=== PATIENT | female | born 1975 | race Caucasian/White ===

== ENCOUNTER 2019-12-07 10:55 | Day surgery (SDC) | payer OTHER ==
[2019-12-03 14:34] VITALS: BMI 31.7
[~2019-12-07 10:55] MED LIST: ALPRAZolam 0.25 MG TAB PO PRN; ALPRAZolam 0.5 MG TAB PO PRN; ASPIRIN 325 MG TAB PO ONE; NITROGLYCERIN SL TABS 0.4 MG TAB SUBLINGUAL PRN; SODIUM CHLORIDE 0.9% 1,000 ML in EMPTY BAG 1 BAG IV ONE
[2019-12-07 11:33] LABS: Glucose,Whole Blood 163 mg/dL (75-99)
[2019-12-07 11:39] VITALS: RESP 16; TEMP 98.2
[2019-12-07] MEDS ORDERED: SODIUM CHLORIDE 0.9% 1,000 ML IV ONE (11:40)
[2019-12-07 12:11] LABS: Basophils # (A) 0.1 k/uL (0-0.2); Basophils % (A) 1 %; Eosinophils # (A) 0.1 k/uL (0-0.7); Eosinophils % (A) 1 %; HCT 38.7 % (34.0-46.0); HGB 12.8 gm/dL (11.4-16.0); Lymphocytes # (A) 1.8 k/uL (1.0-4.8); Lymphocytes % (A) 20 %; MCH 27.3 pg (25.0-35.0); MCHC 33.2 g/dL (31.0-37.0); MCV 82.2 fL (80.0-100.0); Mean Platelet Volume 8.6; Monocytes # (A) 0.4 k/uL (0-1.0); Monocytes % (A) 5 %; Neutrophils # (A) 6.2 k/uL (1.3-7.7); Neutrophils % (A) 72 %; Platelet Count 330 k/uL (150-450); RBC 4.71 m/uL (3.80-5.40); RDW 13.6 % (11.5-15.5); WBC 8.7 k/uL (3.8-10.6)
[2019-12-07 12:21] LABS: African American GFR (CKD) >90 (>60 ml/min/1.73 sqM); Anion Gap 8 mmol/L; Blood Urea Nitrogen 10 mg/dL (7-17); Calcium 9.8 mg/dL (8.4-10.2); Carbon Dioxide 29 mmol/L (22-30); Chloride 102 mmol/L (98-107); Glucose 169 mg/dL (74-99); Non-African American GFR(CKD) >90 (>60 ml/min/1.73 sqM); Potassium 4.1 mmol/L (3.5-5.1); Sodium 139 mmol/L (137-145)
[2019-12-07] MEDS ORDERED: hydrALAZINE HCL 20 MG/ML 1 ML VIAL IV ONE (12:24)
[2019-12-07] MEDS ORDERED: MIDAZOLAM 2 MG/2 ML VIAL IV ONE (12:35)
[2019-12-07] MEDS ORDERED: LIDOCAINE 1% INJ 10MG/ML (20 ML MDV) SQ ONE (12:38)
[2019-12-07] MEDS ORDERED: VERAPAMIL SYRINGE (5 MG/10 ML) INTRAARTER ONE (12:39)
[2019-12-07] MEDS ORDERED: IOPAMIDOL-370 125ML BTL INJ ONE (12:53)
[2019-12-07] MEDS ORDERED: RX INFO: IV CONTRAST WAS GIVEN 1 EACH MISC MISCELLANE PRN (13:06)
[2019-12-07] MEDS ORDERED: SODIUM CHLORIDE 0.9% 1,000 ML IV SCH (13:15)
--- NOTE | 2019-12-07 16:56 | CC ---
CARDIAC CATHETERIZATION REPORT DATE OF SERVICE: 12/07/2019 PERFORMING PHYSICIAN: Zachariah Beltran MD. PROCEDURE PERFORMED: Selective right and left coronary angiogram. INDICATION: This is a 44-year-old female patient who underwent in the past the LAD PW ablations, as well as she is known to have diabetes, hypertension, and dyslipidemia, was experiencing symptoms of chest discomfort. She underwent a stress echocardiogram in the office and that revealed an anterior ischemia and because of that, she was brought today to undergo a heart catheterization. APPROACH: Right radial artery. COMPLICATION: None. LEVEL OF SEDATION: Moderate with sedation length of 18 minutes. PROCEDURE DESCRIPTION: After obtaining an informed consent, the patient was brought to the cardiac labor standards director. The right radial artery was cannulated using micropuncture technique, the micropuncture wire passed easily, then I placed a 6-Nauruan sheath at the right radial artery. After that, I did give the patient 2 mg of verapamil IA and 8000 units of heparin IV. Selective right and left coronary angiogram performed using JR4 and JL3.5 catheters. Left heart catheterization was performed using 5-Nauruan pigtail catheter. The procedure was completed without any complication. SELECTIVE CORONARY ANGIOGRAM: 1. The right coronary artery is a large caliber vessel and it is a dominant vessel. The proximal RCA has mild disease only. The mid RCA has a tubular lesion appeared to be in the range of 80%. 2. The RCA distally has mild disease only and bifurcates into PDA and PLV branches. The PDA branch appeared to be a medium caliber vessel with mild diffuse only and the PLV branch appeared to be angiographically normal. 3. The left main is angiogram is has mild disease only. It bifurcates into LCX and LAD. 4. The LCX is a large caliber vessel, it is a nondominant vessel. The proximal LCX appeared to have intermediate disease only. The mid LCX has a lesion, appeared to be in the range of 80%. The LCX distally appeared to have another lesion in the range of 99.9%. 5. The proximal LAD appeared to have intermediate disease in the range of 60%. The mid LAD has a has a critical lesion in the range of 99.9%. The LAD distally appeared to be appeared to be angiographically normal. The LAD gives rise into a diagonal branch. HEMODYNAMICS: The LVEDP was 12 mmHg with mild gradient across the aortic valve. CONCLUSION: 1. Severe triple-vessel coronary artery disease. 2. Normal left ventricular end-diastolic pressure. 3. Mild gradient across aortic valve. POSTPROCEDURE MANAGEMENT: I advised the patient to undergo coronary artery bypass grafting and to be seen by surgeon today, but the patient would like to go home today and have that done as an outpatient. MMBLAISE / VADIMN: [id number] /
[2019-12-07 18:34] VITALS: BP 154/72; PULSE 65
== END 2019-12-07 18:10 | disposition home or self-care (01) ==
LOC: CATHCVL 10:55
PROVIDERS: ATTEND Internal Medicine Interventional Cardiology
DX: I25.110 Atherosclerotic heart disease of native coronary artery with unstable angina pectoris (principal); R94.39 Abnormal result of other cardiovascular function study; E11.9 Type 2 diabetes mellitus without complications; I10 Essential (primary) hypertension; E78.5 Hyperlipidemia, unspecified; E78.00 Pure hypercholesterolemia, unspecified; Z82.49 Family history of ischemic heart disease and other diseases of the circulatory system; Z72.0 Tobacco use; Z79.82 Long term (current) use of aspirin; Z79.4 Long term (current) use of insulin; Z79.899 Other long term (current) drug therapy
CPT/HCPCS: 93458; 80048; 85025; 81025; C1769; C1894; J2250; J0360; J2001; J1644; Q9967

== ENCOUNTER → 2019-12-18 | Outpatient (CLI) | payer OTHER ==
[2019-12-18 10:28] LABS: HCT 36.3 % (34.0-46.0); HGB 11.4 gm/dL (11.4-16.0); MCH 26.2 pg (25.0-35.0); MCHC 31.4 g/dL (31.0-37.0); MCV 83.6 fL (80.0-100.0); Mean Platelet Volume 8.7; Platelet Count 304 k/uL (150-450); RBC 4.35 m/uL (3.80-5.40); RDW 14.2 % (11.5-15.5); WBC 12.5 k/uL (3.8-10.6)
[2019-12-18 10:41] LABS: Partial Thromboplastin Time 24.4 sec (22.0-30.0); Prothrombin Time 10.3 sec (9.0-12.0)
[2019-12-18 10:59] LABS: Appearance,Urine Cloudy (Clear); Bacteria,Urine Rare /hpf; Bilirubin,Urine Negative (Negative); Blood,Urine Negative (Negative); Budding Yeast,Urine Rare /hpf; Color,Urine Light Yellow; Glucose,Urine (UA) Trace (Negative); Ketones,Urine Negative (Negative); Leukocyte Esterase,Urine Large (Negative); Mucus,Urine Rare /hpf; Nitrite,Urine Negative (Negative); PH, Urine 5.5 (5.0-8.0); Protein,Urine Negative (Negative); RBC,Urine 4 /hpf (0-5); Specific Gravity,Urine 1.007 (1.001-1.035); Squamous Epithelial Cell,Urine 3 /hpf (0-4); Urobilinogen,Urine <2.0 mg/dL (<2.0); WBC,Urine 14 /hpf (0-5)
--- NOTE | 2019-12-18 12:04 | XR ---
EXAMINATION TYPE: XR chest 2V DATE OF EXAM: 12/18/2019 COMPARISON: NONE TECHNIQUE: PA and lateral views submitted. HISTORY: Preoperative x-ray FINDINGS: The lungs are clear and there is no pneumothorax, pleural effusion, or focal pneumonia. No overt fa ilure. Hypertrophic and degenerative change of the spine. IMPRESSION: 1. No acute process.
[2019-12-18 15:47] LABS: African American GFR (CKD) 103.9 (60.0-200.0); Albumin 4.5 g/dL (3.80-4.90); Albumin/Globulin Ratio 1.96 (1.60-3.17); Anion Gap 13.2 mmol/L (4.00-12.00); BUN/Creat Ratio 12.5 Ratio (12.00-20.00); Calcium 10.1 mg/dL (8.7-10.3); Carbon Dioxide 28.8 mmol/L (21.6-31.8); Chol/HDL Ratio 3.03; Globulin 2.3 g/dL (1.6-3.3); LDL Cholesterol,Calculated 53.8 mg/dL (0.0-131.0); Magnesium 1.6 mg/dL (1.5-2.4); Non-African American GFR(CKD) 89.7 (60.0-200.0); Potassium 4.1 mmol/L (3.5-5.5); Total Bilirubin 0.9 mg/dL (0.3-1.2); Total Protein 6.8 g/dL (6.2-8.2); VLDL Calculation 21.2 mg/dL (5.00-40.00)
--- NOTE | 2019-12-18 16:09 | US ---
EXAMINATION TYPE: US carotid duplex BILAT DATE OF EXAM: 12/18/2019 COMPARISON: NONE CLINICAL HISTORY: I25.10 Atherosclerotic heart disease of [place] cor. Pre heart surgery. EXAM MEASUREMENTS: RIGHT: Peak Systolic Velocity (PSV) cm/sec ----- Right CCA: 61.9 ----- Right ICA: 234.7 ----- Right ECA: 491.1 ICA/CCA ratio: 3.8 RIGHT: End Diastole cm/sec ----- Right CCA: 16.9 ----- Right ICA: 89.2 ----- Right ECA: 0 LEFT: Peak Systolic Velocity (PSV) cm/sec ----- Left CCA: 82.3 ----- Left ICA: 99.5 ----- Left ECA: 212.1 ICA/CCA ratio: 1.2 LEFT: End Diastole cm/sec ----- Left CCA: 24.1 ----- Left ICA: 31.7 ----- Left ECA: 0 VERTEBRALS (direction of flow): Right Vertebral: Antegrade Left Vertebral: Antegrade Rhythm: Normal Turbulent flow within the right internal carotid artery system is evident. Elevated velocities bilate rally. IMPRESSION: 1. There is significant flow-limiting stenosis within the right internal carotid artery greater than 70% based on velocities. Atheromatous plaquing is evident. 2. Plaquing present on the left appears milder without elevated velocity. There is however elevated velocity within left external carotid artery. Criteria for Assigning % of Stenosis / Diameter reduction (Estimation based on the indirect measurements of the internal carotid artery velocities (ICA PSV). 1. Normal (no stenosis)=ICA PSV < 125 cm/s: ratio < 2.0: ICA EDV<40 cm/s. 2. Less than 50% stenosis=ICA PSV < 125 cm/s: ratio < 2.0: ICA EDV<40 cm/s. 3. 50 to 69% stenosis=ICA PSV of 125 to 230 cm/s: ration 2.0 ? 4.0: ICA EDV 40-100 cm/s. 4. Greater than 70% stenosis to near occlusion= ICA PSV > 230 cm/s: ratio > 4.0: ICA EDV > 100 cm/s. 5. Near occlusion= ICA PSV velocities may be low or undetectable: variable ratio and ICA EDV. 6. Total occlusion=unable to detect flow. A Yellow level critical message alert has been initiated for Odell Kelly MD via the [employer] Critical Results System on 12/18/2019 4:06 PM. This message alert has been sent to [facility] via the preferences provided by the clinician for the receipt of Radiology Critical Findings. Get[employer] ID [id number].
[2019-12-18 16:35] LABS: Hepatitis A Antibody IgM Non-Reactive (Non-Reactive); Hepatitis B Core IgM Non-Reactive (Non-Reactive); Hepatitis B Surface Antigen Non-Reactive (Non-Reactive); Hepatitis C IgG Antibody Non-Reactive (Non-Reactive)
[2019-12-18 16:42] LABS: Hemoglobin A1C 7.3 % (4.0-6.0)
--- NOTE | 2019-12-23 13:01 | P.VSCSTY ---
Greater Saphenous Vein Mapping This is bilateral lower extremity greater saphenous vein mapping. Date of service: 12/18/2019 Vein quality and ultrasound appearance: Oh endoluminal thrombus or wall changes are seen. Vein size groin right : 9.0 x 67.7 groin left: 6.7 x 6.1 High thigh right: 7.2 x 6.2 high thigh left: 5.6 x 3.5 Mid thigh right: 4.8 x 4.5 mid thigh left: 6.2 x 3.8 Above-knee right: 3.3 x 2.8 above- knee left: 4.3 x 4.0 Below knee right: 3.1 x 2.2 below-knee left: 4.0 x 3.5 Mid calf right: 2.1 x 2.0 mid calf left: 4.3 x 2.5 Ankle right: 2.3 x 2.3 ankle left: 1.5 x 1.4 Impression: Usable bilateral greater saphenous vein. Distal vein at the left ankle is small..
--- NOTE | 2019-12-23 13:02 | P.ARTDOP ---
Arterial Doppler LOWER EXTREMITY ARTERIAL DOPPLER: DATE OF SERVICE: 12/18/2019 Reason for study: Prepped CABG. Doppler waveforms: Multiphasic bilaterally throughout. Pulse volume recording: []. Pressure gradients: None. Ankle-brachial indices: 0.98 on the right and greater than 1 on the left.. Toe brachial indices: [] on the right, [] on the left Impression: Normal study.
== END | disposition home or self-care (01) ==
LOC: LABWHC1 09:00
PROVIDERS: ATTEND Surgery
DX: I65.21 Occlusion and stenosis of right carotid artery (principal); Z88.2 Allergy status to sulfonamides; Z88.8 Allergy status to other drugs, medicaments and biological substances
CPT/HCPCS: 36415; 71046; 80053; 80061; 80074; 81001; 83036; 83735; 84443; 85027; 85610; 85730; 87070; 87086; 93005; 93880; 93922; 93923; 93970; 94150

== ENCOUNTER → 2020-01-06 | Outpatient (CLI) | payer OTHER ==
[2020-01-06 08:14] LABS: African American GFR (CKD) >90 (>60 ml/min/1.73 sqM); Blood Urea Nitrogen 8 mg/dL (7-17); Non-African American GFR(CKD) >90 (>60 ml/min/1.73 sqM)
--- NOTE | 2020-01-06 10:19 | CT ---
EXAMINATION TYPE: CT head without contrast CT angio head neck DATE OF EXAM: 01/06/2020 COMPARISON: None HISTORY: 44-year-old female I65.29, pre-open heart surgery, abnormal US at [facility], pre open heart TECHNIQUE: Contiguous axial scanning of the head without IV contrast. Subsequent scanning of the head and neck performed with IV Contrast, patient injected with 65 mL of Isovue 370. Coronal/sagittal MIP reconstructions performed. 3-D reconstructions generated on a dedicated workstation. CT DLP: 1171.4 mGycm Automated exposure control for dose reduction was used. FINDINGS: NONCONTRAST CT HEAD: No evidence for acute intracranial hemorrhage, acute ischemic change, mass, mass effect, midline shif t, or extra-axial fluid collection. No hydrocephalus. No effacement of cerebral sulci or basal subara chnoid cisterns. Carter-white matter differentiation is maintained. Subtle benign basal ganglionic calcifications on the right. Mild cerebral cortical atrophy. Paranasal sinuses and mastoid air cells well pneumatized. Orbits and globes are intact. CTA NECK: 4 mm peripheral right upper lobe pulmonary nodule. Six-month follow-up CT chest recommended to reasse ss and survey remainder of the lungs. There is direct takeoff of the left vertebral artery directly from the aortic arch. Left vertebral ar bunny is dominant. Both vertebral arteries are patent throughout their course. The right common carotid artery is patent. There is circumferential plaque narrowing the right carotid bulb down to 2.0 mm. This is a moderate, proximally 60% proximal ICA stenosis. Left common and internal carotid arteries are patent. Mild atherosclerotic calcification plaque at th e left carotid bifurcation without significant narrowing. CTA HEAD: V4 segment right vertebral artery becomes markedly hypoplastic. Focal short segment moderate atherosc lerotic narrowing upper third basilar artery, series 18 and axial image 14. Atherosclerotic calcifications within the right carotid siphon with the largest focus in the right smiley praclinoid region making it difficult to determine the size of the patent lumen, refer to axial image 13 and coronal series 19 image 39. Otherwise, remainder of the anterior circulation is patent. No aneurysmal change is seen. IMPRESSION: 1. HEAD: Mild cerebral cortical atrophy without acute intracranial abnormality seen. 2. CTA NECK: Circumferential plaque narrowing the right carotid bulb resulting in a moderate, 60% pro ximal ICA stenosis. Variant direct takeoff of a dominant left vertebral artery directly from the aort ic arch. 3. CTA HEAD: Focal short segment moderate narrowing of the upper third basilar artery. Focal calcific ation along the supraclinoid right ICA may contribute to a moderate or moderate to severe focal steno sis. Consider MRA [place] of [place] to further evaluate. V4 segment right vertebral artery becomes mar kedly hypoplastic. 4. INCIDENTAL: 4 mm right upper lobe pulmonary nodule. 6 month follow-up CT chest recommended to reas sess and also to survey the remainder of the lungs.
== END | disposition home or self-care (01) ==
LOC: RADCTMAIN 07:31
PROVIDERS: ATTEND Surgery
DX: G31.9 Degenerative disease of nervous system, unspecified (principal); R91.1 Solitary pulmonary nodule; I65.29 Occlusion and stenosis of unspecified carotid artery
CPT/HCPCS: 82565; 84520; 70496; 70498; 36415; Q9967

== ENCOUNTER → 2020-01-19 | Outpatient (CLI) | payer OTHER ==
[2020-01-19 09:55] LABS: Partial Thromboplastin Time 24.4 sec (22.0-30.0); Prothrombin Time 10.3 sec (9.0-12.0)
[2020-01-19 09:59] LABS: ALT 18 U/L (4-34); AST 20 U/L (14-36); African American GFR (CKD) >90 (>60 ml/min/1.73 sqM); Albumin 4.9 g/dL (3.5-5.0); Alkaline Phosphatase 52 U/L (38-126); Anion Gap 10 mmol/L; Blood Urea Nitrogen 10 mg/dL (7-17); Calcium 10.4 mg/dL (8.4-10.2); Carbon Dioxide 27 mmol/L (22-30); Chloride 104 mmol/L (98-107); Glucose 182 mg/dL (74-99); Non-African American GFR(CKD) >90 (>60 ml/min/1.73 sqM); Potassium 4.8 mmol/L (3.5-5.1); Sodium 141 mmol/L (137-145); Total Bilirubin 0.8 mg/dL (0.2-1.3)
[2020-01-19 10:00] LABS: HCT 39.7 % (34.0-46.0); HGB 12.9 gm/dL (11.4-16.0); MCH 27.5 pg (25.0-35.0); MCHC 32.4 g/dL (31.0-37.0); MCV 84.8 fL (80.0-100.0); Mean Platelet Volume 8.5; Platelet Count 326 k/uL (150-450); RBC 4.68 m/uL (3.80-5.40); RDW 14.6 % (11.5-15.5); WBC 9.6 k/uL (3.8-10.6)
== END | disposition home or self-care (01) ==
LOC: LABPAT 08:59
PROVIDERS: ATTEND Surgery
DX: I25.10 Atherosclerotic heart disease of native coronary artery without angina pectoris (principal)
CPT/HCPCS: 80053; 85027; 85610; 85730; 36415; U0003

== ENCOUNTER 2020-01-21 05:52 | Inpatient (IN) | payer OTHER ==
--- NOTE | 2020-01-20 11:24 | P.ARTDOP ---
Arterial Doppler Bilateral radial artery studies: Date of study: 01/19/2020 Reason for study: Pre-CABG Findings: Doppler assessment shows no segmental or right to left pressure gradients. Digital plethysmography with radial artery compression shows no significant pressure changes. Imaging shows the right radial to be 2.4 x 2.6 mm proximally, 2.0 x 2.3 mm mid and 2.0 x 2.0 millimeters distally. Left radial is 2.5 x 2.3 mm proximally, 2.2 x 2.3 mm mid, and 2.3 x 1.9 mm distally Both radial arteries appear usable. Clinical correlation recommended.
[~2020-01-21 05:52] MED LIST changes: +ALBUMIN HUMAN 25% 50 ML IV ONE; +ALBUMIN HUMAN 5% 500 ML IVPB ONE; -ALPRAZolam 0.25 MG TAB PO PRN; -ALPRAZolam 0.5 MG TAB PO PRN; +ATORVASTATIN 10 MG TAB PO ONE; +CALCIUM CHLORIDE 100 MG/ML 10 ML SYRINGE IV ONE; +CHLORHEXIDINE GLUCONATE 15 ML CUP MUCOUS MEM ONE; +CLEVIDIPINE BUTYRATE 25 MG in EMPTY BAG 1 BAG IV ONE; +DEXTROSE 5% IN WATER 1,000 ML with POTASSIUM CHLORIDE 110 MEQ, MAGNESIUM SULFATE 16 MEQ... IV ONE; +DEXTROSE 5% IN WATER 1,000 ML with POTASSIUM CHLORIDE 25 MEQ, SODIUM CHLORIDE 2.5MEQ/ML... IRRIGATION ONE; +DILTIAZEM 125 MG in SODIUM CHLORIDE 0.9% 100 ML IV ONE; +HEPARIN SODIUM 1,000 UN/ML (10ML VL) IV ONE; +HEPARIN SODIUM,PORCINE 5,000 UNIT in SODIUM CHLORIDE 0.9% 500 ML 500 ML IV ONE; +INSULIN REGULAR 100 UNIT in SODIUM CHLORIDE 0.9% 100 ML IV ONE; +LACTATED RINGERS 1,000 ML IV ONE; +MAGNESIUM SULFATE MG 500 MG/ML IV ONE; +MANNITOL 25% 12.5 GM/50 ML VIAL IV ONE; +METOPROLOL TARTRATE 12.5 MG TAB PO ONE; -NITROGLYCERIN SL TABS 0.4 MG TAB SUBLINGUAL PRN; +NITROGLYCERIN-D5W PMX 25 MG/250 ML BTL IV ONE; +NITROGLYCERIN-D5W PMX 50 MG in DEXTROSE/WATER 1 250ML.BAG IV ONE; +NOREPINEPHRINE 4 MG in SODIUM CHLORIDE 0.9% 250 ML IV ONE; +PAPAVERINE 360 MG in SODIUM CHLORIDE 0.9% 90 ML IV ONE; +PHENYLEPHRINE 10 MG/ML VIAL IV ONE; +PHENYLEPHRINE 40 MG in SODIUM CHLORIDE 0.9% 250 ML IV ONE; +PROPOFOL 1,000 MG/100 ML VIAL IV ONE; +PROTAMINE SULFATE 10 MG/ML 25 ML VIAL IV ONE; +PROTAMINE SULFATE 250 MG in EMPTY BAG 1 BAG IV ONE; +SODIUM BICARB 8.4% 50 ML SYR (1 MEQ/ML) IV ONE; +SODIUM CHLORIDE 0.9% 1,000 ML IV ONE; -SODIUM CHLORIDE 0.9% 1,000 ML in EMPTY BAG 1 BAG IV ONE; +TRANEXAMIC ACID 2,000 MG in SODIUM CHLORIDE 0.9% 80 ML IV ONE; +ceFAZolin 1,000 MG in SODIUM CHLORIDE 0.9% IRRIGATIO 1,000 ML IRRIGATION ONE; +ceFAZolin 2,000 MG in SODIUM CHLORIDE 0.9% 30 ML IVPB ONE
[2020-01-21] MEDS ORDERED: TRANEXAMIC ACID 2,000 MG in SODIUM CHLORIDE 0.9% 80 ML IV ONE (06:00)
[2020-01-21] MEDS ORDERED: LIDOCAINE 1% (10MG/ML) FOR IV START INTRADERMA ONE (06:24)
[2020-01-21 06:39] LABS: Glucose,Whole Blood 142 mg/dL (75-99)
[2020-01-21] MEDS ORDERED: LIDOCAINE 2% SYG (PF) 100 MG/5 ML ONE (07:48)
[2020-01-21] MEDS ORDERED: HEPARIN SODIUM,PORCINE 10,000 UNIT/ML 1 ML VIAL ONE (07:48)
[2020-01-21] MEDS ORDERED: PROTAMINE SULFATE 10 MG/ML 25 ML VIAL IV ONE (07:48)
[2020-01-21] MEDS ORDERED: SODIUM CHLORIDE 0.9% 250 ML BAG ONE (07:48)
[2020-01-21] MEDS ORDERED: fentaNYL (PF) 50 MCG/ML 50 ML VIAL ONE (07:48)
[2020-01-21] MEDS ORDERED: PROPOFOL 10 MG/ML 20 ML VIAL IV ONE (07:48)
[2020-01-21] MEDS ORDERED: VECURONIUM 10 MG VIAL IV ONE (07:48)
[2020-01-21] MEDS ORDERED: ALBUMIN HUMAN 5% (25gm) 500 ML VIAL IVPB ONE (07:48)
[2020-01-21] MEDS ORDERED: NITROGLYCERIN-D5W PMX 50 MG/250 ML BOTTLE IV ONE (07:48)
[2020-01-21] MEDS ORDERED: INSULIN REGULAR 100 UNIT/ML VIAL ONE (07:48)
[2020-01-21] MEDS ORDERED: TRANEXAMIC ACID 1,000 MG/10 ML VIAL ONE (07:48)
[2020-01-21] MEDS ORDERED: POTASSIUM CHLORIDE OPEN HEART 20 MEQ/50 ML BAG IVPB ONE (07:48)
[2020-01-21] MEDS ORDERED: fentaNYL (PF) 50 MCG/ML 2 ML AMP ONE (07:48)
[2020-01-21] MEDS ORDERED: SODIUM CHLORIDE 0.9% IRRIG 1,000 ML BTL IRRIGATION ONE (07:48)
[2020-01-21] MEDS ORDERED: MAGNESIUM SULFATE 4 MEQ/ML 10ML VIAL ONE (07:48)
[2020-01-21] MEDS ORDERED: ELECTROLYTE-R (PH 7.4) 1,000 ML IV.SOLN IV ONE (07:48)
[2020-01-21] MEDS ORDERED: MIDAZOLAM 2 MG/2 ML VIAL ONE (07:48)
[2020-01-21 08:36] LABS: ABG Base Excess 1.6 mmol/L; ABG Glucose Whole Blood 133 mg/dL (75-99); ABG HCO3 26 mmol/L (21-25); ABG Hematocrit 33 % (34.0-46.0); ABG Ionized Calcium 4.8 mg/dL (4.5-5.3); ABG Lactic Acid Whole Blood 0.7 mmol/L (0.5-1.6); ABG Oxygen Saturation 98.1 % (94-97); ABG PCO2 38 mmHg (35-45); ABG PH 7.44 (7.35-7.45); ABG PO2 97 mmHg (83-108); ABG Potassium Whole Blood 3.7 mmol/L (3.4-4.5); ABG Sodium Whole Blood 142 mmol/L (135-146); ABG TCO2 27 mmol/L (19-24)
[2020-01-21] MEDS ORDERED: PAPAVERINE 360 MG in SODIUM CHLORIDE 0.9% 90 ML IV ONE (09:55)
[2020-01-21] MEDS ORDERED: SODIUM CHLORIDE 0.9% 500 ML 500 ML with HEPARIN SODIUM,PORCINE 5,000 UNIT IV ONE ×2 (09:55)
[2020-01-21] MEDS ORDERED: ceFAZolin 1,000 MG in SODIUM CHLORIDE 0.9% 1,000 ML IRRIGATION ONE (09:56)
[2020-01-21 11:50] LABS: ABG Base Excess 0.1 mmol/L; ABG Glucose Whole Blood 143 mg/dL (75-99); ABG HCO3 24 mmol/L (21-25); ABG Hematocrit 26 % (34.0-46.0); ABG Ionized Calcium 4.7 mg/dL (4.5-5.3); ABG Lactic Acid Whole Blood 0.5 mmol/L (0.5-1.6); ABG Oxygen Saturation 99.5 % (94-97); ABG PCO2 37 mmHg (35-45); ABG PH 7.43 (7.35-7.45); ABG PO2 162 mmHg (83-108); ABG Potassium Whole Blood 3.4 mmol/L (3.4-4.5); ABG Sodium Whole Blood 141 mmol/L (135-146); ABG TCO2 26 mmol/L (19-24)
[2020-01-21 12:32] LABS: ABG Base Excess -0.6 mmol/L; ABG Glucose Whole Blood 137 mg/dL (75-99); ABG HCO3 25 mmol/L (21-25); ABG Ionized Calcium 4.6 mg/dL (4.5-5.3); ABG Lactic Acid Whole Blood 0.5 mmol/L (0.5-1.6); ABG Oxygen Saturation 99.8 % (94-97); ABG PCO2 41 mmHg (35-45); ABG PH 7.38 (7.35-7.45); ABG PO2 174 mmHg (83-108); ABG Potassium Whole Blood 3.2 mmol/L (3.4-4.5); ABG Sodium Whole Blood 142 mmol/L (135-146); ABG TCO2 26 mmol/L (19-24)
[2020-01-21 13:31] LABS: ABG Base Excess -1.3 mmol/L; ABG Glucose Whole Blood 125 mg/dL (75-99); ABG HCO3 24 mmol/L (21-25); ABG Ionized Calcium 4.3 mg/dL (4.5-5.3); ABG Lactic Acid Whole Blood 0.5 mmol/L (0.5-1.6); ABG PCO2 39 mmHg (35-45); ABG PH 7.39 (7.35-7.45); ABG PO2 356 mmHg (83-108); ABG Potassium Whole Blood 3.7 mmol/L (3.4-4.5); ABG Sodium Whole Blood 140 mmol/L (135-146); ABG TCO2 25 mmol/L (19-24)
[2020-01-21 14:02] LABS: ABG Base Excess -2.1 mmol/L; ABG Glucose Whole Blood 193 mg/dL (75-99); ABG HCO3 23 mmol/L (21-25); ABG Ionized Calcium 4.4 mg/dL (4.5-5.3); ABG Lactic Acid Whole Blood 0.5 mmol/L (0.5-1.6); ABG Oxygen Saturation 99.9 % (94-97); ABG PCO2 42 mmHg (35-45); ABG PH 7.35 (7.35-7.45); ABG PO2 317 mmHg (83-108); ABG Potassium Whole Blood 4.4 mmol/L (3.4-4.5); ABG Sodium Whole Blood 140 mmol/L (135-146); ABG TCO2 25 mmol/L (19-24)
[2020-01-21 14:33] LABS: ABG Base Excess 4.6 mmol/L; ABG Glucose Whole Blood 206 mg/dL (75-99); ABG HCO3 30 mmol/L (21-25); ABG Ionized Calcium 4.2 mg/dL (4.5-5.3); ABG Lactic Acid Whole Blood 0.9 mmol/L (0.5-1.6); ABG Oxygen Saturation 99.7 % (94-97); ABG PCO2 46 mmHg (35-45); ABG PH 7.42 (7.35-7.45); ABG PO2 210 mmHg (83-108); ABG Potassium Whole Blood 3.9 mmol/L (3.4-4.5); ABG Sodium Whole Blood 143 mmol/L (135-146); ABG TCO2 31 mmol/L (19-24)
[2020-01-21 15:10] LABS: ABG Base Excess 0.6 mmol/L; ABG Glucose Whole Blood 233 mg/dL (75-99); ABG HCO3 26 mmol/L (21-25); ABG Ionized Calcium 4.3 mg/dL (4.5-5.3); ABG Lactic Acid Whole Blood 1.7 mmol/L (0.5-1.6); ABG PCO2 43 mmHg (35-45); ABG PH 7.38 (7.35-7.45); ABG PO2 302 mmHg (83-108); ABG Potassium Whole Blood 3.9 mmol/L (3.4-4.5); ABG Sodium Whole Blood 140 mmol/L (135-146); ABG TCO2 27 mmol/L (19-24)
[2020-01-21] MEDS ORDERED: MUPIROCIN 2% OINT 22 GM TUBE NASAL ONE (15:15)
[2020-01-21 15:47] LABS: ABG Base Excess -1.1 mmol/L; ABG Glucose Whole Blood 178 mg/dL (75-99); ABG HCO3 24 mmol/L (21-25); ABG Ionized Calcium 4.4 mg/dL (4.5-5.3); ABG Oxygen Saturation 99.7 % (94-97); ABG PCO2 44 mmHg (35-45); ABG PH 7.36 (7.35-7.45); ABG PO2 242 mmHg (83-108); ABG Potassium Whole Blood 3.9 mmol/L (3.4-4.5); ABG Sodium Whole Blood 141 mmol/L (135-146); ABG TCO2 26 mmol/L (19-24)
[2020-01-21 16:39] LABS: ABG Base Excess 0.4 mmol/L; ABG Glucose Whole Blood 132 mg/dL (75-99); ABG HCO3 25 mmol/L (21-25); ABG Hematocrit 26 % (34.0-46.0); ABG Ionized Calcium 4.5 mg/dL (4.5-5.3); ABG Oxygen Saturation 97.9 % (94-97); ABG PCO2 40 mmHg (35-45); ABG PH 7.41 (7.35-7.45); ABG PO2 99 mmHg (83-108); ABG Potassium Whole Blood 3.3 mmol/L (3.4-4.5); ABG Sodium Whole Blood 142 mmol/L (135-146); ABG TCO2 26 mmol/L (19-24)
[2020-01-21 17:01] LABS: ABG Hematocrit 24 % (34.0-46.0)
[2020-01-21 17:02] LABS: ABG Hematocrit 23 % (34.0-46.0)
[2020-01-21 17:02] LABS: ABG Hematocrit 22 % (34.0-46.0)
[2020-01-21 17:03] LABS: ABG Hematocrit 22 % (34.0-46.0)
[2020-01-21 17:03] LABS: ABG Hematocrit 22 % (34.0-46.0)
[2020-01-21 17:04] LABS: ABG Hematocrit 22 % (34.0-46.0); ABG Lactic Acid Whole Blood 2.7 mmol/L (0.5-1.6)
[2020-01-21] MEDS ORDERED: PROPOFOL 1,000 MG in EMPTY BAG 1 BAG IV SCH (17:17)
[2020-01-21] MEDS ORDERED: DEXTROSE 5% IN WATER 100 ML with AMIODARONE 150 MG IV PRN (17:17)
[2020-01-21] MEDS ORDERED: NITROGLYCERIN-D5W PMX 50 MG in DEXTROSE/WATER 1 250ML.BAG IV SCH (17:17)
[2020-01-21] MEDS ORDERED: DILTIAZEM 125 MG in SODIUM CHLORIDE 0.9% 100 ML IV SCH (17:17)
[2020-01-21] MEDS ORDERED: IPRATROPIUM-ALBUTEROL 3 ML NEB INHALATION PRN (17:17)
[2020-01-21] MEDS ORDERED: ALBUMIN HUMAN 5% 250 ML in EMPTY BAG 1 BAG IVPB PRN (17:17)
[2020-01-21] MEDS ORDERED: hydrALAZINE HCL 20 MG/ML 1 ML VIAL IVP PRN (17:17)
[2020-01-21] MEDS ORDERED: AMIODARONE 360 MG in DEXTROSE 5% IN WATER 200 ML IV PRN ×2 (17:17)
[2020-01-21] MEDS ORDERED: METOCLOPRAMIDE 5 MG/ML 2 ML VIAL IVP PRN (17:17)
[2020-01-21] MEDS ORDERED: Magnesium Replacement Protocol 1 EACH MISC MISCELLANE PRN (17:17)
[2020-01-21] MEDS ORDERED: BENZOCAINE/MENTHOL LOZENG 1 EACH LOZENGE MUCOUS MEM PRN (17:17)
[2020-01-21] MEDS ORDERED: Potassium Replacement Protocol 1 EACH MISC MISCELLANE PRN (17:17)
[2020-01-21] MEDS ORDERED: Phosphorus Replacement Protoco 1 EACH MISC MISCELLANE PRN (17:17)
[2020-01-21] MEDS ORDERED: CALCIUM GLUCONATE 2 GM in SODIUM CHLORIDE 0.9% 100 ML IVPB PRN (17:17)
[2020-01-21] MEDS ORDERED: AMIODARONE 300 MG in DEXTROSE 5% IN WATER 250 ML IV PRN ×2 (17:17)
[2020-01-21 18:06] LABS: Glucose,Whole Blood 99 mg/dL (75-99)
[2020-01-21 18:13] LABS: Basophils % (A) 0 %; Eosinophils % (A) 0 %; HCT 24.1 % (34.0-46.0); Lymphocytes # (A) 2.2 k/uL (1.0-4.8); Lymphocytes % (A) 20 %; MCH 28.3 pg (25.0-35.0); MCHC 33.7 g/dL (31.0-37.0); MCV 84.1 fL (80.0-100.0); Monocytes # (A) 0.7 k/uL (0-1.0); Monocytes % (A) 7 %; Neutrophils # (A) 8.1 k/uL (1.3-7.7); Neutrophils % (A) 72 %; RBC 2.86 m/uL (3.80-5.40); RDW 14.7 % (11.5-15.5); WBC 11.2 k/uL (3.8-10.6)
[2020-01-21] MEDS: MORPHINE SULFATE 2 MG/ML SYRINGE IVP PRN ×2 (18:13→23:43)
--- NOTE | 2020-01-21 18:17 | XR ---
EXAMINATION TYPE: XR chest 1V portable DATE OF EXAM: 01/21/2020 COMPARISON: 12/18/2019 HISTORY: Preop cardiac surgery TECHNIQUE: FINDINGS: Endotracheal tube is 3.5 cm from the chon. There is some coarse interstitial density in t he mid and lower lung avelar. There is right jugular catheter with the tip in the main pulmonary kings ry. There is nasogastric tube in the stomach. There is no definite pleural effusion. Atrium. IMPRESSION: There is some mild pulmonary interstitial edema that appears new compared to recent exam. No pulmonary consolidation.
[2020-01-21 18:20] LABS: HGB 8.1 gm/dL (11.4-16.0); Platelet Count 161 k/uL (150-450)
[2020-01-21 18:21] LABS: INR 1.2 (<1.2); Partial Thromboplastin Time 26.2 sec (22.0-30.0); Prothrombin Time 12.5 sec (9.0-12.0)
[2020-01-21] MEDS: SODIUM CHLORIDE 0.9% 1,000 ML IV SCH (18:23)
[2020-01-21] MEDS: CLEVIDIPINE BUTYRATE 25 MG in EMPTY BAG 1 BAG IV SCH (18:24)
[2020-01-21 18:25] LABS: ALT 11 U/L (4-34); AST 42 U/L (14-36); African American GFR (CKD) >90 (>60 ml/min/1.73 sqM); Albumin 3.6 g/dL (3.5-5.0); Alkaline Phosphatase 24 U/L (38-126); Anion Gap 9 mmol/L; Blood Urea Nitrogen 7 mg/dL (7-17); Calcium 8.7 mg/dL (8.4-10.2); Carbon Dioxide 25 mmol/L (22-30); Chloride 108 mmol/L (98-107); Glucose 93 mg/dL (74-99); Magnesium 2.4 mg/dL (1.6-2.3); Non-African American GFR(CKD) >90 (>60 ml/min/1.73 sqM); Potassium 3.9 mmol/L (3.5-5.1); Sodium 142 mmol/L (137-145); Total Bilirubin 0.8 mg/dL (0.2-1.3); Total Protein 5.6 g/dL (6.3-8.2)
[2020-01-21 18:35] LABS: ABG Base Excess 0.5 mmol/L; ABG HCO3 27 mmol/L (21-25); ABG Oxygen Saturation 99.8 % (94-97); ABG PCO2 51 mmHg (35-45); ABG PH 7.33 (7.35-7.45); ABG PO2 314 mmHg (83-108); ABG TCO2 28 mmol/L (19-24)
--- NOTE | 2020-01-21 18:36 | OP ---
OPERATIVE REPORT DATE OF SURGERY: 01/21/2020. SURGEON: Dr. Odell Kelly. ASSISTANTS: 1. YOVANNY Jones. 2. YOVANNY Jose. PREOPERATIVE DIAGNOSES: 1. Severe diffuse triple-vessel coronary artery disease. 2. Preserved left ventricular function. 3. Diabetes mellitus. 4. Hypertension. 5. Hyperlipidemia. 6. Status post ablation for Vebqg-Gfwofvdaj-Whdsn syndrome. POSTOPERATIVE DIAGNOSIS: 1. Severe diffuse triple-vessel coronary artery disease. 2. Preserved left ventricular function. 3. Diabetes mellitus. 4. Hypertension. 5. Hyperlipidemia. 6. Status post ablation for Zxtdz-Uujdpymbn-Pdyih syndrome. PROCEDURE: 1. Triple-vessel coronary artery bypass grafting using the left internal mammary artery to the left anterior descending artery, left radial artery from the aorta to the right coronary artery, reverse saphenous vein graft from the aorta to the distal circumflex artery. 2. Exclusion of the left atrial appendage using a 35 mm AtriClip. 3. Endoscopic harvesting of the left radial artery. 4. Endoscopic harvesting of the right greater saphenous vein. 5. Intraoperative transesophageal echocardiogram and epiaortic scanning. 6. Intraoperative graft flow measurements using the Intradiemstim system. INDICATION FOR SURGERY: Patient is a 44-year-old lady with metabolic syndrome with several admissions with chest pain. Workup had shown diffuse triple-vessel coronary artery disease. Left ventricular function preserved. A discussion followed with the patient and Cardiology, and we decided in view of her age and despite the diffuse distal and midway coronary artery disease to proceed with surgical revascularization in an attempt to at least improve the inflows, hoping to control this lady's angina. Her HbA1c was 7.3. The STS risk was discussed with her. She understood it and agreed to proceed. DESCRIPTION OF THE PROCEDURE: With the patient in supine position, a right internal jugular Orrtanna-Aniya catheter and a right brachial arterial line were placed. The patient had good PA pressure and good cardiac index. Subsequently she was brought to the operating room, where general endotracheal anesthesia was induced uneventfully. Garcia catheter was inserted. The patient received 2 grams of cefazolin intravenously. Subsequently the chest, abdomen, both lower extremities and left upper extremity were prepped and draped using ChloraPrep. Ioban was used to cover the skin. Transesophageal echocardiogram confirmed the preoperative finding of preserved left ventricular function and no significant valvular abnormality. Midline sternotomy was performed and the bone was moderately osteoporotic. No bone wax was used. The left hemisternum was elevated and the left internal mammary artery was harvested in a somewhat skeletonized fashion. The left pleura was intentionally opened in this process and was drained with a 19-Japanese Reinaldo drain. There was a small breach in the right pleura at the end of the case and the right pleural cavity was not drained. In the same setting, the left radial artery was harvested endoscopically. It was initially exposed at the wrist, and a clamping trial revealed preserved signal at the level of the left index O2 saturation probe. The forearm incision was closed over a drain. The radial artery was prepared by incising the fascia all along its volar aspect and it was around 2 mm in diameter. In the same setting, the right greater saphenous vein was harvested endoscopically from groin to above ankle level. At the level of the thigh, it was very dilated and there were plenty of branches at the level of the knee, but we had a reasonable segment from the lower leg, which was prepared. It was around 3-4 mm in diameter and thin-walled. The leg incisions were closed over a drain. Mediastinal fat was transected between 2 ties and epiaortic scanning revealed concentric intimal thickening but no protruding atheroma in the ascending aorta. Pericardium was opened in an inverted T-fashion and pericardial cradle was created. Findings included a soft short aorta, normal-sized heart and visible and palpable, partially calcific diffuse coronary artery disease. After systemic heparinization and after placement of respective pledgeted pursestrings, aortic cannulation at the level of the proximal arch with a 21-Japanese Soft flow cannula and venous cannulation of the level of the right atrial appendage were performed. Antegrade as well as retrograde cardioplegia catheters were placed. The mammary artery was clipped distally and transected. It had an excellent pulsatile flow in it and was around 1.7 mm in diameter. Cardiopulmonary bypass was initiated and patient's temperature was allowed to drift down to 34 degrees Celsius. With the heart empty and beating, we looked at the target. The LAD in its mid aspect before the takeoff of a diagonal artery as planned on catheterization was a site for bypass. The distal circumflex artery had scattered diffuse disease in it, and we picked a soft spot anteriorly in its mid to distal aspect. The posterior descending artery was diffusely diseased as seen on catheterization. We were able to identify the right coronary artery before its bifurcation and there was a segment with a soft anterior wall; however, with an eccentric calcific plaque. This was selected as a site for bypass. Aorta was clamped, and during aortic clamping myocardial protection was achieved with an initial dose of 800 mL of antegrade cold blood cardioplegia followed by 400 mL of retrograde cold blood cardioplegia. All subsequent doses were given retrograde at 15- to 20-minute intervals. We started by excluding the left atrial appendage with a 35 mm AtriClip deployed at its base at the beginning of the case. The first distal anastomosis was between the left radial artery and the right coronary artery, which was opened. It was around 2 mm in diameter with a thin diseased anterior wall and calcific plaque laterally. We used Prolene 7-0 in continuous fashion. The second distal anastomosis was between a segment of vein and the distal circumflex artery, which was opened. It was around 1.75 mm in diameter. We used Prolene 7-0 in continuous fashion. The third and last distal anastomosis was between the left internal mammary artery and the mid aspect of the left anterior descending artery before the takeoff of the last diagonal artery. The left anterior descending artery was soft at that level and was basically the only soft segment. It was around 2 mm in diameter. The anastomosis was completed using Prolene 7-0 in continuous fashion. The mammary pedicle was affixed to the surrounding epicardium with Prolene 7-0 sutures on either side. Satisfied with the distal anastomoses, two buttons of 4 mm each were punched out from the ascending aorta, and the radial artery and the vein graft were separately anastomosed to the ascending aorta using Prolene 7-0 and 6-0, respectively, in a continuous manner. The patient was given lidocaine and magnesium. Flow was reestablished in the mammary artery. De-airing maneuvers were followed. With the head down and the aortic vent on maximum, we unclamped the aorta. The patient required two successive defibrillations to regain initially a junctional rhythm. Then subsequently she regained a normal sinus rhythm with good conduction. Two monopolar atrial pacing wires were affixed to the respective pursestrings on the right atrium and one bipolar ventricular pacing wire was driven via the inferior aspect of the right ventricle. Preliminary graft flow measurement showed good signal in all 3 grafts. After a period of reperfusion, we were able to wean off cardiopulmonary bypass without the need of any inotropic or vasopressor support. SOTERO showed excellent left ventricular function and no air. We proceeded with graft flow measurements at this point, and the flow into the mammary artery to the left anterior descending artery was 56 mL/minute, pulsatility index of 1.9, diastolic filling of 77%, showing an excellent graft. The flow into the radial artery to the RCA was 78 mL/minute, pulsatility index of 0.8, diastolic filling of 58%, also showing an excellent graft. The flow into the vein graft going to the distal obtuse marginal artery was 39 mL/minute, pulsatility index of 1.5, diastolic filling of 63%, showing an excellent graft. With that, decannulation followed. All suckers were stopped as we started protamine. A groove was made in the left pleuropericardial fat to accommodate the mammary artery medial to the lung and away from the posterior sternal table. Pericardial fat was loosely approximated over the aorta and the heart. Two 19-Japanese Reinaldo drains were left substernally. After ensuring adequate hemostasis and hemodynamics and after correct sponge, instrument and needle counts, the sternum was closed using 5 bthcau-eo-gjftz pineal cables after interposing Fibrillar between the sternal edges. Thorough irrigation with cefazolin followed. The rest of the closure proceeded in layers. Skin glue was applied. The patient did not receive any blood bank product but received 250 mL of Cell Saver blood. She was transferred to the ICU in stable condition on low-dose nitroglycerin with a PA pressure of 24/8, sinus rhythm at 90 with good conduction and a PA pressure of 30/15. MMODL / IJN: [id number] / [facility]
[2020-01-21 18:38] LABS: Allen Test Performed? no
[2020-01-21] MEDS: ACETAMINOPHEN IV (For NPO) 1,000 MG in EMPTY BAG 1 BAG IVPB SCH (19:00)
[2020-01-21 19:14] LABS: Glucose,Whole Blood 169 mg/dL (75-99)
[2020-01-21] MEDS: INSULIN REGULAR 100 UNIT in SODIUM CHLORIDE 0.9% 100 ML IV SCH (19:16)
[2020-01-21] MEDS ORDERED: IPRATROPIUM-ALBUTEROL 3 ML NEB INHALATION SCH (20:00)
[2020-01-21 20:30] LABS: Glucose,Whole Blood 210 mg/dL (75-99)
[2020-01-21] MEDS: IPRATROPIUM-ALBUTEROL 3 ML NEB INHALATION SCH (20:32)
[2020-01-21 21:03] LABS: ABG Base Excess -3.1 mmol/L; ABG HCO3 21 mmol/L (21-25); ABG Oxygen Saturation 99.5 % (94-97); ABG PCO2 33 mmHg (35-45); ABG PH 7.42 (7.35-7.45); ABG PO2 197 mmHg (83-108); ABG TCO2 22 mmol/L (19-24)
[2020-01-21 21:05] LABS: Allen Test Performed? no
[2020-01-21] MEDS: CLOPIDOGREL 75 MG TAB PO SCH (21:15)
[2020-01-21] MEDS: ASPIRIN 325 MG TAB PO SCH (21:20)
[2020-01-21] MEDS: MUPIROCIN 2% OINT 22 GM TUBE NASAL SCH (21:20)
[2020-01-21 21:27] LABS: Glucose,Whole Blood 203 mg/dL (75-99)
[2020-01-21 22:10] LABS: Glucose,Whole Blood 194 mg/dL (75-99)
[2020-01-21 23:00] LABS: Glucose,Whole Blood 169 mg/dL (75-99)
[2020-01-21] MEDS: ONDANSETRON 4 MG/2 ML VIAL IVP PRN (23:43)
[2020-01-22 00:14] LABS: Basophils % (A) 0 %; Eosinophils % (A) 0 %; HCT 24.8 % (34.0-46.0); HGB 7.9 gm/dL (11.4-16.0); Lymphocytes # (A) 0.8 k/uL (1.0-4.8); Lymphocytes % (A) 6 %; MCH 26.4 pg (25.0-35.0); MCHC 31.7 g/dL (31.0-37.0); MCV 83.5 fL (80.0-100.0); Mean Platelet Volume 10.4; Monocytes # (A) 0.9 k/uL (0-1.0); Monocytes % (A) 7 %; Neutrophils % (A) 86 %; Platelet Count 195 k/uL (150-450); RBC 2.97 m/uL (3.80-5.40); RDW 14.9 % (11.5-15.5); WBC 12.8 k/uL (3.8-10.6)
[2020-01-22 00:16] LABS: Glucose,Whole Blood 151 mg/dL (75-99)
[2020-01-22] MEDS: ACETAMINOPHEN IV (For NPO) 1,000 MG in EMPTY BAG 1 BAG IVPB SCH (00:31)
[2020-01-22] MEDS: HEPARIN SODIUM,PORCINE 5,000 UNIT/ML 1 ML VIAL SQ SCH ×3 (00:32→17:09)
[2020-01-22 00:51] LABS: African American GFR (CKD) >90 (>60 ml/min/1.73 sqM); Anion Gap 5 mmol/L; Blood Urea Nitrogen 8 mg/dL (7-17); Calcium 8.7 mg/dL (8.4-10.2); Carbon Dioxide 25 mmol/L (22-30); Chloride 108 mmol/L (98-107); Glucose 142 mg/dL (74-99); Non-African American GFR(CKD) >90 (>60 ml/min/1.73 sqM); Potassium 3.8 mmol/L (3.5-5.1); Sodium 138 mmol/L (137-145)
[2020-01-22 01:07] LABS: Glucose,Whole Blood 127 mg/dL (75-99)
[2020-01-22] MEDS ORDERED: Potassium Replacement Protocol 1 EACH MISC MISCELLANE PRN (01:21)
[2020-01-22] MEDS: POTASSIUM CHLORIDE 10 MEQ in WATER FOR INJECTION 1 100ML.BAG IVPB SCH ×2 (01:29→02:52)
[2020-01-22 02:20] LABS: Glucose,Whole Blood 120 mg/dL (75-99)
[2020-01-22 03:05] LABS: Glucose,Whole Blood 122 mg/dL (75-99)
[2020-01-22 03:57] LABS: Glucose,Whole Blood 112 mg/dL (75-99)
[2020-01-22] MEDS ORDERED: HYDROcodone/APAP 5-325MG 1 EACH TAB PO PRN (04:14)
[2020-01-22] MEDS: HYDROcodone/APAP 5-325MG 1 EACH TAB PO PRN (04:26)
[2020-01-22 05:11] LABS: Glucose,Whole Blood 145 mg/dL (75-99)
[2020-01-22 06:01] LABS: Glucose,Whole Blood 159 mg/dL (75-99)
[2020-01-22 06:17] LABS: Basophils % (A) 0 %; Eosinophils % (A) 0 %; HCT 26.1 % (34.0-46.0); HGB 8.2 gm/dL (11.4-16.0); Lymphocytes # (A) 0.7 k/uL (1.0-4.8); Lymphocytes % (A) 5 %; MCH 26.4 pg (25.0-35.0); MCHC 31.4 g/dL (31.0-37.0); MCV 84.1 fL (80.0-100.0); Mean Platelet Volume 9.1; Monocytes # (A) 0.8 k/uL (0-1.0); Monocytes % (A) 5 %; Neutrophils # (A) 13.3 k/uL (1.3-7.7); Neutrophils % (A) 89 %; Platelet Count 245 k/uL (150-450); WBC 14.9 k/uL (3.8-10.6)
[2020-01-22 06:45] LABS: ALT 15 U/L (4-34); AST 72 U/L (14-36); African American GFR (CKD) >90 (>60 ml/min/1.73 sqM); Albumin 3.8 g/dL (3.5-5.0); Alkaline Phosphatase 31 U/L (38-126); Anion Gap 7 mmol/L; Blood Urea Nitrogen 8 mg/dL (7-17); Calcium 8.7 mg/dL (8.4-10.2); Carbon Dioxide 22 mmol/L (22-30); Chloride 109 mmol/L (98-107); Glucose 151 mg/dL (74-99); Non-African American GFR(CKD) >90 (>60 ml/min/1.73 sqM); Potassium 4.2 mmol/L (3.5-5.1); Sodium 138 mmol/L (137-145); Total Bilirubin 0.7 mg/dL (0.2-1.3); Total Protein 5.9 g/dL (6.3-8.2)
[2020-01-22 06:55] LABS: Glucose,Whole Blood 151 mg/dL (75-99)
[2020-01-22 08:01] LABS: Glucose,Whole Blood 136 mg/dL (75-99)
[2020-01-22] MEDS: ATORVASTATIN 40 MG TAB PO SCH (08:28)
[2020-01-22] MEDS: ASPIRIN 325 MG TAB PO SCH (08:28)
[2020-01-22] MEDS: CLOPIDOGREL 75 MG TAB PO SCH (08:29)
[2020-01-22] MEDS: METOPROLOL TARTRATE 12.5 MG TAB PO SCH ×2 (08:29→21:12)
[2020-01-22] MEDS: MUPIROCIN 2% OINT 22 GM TUBE NASAL SCH ×2 (08:30→21:19)
--- NOTE | 2020-01-22 08:32 | P.PN ---
Subjective Progress Note Date: 01/22/20 Principal diagnosis: Severe diffuse triple-vessel coronary artery disease, preserved left ventricular function, insulin-dependent diabetes mellitus with preoperative hemoglobin A1c 7.3%, hypertension, hyperlipidemia, history of Thvpc-Mgwgytpfw-Zcjjr status post ablation, right internal carotid stenosis greater than 70% per carotid Dopplers, approximately 60% per CTA, previous brief tobacco use with preoperative FEV1 87% of predicted, family history of premature coronary artery disease. Preoperative nasal swab positive for MRSA. POD #1 triple vessel coronary artery bypass grafting using the left internal mammary artery to the left anterior descending artery, left radial artery from the aorta to the right coronary artery, reverse saphenous vein graft from the aorta to the distal circumflex artery. Exclusion of the left atrial appendage using a 35 mm after clip. Endoscopic harvesting of the left radial artery. Endoscopic harvesting of the right greater saphenous vein from the groin to above the ankle level. Intraoperative transesophageal echocardiogram and epi- aortic scanning. Intraoperative graft flow measurements using the iAmplifystim system. Postoperative acute blood loss anemia, expected outcome of surgery given hemodilution and cardiopulmonary bypass pump The patient's currently sitting up in a recliner in the intensive care unit in no acute distress. She was successfully extubated last night at 21:10. She does complain of some chest discomfort but no real chest pain, denies shortness of breath. Currently normal sinus rhythm, hemodynamically stable on no inotropes or pressors. She did have a short run of ectopy last night which stopped once epicardial pacemaker wires were disconnected from the generator and has had no more ectopy since. Mediastinal, left pleural chest tubes, [place]/Cordis present. No new concerns. Objective - Vital Signs Vital signs: Vital Signs Temp 99.0 F 01/22/20 04:00 Pulse 89 01/22/20 07:00 Resp 15 01/22/20 07:00 BP 174/95 01/21/20 06:16 Pulse Ox 98 01/22/20 07:00 Intake & Output 01/21/20 01/22/20 01/22/20 18:59 06:59 18:59 Intake Total 945.212 9699.738 59 Output Total 2225 1490 55 Balance -2010.327 -258.262 4 Weight 84.7 kg Intake: IV 56 208 9 CO/CI Pressure Bag 40 100 Normal Saline Pressure 9 108 9 bag Intake, IV Titration 036.662 7740.738 50 Amount ACETAMINOPHEN IV (For NPO 100 100 ) 1,000 mg In Empty Bag 1 bag @ 400 mls/hr IVPB Q6HR JA Rx#:[id number] Clevidipine Butyrate 25 2.4 mg In Empty Bag 1 bag @ 1 MG/HR 2 mls/hr IV .Q24H JA Rx#:[id number] Insulin Regular 100 unit 53.144 In Sodium Chloride 0.9% 100 ml @ Per Protocol IV .Q0M JA Rx#:[id number] Nitroglycerin-D5w Pmx 50 1.5 1.5 mg In Dextrose/Water 1 250ml.bag @ 5 MCG/MIN 1.5 mls/hr IV .Q24H JA Rx#: [id number] Potassium Chloride 10 meq 200 In Water For Injection 1 100ml.bag @ 100 mls/hr IVPB Q1H JA Rx#: [id number] Propofol 1,000 mg In 4.773 19.094 Empty Bag 1 bag @ Titrate IV .Q0M JA Rx#: [id number] Sodium Chloride 0.9% 1, 50 600 50 000 ml @ 50 mls/hr IV . Q20H JA Rx#:[id number] ceFAZolin 2 gm In Sodium 50 Chloride 0.9% 50 ml @ 100 mls/hr IVPB Q8HR JA Rx# :[id number] Output: Chest Tube Drainage 125 475 5 Chest Tube Bilateral 120 180 0 Mediastinal Chest Tube: Left Pleural 5 295 5 Drainage 20 70 Left Wrist 0 25 Right Calf 20 45 Urine 580 945 50 Estimated Blood Loss 1500 Other: Voiding Method Indwelling Catheter Indwelling Catheter ABP, PAP, CO, CI - Last Documented Arterial Blood Pressure 96/47 Pulmonary Artery Pressure 17/7 Cardiac Output 6.5 Cardiac Index 3.4 - Constitutional General appearance: Present: cooperative, no acute distress, obese - Respiratory Details: Lungs sounds diminished in the bases bilaterally. Respirations even, n onlabored. Currently on 2 L nasal cannula with oxygen saturation 96%. Able to achieve 1200 mL on her incentive spirometry. Strong cough. Mediastinal and left pleural chest tubes present to continuous wall suction. Mediastinal chest tube with 105 mL serosanguineous drainage overnight, 300 mL since surgery. Left pleural chest tube with 235 mL serosanguineous drainage and right, 300 mL since surgery. No air leaks present. - Cardiovascular Details: S1, S2 present. Regular rate and rhythm, sinus rhythm on telemetry with heart rate in the low 90s. Sternum stable. A/V epicardial pacemaker wires present, grounded. Palpable peripheral pulses bilaterally. Trace bilateral lower extremity edema present. Right internal jugular [place]/Cordis, right brachial arterial line present. Last CO/CI 6.5/3.4 on no inotropes or pressors. No calf pain or tenderness noted. Heart hugger in place with patient demonstrating appropriate use. Antiembolism stockings, SCDs present. - Gastrointestinal Gastrointestinal Comment(s): Abdomen soft, nontender, nondistended. Hypoactive bowel sounds present 4 quadrants. Tolerating sips of clear liquids. Negative flatus. - Genitourinary Genitourinary Comment(s): Garcia present draining clear, yellow urine. Output 45-110 mL/h overnight. - Integumentary Integumentary Comment(s): Skin is warm and dry with evidence of good perfusion. Anterior chest incision well approximated and covered with dry intact dressing. Right lower extremity EVH site well approximated, JACK drain present with minimal serosanguineous drainage. Left radial artery harvest site well approximated, JACK drain present w ith minimal serosanguineous drainage, patient is able to move all her fingers, denies numbness tingling, skin is warm and pink. - Neurologic Neurologic: Present: CNII-XII intact - Musculoskeletal Musculoskeletal: Present: strength equal bilaterally - Psychiatric Psychiatric: Present: A&O x's 3, appropriate affect, intact judgment & insight - Allied health notes Allied health notes reviewed: nursing - Labs CBC & Chem 7: 01/22/20 06:05 01/22/20 06:05 Labs: Abnormal Lab Results - Last 24 Hours (Table) 01/19/20 01/21/20 01/21/20 Range/Units 09:10 08:39 11:53 WBC (3.8-10.6) k/uL RBC (3.80-5.40) m/uL Hgb (11.4-16.0) gm/dL Hct (34.0-46.0) % Neutrophils # (1.3-7.7) k/uL Lymphocytes # (1.0-4.8) k/uL PT (9.0-12.0) sec INR (<1.2) ABG pH (7.35-7.45) ABG pCO2 (35-45) mmHg ABG pO2 162 H (83-108) mmHg ABG HCO3 26 H (21-25) mmol/L ABG Total CO2 27 H 26 H (19-24) mmol/L ABG O2 Saturation 98.1 H 99.5 H (94-97) % ABG Hematocrit 33 L 26 L (34.0-46.0) % ABG Potassium (3.4-4.5) mmol/L ABG Ionized Calcium (4.5-5.3) mg/dL ABG Glucose 133 H 143 H (75-99) mg/dL ABG Lactic Acid (0.5-1.6) mmol/L Hemoglobin 10.6 L 8.6 L (11.4-16.0) gm/dL Chloride (98-107) mmol/L Creatinine (0.52-1.04) mg/dL Glucose (74-99) mg/dL POC Glucose (mg/dL) (75-99) mg/dL Magnesium (1.6-2.3) mg/dL AST (14-36) U/L Alkaline Phosphatase (38-126) U/L Total Protein (6.3-8.2) g/dL Arterial Blood Potassium (3.4-4.5) mmol/L Arterial Blood Glucose 133 H 143 H (75-99) mg/dL Crossmatch See Detail 01/21/20 01/21/20 01/21/20 Range/Units 12:35 13:33 14:05 WBC (3.8-10.6) k/uL RBC (3.80-5.40) m/uL Hgb (11.4-16.0) gm/dL Hct (34.0-46.0) % Neutrophils # (1.3-7.7) k/uL Lymphocytes # (1.0-4.8) k/uL PT (9.0-12.0) sec INR (<1.2) ABG pH (7.35-7.45) ABG pCO2 (35-45) mmHg ABG pO2 174 H 356 H 317 H (83-108) mmHg ABG HCO3 (21-25) mmol/L ABG Total CO2 26 H 25 H 25 H (19-24) mmol/L ABG O2 Saturation 99.8 H 100.0 H 99.9 H (94-97) % ABG Hematocrit 24 L 22 L 23 L (34.0-46.0) % ABG Potassium 3.2 L (3.4-4.5) mmol/L ABG Ionized Calcium 4.3 L 4.4 L (4.5-5.3) mg/dL ABG Glucose 137 H 125 H 193 H (75-99) mg/dL ABG Lactic Acid (0.5-1.6) mmol/L Hemoglobin 7.8 L 7.1 L 7.5 L (11.4-16.0) gm/dL Chloride (98-107) mmol/L Creatinine (0.52-1.04) mg/dL Glucose (74-99) mg/dL POC Glucose (mg/dL) (75-99) mg/dL Magnesium (1.6-2.3) mg/dL AST (14-36) U/L Alkaline Phosphatase (38-126) U/L Total Protein (6.3-8.2) g/dL Arterial Blood Potassium 3.2 L (3.4-4.5) mmol/L Arterial Blood Glucose 137 H 125 H 193 H (75-99) mg/dL Crossmatch 01/21/20 01/21/20 01/21/20 Range/Units 14:35 15:13 15:50 WBC (3.8-10.6) k/uL RBC (3.80-5.40) m/uL Hgb (11.4-16.0) gm/dL Hct (34.0-46.0) % Neutrophils # (1.3-7.7) k/uL Lymphocytes # (1.0-4.8) k/uL PT (9.0-12.0) sec INR (<1.2) ABG pH (7.35-7.45) ABG pCO2 46 H (35-45) mmHg ABG pO2 210 H 302 H 242 H (83-108) mmHg ABG HCO3 30 H 26 H (21-25) mmol/L ABG Total CO2 31 H 27 H 26 H (19-24) mmol/L ABG O2 Saturation 99.7 H 100.0 H 99.7 H (94-97) % ABG Hematocrit 22 L 22 L 22 L (34.0-46.0) % ABG Potassium (3.4-4.5) mmol/L ABG Ionized Calcium 4.2 L 4.3 L 4.4 L (4.5-5.3) mg/dL ABG Glucose 206 H 233 H 178 H (75-99) mg/dL ABG Lactic Acid 1.7 H 2.7 H* (0.5-1.6) mmol/L Hemoglobin 7.0 L* 7.0 L* 7.1 L (11.4-16.0) gm/dL Chloride (98-107) mmol/L Creatinine (0.52-1.04) mg/dL Glucose (74-99) mg/dL POC Glucose (mg/dL) (75-99) mg/dL Magnesium (1.6-2.3) mg/dL AST (14-36) U/L Alkaline Phosphatase (38-126) U/L Total Protein (6.3-8.2) g/dL Arterial Blood Potassium (3.4-4.5) mmol/L Arterial Blood Glucose 206 H 233 H 178 H (75-99) mg/dL Crossmatch 01/21/20 01/21/20 01/21/20 Range/Units 16:42 18:02 18:02 WBC 11.2 H (3.8-10.6) k/uL RBC 2.86 L (3.80-5.40) m/uL Hgb 8.1 L D (11.4-16.0) gm/dL Hct 24.1 L (34.0-46.0) % Neutrophils # 8.1 H (1.3-7.7) k/uL Lymphocytes # (1.0-4.8) k/uL PT 12.5 H (9.0-12.0) sec INR 1.2 H (<1.2) ABG pH (7.35-7.45) ABG pCO2 (35-45) mmHg ABG pO2 (83-108) mmHg ABG HCO3 (21-25) mmol/L ABG Total CO2 26 H (19-24) mmol/L ABG O2 Saturation 97.9 H (94-97) % ABG Hematocrit 26 L (34.0-46.0) % ABG Potassium 3.3 L (3.4-4.5) mmol/L ABG Ionized Calcium (4.5-5.3) mg/dL ABG Glucose 132 H (75-99) mg/dL ABG Lactic Acid 2.0 H (0.5-1.6) mmol/L Hemoglobin 8.3 L (11.4-16.0) gm/dL Chloride (98-107) mmol/L Creatinine (0.52-1.04) mg/dL Glucose (74-99) mg/dL POC Glucose (mg/dL) (75-99) mg/dL Magnesium (1.6-2.3) mg/dL AST (14-36) U/L Alkaline Phosphatase (38-126) U/L Total Protein (6.3-8.2) g/dL Arterial Blood Potassium 3.3 L (3.4-4.5) mmol/L Arterial Blood Glucose 132 H (75-99) mg/dL Crossmatch 01/21/20 01/21/20 01/21/20 Range/Units 18:02 18:29 19:12 WBC (3.8-10.6) k/uL RBC (3.80-5.40) m/uL Hgb (11.4-16.0) gm/dL Hct (34.0-46.0) % Neutrophils # (1.3-7.7) k/uL Lymphocytes # (1.0-4.8) k/uL PT (9.0-12.0) sec INR (<1.2) ABG pH 7.33 L (7.35-7.45) ABG pCO2 51 H (35-45) mmHg ABG pO2 314 H (83-108) mmHg ABG HCO3 27 H (21-25) mmol/L ABG Total CO2 28 H (19-24) mmol/L ABG O2 Saturation 99.8 H (94-97) % ABG Hematocrit (34.0-46.0) % ABG Potassium (3.4-4.5) mmol/L ABG Ionized Calcium (4.5-5.3) mg/dL ABG Glucose (75-99) mg/dL ABG Lactic Acid (0.5-1.6) mmol/L Hemoglobin (11.4-16.0) gm/dL Chloride 108 H (98-107) mmol/L Creatinine 0.39 L (0.52-1.04) mg/dL Glucose (74-99) mg/dL POC Glucose (mg/dL) 169 H (75-99) mg/dL Magnesium 2.4 H (1.6-2.3) mg/dL AST 42 H (14-36) U/L Alkaline Phosphatase 24 L (38-126) U/L Total Protein 5.6 L (6.3-8.2) g/dL Arterial Blood Potassium (3.4-4.5) mmol/L Arterial Blood Glucose (75-99) mg/dL Crossmatch 01/21/20 01/21/20 01/21/20 Range/Units 20:16 20:58 21:26 WBC (3.8-10.6) k/uL RBC (3.80-5.40) m/uL Hgb (11.4-16.0) gm/dL Hct (34.0-46.0) % Neutrophils # (1.3-7.7) k/uL Lymphocytes # (1.0-4.8) k/uL PT (9.0-12.0) sec INR (<1.2) ABG pH (7.35-7.45) ABG pCO2 33 L (35-45) mmHg ABG pO2 197 H (83-108) mmHg ABG HCO3 (21-25) mmol/L ABG Total CO2 (19-24) mmol/L ABG O2 Saturation 99.5 H (94-97) % ABG Hematocrit (34.0-46.0) % ABG Potassium (3.4-4.5) mmol/L ABG Ionized Calcium (4.5-5.3) mg/dL ABG Glucose (75-99) mg/dL ABG Lactic Acid (0.5-1.6) mmol/L Hemoglobin (11.4-16.0) gm/dL Chloride (98-107) mmol/L Creatinine (0.52-1.04) mg/dL Glucose (74-99) mg/dL POC Glucose (mg/dL) 210 H 203 H (75-99) mg/dL Magnesium (1.6-2.3) mg/dL AST (14-36) U/L Alkaline Phosphatase (38-126) U/L Total Protein (6.3-8.2) g/dL Arterial Blood Potassium (3.4-4.5) mmol/L Arterial Blood Glucose (75-99) mg/dL Crossmatch 01/21/20 01/21/20 01/22/20 Range/Units 22:09 22:59 00:01 WBC (3.8-10.6) k/uL RBC (3.80-5.40) m/uL Hgb (11.4-16.0) gm/dL Hct (34.0-46.0) % Neutrophils # (1.3-7.7) k/uL Lymphocytes # (1.0-4.8) k/uL PT (9.0-12.0) sec INR (<1.2) ABG pH (7.35-7.45) ABG pCO2 (35-45) mmHg ABG pO2 (83-108) mmHg ABG HCO3 (21-25) mmol/L ABG Total CO2 (19-24) mmol/L ABG O2 Saturation (94-97) % ABG Hematocrit (34.0-46.0) % ABG Potassium (3.4-4.5) mmol/L ABG Ionized Calcium (4.5-5.3) mg/dL ABG Glucose (75-99) mg/dL ABG Lactic Acid (0.5-1.6) mmol/L Hemoglobin (11.4-16.0) gm/dL Chloride 108 H (98-107) mmol/L Creatinine 0.41 L (0.52-1.04) mg/dL Glucose 142 H (74-99) mg/dL POC Glucose (mg/dL) 194 H 169 H (75-99) mg/dL Magnesium (1.6-2.3) mg/dL AST (14-36) U/L Alkaline Phosphatase (38-126) U/L Total Protein (6.3-8.2) g/dL Arterial Blood Potassium (3.4-4.5) mmol/L Arterial Blood Glucose (75-99) mg/dL Crossmatch 01/22/20 01/22/20 01/22/20 Range/Units 00:01 00:04 01:06 WBC 12.8 H (3.8-10.6) k/uL RBC 2.97 L (3.80-5.40) m/uL Hgb 7.9 L (11.4-16.0) gm/dL Hct 24.8 L (34.0-46.0) % Neutrophils # 11.0 H (1.3-7.7) k/uL Lymphocytes # 0.8 L (1.0-4.8) k/uL PT (9.0-12.0) sec INR (<1.2) ABG pH (7.35-7.45) ABG pCO2 (35-45) mmHg ABG pO2 (83-108) mmHg ABG HCO3 (21-25) mmol/L ABG Total CO2 (19-24) mmol/L ABG O2 Saturation (94-97) % ABG Hematocrit (34.0-46.0) % ABG Potassium (3.4-4.5) mmol/L ABG Ionized Calcium (4.5-5.3) mg/dL ABG Glucose (75-99) mg/dL ABG Lactic Acid (0.5-1.6) mmol/L Hemoglobin (11.4-16.0) gm/dL Chloride (98-107) mmol/L Creatinine (0.52-1.04) mg/dL Glucose (74-99) mg/dL POC Glucose (mg/dL) 151 H 127 H (75-99) mg/dL Magnesium (1.6-2.3) mg/dL AST (14-36) U/L Alkaline Phosphatase (38-126) U/L Total Protein (6.3-8.2) g/dL Arterial Blood Potassium (3.4-4.5) mmol/L Arterial Blood Glucose (75-99) mg/dL Crossmatch 01/22/20 01/22/20 01/22/20 Range/Units 02:12 02:56 03:56 WBC (3.8-10.6) k/uL RBC (3.80-5.40) m/uL Hgb (11.4-16.0) gm/dL Hct (34.0-46.0) % Neutrophils # (1.3-7.7) k/uL Lymphocytes # (1.0-4.8) k/uL PT (9.0-12.0) sec INR (<1.2) ABG pH (7.35-7.45) ABG pCO2 (35-45) mmHg ABG pO2 (83-108) mmHg ABG HCO3 (21-25) mmol/L ABG Total CO2 (19-24) mmol/L ABG O2 Saturation (94-97) % ABG Hematocrit (34.0-46.0) % ABG Potassium (3.4-4.5) mmol/L ABG Ionized Calcium (4.5-5.3) mg/dL ABG Glucose (75-99) mg/dL ABG Lactic Acid (0.5-1.6) mmol/L Hemoglobin (11.4-16.0) gm/dL Chloride (98-107) mmol/L Creatinine (0.52-1.04) mg/dL Glucose (74-99) mg/dL POC Glucose (mg/dL) 120 H 122 H 112 H (75-99) mg/dL Magnesium (1.6-2.3) mg/dL AST (14-36) U/L Alkaline Phosphatase (38-126) U/L Total Protein (6.3-8.2) g/dL Arterial Blood Potassium (3.4-4.5) mmol/L Arterial Blood Glucose (75-99) mg/dL Crossmatch 01/22/20 01/22/20 01/22/20 Range/Units 05:08 06:00 06:05 WBC 14.9 H (3.8-10.6) k/uL RBC 3.10 L (3.80-5.40) m/uL Hgb 8.2 L (11.4-16.0) gm/dL Hct 26.1 L (34.0-46.0) % Neutrophils # 13.3 H (1.3-7.7) k/uL Lymphocytes # 0.7 L (1.0-4.8) k/uL PT (9.0-12.0) sec INR (<1.2) ABG pH (7.35-7.45) ABG pCO2 (35-45) mmHg ABG pO2 (83-108) mmHg ABG HCO3 (21-25) mmol/L ABG Total CO2 (19-24) mmol/L ABG O2 Saturation (94-97) % ABG Hematocrit (34.0-46.0) % ABG Potassium (3.4-4.5) mmol/L ABG Ionized Calcium (4.5-5.3) mg/dL ABG Glucose (75-99) mg/dL ABG Lactic Acid (0.5-1.6) mmol/L Hemoglobin (11.4-16.0) gm/dL Chloride (98-107) mmol/L Creatinine (0.52-1.04) mg/dL Glucose (74-99) mg/dL POC Glucose (mg/dL) 145 H 159 H (75-99) mg/dL Magnesium (1.6-2.3) mg/dL AST (14-36) U/L Alkaline Phosphatase (38-126) U/L Total Protein (6.3-8.2) g/dL Arterial Blood Potassium (3.4-4.5) mmol/L Arterial Blood Glucose (75-99) mg/dL Crossmatch 01/22/20 01/22/20 Range/Units 06:05 06:54 WBC (3.8-10.6) k/uL RBC (3.80-5.40) m/uL Hgb (11.4-16.0) gm/dL Hct (34.0-46.0) % Neutrophils # (1.3-7.7) k/uL Lymphocytes # (1.0-4.8) k/uL PT (9.0-12.0) sec INR (<1.2) ABG pH (7.35-7.45) ABG pCO2 (35-45) mmHg ABG pO2 (83-108) mmHg ABG HCO3 (21-25) mmol/L ABG Total CO2 (19-24) mmol/L ABG O2 Saturation (94-97) % ABG Hematocrit (34.0-46.0) % ABG Potassium (3.4-4.5) mmol/L ABG Ionized Calcium (4.5-5.3) mg/dL ABG Glucose (75-99) mg/dL ABG Lactic Acid (0.5-1.6) mmol/L Hemoglobin (11.4-16.0) gm/dL Chloride 109 H (98-107) mmol/L Creatinine 0.43 L (0.52-1.04) mg/dL Glucose 151 H (74-99) mg/dL POC Glucose (mg/dL) 151 H (75-99) mg/dL Magnesium (1.6-2.3) mg/dL AST 72 H (14-36) U/L Alkaline Phosphatase 31 L (38-126) U/L Total Protein 5.9 L (6.3-8.2) g/dL Arterial Blood Potassium (3.4-4.5) mmol/L Arterial Blood Glucose (75-99) mg/dL Crossmatch - Imaging and Cardiology Chest x-ray: image reviewed Assessment and Plan Assessment: 1. Severe diffuse triple-vessel coronary artery disease, status post three-v essel CABG 2. Preserved left ventricular function 3. Insulin-dependent diabetes with preoperative hemoglobin A1c 7.3% 4. History of hypertension 5. Hyperlipidemia 6. History of Yitug-Vqzrkynto-Fbcbb status post ablation 7. Right internal carotid stenosis greater than 70% per carotid Dopplers, approximately 60% per CTA 8. Previous brief tobacco use with preoperative FEV1 87% of protected 9. Family history of premature coronary artery disease 10. Preoperative nasal swab positive for MRSA, treated 11. Postoperative acute blood loss anemia, expected Plan: 1. Continue aspirin, statin, Plavix, beta any therapy. Will increase beta any therapy as tolerated. Will add Cozaar when able 2. Discontinue IV nitro. Will add calcium channel any for radial artery spasm. Please do not discontinue CCB without discussing with cardiac surgery 3. Wean O2 as tolerated. Encourage incentive spirometry is 10 times every hour while awake 4. Bronchodilators per pulmonology 5. Increase activity, ambulate as tolerated. PT/OT/cardiac rehab consulted 6. Will monitor daily labs and x-rays. Electrolyte replacement per protocol. No transfusion 7. Pain control with current medication regimen. Toradol added 8. Insulin management per primary care service. Patient's home regimen consisted of glargine insulin as well as Victoza, Glucophage, and Actos. 9. Continue chest tubes for another 24 hours. 10. Continue Garcia catheter for another 24 hours for strict accurate intake and output. 11. More recommendations to follow Time with Patient: Greater than 30
[2020-01-22] MEDS: ASCORBIC ACID 500 MG TAB PO SCH ×2 (08:37→17:10)
[2020-01-22] MEDS: KETOROLAC 30 MG/ML 1 ML VIAL IVP SCH ×3 (08:37→17:08)
[2020-01-22] MEDS: FERROUS SULFATE 325 MG TAB PO SCH ×2 (08:37→17:10)
[2020-01-22] MEDS: ONDANSETRON 4 MG/2 ML VIAL IVP PRN (08:41)
[2020-01-22] MEDS: IPRATROPIUM-ALBUTEROL 3 ML NEB INHALATION SCH ×4 (08:47→19:22)
[2020-01-22] MEDS ORDERED: BISACODYL 10 MG SUPP RECTAL PRN (09:00)
[2020-01-22] MEDS ORDERED: CLOPIDOGREL 75 MG TAB PO SCH (09:00)
[2020-01-22] MEDS ORDERED: ASPIRIN 325 MG TAB PO SCH (09:00)
[2020-01-22] MEDS ORDERED: PANTOPRAZOLE 40 MG/10 ML VIAL IVP SCH (09:00)
[2020-01-22 09:16] LABS: Glucose,Whole Blood 115 mg/dL (75-99)
--- NOTE | 2020-01-22 10:13 | XR ---
EXAMINATION TYPE: XR chest 1V portable DATE OF EXAM: 01/22/2020 COMPARISON: Prior chest x-ray dated 01/21/2020 HISTORY: Postop cardiac surgery, extubated TECHNIQUE: Single frontal view of the chest is obtained. FINDINGS: Endotracheal tube and NG tube have been removed. Right jugular central venous catheter is again seen, distal tip is over the pulmonary artery. Patient is status post atrial appendage clipping placement. Left-sided chest tube remains in place. Median sternal drains noted. There is no pneumoth orax or pleural effusion. Lung volumes are low and the patient is rotated. Heart size is stable accou nting for differences in technique. Subsegmental basilar atelectatic changes are again seen. Less pro minence of the central vascularity suspected. IMPRESSION: Interval extubation. Improvement in aeration, volume status.
[2020-01-22 10:16] LABS: Glucose,Whole Blood 118 mg/dL (75-99)
[2020-01-22 11:17] LABS: Glucose,Whole Blood 92 mg/dL (75-99)
--- NOTE | 2020-01-22 11:35 | CONS ---
CONSULTATION Mrs. Villa is a 44-year-old female who has underwent coronary bypass grafting yesterday by Dr. Kelly. She has a known history of coronary artery disease, has been followed by Dr. Beltran and underwent cardiac catheterization early in December and at that time was found to have severe triple-vessel coronary artery disease, underwent coronary bypass grafting yesterday when she received BARCLAY to the LAD, revealed to the right coronary artery, saphenous vein graft to the circumflex with exclusion of the left atrial appendage. She is complaining of soreness in the chest. She denies any dizziness. She has mild dyspnea. Mild nausea. No palpitations. She is in sinus mechanism. She had short run of nonsustained ventricular tachycardia. She has a prior history of Ivkpk-Jptgzjspn-Khvfn with ablation at the age of 15 with no recurrence of the arrhythmia. She has a preserved systolic function. Her coronary risk factors are positive for diabetes, hypertension, and hyperlipidemia. MEDICATION: As an outpatient included aspirin, Lipitor 80 mg daily, insulin, Victoza, Cozaar 25 mg daily, Lopressor 25 mg twice a day, Actos and Glucophage 1 g twice a day. REVIEW OF SYSTEMS: RESPIRATORY SYSTEM: She had no recent wheezing or cough. No history of documented obstructive lung disease. GI SYSTEM: No recent nausea and vomiting. No GI bleeding. SYSTEM: No dysuria or hematuria. NERVOUS SYSTEM: No stroke or seizure. PHYSICAL EXAMINATION: She is a 44-year-old female, alert, oriented, in no apparent distress. Blood pressure 101/40 with a heart rate in the 80s. HEAD: Normocephalic. EYES: Sclerae nonicteric. NECK: With Glidden-Aniya noted. LUNGS: With mild decrease in breath sounds at the bases. HEART: Regular rate and rhythm, S1, S2. No S3. No rub appreciated. ABDOMEN: Soft, nontender, obese. Positive bowel sounds, no organomegaly. EXTREMITIES: No edema. Chest x-ray revealed no infiltrate. IMPRESSION: 1. Status post coronary artery bypass grafting. 2. Hypertension. 3. Hyperlipidemia. 4. Diabetes mellitus. 5. 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 RECOMMENDATION: From the cardiac standpoint, she is stable. Will resume her statin and her beta any, increase her activity gradually and depending on the trend of her blood pressure and further adjustment will be made. Thank you for this consult. Will follow with you. MMODL / IJN: [id number] /
[2020-01-22 12:09] LABS: Glucose,Whole Blood 99 mg/dL (75-99)
--- NOTE | 2020-01-22 12:29 | CONS ---
CONSULTATION PULMONARY/CRITICAL CARE CONSULTATION: DATE OF SERVICE: 01/22/2020 This is a 44-year-old female with a history of coronary artery disease. She is postop day #1, status post 3-vessel bypass grafting. She had a left internal mammary artery bypass to the left anterior descending coronary artery, left radial artery from aorta to the right coronary artery and reverse saphenous vein graft from aorta to the distal circumflex artery. She also had exclusion of left atrial appendage, using a 35 mm Atriclip, intraoperative transesophageal echocardiogram and intraoperative graft flow measurements using a [employer] system. Currently, she is doing well. She was extubated in 3 hours and 30 minutes. Surgery was done by Dr. Kelly. She is currently on 2 L nasal cannula. She is getting IVs of nitroglycerin at 5 mcg/minute, insulin at 6 units an hours and saline at 50 mL an hour. She is getting about a 1000 mL on her IS. All in all, no major complaints from this patient. ALLERGIES: Include ADHESIVE TAPE, PSEUDOEPHEDRINE, and LISINOPRIL. CURRENT MEDICATIONS: Reviewed. Home medications include Victoza, Bactroban ointment, metformin, Actos, metoprolol, losartan, insulin glargine, vitamin D, Lipitor and aspirin. MEDICAL HISTORY: Diabetes mellitus, CAD, hypertension, and history of Mqzom-Vzepnfqyk-Lffxy syndrome. SURGICAL HISTORY: Mostly remote and minimal. FAMILY HISTORY: Noncontributory. Mother and father healthy. OCCUPATIONAL HISTORY: Noncontributory. REVIEW OF SYSTEMS: CONSTITUTIONAL: Negative. NEUROLOGIC: Negative. HEENT: Negative. CARDIOVASCULAR: Pain in the chest from the surgical site. PULMONARY: Difficulty in taking a deep breath. GI: Negative. : Negative. RHEUMATOLOGIC: Negative. IMMUNOLOGIC: Negative. ENDOCRINOLOGIC: Negative. DERMATOLOGIC: Negative. Current vital signs are reviewed, temperature is 99 degrees, heart rate 91, respiratory rate 17, blood pressure 100/50. Central venous pressure is 1, saturations are 100%. Appears in no acute distress. HEENT: Examination is grossly unremarkable. NECK: Supple. Full range of motion. No adenopathy. Neck veins are flat. CARDIOVASCULAR: Examination reveals regular rhythm and rate. S1, S2 normal. LUNGS: Relatively clear. Breath sounds equal. No wheezes or rhonchi. No crackles. ABDOMEN: Soft. EXTREMITIES: Intact. No cyanosis, clubbing, or edema. SKIN: Without rash. NEUROLOGIC: Examination is nonfocal. LABORATORY DATA: Includes a white count 14.9, hemoglobin 8.2, hematocrit 26.1, platelet count 345, 000, sodium 138, potassium 4.2, chloride 109, CO2 is 22, anion gap is 7. BUN and creatinine were 8 and 0.43. Bilirubin normal. AST 72. Albumin 3.8. Microbiology is pending or negative. Chest x-ray is relatively clear for somebody who is just having open-heart surgery. Medications are reviewed. ASSESSMENT: 1. Postoperative day #1 status post 3-vessel bypass grafting and other procedures as mentioned above. 2. Routine postoperative ventilator management, with extubation 3 hours 30 minutes after leaving the operating room. 3. Diabetes mellitus. 4. Coronary artery disease. 5. Hypertension. 6. Hyperlipidemia. 7. WPW. PLAN: All-in-all, the patient is doing very well. She is on 2 L. Her chest x-ray looks remarkable. She is getting about a 1000 mL on her incentive spirometer. We continue to ask her to use a spirometer every hour while awake. In addition, we recommend deep breathing, coughing, and clearing of secretions. Continue to follow. X-ray stable. No additional recommendations are made at this time. MMODL / IJN: [id number] /
[2020-01-22 13:07] LABS: Glucose,Whole Blood 149 mg/dL (75-99)
[2020-01-22 14:04] LABS: Glucose,Whole Blood 154 mg/dL (75-99)
[2020-01-22] MEDS: amLODIPine 2.5 MG TAB PO SCH (14:09)
[2020-01-22 15:12] LABS: Glucose,Whole Blood 143 mg/dL (75-99)
[2020-01-22] MEDS: CLEVIDIPINE BUTYRATE 25 MG in EMPTY BAG 1 BAG IV SCH (15:47)
[2020-01-22 16:08] LABS: Glucose,Whole Blood 118 mg/dL (75-99)
[2020-01-22] MEDS: INSULIN REGULAR 100 UNIT in SODIUM CHLORIDE 0.9% 100 ML IV SCH (16:50)
[2020-01-22 17:06] LABS: Glucose,Whole Blood 113 mg/dL (75-99)
[2020-01-22 18:13] LABS: Glucose,Whole Blood 111 mg/dL (75-99)
[2020-01-22] MEDS: SODIUM CHLORIDE 0.9% 1,000 ML IV SCH (18:15)
[2020-01-22 19:01] LABS: Glucose,Whole Blood 150 mg/dL (75-99)
[2020-01-22 20:03] LABS: Glucose,Whole Blood 134 mg/dL (75-99)
[2020-01-22] MEDS: SENNOSIDES-DOCUSATE SODIUM 1 EACH TAB PO SCH (21:12)
[2020-01-22 21:19] LABS: Glucose,Whole Blood 124 mg/dL (75-99)
--- NOTE | 2020-01-22 21:38 | P.CONS ---
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 Patient had cardiac catheterization done in September 2019 showed multivessel coronary artery disease. Patient had preop work-up done including carotid duplex showed right internal carotid stenosis greater than 70%. Patient was intubated intraoperatively and was explained extubated. Patient is currently sitting in the chair comfortably. No complaints of chest pain or shortness of. Some soreness at the surgical site. Currently maintaining sinus rhythm. No fever no chills. No nausea vomiting or abdominal pain or diarrhea. Laboratory data showed WBC 14.9, hemoglobin 8.2, AST 72, ALT 59 alk phos 31. Review of Systems Constitutional: Patient denies any fever or chills . No generalized weakness or weight loss. Abdomen: Patient denied nausea vomiting and diarrhea and abdominal pain. Cardiovascular: Patient denies any chest pain or short of breath no palp itations. Respiratory: patient denied any cough is from production. No shortness of breath Neurologic: Patient denied any numbness or tingling headache. Musculoskeletal: Patient denies any complaints of joint swelling or deformity. Skin: Negative Psychiatric: Negative Endocrine: No heat or cold intolerance. No recent weight gain. Genitourinary: No dysuria or hematuria. All other 14 point ROS negative except the above Past Medical History Past Medical History: Chest Pain / Angina, Diabetes Mellitus, Hyperlipidemia, Hypertension Additional Past Medical History / Comment(s): Hx irreg heart rate as child, had ablation. Chest pain w/ exertion. History of Any Multi-Drug Resistant Organisms: None Reported Past Surgical History: Ablation, Heart Catheterization Additional Past Surgical History / Comment(s): Heart cath, cardiac ablation age 15. Dental extractions, wisdom teeth removed. Past Anesthesia/Blood Transfusion Reactions: Unable to Obtain Additional Past Anesthesia/Blood Transfusion Reaction / Comm: Nauseous with heart cath. Adopted, family hx unknown. Smoking Status: Former smoker - Past Family History Mother Family Medical History: Unable to Obtain Medications and Allergies Home Medications Medication Instructions Recorded Confirmed Type Aspirin [Adult Low Dose Aspirin EC] 81 mg PO DAILY 12/03/19 01/12/20 History Atorvastatin [Lipitor] 80 mg PO HS 12/03/19 01/12/20 History Ergocalciferol [Vitamin D2 50,000 unit PO DIAZ 12/03/19 01/12/20 History (DRISDOL)] Insulin Glargine,Hum.rec.anlog 18 unit SQ HS 12/03/19 01/12/20 History [Basaglar Kwikpen U-100] Losartan [Cozaar] 25 mg PO DAILY 12/03/19 01/12/20 History Metoprolol Tartrate [Lopressor] 25 mg PO BID 12/03/19 01/12/20 History Pioglitazone [Actos] 30 mg PO DAILY 12/03/19 01/12/20 History Liraglutide [Victoza 2-Phil] 0.6 mg SQ DAILY 01/12/20 01/12/20 History Mupirocin 2% Oint [Bactroban 2% 1 applic NASAL BID 01/12/20 01/12/20 History Oint] metFORMIN HCL [Glucophage] 1,000 mg PO BID 01/12/20 01/12/20 History Allergies Allergy/AdvReac Type Severity Reaction Status Date / Time adhesive Allergy Rash/Hives Verified 01/21/20 06:09 pseudoephedrine Allergy "heart Verified 01/21/20 [facility]" lisinopril AdvReac Cough Verified 01/21/20 06:09 Physical Exam Vitals: Vital Signs Temp Pulse Resp Pulse Ox 01/22/20 10:00 99.1 F 81 22 96 01/22/20 09:30 80 25 H 97 01/22/20 09:00 86 16 98 01/22/20 08:30 91 17 100 01/22/20 08:00 92 17 100 01/22/20 07:30 87 27 H 99 01/22/20 07:00 89 15 98 01/22/20 06:30 87 14 98 01/22/20 06:00 88 16 97 01/22/20 05:30 96 18 98 01/22/20 05:00 89 16 99 01/22/20 04:30 96 16 100 01/22/20 04:00 99.0 F 87 14 100 01/22/20 03:30 89 14 100 01/22/20 03:00 98 14 99 06/19/20 02:30 88 14 99 01/22/20 02:00 83 12 99 01/22/20 01:30 83 11 L 99 01/22/20 01:00 85 11 L 99 01/22/20 00:30 90 11 L 99 01/22/20 00:18 89 12 100 01/22/20 00:00 98.8 F 88 15 100 01/21/20 23:30 91 14 100 01/21/20 23:00 92 15 100 01/21/20 22:30 90 11 L 100 01/21/20 22:00 90 14 100 01/21/20 21:30 92 14 100 01/21/20 21:00 96 15 100 01/21/20 20:30 99 15 100 01/21/20 20:00 97.2 F L 100 19 100 01/21/20 19:40 101 H 18 100 01/21/20 19:30 105 H 15 100 01/21/20 19:28 105 H 01/21/20 19:20 109 H 20 100 01/21/20 19:16 109 H 01/21/20 19:10 101 H 17 100 01/21/20 19:00 105 H 17 100 01/21/20 18:50 107 H 16 100 01/21/20 18:40 97 14 100 01/21/20 18:30 97 14 100 01/21/20 18:20 101 H 14 100 01/21/20 18:10 102 H 14 100 01/21/20 18:00 99 100 Intake and Output 01/21/20 01/22/20 01/22/20 22:59 06:59 14:59 Intake Total 516.278 923.133 692.468 Output Total 825 890 295 Balance -308.722 33.133 397.468 Intake: IV 125 132 53 CO/CI Pressure Bag 80 60 20 Normal Saline Pressure 45 72 33 bag Intake, IV Titration 391.278 791.133 239.468 Amount ACETAMINOPHEN IV (For NPO 100 100 ) 1,000 mg In Empty Bag 1 bag @ 400 mls/hr IVPB Q6HR JA Rx#:[id number] Clevidipine Butyrate 25 2.4 mg In Empty Bag 1 bag @ 1 MG/HR 2 mls/hr IV .Q24H JA Rx#:[id number] Insulin Regular 100 unit 12.011 41.133 14.468 In Sodium Chloride 0.9% 100 ml @ Per Protocol IV .Q0M JA Rx#:[id number] Nitroglycerin-D5w Pmx 50 3.0 mg In Dextrose/Water 1 250ml.bag @ 5 MCG/MIN 1.5 mls/hr IV .Q24H JA Rx#: [id number] Potassium Chloride 10 meq 200 In Water For Injection 1 100ml.bag @ 100 mls/hr IVPB Q1H JA Rx#: [id number] Propofol 1,000 mg In 23.867 Empty Bag 1 bag @ Titrate IV .Q0M JA Rx#: [id number] Sodium Chloride 0.9% 1, 250 400 175 000 ml @ 20 mls/hr IV . Q24H JA Rx#:[id number] ceFAZolin 2 gm In Sodium 50 50 Chloride 0.9% 50 ml @ 100 mls/hr IVPB Q8HR JA Rx# :[id number] Oral 400 Output: Chest Tube Drainage 250 350 95 Chest Tube Bilateral 195 105 60 Mediastinal Chest Tube: Left Pleural 55 245 35 Drainage 40 50 20 Left Wrist 10 15 0 Right Calf 30 35 20 Urine 535 490 180 Other: Voiding Method Indwelling Catheter Indwelling Catheter Indwelling Catheter Weight 84.7 kg ABP, PAP, CO, CI - Last 8 Hours Arterial Blood Pressure 102/46 Arterial Blood Pressure 109/50 Arterial Blood Pressure 109/49 Arterial Blood Pressure 100/50 Arterial Blood Pressure 112/53 Arterial Blood Pressure 116/55 Arterial Blood Pressure 96/47 Arterial Blood Pressure 101/49 Arterial Blood Pressure 96/52 Arterial Blood Pressure 115/63 Arterial Blood Pressure 109/54 Arterial Blood Pressure 124/66 Arterial Blood Pressure 106/55 Arterial Blood Pressure 98/58 Arterial Blood Pressure 98/61 Pulmonary Artery Pressure 13/4 Pulmonary Artery Pressure 14/5 Pulmonary Artery Pressure 14/5 Pulmonary Artery Pressure 17/8 Pulmonary Artery Pressure 17/7 Pulmonary Artery Pressure 20/9 Pulmonary Artery Pressure 23/9 Pulmonary Artery Pressure 31/14 Pulmonary Artery Pressure 28/14 Pulmonary Artery Pressure 31/17 Pulmonary Artery Pressure 28/16 Pulmonary Artery Pressure 33/20 Pulmonary Artery Pressure 35/21 Cardiac Output 5 Cardiac Output 5 Cardiac Output 6.5 Cardiac Output 6.5 Cardiac Index 2.6 Cardiac Index 2.6 Cardiac Index 3.4 Cardiac Index 3.4 PHYSICAL EXAMINATION: Patient is lying in the bed comfortably, no acute distress, awake alert and oriented.. HEENT: Normocephalic. Neck is supple. Pupils reactive. Nostrils clear. Oral cavity is moist. Ears reveal no drainage. Neck reveals no JVD, carotid bruits, or thyromegaly. CHEST EXAMINATION: Trachea is central. Symmetrical expansion. Lung avelar clear to auscultation and percussion. chest tubes in place CARDIAC: Normal S1, S2 with no gallops. No murmurs ABDOMEN: Soft. Bowel sounds normal. No organomegaly. No abdominal bruits. Extremities: reveal no edema. No clubbing or cyanosis Neurologically awake, alert, oriented x3 with well-coordinated movements. No focal deficits noted Skin: No rash or skin lesions. Psychiatric: Coperative. Nonsuicidal Musculoskeletal: No joint swelling or deformity. Normal range of motion. Results CBC & Chem 7: 01/22/20 06:05 01/22/20 06:05 Labs: Abnormal Lab Results - Last 24 Hours (Table) 01/19/20 01/21/20 01/21/20 Range/Units 09:10 08:39 11:53 WBC (3.8-10.6) k/uL RBC (3.80-5.40) m/uL Hgb (11.4-16.0) gm/dL Hct (34.0-46.0) % Neutrophils # (1.3-7.7) k/uL Lymphocytes # (1.0-4.8) k/uL PT (9.0-12.0) sec INR (<1.2) ABG pH (7.35-7.45) ABG pCO2 (35-45) mmHg ABG pO2 162 H (83-108) mmHg ABG HCO3 26 H (21-25) mmol/L ABG Total CO2 27 H 26 H (19-24) mmol/L ABG O2 Saturation 98.1 H 99.5 H (94-97) % ABG Hematocrit 33 L 26 L (34.0-46.0) % ABG Potassium (3.4-4.5) mmol/L ABG Ionized Calcium (4.5-5.3) mg/dL ABG Glucose 133 H 143 H (75-99) mg/dL ABG Lactic Acid (0.5-1.6) mmol/L Hemoglobin 10.6 L 8.6 L (11.4-16.0) gm/dL Chloride (98-107) mmol/L Creatinine (0.52-1.04) mg/dL Glucose (74-99) mg/dL POC Glucose (mg/dL) (75-99) mg/dL Magnesium (1.6-2.3) mg/dL AST (14-36) U/L Alkaline Phosphatase (38-126) U/L Total Protein (6.3-8.2) g/dL Arterial Blood Potassium (3.4-4.5) mmol/L Arterial Blood Glucose 133 H 143 H (75-99) mg/dL Crossmatch See Detail 01/21/20 01/21/20 01/21/20 Range/Units 12:35 13:33 14:05 WBC (3.8-10.6) k/uL RBC (3.80-5.40) m/uL Hgb (11.4-16.0) gm/dL Hct (34.0-46.0) % Neutrophils # (1.3-7.7) k/uL Lymphocytes # (1.0-4.8) k/uL PT (9.0-12.0) sec INR (<1.2) ABG pH (7.35-7.45) ABG pCO2 (35-45) mmHg ABG pO2 174 H 356 H 317 H (83-108) mmHg ABG HCO3 (21-25) mmol/L ABG Total CO2 26 H 25 H 25 H (19-24) mmol/L ABG O2 Saturation 99.8 H 100.0 H 99.9 H (94-97) % ABG Hematocrit 24 L 22 L 23 L (34.0-46.0) % ABG Potassium 3.2 L (3.4-4.5) mmol/L ABG Ionized Calcium 4.3 L 4.4 L (4.5-5.3) mg/dL ABG Glucose 137 H 125 H 193 H (75-99) mg/dL ABG Lactic Acid (0.5-1.6) mmol/L Hemoglobin 7.8 L 7.1 L 7.5 L (11.4-16.0) gm/dL Chloride (98-107) mmol/L Creatinine (0.52-1.04) mg/dL Glucose (74-99) mg/dL POC Glucose (mg/dL) (75-99) mg/dL Magnesium (1.6-2.3) mg/dL AST (14-36) U/L Alkaline Phosphatase (38-126) U/L Total Protein (6.3-8.2) g/dL Arterial Blood Potassium 3.2 L (3.4-4.5) mmol/L Arterial Blood Glucose 137 H 125 H 193 H (75-99) mg/dL Crossmatch 01/21/20 01/21/20 01/21/20 Range/Units 14:35 15:13 15:50 WBC (3.8-10.6) k/uL RBC (3.80-5.40) m/uL Hgb (11.4-16.0) gm/dL Hct (34.0-46.0) % Neutrophils # (1.3-7.7) k/uL Lymphocytes # (1.0-4.8) k/uL PT (9.0-12.0) sec INR (<1.2) ABG pH (7.35-7.45) ABG pCO2 46 H (35-45) mmHg ABG pO2 210 H 302 H 242 H (83-108) mmHg ABG HCO3 30 H 26 H (21-25) mmol/L ABG Total CO2 31 H 27 H 26 H (19-24) mmol/L ABG O2 Saturation 99.7 H 100.0 H 99.7 H (94-97) % ABG Hematocrit 22 L 22 L 22 L (34.0-46.0) % ABG Potassium (3.4-4.5) mmol/L ABG Ionized Calcium 4.2 L 4.3 L 4.4 L (4.5-5.3) mg/dL ABG Glucose 206 H 233 H 178 H (75-99) mg/dL ABG Lactic Acid 1.7 H 2.7 H* (0.5-1.6) mmol/L Hemoglobin 7.0 L* 7.0 L* 7.1 L (11.4-16.0) gm/dL Chloride (98-107) mmol/L Creatinine (0.52-1.04) mg/dL Glucose (74-99) mg/dL POC Glucose (mg/dL) (75-99) mg/dL Magnesium (1.6-2.3) mg/dL AST (14-36) U/L Alkaline Phosphatase (38-126) U/L Total Protein (6.3-8.2) g/dL Arterial Blood Potassium (3.4-4.5) mmol/L Arterial Blood Glucose 206 H 233 H 178 H (75-99) mg/dL Crossmatch 01/21/20 01/21/20 01/21/20 Range/Units 16:42 18:02 18:02 WBC 11.2 H (3.8-10.6) k/uL RBC 2.86 L (3.80-5.40) m/uL Hgb 8.1 L D (11.4-16.0) gm/dL Hct 24.1 L (34.0-46.0) % Neutrophils # 8.1 H (1.3-7.7) k/uL Lymphocytes # (1.0-4.8) k/uL PT 12.5 H (9.0-12.0) sec INR 1.2 H (<1.2) ABG pH (7.35-7.45) ABG pCO2 (35-45) mmHg ABG pO2 (83-108) mmHg ABG HCO3 (21-25) mmol/L ABG Total CO2 26 H (19-24) mmol/L ABG O2 Saturation 97.9 H (94-97) % ABG Hematocrit 26 L (34.0-46.0) % ABG Potassium 3.3 L (3.4-4.5) mmol/L ABG Ionized Calcium (4.5-5.3) mg/dL ABG Glucose 132 H (75-99) mg/dL ABG Lactic Acid 2.0 H (0.5-1.6) mmol/L Hemoglobin 8.3 L (11.4-16.0) gm/dL Chloride (98-107) mmol/L Creatinine (0.52-1.04) mg/dL Glucose (74-99) mg/dL POC Glucose (mg/dL) (75-99) mg/dL Magnesium (1.6-2.3) mg/dL AST (14-36) U/L Alkaline Phosphatase (38-126) U/L Total Protein (6.3-8.2) g/dL Arterial Blood Potassium 3.3 L (3.4-4.5) mmol/L Arterial Blood Glucose 132 H (75-99) mg/dL Crossmatch 01/21/20 01/21/20 01/21/20 Range/Units 18:02 18:29 19:12 WBC (3.8-10.6) k/uL RBC (3.80-5.40) m/uL Hgb (11.4-16.0) gm/dL Hct (34.0-46.0) % Neutrophils # (1.3-7.7) k/uL Lymphocytes # (1.0-4.8) k/uL PT (9.0-12.0) sec INR (<1.2) ABG pH 7.33 L (7.35-7.45) ABG pCO2 51 H (35-45) mmHg ABG pO2 314 H (83-108) mmHg ABG HCO3 27 H (21-25) mmol/L ABG Total CO2 28 H (19-24) mmol/L ABG O2 Saturation 99.8 H (94-97) % ABG Hematocrit (34.0-46.0) % ABG Potassium (3.4-4.5) mmol/L ABG Ionized Calcium (4.5-5.3) mg/dL ABG Glucose (75-99) mg/dL ABG Lactic Acid (0.5-1.6) mmol/L Hemoglobin (11.4-16.0) gm/dL Chloride 108 H (98-107) mmol/L Creatinine 0.39 L (0.52-1.04) mg/dL Glucose (74-99) mg/dL POC Glucose (mg/dL) 169 H (75-99) mg/dL Magnesium 2.4 H (1.6-2.3) mg/dL AST 42 H (14-36) U/L Alkaline Phosphatase 24 L (38-126) U/L Total Protein 5.6 L (6.3-8.2) g/dL Arterial Blood Potassium (3.4-4.5) mmol/L Arterial Blood Glucose (75-99) mg/dL Crossmatch 01/21/20 01/21/20 01/21/20 Range/Units 20:16 20:58 21:26 WBC (3.8-10.6) k/uL RBC (3.80-5.40) m/uL Hgb (11.4-16.0) gm/dL Hct (34.0-46.0) % Neutrophils # (1.3-7.7) k/uL Lymphocytes # (1.0-4.8) k/uL PT (9.0-12.0) sec INR (<1.2) ABG pH (7.35-7.45) ABG pCO2 33 L (35-45) mmHg ABG pO2 197 H (83-108) mmHg ABG HCO3 (21-25) mmol/L ABG Total CO2 (19-24) mmol/L ABG O2 Saturation 99.5 H (94-97) % ABG Hematocrit (34.0-46.0) % ABG Potassium (3.4-4.5) mmol/L ABG Ionized Calcium (4.5-5.3) mg/dL ABG Glucose (75-99) mg/dL ABG Lactic Acid (0.5-1.6) mmol/L Hemoglobin (11.4-16.0) gm/dL Chloride (98-107) mmol/L Creatinine (0.52-1.04) mg/dL Glucose (74-99) mg/dL POC Glucose (mg/dL) 210 H 203 H (75-99) mg/dL Magnesium (1.6-2.3) mg/dL AST (14-36) U/L Alkaline Phosphatase (38-126) U/L Total Protein (6.3-8.2) g/dL Arterial Blood Potassium (3.4-4.5) mmol/L Arterial Blood Glucose (75-99) mg/dL Crossmatch 01/21/20 01/21/20 01/22/20 Range/Units 22:09 22:59 00:01 WBC (3.8-10.6) k/uL RBC (3.80-5.40) m/uL Hgb (11.4-16.0) gm/dL Hct (34.0-46.0) % Neutrophils # (1.3-7.7) k/uL Lymphocytes # (1.0-4.8) k/uL PT (9.0-12.0) sec INR (<1.2) ABG pH (7.35-7.45) ABG pCO2 (35-45) mmHg ABG pO2 (83-108) mmHg ABG HCO3 (21-25) mmol/L ABG Total CO2 (19-24) mmol/L ABG O2 Saturation (94-97) % ABG Hematocrit (34.0-46.0) % ABG Potassium (3.4-4.5) mmol/L ABG Ionized Calcium (4.5-5.3) mg/dL ABG Glucose (75-99) mg/dL ABG Lactic Acid (0.5-1.6) mmol/L Hemoglobin (11.4-16.0) gm/dL Chloride 108 H (98-107) mmol/L Creatinine 0.41 L (0.52-1.04) mg/dL Glucose 142 H (74-99) mg/dL POC Glucose (mg/dL) 194 H 169 H (75-99) mg/dL Magnesium (1.6-2.3) mg/dL AST (14-36) U/L Alkaline Phosphatase (38-126) U/L Total Protein (6.3-8.2) g/dL Arterial Blood Potassium (3.4-4.5) mmol/L Arterial Blood Glucose (75-99) mg/dL Crossmatch 01/22/20 01/22/20 01/22/20 Range/Units 00:01 00:04 01:06 WBC 12.8 H (3.8-10.6) k/uL RBC 2.97 L (3.80-5.40) m/uL Hgb 7.9 L (11.4-16.0) gm/dL Hct 24.8 L (34.0-46.0) % Neutrophils # 11.0 H (1.3-7.7) k/uL Lymphocytes # 0.8 L (1.0-4.8) k/uL PT (9.0-12.0) sec INR (<1.2) ABG pH (7.35-7.45) ABG pCO2 (35-45) mmHg ABG pO2 (83-108) mmHg ABG HCO3 (21-25) mmol/L ABG Total CO2 (19-24) mmol/L ABG O2 Saturation (94-97) % ABG Hematocrit (34.0-46.0) % ABG Potassium (3.4-4.5) mmol/L ABG Ionized Calcium (4.5-5.3) mg/dL ABG Glucose (75-99) mg/dL ABG Lactic Acid (0.5-1.6) mmol/L Hemoglobin (11.4-16.0) gm/dL Chloride (98-107) mmol/L Creatinine (0.52-1.04) mg/dL Glucose (74-99) mg/dL POC Glucose (mg/dL) 151 H 127 H (75-99) mg/dL Magnesium (1.6-2.3) mg/dL AST (14-36) U/L Alkaline Phosphatase (38-126) U/L Total Protein (6.3-8.2) g/dL Arterial Blood Potassium (3.4-4.5) mmol/L Arterial Blood Glucose (75-99) mg/dL Crossmatch 01/22/20 01/22/20 01/22/20 Range/Units 02:12 02:56 03:56 WBC (3.8-10.6) k/uL RBC (3.80-5.40) m/uL Hgb (11.4-16.0) gm/dL Hct (34.0-46.0) % Neutrophils # (1.3-7.7) k/uL Lymphocytes # (1.0-4.8) k/uL PT (9.0-12.0) sec INR (<1.2) ABG pH (7.35-7.45) ABG pCO2 (35-45) mmHg ABG pO2 (83-108) mmHg ABG HCO3 (21-25) mmol/L ABG Total CO2 (19-24) mmol/L ABG O2 Saturation (94-97) % ABG Hematocrit (34.0-46.0) % ABG Potassium (3.4-4.5) mmol/L ABG Ionized Calcium (4.5-5.3) mg/dL ABG Glucose (75-99) mg/dL ABG Lactic Acid (0.5-1.6) mmol/L Hemoglobin (11.4-16.0) gm/dL Chloride (98-107) mmol/L Creatinine (0.52-1.04) mg/dL Glucose (74-99) mg/dL POC Glucose (mg/dL) 120 H 122 H 112 H (75-99) mg/dL Magnesium (1.6-2.3) mg/dL AST (14-36) U/L Alkaline Phosphatase (38-126) U/L Total Protein (6.3-8.2) g/dL Arterial Blood Potassium (3.4-4.5) mmol/L Arterial Blood Glucose (75-99) mg/dL Crossmatch 01/22/20 01/22/20 01/22/20 Range/Units 05:08 06:00 06:05 WBC 14.9 H (3.8-10.6) k/uL RBC 3.10 L (3.80-5.40) m/uL Hgb 8.2 L (11.4-16.0) gm/dL Hct 26.1 L (34.0-46.0) % Neutrophils # 13.3 H (1.3-7.7) k/uL Lymphocytes # 0.7 L (1.0-4.8) k/uL PT (9.0-12.0) sec INR (<1.2) ABG pH (7.35-7.45) ABG pCO2 (35-45) mmHg ABG pO2 (83-108) mmHg ABG HCO3 (21-25) mmol/L ABG Total CO2 (19-24) mmol/L ABG O2 Saturation (94-97) % ABG Hematocrit (34.0-46.0) % ABG Potassium (3.4-4.5) mmol/L ABG Ionized Calcium (4.5-5.3) mg/dL ABG Glucose (75-99) mg/dL ABG Lactic Acid (0.5-1.6) mmol/L Hemoglobin (11.4-16.0) gm/dL Chloride (98-107) mmol/L Creatinine (0.52-1.04) mg/dL Glucose (74-99) mg/dL POC Glucose (mg/dL) 145 H 159 H (75-99) mg/dL Magnesium (1.6-2.3) mg/dL AST (14-36) U/L Alkaline Phosphatase (38-126) U/L Total Protein (6.3-8.2) g/dL Arterial Blood Potassium (3.4-4.5) mmol/L Arterial Blood Glucose (75-99) mg/dL Crossmatch 01/22/20 01/22/20 01/22/20 Range/Units 06:05 06:54 07:58 WBC (3.8-10.6) k/uL RBC (3.80-5.40) m/uL Hgb (11.4-16.0) gm/dL Hct (34.0-46.0) % Neutrophils # (1.3-7.7) k/uL Lymphocytes # (1.0-4.8) k/uL PT (9.0-12.0) sec INR (<1.2) ABG pH (7.35-7.45) ABG pCO2 (35-45) mmHg ABG pO2 (83-108) mmHg ABG HCO3 (21-25) mmol/L ABG Total CO2 (19-24) mmol/L ABG O2 Saturation (94-97) % ABG Hematocrit (34.0-46.0) % ABG Potassium (3.4-4.5) mmol/L ABG Ionized Calcium (4.5-5.3) mg/dL ABG Glucose (75-99) mg/dL ABG Lactic Acid (0.5-1.6) mmol/L Hemoglobin (11.4-16.0) gm/dL Chloride 109 H (98-107) mmol/L Creatinine 0.43 L (0.52-1.04) mg/dL Glucose 151 H (74-99) mg/dL POC Glucose (mg/dL) 151 H 136 H (75-99) mg/dL Magnesium (1.6-2.3) mg/dL AST 72 H (14-36) U/L Alkaline Phosphatase 31 L (38-126) U/L Total Protein 5.9 L (6.3-8.2) g/dL Arterial Blood Potassium (3.4-4.5) mmol/L Arterial Blood Glucose (75-99) mg/dL Crossmatch 01/22/20 01/22/20 Range/Units 09:14 10:14 WBC (3.8-10.6) k/uL RBC (3.80-5.40) m/uL Hgb (11.4-16.0) gm/dL Hct (34.0-46.0) % Neutrophils # (1.3-7.7) k/uL Lymphocytes # (1.0-4.8) k/uL PT (9.0-12.0) sec INR (<1.2) ABG pH (7.35-7.45) ABG pCO2 (35-45) mmHg ABG pO2 (83-108) mmHg ABG HCO3 (21-25) mmol/L ABG Total CO2 (19-24) mmol/L ABG O2 Saturation (94-97) % ABG Hematocrit (34.0-46.0) % ABG Potassium (3.4-4.5) mmol/L ABG Ionized Calcium (4.5-5.3) mg/dL ABG Glucose (75-99) mg/dL ABG Lactic Acid (0.5-1.6) mmol/L Hemoglobin (11.4-16.0) gm/dL Chloride (98-107) mmol/L Creatinine (0.52-1.04) mg/dL Glucose (74-99) mg/dL POC Glucose (mg/dL) 115 H 118 H (75-99) mg/dL Magnesium (1.6-2.3) mg/dL AST (14-36) U/L Alkaline Phosphatase (38-126) U/L Total Protein (6.3-8.2) g/dL Arterial Blood Potassium (3.4-4.5) mmol/L Arterial Blood Glucose (75-99) mg/dL Crossmatch Assessment and Plan Assessment: Status post triple-vessel coronary artery bypass graft on 01/21/2020 Acute blood loss anemia secondary to surgery which was expected. Coronary artery disease Right internal carotid artery greater than 70% stenosis Uncontrolled diabetes type 2 insulin-dependent A1c 7.3 Hypertension Hyperlipidemia Obesity with BMI 32.1 History of WPW syndrome status post ablation several years ago Family history of premature coronary artery disease Previous history of smoking DVT prophylaxis Plan: Patient will be continued on aspirin statins and Plavix and beta-blockers. Currently maintaining sinus rhythm. Increase incentive spirometry and ambula tion. Replace electrolytes. Patient will be started back on Basaglar 18 units and insulin sliding scale. Patient also takes Victoza, Glucophage and Actos at home. Will add preprandial insulin. Titrate insulin dose as needed. We will continue to follow and further recommendations based on clinical course. Time with Patient: Greater than 30
[2020-01-22] MEDS: INSULIN DETEMIR (LEVEMIR) 100 UNIT/ML SYR SQ SCH (21:58)
[2020-01-22 22:14] LABS: Glucose,Whole Blood 134 mg/dL (75-99)
[2020-01-22 23:28] LABS: Glucose,Whole Blood 133 mg/dL (75-99)
[2020-01-22 23:56] LABS: Glucose,Whole Blood 148 mg/dL (75-99)
[2020-01-23] MEDS: HEPARIN SODIUM,PORCINE 5,000 UNIT/ML 1 ML VIAL SQ SCH ×3 (00:11→15:15)
[2020-01-23] MEDS: KETOROLAC 30 MG/ML 1 ML VIAL IVP SCH ×4 (00:12→17:13)
[2020-01-23 01:11] LABS: Glucose,Whole Blood 156 mg/dL (75-99)
[2020-01-23] MEDS: HYDROcodone/APAP 5-325MG 1 EACH TAB PO PRN ×2 (01:15→06:04)
[2020-01-23 02:17] LABS: Glucose,Whole Blood 120 mg/dL (75-99)
[2020-01-23 03:08] LABS: Glucose,Whole Blood 124 mg/dL (75-99)
[2020-01-23 04:04] LABS: Glucose,Whole Blood 117 mg/dL (75-99)
[2020-01-23 04:13] LABS: Glucose,Whole Blood 108 mg/dL (75-99)
[2020-01-23 05:05] LABS: Glucose,Whole Blood 110 mg/dL (75-99)
[2020-01-23 05:26] LABS: Basophils % (A) 0 %; Eosinophils % (A) 0 %; HCT 20.8 % (34.0-46.0); Lymphocytes # (A) 2.4 k/uL (1.0-4.8); Lymphocytes % (A) 18 %; MCH 28.6 pg (25.0-35.0); MCHC 33.8 g/dL (31.0-37.0); MCV 84.7 fL (80.0-100.0); Mean Platelet Volume 9.3; Monocytes % (A) 7 %; Neutrophils # (A) 9.7 k/uL (1.3-7.7); Neutrophils % (A) 73 %; Platelet Count 191 k/uL (150-450); RBC 2.45 m/uL (3.80-5.40); RDW 15.1 % (11.5-15.5); WBC 13.3 k/uL (3.8-10.6)
[2020-01-23 05:42] LABS: ALT 16 U/L (4-34); AST 84 U/L (14-36); African American GFR (CKD) >90 (>60 ml/min/1.73 sqM); Albumin 3.2 g/dL (3.5-5.0); Alkaline Phosphatase 42 U/L (38-126); Anion Gap 5 mmol/L; Blood Urea Nitrogen 10 mg/dL (7-17); Calcium 8.5 mg/dL (8.4-10.2); Carbon Dioxide 24 mmol/L (22-30); Chloride 102 mmol/L (98-107); Glucose 118 mg/dL (74-99); Non-African American GFR(CKD) >90 (>60 ml/min/1.73 sqM); Potassium 4.1 mmol/L (3.5-5.1); Sodium 131 mmol/L (137-145); Total Bilirubin 0.6 mg/dL (0.2-1.3); Total Protein 5.4 g/dL (6.3-8.2)
[2020-01-23 06:04] LABS: Glucose,Whole Blood 124 mg/dL (75-99)
[2020-01-23] MEDS: ASCORBIC ACID 500 MG TAB PO SCH ×2 (06:04→17:12)
[2020-01-23] MEDS: PANTOPRAZOLE 40 MG TABLET PO SCH (06:04)
[2020-01-23] MEDS: FERROUS SULFATE 325 MG TAB PO SCH ×2 (06:04→17:12)
--- NOTE | 2020-01-23 06:18 | XR ---
EXAMINATION TYPE: XR chest 1V portable DATE OF EXAM: 01/23/2020 HISTORY: Post Operative Cardiac Surgery. REFERENCE: Previous study dated 01/22/2020. FINDINGS: Been a midline sternotomy. The patient's right internal jugular catheter is been removed. There is minimal bibasilar atelectasis. There has developed platelike atelectasis in the left upper l obe. Pleural spaces appear clear. A left pleural drain remains in place. No pneumothorax is seen. Ple ural spaces appear clear. IMPRESSION: CONTINUING POSTOPERATIVE CHANGE.
[2020-01-23 07:07] LABS: Glucose,Whole Blood 160 mg/dL (75-99)
[2020-01-23] MEDS ORDERED: FUROSEMIDE 10 MG/ML 2 ML VIAL IV ONE (07:56)
[2020-01-23 08:01] LABS: Glucose,Whole Blood 160 mg/dL (75-99)
[2020-01-23] MEDS: IPRATROPIUM-ALBUTEROL 3 ML NEB INHALATION SCH ×4 (08:05→19:11)
[2020-01-23] MEDS: INSULIN ASPART (NovoLOG) 100 UNIT/ML VIAL SQ SCH ×6 (08:39→21:02)
[2020-01-23] MEDS: METOPROLOL TARTRATE 25 MG TAB PO SCH ×2 (08:40→21:33)
[2020-01-23] MEDS: ASPIRIN 325 MG TAB PO SCH (08:40)
[2020-01-23] MEDS: CLOPIDOGREL 75 MG TAB PO SCH (08:40)
[2020-01-23] MEDS: ATORVASTATIN 40 MG TAB PO SCH (08:40)
[2020-01-23] MEDS: MUPIROCIN 2% OINT 22 GM TUBE NASAL SCH ×2 (08:43→21:36)
[2020-01-23 08:58] LABS: Glucose,Whole Blood 142 mg/dL (75-99)
--- NOTE | 2020-01-23 09:03 | P.PN ---
Subjective Progress Note Date: 01/23/20 Principal diagnosis: Severe diffuse triple-vessel coronary artery disease, preserved left ventricular function, insulin-dependent diabetes mellitus with preoperative hemoglobin A1c 7.3%, hypertension, hyperlipidemia, history of Hccld-Wmotsjeyi-Fsxuz status post ablation, right internal carotid stenosis greater than 70% per carotid Dopplers, approximately 60% per CTA, previous brief tobacco use with preoperative FEV1 87% of predicted, family history of premature coronary artery disease. Preoperative nasal swab positive for MRSA. POD #2 triple vessel coronary artery bypass grafting using the left internal mammary artery to the left anterior descending artery, left radial artery from the aorta to the right coronary artery, reverse saphenous vein graft from the aorta to the distal circumflex artery. Exclusion of the left atrial appendage using a 35 mm after clip. Endoscopic harvesting of the left radial artery. Endoscopic harvesting of the right greater saphenous vein from the groin to above the ankle level. Intraoperative transesophageal echocardiogram and epi- aortic scanning. Intraoperative graft flow measurements using the Spinzostim system. Postoperative acute blood loss anemia, expected outcome of surgery given hemodilution and cardiopulmonary bypass pump The patient's currently sitting up in a recliner in the intensive care unit in no acute distress. States pain is controlled on current medication regimen, denies shortness of breath. Currently normal sinus rhythm, hemodynamically stable on no inotropes or pressors. Mediastinal, left pleural chest tubes, Cordis present. Ambulated in hallway yesterday without difficulty. No new concerns. Objective - Vital Signs Vital signs: Vital Signs Temp 98.9 F 01/23/20 00:00 Pulse 90 01/23/20 08:21 Resp 18 01/23/20 07:00 BP 121/76 01/23/20 07:00 Pulse Ox 98 01/23/20 07:00 Intake & Output 01/22/20 01/23/20 01/23/20 18:59 06:59 18:59 Intake Total 1454.094 276.988 25.373 Output Total 515 605 90 Balance 939.094 -328.012 -64.627 Weight 84.7 kg 87.1 kg Intake: IV 534 232 23 Albumin Human 5% 250 ml 250 In Empty Bag 1 bag @ 250 mls/hr IVPB Q1HR PRN Rx#: [id number] CO/CI Pressure Bag 20 Normal Saline Pressure 54 12 3 bag Sodium Chloride 0.9% 1, 160 220 20 000 ml @ 20 mls/hr IV . Q24H JA Rx#:[id number] ceFAZolin 2 gm In Sodium 50 Chloride 0.9% 50 ml @ 100 mls/hr IVPB Q8HR JA Rx# :[id number] Intake, IV Titration 280.094 44.988 2.373 Amount Insulin Regular 100 unit 55.094 24.988 2.373 In Sodium Chloride 0.9% 100 ml @ Per Protocol IV .Q0M JA Rx#:[id number] Sodium Chloride 0.9% 1, 175 20 000 ml @ 20 mls/hr IV . Q24H JA Rx#:[id number] ceFAZolin 2 gm In Sodium 50 Chloride 0.9% 50 ml @ 100 mls/hr IVPB Q8HR JA Rx# :[id number] Oral 640 Output: Chest Tube Drainage 155 230 70 Chest Tube Bilateral 120 80 30 Mediastinal Chest Tube: Left Pleural 35 150 40 Drainage 20 0 Left Wrist 0 Right Calf 20 0 Urine 340 375 20 Other: Voiding Method Indwelling Catheter Indwelling Catheter ABP, PAP, CO, CI - Last Documented Arterial Blood Pressure 113/52 Pulmonary Artery Pressure 13/4 Cardiac Output 5 Cardiac Index 2.6 - Constitutional General appearance: Present: cooperative, no acute distress, obese - Respiratory Details: Lungs sounds diminished in the bases bilaterally. Respirations even, nonlabored. Currently on room air with oxygen saturation 97%. Able to achieve 1000 mL on her incentive spirometry. Strong cough. Mediastinal and left pleural chest tubes present to continuous wall suction. Mediastinal chest tube with 70 mL serosanguineous drainage overnight, 270 mL in the last 24 hours. Left pleural chest tube with 150 mL serosanguineous drainage and right, 250 mL in the last 24 hours. No air leaks present. - Cardiovascular Details: S1, S2 present. Regular rate and rhythm, sinus rhythm on telemetry with heart rate in the 80s. Sternum stable. A/V epicardial pacemaker wires present, grounded. Palpable peripheral pulses bilaterally. Trace bilateral lower extremity edema present. Right internal jugular Cordis present. No calf pain or tenderness noted. Heart hugger in place with patient demonstrating appropriate use. Antiembolism stockings, SCDs present. - Gastrointestinal Gastrointestinal Comment(s): Abdomen soft, nontender, nondistended. Active bowel sounds present 4 quadrants. Tolerating diet. Positive flatus. - Genitourinary Genitourinary Comment(s): Garcia present draining clear, yellow urine. Output 30-40 mL/h overnight. - Integumentary Integumentary Comment(s): Skin is warm and dry with evidence of good perfusion. Anterior chest incision well approximated and covered with dry intact dressing. Right lower extremity EVH site well approximated, JACK drain present with minimal serosanguineous drainage. Left radial artery harvest site well approximated, patient is able to move all her fingers, denies numbness tingling, skin is warm and pink. - Neurologic Neurologic: Present: CNII-XII intact - Musculoskeletal Musculoskeletal: Present: gait normal, strength equal bilaterally - Psychiatric Psychiatric: Present: A&O x's 3, appropriate affect, intact judgment & insight - Allied health notes Allied health notes reviewed: nursing - Labs CBC & Chem 7: 01/23/20 05:12 01/23/20 05:12 Labs: Abnormal Lab Results - Last 24 Hours (Table) 01/19/20 01/22/20 01/22/20 Range/Units 09:10 09:14 10:14 WBC (3.8-10.6) k/uL RBC (3.80-5.40) m/uL Hgb (11.4-16.0) gm/dL Hct (34.0-46.0) % Neutrophils # (1.3-7.7) k/uL Sodium (137-145) mmol/L Glucose (74-99) mg/dL POC Glucose (mg/dL) 115 H 118 H (75-99) mg/dL AST (14-36) U/L Total Protein (6.3-8.2) g/dL Albumin (3.5-5.0) g/dL Crossmatch See Detail 01/22/20 01/22/20 01/22/20 Range/Units 13:06 14:03 15:10 WBC (3.8-10.6) k/uL RBC (3.80-5.40) m/uL Hgb (11.4-16.0) gm/dL Hct (34.0-46.0) % Neutrophils # (1.3-7.7) k/uL Sodium (137-145) mmol/L Glucose (74-99) mg/dL POC Glucose (mg/dL) 149 H 154 H 143 H (75-99) mg/dL AST (14-36) U/L Total Protein (6.3-8.2) g/dL Albumin (3.5-5.0) g/dL Crossmatch 01/22/20 01/22/20 01/22/20 Range/Units 16:07 17:04 18:12 WBC (3.8-10.6) k/uL RBC (3.80-5.40) m/uL Hgb (11.4-16.0) gm/dL Hct (34.0-46.0) % Neutrophils # (1.3-7.7) k/uL Sodium (137-145) mmol/L Glucose (74-99) mg/dL POC Glucose (mg/dL) 118 H 113 H 111 H (75-99) mg/dL AST (14-36) U/L Total Protein (6.3-8.2) g/dL Albumin (3.5-5.0) g/dL Crossmatch 01/22/20 01/22/20 01/22/20 Range/Units 18:59 20:01 21:17 WBC (3.8-10.6) k/uL RBC (3.80-5.40) m/uL Hgb (11.4-16.0) gm/dL Hct (34.0-46.0) % Neutrophils # (1.3-7.7) k/uL Sodium (137-145) mmol/L Glucose (74-99) mg/dL POC Glucose (mg/dL) 150 H 134 H 124 H (75-99) mg/dL AST (14-36) U/L Total Protein (6.3-8.2) g/dL Albumin (3.5-5.0) g/dL Crossmatch 01/22/20 01/22/20 01/22/20 Range/Units 22:03 23:16 23:54 WBC (3.8-10.6) k/uL RBC (3.80-5.40) m/uL Hgb (11.4-16.0) gm/dL Hct (34.0-46.0) % Neutrophils # (1.3-7.7) k/uL Sodium (137-145) mmol/L Glucose (74-99) mg/dL POC Glucose (mg/dL) 134 H 133 H 148 H (75-99) mg/dL AST (14-36) U/L Total Protein (6.3-8.2) g/dL Albumin (3.5-5.0) g/dL Crossmatch 01/23/20 01/23/20 01/23/20 Range/Units 01:09 02:15 03:06 WBC (3.8-10.6) k/uL RBC (3.80-5.40) m/uL Hgb (11.4-16.0) gm/dL Hct (34.0-46.0) % Neutrophils # (1.3-7.7) k/uL Sodium (137-145) mmol/L Glucose (74-99) mg/dL POC Glucose (mg/dL) 156 H 120 H 124 H (75-99) mg/dL AST (14-36) U/L Total Protein (6.3-8.2) g/dL Albumin (3.5-5.0) g/dL Crossmatch 01/23/20 01/23/20 01/23/20 Range/Units 04:03 04:12 05:04 WBC (3.8-10.6) k/uL RBC (3.80-5.40) m/uL Hgb (11.4-16.0) gm/dL Hct (34.0-46.0) % Neutrophils # (1.3-7.7) k/uL Sodium (137-145) mmol/L Glucose (74-99) mg/dL POC Glucose (mg/dL) 117 H 108 H 110 H (75-99) mg/dL AST (14-36) U/L Total Protein (6.3-8.2) g/dL Albumin (3.5-5.0) g/dL Crossmatch 01/23/20 01/23/20 01/23/20 Range/Units 05:12 05:12 06:02 WBC 13.3 H (3.8-10.6) k/uL RBC 2.45 L (3.80-5.40) m/uL Hgb 7.0 L (11.4-16.0) gm/dL Hct 20.8 L (34.0-46.0) % Neutrophils # 9.7 H (1.3-7.7) k/uL Sodium 131 L (137-145) mmol/L Glucose 118 H (74-99) mg/dL POC Glucose (mg/dL) 124 H (75-99) mg/dL AST 84 H (14-36) U/L Total Protein 5.4 L (6.3-8.2) g/dL Albumin 3.2 L (3.5-5.0) g/dL Crossmatch 01/23/20 01/23/20 Range/Units 07:06 07:59 WBC (3.8-10.6) k/uL RBC (3.80-5.40) m/uL Hgb (11.4-16.0) gm/dL Hct (34.0-46.0) % Neutrophils # (1.3-7.7) k/uL Sodium (137-145) mmol/L Glucose (74-99) mg/dL POC Glucose (mg/dL) 160 H 160 H (75-99) mg/dL AST (14-36) U/L Total Protein (6.3-8.2) g/dL Albumin (3.5-5.0) g/dL Crossmatch - Imaging and Cardiology Chest x-ray: report reviewed, image reviewed Assessment and Plan Assessment: 1. Severe diffuse triple-vessel coronary artery disease, status post three-vessel CABG 2. Preserved left ventricular function 3. Insulin-dependent diabetes with preoperative hemoglobin A1c 7.3% 4. History of hypertension 5. Hyperlipidemia 6. History of Pkemn-Mnbxjrkdq-Yqfge status post ablation 7. Right internal carotid stenosis greater than 70% per carotid Dopplers, appro ximately 60% per CTA 8. Previous brief tobacco use with preoperative FEV1 87% of protected 9. Family history of premature coronary artery disease 10. Preoperative nasal swab positive for MRSA, treated 11. Postoperative acute blood loss anemia, expected Plan: 1. Continue aspirin, statin, Plavix, beta any therapy. Will increase beta any therapy as tolerated. Will add Cozaar when able 2. Continue Norvasc for radial artery spasm. Please do not discontinue CCB without discussing with cardiac surgery 3. Encourage incentive spirometry is 10 times every hour while awake 4. Bronchodilators per pulmonology 5. Increase activity, ambulate as tolerated. PT/OT/cardiac rehab consulted 6. Will monitor daily labs and x-rays. Electrolyte replacement per protocol. No transfusion. Will give Lasix 20 mg IV push 1 7. Pain control with current medication regimen. 8. Insulin management per primary care service. Patient's home regimen consisted of glargine insulin as well as Victoza, Glucophage, and Actos. 9. Atrial epicardial pacemaker were discontinued without incident. Patient to remain on bedrest for 1 hour 10. Will discontinue mediastinal chest tubes. Keep left pleural chest tube for another 24 hours 11. Discontinue Garcia catheter. May bladder scan and straight cath for greater than 300 mL residual 12. More recommendations to follow Time with Patient: Greater than 30
--- NOTE | 2020-01-23 09:55 | P.PN ---
Subjective Progress Note Date: 01/23/20 This is a 44-year-old female with history of severe triple-vessel disease, hypertension, hypercholesterolemia and also Ntzeu-Ihkhddfcj-Qktkp syndrome. Patient is status post prior to coronary bypass surgery. She seemed to be clinically stable. Of the chest itself being taken out. No arrhythmias noted. Blood pressure stable. Tolerating activity Objective - Vital Signs Vital signs: Vital Signs Temp 98.9 F 01/23/20 00:00 Pulse 90 01/23/20 08:21 Resp 18 01/23/20 07:00 BP 121/76 01/23/20 07:00 Pulse Ox 98 01/23/20 07:00 Intake & Output 01/22/20 01/23/20 01/23/20 18:59 06:59 18:59 Intake Total 1454.094 276.988 34.379 Output Total 515 605 90 Balance 939.094 -328.012 -55.621 Weight 84.7 kg 87.1 kg Intake: IV 534 232 23 Albumin Human 5% 250 ml 250 In Empty Bag 1 bag @ 250 mls/hr IVPB Q1HR PRN Rx#: [id number] CO/CI Pressure Bag 20 Normal Saline Pressure 54 12 3 bag Sodium Chloride 0.9% 1, 160 220 20 000 ml @ 20 mls/hr IV . Q24H AJ Rx#:[id number] ceFAZolin 2 gm In Sodium 50 Chloride 0.9% 50 ml @ 100 mls/hr IVPB Q8HR JA Rx# :[id number] Intake, IV Titration 280.094 44.988 11.379 Amount Insulin Regular 100 unit 55.094 24.988 11.379 In Sodium Chloride 0.9% 100 ml @ Per Protocol IV .Q0M JA Rx#:[id number] Sodium Chloride 0.9% 1, 175 20 000 ml @ 20 mls/hr IV . Q24H JA Rx#:[id number] ceFAZolin 2 gm In Sodium 50 Chloride 0.9% 50 ml @ 100 mls/hr IVPB Q8HR JA Rx# :[id number] Oral 640 Output: Chest Tube Drainage 155 230 70 Chest Tube Bilateral 120 80 30 Mediastinal Chest Tube: Left Pleural 35 150 40 Drainage 20 0 Left Wrist 0 Right Calf 20 0 Urine 340 375 20 Other: Voiding Method Indwelling Catheter Indwelling Catheter ABP, PAP, CO, CI - Last Documented Arterial Blood Pressure 113/52 Pulmonary Artery Pressure 13/4 Cardiac Output 5 Cardiac Index 2.6 - Exam GENERAL EXAM: Patient is alert and oriented and doesn't appear to be in any acute distress HEENT: Normocephalic. Normal reaction of pupils, equal size, normal range of extraocular motion. No erythema or exudates in the throat. NECK: No masses, no nuchal rigidity. CHEST: No chest wall deformity. LUNGS: Diminished breath sounds at both bases HEART: S1 and S2 normal with no audible mumurs or gallops. Regular rhythm, femorals equal on both sides.. ABDOMEN: No hepatosplenomegaly, normal bowel sounds, no guarding or rigidity. SKIN: No rashes CENTRAL NERVOUS SYSTEM: No focal deficits. EXTREMITIES: No cyanosis, clubbing or edema. - Labs CBC & Chem 7: 01/23/20 05:12 01/23/20 05:12 Labs: Abnormal Lab Results - Last 24 Hours (Table) 01/19/20 01/22/20 01/22/20 Range/Units 09:10 10:14 13:06 WBC (3.8-10.6) k/uL RBC (3.80-5.40) m/uL Hgb (11.4-16.0) gm/dL Hct (34.0-46.0) % Neutrophils # (1.3-7.7) k/uL Sodium (137-145) mmol/L Glucose (74-99) mg/dL POC Glucose (mg/dL) 118 H 149 H (75-99) mg/dL AST (14-36) U/L Total Protein (6.3-8.2) g/dL Albumin (3.5-5.0) g/dL Crossmatch See Detail 01/22/20 01/22/20 01/22/20 Range/Units 14:03 15:10 16:07 WBC (3.8-10.6) k/uL RBC (3.80-5.40) m/uL Hgb (11.4-16.0) gm/dL Hct (34.0-46.0) % Neutrophils # (1.3-7.7) k/uL Sodium (137-145) mmol/L Glucose (74-99) mg/dL POC Glucose (mg/dL) 154 H 143 H 118 H (75-99) mg/dL AST (14-36) U/L Total Protein (6.3-8.2) g/dL Albumin (3.5-5.0) g/dL Crossmatch 01/22/20 01/22/20 01/22/20 Range/Units 17:04 18:12 18:59 WBC (3.8-10.6) k/uL RBC (3.80-5.40) m/uL Hgb (11.4-16.0) gm/dL Hct (34.0-46.0) % Neutrophils # (1.3-7.7) k/uL Sodium (137-145) mmol/L Glucose (74-99) mg/dL POC Glucose (mg/dL) 113 H 111 H 150 H (75-99) mg/dL AST (14-36) U/L Total Protein (6.3-8.2) g/dL Albumin (3.5-5.0) g/dL Crossmatch 01/22/20 01/22/20 01/22/20 Range/Units 20:01 21:17 22:03 WBC (3.8-10.6) k/uL RBC (3.80-5.40) m/uL Hgb (11.4-16.0) gm/dL Hct (34.0-46.0) % Neutrophils # (1.3-7.7) k/uL Sodium (137-145) mmol/L Glucose (74-99) mg/dL POC Glucose (mg/dL) 134 H 124 H 134 H (75-99) mg/dL AST (14-36) U/L Total Protein (6.3-8.2) g/dL Albumin (3.5-5.0) g/dL Crossmatch 01/22/20 01/22/20 01/23/20 Range/Units 23:16 23:54 01:09 WBC (3.8-10.6) k/uL RBC (3.80-5.40) m/uL Hgb (11.4-16.0) gm/dL Hct (34.0-46.0) % Neutrophils # (1.3-7.7) k/uL Sodium (137-145) mmol/L Glucose (74-99) mg/dL POC Glucose (mg/dL) 133 H 148 H 156 H (75-99) mg/dL AST (14-36) U/L Total Protein (6.3-8.2) g/dL Albumin (3.5-5.0) g/dL Crossmatch 01/23/20 01/23/20 01/23/20 Range/Units 02:15 03:06 04:03 WBC (3.8-10.6) k/uL RBC (3.80-5.40) m/uL Hgb (11.4-16.0) gm/dL Hct (34.0-46.0) % Neutrophils # (1.3-7.7) k/uL Sodium (137-145) mmol/L Glucose (74-99) mg/dL POC Glucose (mg/dL) 120 H 124 H 117 H (75-99) mg/dL AST (14-36) U/L Total Protein (6.3-8.2) g/dL Albumin (3.5-5.0) g/dL Crossmatch 01/23/20 01/23/20 01/23/20 Range/Units 04:12 05:04 05:12 WBC 13.3 H (3.8-10.6) k/uL RBC 2.45 L (3.80-5.40) m/uL Hgb 7.0 L (11.4-16.0) gm/dL Hct 20.8 L (34.0-46.0) % Neutrophils # 9.7 H (1.3-7.7) k/uL Sodium (137-145) mmol/L Glucose (74-99) mg/dL POC Glucose (mg/dL) 108 H 110 H (75-99) mg/dL AST (14-36) U/L Total Protein (6.3-8.2) g/dL Albumin (3.5-5.0) g/dL Crossmatch 01/23/20 01/23/20 01/23/20 Range/Units 05:12 06:02 07:06 WBC (3.8-10.6) k/uL RBC (3.80-5.40) m/uL Hgb (11.4-16.0) gm/dL Hct (34.0-46.0) % Neutrophils # (1.3-7.7) k/uL Sodium 131 L (137-145) mmol/L Glucose 118 H (74-99) mg/dL POC Glucose (mg/dL) 124 H 160 H (75-99) mg/dL AST 84 H (14-36) U/L Total Protein 5.4 L (6.3-8.2) g/dL Albumin 3.2 L (3.5-5.0) g/dL Crossmatch 01/23/20 01/23/20 Range/Units 07:59 08:57 WBC (3.8-10.6) k/uL RBC (3.80-5.40) m/uL Hgb (11.4-16.0) gm/dL Hct (34.0-46.0) % Neutrophils # (1.3-7.7) k/uL Sodium (137-145) mmol/L Glucose (74-99) mg/dL POC Glucose (mg/dL) 160 H 142 H (75-99) mg/dL AST (14-36) U/L Total Protein (6.3-8.2) g/dL Albumin (3.5-5.0) g/dL Crossmatch Assessment and Plan (1) Status post aorto-coronary artery bypass graft Current Visit: Yes Status: Acute Code(s): Z95.1 - PRESENCE OF AORTOCORONARY BYPASS GRAFT SNOMED Code(s): 463701263 (2) Essential hypertension Current Visit: Yes Status: Acute Code(s): I10 - ESSENTIAL (PRIMARY) HYPERTEN MARIAELENA SNOMED Code(s): 24520029 (3) Hypercholesterolemia Current Visit: Yes Status: Acute Code(s): E78.00 - PURE HYPERCHOLESTEROLEMIA, UNSPECIFIED SNOMED Code(s): 87730373 (4) Insulin dependent diabetes mellitus Current Visit: Yes Status: Acute Code(s): EFR0267 - SNOMED Code(s): 80582027 Plan: Patient is clinically stable and doing well. No arrhythmias. Increase activity as tolerated. Incentive spirometry. Possible transfer to telemetry unit
[2020-01-23 10:06] LABS: Glucose,Whole Blood 119 mg/dL (75-99)
--- NOTE | 2020-01-23 10:15 | PN ---
PROGRESS NOTE PULMONARY/CRITICAL CARE PROGRESS NOTE: DATE OF SERVICE: January 23, 2020. INTERVAL HISTORY: This is a 44-year-old female, postop day #2, status post 3 vessel bypass grafting. Currently, she is doing well. She is not on any supplemental oxygen. She is receiving insulin drip at 4 units an hour and saline at 20 mL an hour. This morning's hemoglobin is 7. There has been no determination as to whether not she will receive any blood this morning. She does look a bit pale. She is getting about a 1000 mL on her incentive spirometer. We encouraged her to deep breathe cough and clear secretions. PHYSICAL EXAMINATION: VITAL SIGNS: Current vital signs are reviewed. Temperature is 98.9, heart rate is 90, respiratory rate 18, blood pressure 121/76 mean 91. Saturations are 98% on room air. GENERAL: Appears in no acute distress. HEENT: Examination is grossly unremarkable. NECK: Supple. Full range of motion. No adenopathy. Neck veins flat. CARDIOVASCULAR: Examination reveals regular rhythm rate. Heart rate 90. S1, S2 normal. No murmur. LUNGS: Reveal mostly clear breath sounds. A few scattered rhonchi. No wheezes or crackles. ABDOMEN: Soft. Bowel sounds are heard. EXTREMITIES are intact. No cyanosis, clubbing, or edema. SKIN is pale. NEUROLOGIC: Examination is brief but nonfocal. LABS: Reviewed. White count 13.3, hemoglobin 7, hematocrit 20.8, platelet count 191,000. Sodium 131, potassium 4.1 chloride 102, CO2 24, anion gap is 5. BUN and creatinine were 10 and 0.52. The rest of the labs look okay. Microbiology is negative. Chest x-ray reveals some atelectasis or infiltrate at the right lung base. Postsurgical changes are noted. Medications are reviewed. ASSESSMENT: 1. Postoperative day number 2 status post 3-vessel bypass grafting and other procedures as mentioned in my consultation. 2. Routine postoperative ventilator management with extubation 3 hours and 30 minutes after leaving the operating room. 3. Diabetes mellitus. 4. Coronary artery disease. 5. Hypertension. 6. Hyperlipidemia. 7. Whvtt-Mkynvoexj-Ljogk syndrome. PLAN: All-in-all, the patient is doing well. We encourage you to continue using the incentive spirometer q.1 hour while awake. We will also recommend deep breathing coughing, clearing of secretions. Additional recommendations and suggestions are coming. Surgery can decide whether not they want to give her a unit of blood. MMODL / IJN: [id number] /
[2020-01-23 11:03] LABS: Glucose,Whole Blood 121 mg/dL (75-99)
[2020-01-23 11:57] LABS: Glucose,Whole Blood 132 mg/dL (75-99)
[2020-01-23] MEDS: ONDANSETRON 4 MG/2 ML VIAL IVP PRN (13:49)
[2020-01-23] MEDS: amLODIPine 2.5 MG TAB PO SCH (15:15)
[2020-01-23] MEDS: SODIUM CHLORIDE 0.9% 1,000 ML IV SCH (15:16)
[2020-01-23 16:41] LABS: Glucose,Whole Blood 187 mg/dL (75-99)
[2020-01-23 20:26] LABS: Glucose,Whole Blood 189 mg/dL (75-99)
[2020-01-23] MEDS: INSULIN DETEMIR (LEVEMIR) 100 UNIT/ML SYR SQ SCH (21:02)
[2020-01-23] MEDS: SENNOSIDES-DOCUSATE SODIUM 1 EACH TAB PO SCH (21:33)
[2020-01-24] MEDS: KETOROLAC 30 MG/ML 1 ML VIAL IVP SCH ×5 (00:06→23:21)
[2020-01-24] MEDS: HEPARIN SODIUM,PORCINE 5,000 UNIT/ML 1 ML VIAL SQ SCH ×4 (00:08→23:21)
--- NOTE | 2020-01-24 05:52 | XR ---
EXAMINATION TYPE: XR chest 1V portable DATE OF EXAM: 01/24/2020 HISTORY: post cardiac surgery. REFERENCE: Previous study dated 01/23/2020. FINDINGS: There has been a midline sternotomy. There are bilateral areas of atelectasis. That on the right has worsened slightly. Heart remains mildly prominent. I cannot exclude a small right effusion. IMPRESSION: CONTINUING AREA OF BILATERAL ATELECTATIC CHANGE.
[2020-01-24 05:57] LABS: Basophils % (A) 0 %; Eosinophils % (A) 0 %; Lymphocytes # (A) 2.2 k/uL (1.0-4.8); Lymphocytes % (A) 17 %; MCH 29.4 pg (25.0-35.0); MCHC 35.1 g/dL (31.0-37.0); MCV 83.6 fL (80.0-100.0); Monocytes # (A) 0.7 k/uL (0-1.0); Monocytes % (A) 5 %; Neutrophils # (A) 9.5 k/uL (1.3-7.7); Neutrophils % (A) 76 %; Platelet Count 211 k/uL (150-450); RBC 2.29 m/uL (3.80-5.40); RDW 15.1 % (11.5-15.5); WBC 12.5 k/uL (3.8-10.6)
[2020-01-24 06:14] LABS: ALT 18 U/L (4-34); AST 59 U/L (14-36); African American GFR (CKD) >90 (>60 ml/min/1.73 sqM); Albumin 3.2 g/dL (3.5-5.0); Alkaline Phosphatase 41 U/L (38-126); Anion Gap 7 mmol/L; Blood Urea Nitrogen 14 mg/dL (7-17); Calcium 8.6 mg/dL (8.4-10.2); Carbon Dioxide 24 mmol/L (22-30); Chloride 99 mmol/L (98-107); Glucose 127 mg/dL (74-99); Non-African American GFR(CKD) >90 (>60 ml/min/1.73 sqM); Potassium 4.7 mmol/L (3.5-5.1); Sodium 130 mmol/L (137-145); Total Bilirubin 0.5 mg/dL (0.2-1.3); Total Protein 5.6 g/dL (6.3-8.2)
[2020-01-24 06:17] LABS: HGB 6.7 gm/dL (11.4-16.0)
[2020-01-24 06:18] LABS: HCT 19.1 % (34.0-46.0)
[2020-01-24] MEDS ORDERED: ACETAMINOPHEN TAB 500 MG TAB PO PRN (06:39)
[2020-01-24] MEDS: IPRATROPIUM-ALBUTEROL 3 ML NEB INHALATION SCH ×4 (07:11→19:49)
[2020-01-24 07:46] LABS: Glucose,Whole Blood 151 mg/dL (75-99)
--- NOTE | 2020-01-24 07:55 | P.PN ---
Subjective Progress Note Date: 01/24/20 Principal diagnosis: Severe diffuse triple-vessel coronary artery disease, preserved left ventricular function, insulin-dependent diabetes mellitus with preoperative hemoglobin A1c 7.3%, hypertension, hyperlipidemia, history of Bzpkl-Xbqsgqjqt-Oxcyo status post ablation, right internal carotid stenosis greater than 70% per carotid Dopplers, approximately 60% per CTA, previous brief tobacco use with preoperative FEV1 87% of predicted, family history of premature coronary artery disease. Preoperative nasal swab positive for MRSA. POD #3 triple vessel coronary artery bypass grafting using the left internal mammary artery to the left anterior descending artery, left radial artery from the aorta to the right coronary artery, reverse saphenous vein graft from the aorta to the distal circumflex artery. Exclusion of the left atrial appendage using a 35 mm after clip. Endoscopic harvesting of the left radial artery. Endoscopic harvesting of the right greater saphenous vein from the groin to above the ankle level. Intraoperative transesophageal echocardiogram and epi- aortic scanning. Intraoperative graft flow measurements using the Amadesastim system. Postoperative acute blood loss anemia, expected outcome of surgery given hemodilution and cardiopulmonary bypass pump The patient's currently sitting up in a recliner in the intensive care unit in no acute distress. States pain is controlled on current medication regimen, denies shortness of breath. Currently normal sinus rhythm, hemodynamically stable on no inotropes or pressors. Ambulated in hallway yesterday without difficulty. Hemoglobin 6.7, was 7.0 yesterday but patient is hemodynamically stable, no blood products given. No new concerns. Objective - Vital Signs Vital signs: Vital Signs Temp 99 F 01/24/20 04:00 Pulse 84 01/24/20 07:23 Resp 15 01/24/20 07:00 BP 111/69 01/24/20 07:00 Pulse Ox 94 L 01/24/20 07:00 Intake & Output 01/23/20 01/24/20 01/24/20 18:59 06:59 18:59 Intake Total 1281.458 240 20 Output Total 635 700 Balance 646.458 -460 20 Weight 87.1 kg Intake: IV 265.5 240 20 Normal Saline Pressure 25.5 bag Sodium Chloride 0.9% 1, 240 240 20 000 ml @ 20 mls/hr IV . Q24H [facility] Rx#:[id number] Intake, IV Titration 15.958 Amount Insulin Regular 100 unit 15.958 In Sodium Chloride 0.9% 100 ml @ Per Protocol IV .Q0M [facility] Rx#:[id number] Oral 1000 Output: Chest Tube Drainage 130 Chest Tube Bilateral 90 Mediastinal Chest Tube: Left Pleural 40 Urine 505 700 Other: Voiding Method Indwelling Catheter Indwelling Catheter ABP, PAP, CO, CI - Last Documented Arterial Blood Pressure 113/52 Pulmonary Artery Pressure 13/4 Cardiac Output 5 Cardiac Index 2.6 - Constitutional General appearance: Present: cooperative, no acute distress, obese - Respiratory Details: Lungs sounds diminished in the bases bilaterally. Respirations even, nonlabored. Currently on room air with oxygen saturation 95%. Able to achieve 1500 mL on her incentive spirometry. Strong cough. - Cardiovascular Details: S1, S2 present. Regular rate and rhythm, sinus rhythm on telemetry with heart rate in the 80s. Sternum stable. Palpable peripheral pulses bilaterally. Trace bilateral lower extremity edema present, left arm edema present, expected. No calf pain or tenderness noted. Heart hugger in place with patient demonstrating appropriate use. Antiembolism stockings, SCDs present. - Gastrointestinal Gastrointestinal Comment(s): Abdomen soft, nontender, nondistended. Active bowel sounds present 4 quadrants. Tolerating diet. Positive flatus. - Genitourinary Genitourinary Comment(s): Garcia discontinued yesterday. Patient has voided. - Integumentary Integumentary Comment(s): Skin is warm and dry with evidence of good perfusion. Anterior chest incision well approximated and covered with dry intact dressing. Right lower extremity EVH site well approximated. Left radial artery harvest site well approximated, patient is able to move all her fingers, denies numbness tingling, skin is warm and pink. - Neurologic Neurologic: Present: CNII-XII intact - Musculoskeletal Musculoskeletal: Present: gait normal, strength equal bilaterally - Psychiatric Psychiatric Comment(s): Flat affect Psychiatric: Present: A&O x's 3, intact judgment & insight - Allied health notes Allied health notes reviewed: nursing - Labs CBC & Chem 7: 01/24/20 07:43 01/24/20 05:09 Labs: Abnormal Lab Results - Last 24 Hours (Table) 01/23/20 01/23/20 01/23/20 Range/Units 07:59 08:57 10:04 WBC (3.8-10.6) k/uL RBC (3.80-5.40) m/uL Hgb (11.4-16.0) gm/dL Hct (34.0-46.0) % Neutrophils # (1.3-7.7) k/uL Sodium (137-145) mmol/L Glucose (74-99) mg/dL POC Glucose (mg/dL) 160 H 142 H 119 H (75-99) mg/dL AST (14-36) U/L Total Protein (6.3-8.2) g/dL Albumin (3.5-5.0) g/dL 01/23/20 01/23/20 01/23/20 Range/Units 11:02 11:56 16:39 WBC (3.8-10.6) k/uL RBC (3.80-5.40) m/uL Hgb (11.4-16.0) gm/dL Hct (34.0-46.0) % Neutrophils # (1.3-7.7) k/uL Sodium (137-145) mmol/L Glucose (74-99) mg/dL POC Glucose (mg/dL) 121 H 132 H 187 H (75-99) mg/dL AST (14-36) U/L Total Protein (6.3-8.2) g/dL Albumin (3.5-5.0) g/dL 01/23/20 01/24/20 01/24/20 Range/Units 20:25 05:09 05:09 WBC 12.5 H (3.8-10.6) k/uL RBC 2.29 L (3.80-5.40) m/uL Hgb 6.7 L* (11.4-16.0) gm/dL Hct 19.1 L* (34.0-46.0) % Neutrophils # 9.5 H (1.3-7.7) k/uL Sodium 130 L (137-145) mmol/L Glucose 127 H (74-99) mg/dL POC Glucose (mg/dL) 189 H (75-99) mg/dL AST 59 H (14-36) U/L Total Protein 5.6 L (6.3-8.2) g/dL Albumin 3.2 L (3.5-5.0) g/dL 06/21/20 Range/Units 07:33 WBC (3.8-10.6) k/uL RBC (3.80-5.40) m/uL Hgb (11.4-16.0) gm/dL Hct (34.0-46.0) % Neutrophils # (1.3-7.7) k/uL Sodium (137-145) mmol/L Glucose (74-99) mg/dL POC Glucose (mg/dL) 151 H (75-99) mg/dL AST (14-36) U/L Total Protein (6.3-8.2) g/dL Albumin (3.5-5.0) g/dL - Imaging and Cardiology Chest x-ray: report reviewed, image reviewed Assessment and Plan Assessment: 1. Severe diffuse triple-vessel coronary artery disease, status post three- vessel CABG 2. Preserved left ventricular function 3. Insulin-dependent diabetes with preoperative hemoglobin A1c 7.3% 4. History of hypertension 5. Hyperlipidemia 6. History of Rdijb-Aqhvadixg-Etexn status post ablation 7. Right internal carotid stenosis greater than 70% per carotid Dopplers, approximately 60% per CTA 8. Previous brief tobacco use with preoperative FEV1 87% of protected 9. Family history of premature coronary artery disease 10. Preoperative nasal swab positive for MRSA, treated 11. Postoperative acute blood loss anemia, expected Plan: 1. Continue aspirin, statin, Plavix, beta any therapy. Will increase beta any therapy as tolerated. Will add Cozaar when able 2. Continue Norvasc for radial artery spasm. Please do not discontinue CCB without discussing with cardiac surgery 3. Encourage incentive spirometry is 10 times every hour while awake 4. Bronchodilators per pulmonology 5. Increase activity, ambulate as tolerated. PT/OT/cardiac rehab consulted 6. Will monitor daily labs and x-rays. Electrolyte replacement per protocol. No transfusion. Will give Lasix 20 mg IV push 1 7. Pain control with current medication regimen. 8. Insulin management per primary care service. Patient's home regimen consisted of glargine insulin as well as Victoza, Glucophage, and Actos. 9. We will place transfer orders for cardiac stepdown unit. May transfer when bed available 10. Discharge planning in progress. Anticipate discharge in 24-48 hours to home with home care. 11. More recommendations to follow Time with Patient: Greater than 30
[2020-01-24 08:01] LABS: HCT 20.7 % (34.0-46.0); MCH 27.5 pg (25.0-35.0); MCHC 32.9 g/dL (31.0-37.0); MCV 83.7 fL (80.0-100.0); Mean Platelet Volume 8.8; Platelet Count 276 k/uL (150-450); RBC 2.48 m/uL (3.80-5.40); RDW 15.4 % (11.5-15.5); WBC 16.4 k/uL (3.8-10.6)
[2020-01-24] MEDS: ASCORBIC ACID 500 MG TAB PO SCH ×2 (08:02→17:09)
[2020-01-24] MEDS: ONDANSETRON 4 MG/2 ML VIAL IVP PRN (08:02)
[2020-01-24] MEDS: FERROUS SULFATE 325 MG TAB PO SCH ×2 (08:02→17:09)
[2020-01-24 08:03] LABS: HGB 6.8 gm/dL (11.4-16.0)
[2020-01-24] MEDS: ATORVASTATIN 40 MG TAB PO SCH (08:03)
[2020-01-24] MEDS: INSULIN ASPART (NovoLOG) 100 UNIT/ML VIAL SQ SCH ×7 (08:03→20:33)
[2020-01-24] MEDS: ASPIRIN 325 MG TAB PO SCH (08:03)
[2020-01-24] MEDS: PANTOPRAZOLE 40 MG TABLET PO SCH (08:03)
[2020-01-24] MEDS: CLOPIDOGREL 75 MG TAB PO SCH (08:03)
[2020-01-24] MEDS: METOPROLOL TARTRATE 25 MG TAB PO SCH ×2 (08:03→20:32)
[2020-01-24] MEDS: MUPIROCIN 2% OINT 22 GM TUBE NASAL SCH ×2 (08:05→20:34)
[2020-01-24] MEDS ORDERED: FUROSEMIDE 10 MG/ML 2 ML VIAL IV ONE (10:01)
[2020-01-24] MEDS: amLODIPine 2.5 MG TAB PO SCH (11:43)
--- NOTE | 2020-01-24 11:58 | P.PN ---
Subjective Progress Note Date: 01/24/20 This is a 44-year-old female with history of severe triple-vessel disease, hypertension, hypercholesterolemia and also Ihhik-Pzufbfxnn-Yjwaz syndrome. Patient is status post prior to coronary bypass surgery. She seemed to be clinically stable. Of the chest itself being taken out. No arrhythmias noted. Blood pressure stable. Tolerating activity. 09/25/2019. Patient condition remained stable. No arrhythmias. Patient is sitting up in the chair. Doesn't communicate well. Doesn't appear to be in acute distress. Hemoglobin dropped. Hemogram echo lead was stable. Blood pressure on the low side. She is maintaining sinus rhythm Objective - Vital Signs Vital signs: Vital Signs Temp 98.7 F 01/24/20 08:00 Pulse 94 01/24/20 10:00 Resp 20 01/24/20 10:00 BP 113/62 01/24/20 10:00 Pulse Ox 96 01/24/20 10:00 Intake & Output 01/23/20 01/24/20 01/24/20 18:59 06:59 18:59 Intake Total 1281.458 240 20 Output Total 635 700 0 Balance 646.458 -460 20 Weight 87.1 kg 87.3 kg Intake: IV 265.5 240 20 Normal Saline Pressure 25.5 bag Sodium Chloride 0.9% 1, 240 240 20 000 ml @ 20 mls/hr IV . Q24H [facility] Rx#:[id number] Intake, IV Titration 15.958 Amount Insulin Regular 100 unit 15.958 In Sodium Chloride 0.9% 100 ml @ Per Protocol IV .Q0M [facility] Rx#:[id number] Oral 1000 Output: Chest Tube Drainage 130 Chest Tube Bilateral 90 Mediastinal Chest Tube: Left Pleural 40 Urine 505 700 0 Other: Voiding Method Indwelling Catheter Indwelling Catheter Indwelling Catheter # Voids 1 ABP, PAP, CO, CI - Last Documented Arterial Blood Pressure 113/52 Pulmonary Artery Pressure 13/4 Cardiac Output 5 Cardiac Index 2.6 - Exam GENERAL EXAM: Patient is alert and oriented and doesn't appear to be in any ac [place] distress HEENT: Normocephalic. Normal reaction of pupils, equal size, normal range of extraocular motion. No erythema or exudates in the throat. NECK: No masses, no nuchal rigidity. CHEST: No chest wall deformity. LUNGS: Diminished breath sounds at both bases HEART: S1 and S2 normal with no audible mumurs or gallops. Regular rhythm, femorals equal on both sides.. ABDOMEN: No hepatosplenomegaly, normal bowel sounds, no guarding or rigidity. SKIN: No rashes CENTRAL NERVOUS SYSTEM: No focal deficits. EXTREMITIES: No cyanosis, clubbing or edema. - Labs CBC & Chem 7: 01/24/20 07:43 01/24/20 05:09 Labs: Abnormal Lab Results - Last 24 Hours (Table) 01/23/20 01/23/20 01/23/20 Range/Units 11:56 16:39 20:25 WBC (3.8-10.6) k/uL RBC (3.80-5.40) m/uL Hgb (11.4-16.0) gm/dL Hct (34.0-46.0) % Neutrophils # (1.3-7.7) k/uL Sodium (137-145) mmol/L Glucose (74-99) mg/dL POC Glucose (mg/dL) 132 H 187 H 189 H (75-99) mg/dL AST (14-36) U/L Total Protein (6.3-8.2) g/dL Albumin (3.5-5.0) g/dL 01/24/20 01/24/20 01/24/20 Range/Units 05:09 05:09 07:33 WBC 12.5 H (3.8-10.6) k/uL RBC 2.29 L (3.80-5.40) m/uL Hgb 6.7 L* (11.4-16.0) gm/dL Hct 19.1 L* (34.0-46.0) % Neutrophils # 9.5 H (1.3-7.7) k/uL Sodium 130 L (137-145) mmol/L Glucose 127 H (74-99) mg/dL POC Glucose (mg/dL) 151 H (75-99) mg/dL AST 59 H (14-36) U/L Total Protein 5.6 L (6.3-8.2) g/dL Albumin 3.2 L (3.5-5.0) g/dL 01/24/20 Range/Units 07:43 WBC 16.4 H (3.8-10.6) k/uL RBC 2.48 L (3.80-5.40) m/uL Hgb 6.8 L* (11.4-16.0) gm/dL Hct 20.7 L (34.0-46.0) % Neutrophils # (1.3-7.7) k/uL Sodium (137-145) mmol/L Glucose (74-99) mg/dL POC Glucose (mg/dL) (75-99) mg/dL AST (14-36) U/L Total Protein (6.3-8.2) g/dL Albumin (3.5-5.0) g/dL Assessment and Plan (1) Status post aorto-coronary artery bypass graft Current Visit: Yes Status: Acute Code(s): Z95.1 - PRESENCE OF AORTOCORONARY BYPASS GRAFT SNOMED Code(s): 566211172 (2) Essential hypertension Current Visit: Yes Status: Acute Code(s): I10 - ESSENTIAL (PRIMARY) HYPERTENSION SNOMED Code(s): 74414918 (3) Hypercholesterolemia Current Visit: Yes Status: Acute Code(s): E78.00 - PURE HYPERCHOLESTEROLEMIA, UNSPECIFIED SNOMED Code(s): 96502952 (4) Insulin dependent diabetes mellitus Current Visit: Yes Status: Acute Code(s): GRP4436 - SNOMED Code(s): 87110428 Plan: Continue with current management with increasing activity and also incentive spirometry. May consider blood transfusion. Continue the rest of the medication.
[2020-01-24 12:19] LABS: Glucose,Whole Blood 173 mg/dL (75-99)
--- NOTE | 2020-01-24 12:33 | PN ---
PROGRESS NOTE PULMONARY/CRITICAL CARE PROGRESS NOTE: DATE OF SERVICE: 01/24/2020. This is a 44-year-old female, postop day #3, status post 3-vessel bypass grafting. She is not receiving any supplemental oxygen. She is not receiving any IV fluids. Yesterday she was on insulin drip. Her hemoglobin has remained relatively low. No blood has been given at this point. She denies any major issues. She is apparently waiting to be transferred out to the floor. She continues to do incentive spirometer q.1 hour. She gets about a liter on her IS. In addition, we encourage deep breathing, coughing and clearing of secretions. PHYSICAL EXAMINATION: VITAL SIGNS: Current vital signs are reviewed. Temperature 98.7, heart rate 94, respiratory rate 20, blood pressure 113/62, mean 79, saturations 96% on room air. She appears in no acute distress. HEENT: Examination is grossly unremarkable. Mucous membranes are moist. NECK: Supple. Full range of motion. No adenopathy or neck vein distention. CARDIOVASCULAR: Examination reveals regular rhythm and rate. Heart rate mid 90s. S1, S2 normal. No murmur. LUNGS: Clear. Breath sounds equal. She does not take deep breaths. No crackles. ABDOMEN: Soft. EXTREMITIES are intact. No edema. SKIN: Without rash. NEUROLOGIC: Examination is brief but nonfocal. LAB VALUES: Reviewed. White count 16.4, hemoglobin 6.8, hematocrit 20.7, platelet count 276,000. Sodium 130, potassium 4.7, chloride 99, CO2 24, anion gap 7. BUN and creatinine were 14 and 0.63. The rest of the labs look okay. Microbiology is currently negative. A chest x-ray on January 23 in the morning shows some bibasilar atelectasis. Medications are reviewed. ASSESSMENT: 1. Postoperative day #3, status post three vessel bypass grafting. 2. Routine postoperative ventilator management, with extubation 3 hours and 30 minutes after leaving the operating room. 3. History of diabetes mellitus. 4. Coronary artery disease. 5. Hypertension. 6. Hyperlipidemia. 7. History of Vxuex-Rsiymiiyy-Sabgz syndrome. PLAN: Currently, the patient is doing well. Again, we encourage her to do the incentive spirometer q.1 hour. We also recommend encourage deep breathing, coughing, clearing of secretions. Additional recommendations and suggestions are forthcoming. We will continue to follow. X-ray shows bibasilar atelectasis. MMODL / IJN: [id number] /
[2020-01-24 16:59] LABS: Glucose,Whole Blood 169 mg/dL (75-99)
[2020-01-24 20:29] LABS: Glucose,Whole Blood 194 mg/dL (75-99)
[2020-01-24] MEDS: SENNOSIDES-DOCUSATE SODIUM 1 EACH TAB PO SCH (20:32)
[2020-01-24] MEDS: INSULIN DETEMIR (LEVEMIR) 100 UNIT/ML SYR SQ SCH (20:32)
--- NOTE | 2020-01-25 02:20 | P.PN ---
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 Patient had cardiac catheterization done in September 2019 showed multivessel coronary artery disease. Patient had preop work-up done including carotid duplex showed right internal carotid stenosis greater than 70%. Patient was intubated intraoperatively and was explained extubated. Patient is currently sitting in the chair comfortably. No complaints of chest pain or shortness of. Some soreness at the surgical site. Currently maintaining sinus rhythm. No fever no chills. No nausea vomiting or abdominal pain or diarrhea. Laboratory data showed WBC 14.9, hemoglobin 8.2, AST 72, ALT 59 alk phos 31. 01/23/2020 Patient is currently sitting in the chair comfortably. Denies any complaints of worsening chest pain. No fever no chills. Tolerating oral diet. Patient did have vomiting today. Otherwise blood sugars are fairly controlled. Continue with current dose. Encourage incentive spirometry. No nausea vomiting or diarrhea. Chest tubes have been discontinued. Current medications reviewed. Objective - Vital Signs Vital signs: Vital Signs Temp 100.4 F H 01/23/20 16:00 Pulse 102 H 01/23/20 17:00 Resp 23 01/23/20 18:00 BP 118/67 01/23/20 18:00 Pulse Ox 96 01/23/20 18:00 Intake & Output 01/22/20 01/23/20 01/23/20 18:59 06:59 18:59 Intake Total 1454.094 908.569 1786.458 Output Total 515 605 635 Balance 939.094 -328.012 646.458 Weight 84.7 kg 87.1 kg 87.1 kg Intake: IV 534 232 265.5 Albumin Human 5% 250 ml 250 In Empty Bag 1 bag @ 250 mls/hr IVPB Q1HR [facility] Rx#: [id number] CO/CI Pressure Bag 20 Normal Saline Pressure 54 12 25.5 bag Sodium Chloride 0.9% 1, 160 220 240 000 ml @ 20 mls/hr IV . Q24H [facility] Rx#:[id number] ceFAZolin 2 gm In Sodium 50 Chloride 0.9% 50 ml @ 100 mls/hr IVPB Q8HR [facility] Rx# :[id number] Intake, IV Titration 280.094 44.988 15.958 Amount Insulin Regular 100 unit 55.094 24.988 15.958 In Sodium Chloride 0.9% 100 ml @ Per Protocol IV .Q0M [facility] Rx#:[id number] Sodium Chloride 0.9% 1, 175 20 000 ml @ 20 mls/hr IV . Q24H [facility] Rx#:[id number] ceFAZolin 2 gm In Sodium 50 Chloride 0.9% 50 ml @ 100 mls/hr IVPB Q8HR [facility] Rx# :[id number] Oral 640 1000 Output: Chest Tube Drainage 155 230 130 Chest Tube Bilateral 120 80 90 Mediastinal Chest Tube: Left Pleural 35 150 40 Drainage 20 0 Left Wrist 0 Right Calf 20 0 Urine 340 375 505 Other: Voiding Method Indwelling Catheter Indwelling Catheter Indwelling Catheter ABP, PAP, CO, CI - Last Documented Arterial Blood Pressure 113/52 Pulmonary Artery Pressure 13/4 Cardiac Output 5 Cardiac Index 2.6 - Exam PHYSICAL EXAMINATION: Patient is lying in the bed comfortably, no acute distress, awake alert and oriented.. HEENT: Normocephalic. Neck is supple. Pupils reactive. Nostrils clear. Oral cavity is moist. Ears reveal no drainage. Neck reveals no JVD, carotid bruits, or thyromegaly. CHEST EXAMINATION: Trachea is central. Symmetrical expansion. Lung avelar clear to auscultation and percussion. CARDIAC: Normal S1, S2 with no gallops. No murmurs ABDOMEN: Soft. Bowel sounds normal. No organomegaly. No abdominal bruits. Extremities: reveal no edema. No clubbing or cyanosis Neurologically awake, alert, oriented x3 with well-coordinated movements. No focal deficits noted Skin: No rash or skin lesions. Psychiatric: Coperative. Nonsuicidal Musculoskeletal: No joint swelling or deformity. Normal range of motion. - Labs CBC & Chem 7: 01/24/20 07:43 01/24/20 05:09 Labs: Abnormal Lab Results - Last 24 Hours (Table) 01/19/20 01/22/20 01/22/20 Range/Units 09:10 18:59 20:01 WBC (3.8-10.6) k/uL RBC (3.80-5.40) m/uL Hgb (11.4-16.0) gm/dL Hct (34.0-46.0) % Neutrophils # (1.3-7.7) k/uL Sodium (137-145) mmol/L Glucose (74-99) mg/dL POC Glucose (mg/dL) 150 H 134 H (75-99) mg/dL AST (14-36) U/L Total Protein (6.3-8.2) g/dL Albumin (3.5-5.0) g/dL Crossmatch See Detail 01/22/20 01/22/20 01/22/20 Range/Units 21:17 22:03 23:16 WBC (3.8-10.6) k/uL RBC (3.80-5.40) m/uL Hgb (11.4-16.0) gm/dL Hct (34.0-46.0) % Neutrophils # (1.3-7.7) k/uL Sodium (137-145) mmol/L Glucose (74-99) mg/dL POC Glucose (mg/dL) 124 H 134 H 133 H (75-99) mg/dL AST (14-36) U/L Total Protein (6.3-8.2) g/dL Albumin (3.5-5.0) g/dL Crossmatch 01/22/20 01/23/20 01/23/20 Range/Units 23:54 01:09 02:15 WBC (3.8-10.6) k/uL RBC (3.80-5.40) m/uL Hgb (11.4-16.0) gm/dL Hct (34.0-46.0) % Neutrophils # (1.3-7.7) k/uL Sodium (137-145) mmol/L Glucose (74-99) mg/dL POC Glucose (mg/dL) 148 H 156 H 120 H (75-99) mg/dL AST (14-36) U/L Total Protein (6.3-8.2) g/dL Albumin (3.5-5.0) g/dL Crossmatch 01/23/20 01/23/20 01/23/20 Range/Units 03:06 04:03 04:12 WBC (3.8-10.6) k/uL RBC (3.80-5.40) m/uL Hgb (11.4-16.0) gm/dL Hct (34.0-46.0) % Neutrophils # (1.3-7.7) k/uL Sodium (137-145) mmol/L Glucose (74-99) mg/dL POC Glucose (mg/dL) 124 H 117 H 108 H (75-99) mg/dL AST (14-36) U/L Total Protein (6.3-8.2) g/dL Albumin (3.5-5.0) g/dL Crossmatch 01/23/20 01/23/20 01/23/20 Range/Units 05:04 05:12 05:12 WBC 13.3 H (3.8-10.6) k/uL RBC 2.45 L (3.80-5.40) m/uL Hgb 7.0 L (11.4-16.0) gm/dL Hct 20.8 L (34.0-46.0) % Neutrophils # 9.7 H (1.3-7.7) k/uL Sodium 131 L (137-145) mmol/L Glucose 118 H (74-99) mg/dL POC Glucose (mg/dL) 110 H (75-99) mg/dL AST 84 H (14-36) U/L Total Protein 5.4 L (6.3-8.2) g/dL Albumin 3.2 L (3.5-5.0) g/dL Crossmatch 01/23/20 01/23/20 01/23/20 Range/Units 06:02 07:06 07:59 WBC (3.8-10.6) k/uL RBC (3.80-5.40) m/uL Hgb (11.4-16.0) gm/dL Hct (34.0-46.0) % Neutrophils # (1.3-7.7) k/uL Sodium (137-145) mmol/L Glucose (74-99) mg/dL POC Glucose (mg/dL) 124 H 160 H 160 H (75-99) mg/dL AST (14-36) U/L Total Protein (6.3-8.2) g/dL Albumin (3.5-5.0) g/dL Crossmatch 01/23/20 01/23/20 01/23/20 Range/Units 08:57 10:04 11:02 WBC (3.8-10.6) k/uL RBC (3.80-5.40) m/uL Hgb (11.4-16.0) gm/dL Hct (34.0-46.0) % Neutrophils # (1.3-7.7) k/uL Sodium (137-145) mmol/L Glucose (74-99) mg/dL POC Glucose (mg/dL) 142 H 119 H 121 H (75-99) mg/dL AST (14-36) U/L Total Protein (6.3-8.2) g/dL Albumin (3.5-5.0) g/dL Crossmatch 01/23/20 01/23/20 Range/Units 11:56 16:39 WBC (3.8-10.6) k/uL RBC (3.80-5.40) m/uL Hgb (11.4-16.0) gm/dL Hct (34.0-46.0) % Neutrophils # (1.3-7.7) k/uL Sodium (137-145) mmol/L Glucose (74-99) mg/dL POC Glucose (mg/dL) 132 H 187 H (75-99) mg/dL AST (14-36) U/L Total Protein (6.3-8.2) g/dL Albumin (3.5-5.0) g/dL Crossmatch Assessment and Plan Assessment: Status post triple-vessel coronary artery bypass graft on 01/21/2020 Acute blood loss anemia secondary to surgery which was expected. Coronary artery disease Right internal carotid artery greater than 70% stenosis Uncontrolled diabetes type 2 insulin-dependent A1c 7.3 Hypertension Hyperlipidemia Obesity with BMI 32.1 History of WPW syndrome status post ablation several years ago Family history of premature coronary artery disease Previous history of smoking DVT prophylaxis Plan: Patient will be continued on aspirin statins and Plavix and beta-blockers. Currently maintaining sinus rhythm. Increase incentive spirometry and ambulation. Replace electrolytes. Patient will be started back on Basaglar 18 units and insulin sliding scale. Patient also takes Victoza, Glucophage and Actos at home. c/w preprandial insulin. Titrate insulin dose as needed. We will continue to follow and further recommendations based on clinical course.
--- NOTE | 2020-01-25 02:22 | P.PN ---
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 Patient had cardiac catheterization done in September 2019 showed multivessel coronary artery disease. Patient had preop work-up done including carotid duplex showed right internal carotid stenosis greater than 70%. Patient was intubated intraoperatively and was explained extubated. Patient is currently sitting in the chair comfortably. No complaints of chest pain or shortness of. Some soreness at the surgical site. Currently maintaining sinus rhythm. No fever no chills. No nausea vomiting or abdominal pain or diarrhea. Laboratory data showed WBC 14.9, hemoglobin 8.2, AST 72, ALT 59 alk phos 31. 01/23/2020 Patient is currently sitting in the chair comfortably. Denies any complaints of worsening chest pain. No fever no chills. Tolerating oral diet. Patient did have vomiting today. Otherwise blood sugars are fairly controlled. Continue with current dose. Encourage incentive spirometry. No nausea vomiting or diarrhea. Chest tubes have been discontinued. 01/24/2020 Patient is awake alert and oriented x3. Currently sitting in the chair comfortably. No complaints of chest pain shortness breath. Does have soreness at the surgical site. Participating in incentive spirometry. No fever no chills. However his hemoglobin level dropped to 6.7 today. No worsening leg swelling. Laboratory data reviewed. Blood sugars are fairly controlled CBG 0.51 this morning. Otherwise sodium level is 130, BUN 14 and creatinine 0.63 Current medications reviewed. Objective - Vital Signs Vital signs: Vital Signs Temp 98.4 F 01/24/20 16:00 Pulse 78 01/24/20 20:01 Resp 15 01/24/20 19:00 BP 114/68 01/24/20 19:00 Pulse Ox 97 01/24/20 19:00 Intake & Output 01/24/20 01/24/20 01/25/20 06:59 18:59 06:59 Intake Total 240 420 Output Total 700 800 300 Balance -460 -380 -300 Weight 87.3 kg Intake: IV 240 20 Sodium Chloride 0.9% 1, 240 20 000 ml @ 20 mls/hr IV . Q24H [facility] Rx#:[id number] Oral 400 Output: Urine 700 800 300 Other: Voiding Method Indwelling Catheter # Voids 0 0 ABP, PAP, CO, CI - Last Documented Arterial Blood Pressure 113/52 Pulmonary Artery Pressure 13/4 Cardiac Output 5 Cardiac Index 2.6 - Exam PHYSICAL EXAMINATION: Patient is lying in the bed comfortably, no acute distress, awake alert and oriented.. HEENT: Normocephalic. Neck is supple. Pupils reactive. Nostrils clear. Oral cavity is moist. Ears reveal no drainage. Neck reveals no JVD, carotid bruits, or thyromegaly. CHEST EXAMINATION: Trachea is central. Symmetrical expansion. Lung avelar clear to auscultation and percussion. CARDIAC: Normal S1, S2 with no gallops. No murmurs ABDOMEN: Soft. Bowel sounds normal. No organomegaly. No abdominal bruits. Extremities: reveal no edema. No clubbing or cyanosis Neurologically awake, alert, oriented x3 with well-coordinated movements. No focal deficits noted Skin: No rash or skin lesions. Psychiatric: Coperative. Nonsuicidal Musculoskeletal: No joint swelling or deformity. Normal range of motion. - Labs CBC & Chem 7: 01/24/20 07:43 01/24/20 05:09 Labs: Abnormal Lab Results - Last 24 Hours (Table) 01/24/20 01/24/20 01/24/20 Range/Units 05:09 05:09 07:33 WBC 12.5 H (3.8-10.6) k/uL RBC 2.29 L (3.80-5.40) m/uL Hgb 6.7 L* (11.4-16.0) gm/dL Hct 19.1 L* (34.0-46.0) % Neutrophils # 9.5 H (1.3-7.7) k/uL Sodium 130 L (137-145) mmol/L Glucose 127 H (74-99) mg/dL POC Glucose (mg/dL) 151 H (75-99) mg/dL AST 59 H (14-36) U/L Total Protein 5.6 L (6.3-8.2) g/dL Albumin 3.2 L (3.5-5.0) g/dL 01/24/20 01/24/20 01/24/20 Range/Units 07:43 12:16 16:57 WBC 16.4 H (3.8-10.6) k/uL RBC 2.48 L (3.80-5.40) m/uL Hgb 6.8 L* (11.4-16.0) gm/dL Hct 20.7 L (34.0-46.0) % Neutrophils # (1.3-7.7) k/uL Sodium (137-145) mmol/L Glucose (74-99) mg/dL POC Glucose (mg/dL) 173 H 169 H (75-99) mg/dL AST (14-36) U/L Total Protein (6.3-8.2) g/dL Albumin (3.5-5.0) g/dL 01/24/20 Range/Units 20:27 WBC (3.8-10.6) k/uL RBC (3.80-5.40) m/uL Hgb (11.4-16.0) gm/dL Hct (34.0-46.0) % Neutrophils # (1.3-7.7) k/uL Sodium (137-145) mmol/L Glucose (74-99) mg/dL POC Glucose (mg/dL) 194 H (75-99) mg/dL AST (14-36) U/L Total Protein (6.3-8.2) g/dL Albumin (3.5-5.0) g/dL Assessment and Plan Assessment: Status post triple-vessel coronary artery bypass graft on 01/21/2020 Acute blood loss anemia secondary to surgery which was expected. 7.0--6.7--6.8 Coronary artery disease Right internal carotid artery greater than 70% stenosis Uncontrolled diabetes type 2 insulin-dependent A1c 7.3 Hypertension Hyperlipidemia Obesity with BMI 32.1 History of WPW syndrome status post ablation several years ago Family history of premature coronary artery disease Previous history of smoking DVT prophylaxis Plan: Patient will be continued on aspirin statins and Plavix and beta-blockers. Currently maintaining sinus rhythm. Increase incentive spirometry and ambulation. Replace electrolytes. Patient will be started back on Basaglar 18 units and insulin sliding scale. Patient also takes Victoza, Glucophage and Actos at home. c/w preprandial insulin. Titrate insulin dose as needed. We will continue to follow and further recommendations based on clinical course. Time with Patient: Greater than 30
[2020-01-25 03:03] LABS: Glucose,Whole Blood 146 mg/dL (75-99)
[2020-01-25 05:16] LABS: Potassium 4.7 mmol/L (3.5-5.1)
[2020-01-25 05:17] LABS: African American GFR (CKD) >90 (>60 ml/min/1.73 sqM); Anion Gap 5 mmol/L; Blood Urea Nitrogen 16 mg/dL (7-17); Calcium 9.1 mg/dL (8.4-10.2); Carbon Dioxide 27 mmol/L (22-30); Chloride 100 mmol/L (98-107); Glucose 126 mg/dL (74-99); Non-African American GFR(CKD) >90 (>60 ml/min/1.73 sqM); Sodium 132 mmol/L (137-145)
[2020-01-25 05:18] LABS: MCH 27.9 pg (25.0-35.0); MCHC 33.2 g/dL (31.0-37.0); MCV 84.2 fL (80.0-100.0); Mean Platelet Volume 9.1; Platelet Count 277 k/uL (150-450); RBC 2.28 m/uL (3.80-5.40); RDW 15.8 % (11.5-15.5); WBC 12.2 k/uL (3.8-10.6)
[2020-01-25 05:26] LABS: HGB 6.4 gm/dL (11.4-16.0)
[2020-01-25 05:27] LABS: HCT 19.2 % (34.0-46.0)
[2020-01-25] MEDS: IPRATROPIUM-ALBUTEROL 3 ML NEB INHALATION SCH ×4 (06:57→19:54)
[2020-01-25] MEDS ORDERED: guaiFENesin-DM 600/30MG 1 EACH TAB.ER.12H PO PRN (06:59)
[2020-01-25 07:12] LABS: Glucose,Whole Blood 138 mg/dL (75-99)
[2020-01-25] MEDS: ASCORBIC ACID 500 MG TAB PO SCH ×2 (07:15→17:53)
[2020-01-25] MEDS: PANTOPRAZOLE 40 MG TABLET PO SCH (07:15)
[2020-01-25] MEDS: FERROUS SULFATE 325 MG TAB PO SCH ×2 (07:15→17:53)
[2020-01-25] MEDS: KETOROLAC 30 MG/ML 1 ML VIAL IVP SCH ×3 (07:16→17:53)
[2020-01-25] MEDS: INSULIN ASPART (NovoLOG) 100 UNIT/ML VIAL SQ SCH ×7 (07:16→21:11)
--- NOTE | 2020-01-25 07:33 | P.PN ---
Subjective Progress Note Date: 01/25/20 Principal diagnosis: Severe diffuse triple-vessel coronary artery disease, preserved left ventricular function, insulin-dependent diabetes mellitus with preoperative hemoglobin A1c 7.3%, hypertension, hyperlipidemia, history of Jbfat-Ukghjevqb-Pdzcy status post ablation, right internal carotid stenosis greater than 70% per carotid Dopplers, approximately 60% per CTA, previous brief tobacco use with preoperative FEV1 87% of predicted, family history of premature coronary artery disease. Preoperative nasal swab positive for MRSA. POD #4 triple vessel coronary artery bypass grafting using the left internal mammary artery to the left anterior descending artery, left radial artery from the aorta to the right coronary artery, reverse saphenous vein graft from the aorta to the distal circumflex artery. Exclusion of the left atrial appendage using a 35 mm after clip. Endoscopic harvesting of the left radial artery. Endoscopic harvesting of the right greater saphenous vein from the groin to above the ankle level. Intraoperative transesophageal echocardiogram and epi- aortic scanning. Intraoperative graft flow measurements using the [employer] system. Postoperative acute blood loss anemia, expected outcome of surgery given hemodilution and cardiopulmonary bypass pump The patient's currently sitting up in a recliner in the intensive care unit in no acute distress eating breakfast. States pain is controlled on current medication regimen, denies shortness of breath. Currently normal sinus rhythm, hemodynamically stable on no inotropes or pressors. Ambulated in hallway yesterday without difficulty, received first postop shower yesterday. Hemoglobin 6.4, was 6.8 yesterday but patient is hemodynamically stable, no blood products given. Upon assessment with Dr. Kelly this morning the patient stated that she had a brief episode of difficulty speaking yesterday as well as feeling like her face was melting off a couple of days ago. She had not reported this to staff, and states that both episodes resolved quickly and she feels fine today. Objective - Vital Signs Vital signs: Vital Signs Temp 98.3 F 01/25/20 04:00 Pulse 84 01/25/20 07:08 Resp 20 01/25/20 06:00 BP 106/59 01/25/20 04:00 Pulse Ox 96 01/25/20 06:00 Intake & Output 01/24/20 01/25/20 01/25/20 18:59 06:59 18:59 Intake Total 420 Output Total 800 1200 500 Balance -380 -1200 -500 Weight 87.3 kg 86.6 kg Intake: IV 20 Sodium Chloride 0.9% 1, 20 000 ml @ 20 mls/hr IV . Q24H [facility] Rx#:[id number] Oral 400 Output: Urine 800 1200 500 Other: Voiding Method Indwelling Catheter # Voids 0 0 ABP, PAP, CO, CI - Last Documented Arterial Blood Pressure 113/52 Pulmonary Artery Pressure 13/4 Cardiac Output 5 Cardiac Index 2.6 - Constitutional General appearance: Present: cooperative, no acute distress, obese - Respiratory Details: Lungs sounds diminished in the bases bilaterally. Respirations even, nonlabore d. Currently on room air with oxygen saturation 96%. Able to achieve 1500 mL on her incentive spirometry. Strong cough. - Cardiovascular Details: S1, S2 present. Regular rate and rhythm, sinus rhythm on telemetry with heart rate in the 80s. Sternum stable. Palpable peripheral pulses bilaterally. Trace bilateral lower extremity edema present, left arm edema present, expected. No calf pain or tenderness noted. Heart hugger in place with patient demonstrating appropriate use. Antiembolism stockings, SCDs present. - Gastrointestinal Gastrointestinal Comment(s): Abdomen soft, nontender, nondistended. Active bowel sounds present 4 quadrants. Tolerating diet. Positive flatus, negative bowel movement. - Genitourinary Genitourinary Comment(s): Continues to void clear, yellow urine - Integumentary Integumentary Comment(s): Skin is warm and dry with evidence of good perfusion. Anterior chest incision well approximated and covered with dry intact dressing. Right lower extremity EVH site well approximated. Left radial artery harvest site well approximated, patient is able to move all her fingers, denies numbness tingling, skin is warm and pink. - Neurologic Neurologic: Present: CNII-XII intact - Musculoskeletal Musculoskeletal: Present: gait normal, strength equal bilaterally - Psychiatric Psychiatric: Present: A&O x's 3, appropriate affect, intact judgment & insight - Allied health notes Allied health notes reviewed: nursing - Labs CBC & Chem 7: 01/25/20 04:32 01/25/20 04:32 Labs: Abnormal Lab Results - Last 24 Hours (Table) 01/24/20 01/24/20 01/24/20 Range/Units 07:33 07:43 12:16 WBC 16.4 H (3.8-10.6) k/uL RBC 2.48 L (3.80-5.40) m/uL Hgb 6.8 L* (11.4-16.0) gm/dL Hct 20.7 L (34.0-46.0) % RDW (11.5-15.5) % Sodium (137-145) mmol/L Glucose (74-99) mg/dL POC Glucose (mg/dL) 151 H 173 H (75-99) mg/dL 01/24/20 01/24/20 01/25/20 Range/Units 16:57 20:27 03:01 WBC (3.8-10.6) k/uL RBC (3.80-5.40) m/uL Hgb (11.4-16.0) gm/dL Hct (34.0-46.0) % RDW (11.5-15.5) % Sodium (137-145) mmol/L Glucose (74-99) mg/dL POC Glucose (mg/dL) 169 H 194 H 146 H (75-99) mg/dL 01/25/20 01/25/20 01/25/20 Range/Units 04:32 04:32 07:10 WBC 12.2 H (3.8-10.6) k/uL RBC 2.28 L (3.80-5.40) m/uL Hgb 6.4 L* (11.4-16.0) gm/dL Hct 19.2 L* (34.0-46.0) % RDW 15.8 H (11.5-15.5) % Sodium 132 L (137-145) mmol/L Glucose 126 H (74-99) mg/dL POC Glucose (mg/dL) 138 H (75-99) mg/dL - Imaging and Cardiology Chest x-ray: image reviewed Assessment and Plan Assessment: 1. Severe diffuse triple-vessel coronary artery disease, status post three- vessel CABG 2. Preserved left ventricular function 3. Insulin-dependent diabetes with preoperative hemoglobin A1c 7.3% 4. History of hypertension 5. Hyperlipidemia 6. History of Uuibk-Vjrftiwvf-Ublet status post ablation 7. Right internal carotid stenosis greater than 70% per carotid Dopplers, approximately 60% per CTA 8. Previous brief tobacco use with preoperative FEV1 87% of protected 9. Family history of premature coronary artery disease 10. Preoperative nasal swab positive for MRSA, treated 11. Postoperative acute blood loss anemia, expected Plan: 1. Continue aspirin, statin, Plavix, beta any therapy. 2. Continue Norvasc for radial artery spasm. Please do not discontinue CCB without discussing with cardiac surgery 3. Encourage incentive spirometry is 10 times every hour while awake 4. Bronchodilators per pulmonology 5. Increase activity, ambulate as tolerated. PT/OT/cardiac rehab consulted 6. Will monitor daily labs and x-rays. Electrolyte replacement per protocol. No transfusion. Will add daily oral Lasix 7. Pain control with current medication regimen. 8. Insulin management per primary care service. Patient's home regimen consisted of glargine insulin as well as Victoza, Glucophage, and Actos. 9. Transfer orders placed yesterday for cardiac stepdown unit. May transfer when bed available 10. Discharge planning in progress. Anticipate discharge to [facility] with home care tomorrow. We would like to monitor her 1 more day for any neurological symptoms 11. More recommendations to follow Time with Patient: Greater than 30
[2020-01-25] MEDS: METOPROLOL TARTRATE 25 MG TAB PO SCH ×2 (08:44→21:11)
[2020-01-25] MEDS: FUROSEMIDE 20 MG TAB PO SCH (08:44)
[2020-01-25] MEDS: HEPARIN SODIUM,PORCINE 5,000 UNIT/ML 1 ML VIAL SQ SCH ×2 (08:44→16:21)
[2020-01-25] MEDS: ASPIRIN 325 MG TAB PO SCH (08:44)
[2020-01-25] MEDS: ATORVASTATIN 40 MG TAB PO SCH (08:44)
[2020-01-25] MEDS: CLOPIDOGREL 75 MG TAB PO SCH (08:44)
[2020-01-25] MEDS: MAGNESIUM HYDROXIDE 2,400 MG/10 ML CUP PO PRN (08:47)
--- NOTE | 2020-01-25 08:52 | XR ---
EXAMINATION TYPE: XR chest 2V DATE OF EXAM: 01/25/2020 COMPARISON: 01/24/2020 TECHNIQUE: PA and lateral views submitted. HISTORY: Post cardiac surgery FINDINGS: Postsurgical changes with bilateral consolidation small effusion. Heart enlarged. No pneumothorax. Hy pertrophic and degenerative change of the spine. IMPRESSION: 1. Bilateral lower lobe infiltrate and small effusion stable. Underlying pneumonitis or venous conges tion not excluded.
[2020-01-25 12:06] LABS: Glucose,Whole Blood 138 mg/dL (75-99)
[2020-01-25] MEDS: amLODIPine 2.5 MG TAB PO SCH (12:24)
--- NOTE | 2020-01-25 14:14 | PN ---
PROGRESS NOTE 44-year-old lady with coronary artery disease status post CABG, hypertension, dyslipidemia, WPW syndrome. On this admission, underwent surgery and was doing well until she had an episode of focal neurological deficit thought to be TIA. This morning, she is feeling better. The neuro symptoms have resolved. EXAM: Comfortable at rest. Vital signs are stable. Chest exam reveals good air entry bilaterally. Heart exam reveals first and second heart sounds. No gallop. Exam of extremities did not reveal any edema. Peripheral pulses are felt. LABS: Show a hemoglobin of 6.4. The patient is currently on amiodarone, Norvasc, aspirin, Lipitor, Plavix, Lasix, Lopressor. ASSESSMENT: 1. Multivessel coronary artery disease status post coronary artery bypass grafting. 2. Transient difficulty in speech. PLAN: From cardiac standpoint, patient is stable. Continue current medications. MMODL / VADIMN: [id number] /
--- NOTE | 2020-01-25 14:55 | P.PN ---
Subjective Progress Note Date: 01/25/20 On 01/25/2020, I'm seeing this patient for a follow-up in the intensive care unit. The patient is ambulating and she is calm and comfortable and she denies having any specific complaints. She was In the ICU for another 24 hours as the patient had reported some difficulty in speech although there is no clear signs of any CVA. The patient is moving all flex images without limitation. She is swallowing well and she is able to converse without any major difficulties. No cough or sputum production. Sternum is stable clean and intact. Hemoglobin is at 6.4 and it was 6.8 yesterday and the patient is hemodynamically stable and the surgeons have decided not to give any blood products. The patient remains in the intensive care unit. The patient has underlying history of triple-vessel coronary artery disease, severe and the patient undergone bypass surgery. The patient has a preserved LV function. The patient also has history of insulin- dependent diabetes mellitus, hypertension and hyperlipidemia and WPW requiring previous ablation. As for the card arteries, the patient had a stenosis of 70% involving the right-sided carotid artery and is going to be monitored very closely. No other complaints otherwise for now. She is using incentive spirometer and she is walking appropriately. Objective - Vital Signs Vital signs: Vital Signs Temp 98.4 F 01/25/20 12:00 Pulse 83 01/25/20 14:00 Resp 19 01/25/20 14:00 BP 110/63 01/25/20 14:00 Pulse Ox 95 01/25/20 12:00 Intake & Output 01/24/20 01/25/20 01/25/20 18:59 06:59 18:59 Intake Total 420 Output Total 800 1200 500 Balance -380 -1200 -500 Weight 87.3 kg 86.6 kg Intake: IV 20 Sodium Chloride 0.9% 1, 20 000 ml @ 20 mls/hr IV . Q24H [facility] Rx#:[id number] Oral 400 Output: Urine 800 1200 500 Other: Voiding Method Indwelling Catheter # Voids 0 0 0 ABP, PAP, CO, CI - Last Documented Arterial Blood Pressure 113/52 Pulmonary Artery Pressure 13/4 Cardiac Output 5 Cardiac Index 2.6 - Exam - Constitutional General appearance: Present: cooperative, no acute distress, obese - Respiratory Details: Lungs sounds diminished in the bases bilaterally. Respirations even, nonlabored. Currently on room air with oxygen saturation 96%. Able to achieve 1500 mL on her incentive spirometry. Strong cough. - Cardiovascular Details: S1, S2 present. Regular rate and rhythm, sinus rhythm on telemetry with heart rate in the 80s. Sternum stable. Palpable peripheral pulses bilaterally. Trace bilateral lower extremity edema present, left arm edema present, expected. No calf pain or tenderness noted. Heart hugger in place with patient demonstrating appropriate use. Antiembolism stockings, SCDs present. - Gastrointestinal Gastrointestinal Comment(s): Abdomen soft, nontender, nondistended. Active bowel sounds present 4 quadrants. Tolerating diet. Positive flatus, negative bowel movement. - Genitourinary Genitourinary Comment(s): Continues to void clear, yellow urine - Integumentary Integumentary Comment(s): Skin is warm and dry with evidence of good perfusion. Anterior chest incision well approximated and covered with dry intact dressing. Right lower extremity EVH site well approximated. Left radial artery harvest site well approximated, patient is able to move all her fingers, denies numbness tingling, skin is warm and pink. - Neurologic Neurologic: Present: CNII-XII intact - Musculoskeletal Musculoskeletal: Present: gait normal, strength equal bilaterally - Psychiatric Psychiatric: Present: A&O x's 3, appropriate affect, intact judgment & insight - Labs CBC & Chem 7: 01/25/20 04:32 01/25/20 04:32 Labs: Abnormal Lab Results - Last 24 Hours (Table) 01/24/20 01/24/20 01/25/20 Range/Units 16:57 20:27 03:01 WBC (3.8-10.6) k/uL RBC (3.80-5.40) m/uL Hgb (11.4-16.0) gm/dL Hct (34.0-46.0) % RDW (11.5-15.5) % Sodium (137-145) mmol/L Glucose (74-99) mg/dL POC Glucose (mg/dL) 169 H 194 H 146 H (75-99) mg/dL 01/25/20 01/25/20 01/25/20 Range/Units 04:32 04:32 07:10 WBC 12.2 H (3.8-10.6) k/uL RBC 2.28 L (3.80-5.40) m/uL Hgb 6.4 L* (11.4-16.0) gm/dL Hct 19.2 L* (34.0-46.0) % RDW 15.8 H (11.5-15.5) % Sodium 132 L (137-145) mmol/L Glucose 126 H (74-99) mg/dL POC Glucose (mg/dL) 138 H (75-99) mg/dL 01/25/20 Range/Units 12:04 WBC (3.8-10.6) k/uL RBC (3.80-5.40) m/uL Hgb (11.4-16.0) gm/dL Hct (34.0-46.0) % RDW (11.5-15.5) % Sodium (137-145) mmol/L Glucose (74-99) mg/dL POC Glucose (mg/dL) 138 H (75-99) mg/dL Assessment and Plan Plan: 1 multivessel coronary artery disease and the patient underwent three-vessel bypass surgery. The patient is recovering reasonably well from surgery. Chest x-ray from today shows postoperative changes some atelectasis in the lower lobes otherwise, no acute abnormalities of been noted. There are some atelectatic change lung bases along with some mild pulmonary vascular congestion. 2 Anemia with a drop in hemoglobin down to 6.4, and expected outcome of surgery and is being monitored. 3 inserted by diabetes mellitus, type I with HbA1c of 7.3 4 hyperlipidemia 5 history of WPW post ablation 6 right internal carotid artery disease less than 70% based on Dopplers and 60% based on the CT angiogram 7 history of premature coronary artery disease with the family 8 hyperlipidemia Plan I do not see any evidence of focal neurological deficits. As such the patient is going to monitored in ICU for 24 hours. Ambulate in the hallway Monitor hemoglobin Continue aspirin and Plavix Continue oral Lasix 20 mg by mouth daily Continue metoprolol 25 mg by mouth twice a day in conjunction with Norvasc Insulin Levemir 18 units daily at bedtime along with slicer coverage We'll continue to follow
[2020-01-25 17:02] LABS: Glucose,Whole Blood 180 mg/dL (75-99)
[2020-01-25 20:40] LABS: Glucose,Whole Blood 188 mg/dL (75-99)
[2020-01-25] MEDS: SENNOSIDES-DOCUSATE SODIUM 1 EACH TAB PO SCH (21:11)
[2020-01-25] MEDS: INSULIN DETEMIR (LEVEMIR) 100 UNIT/ML SYR SQ SCH (21:12)
--- NOTE | 2020-01-25 23:10 | P.PN ---
Subjective This is a pleasant 44 years old female with multiple medical problems she was admitted under vascular surgery service for triple coronary artery disease, status post bypass surgery, Currently patient remains in the ICU for another 24 hours, she is doing well with no chest pain or dyspnea. There was some concerns regarding his speech this morning but there was no clear-cut for acute CVA when I saw the patient she was talking freely with no difficulty. No swallowing problem. No headache. No nausea vomiting. She is hemodynamically stable and labs showing a drop in hemoglobin down to 6.4 which is expected from surgery. His sugars controlled while she's taken Levemir 18 units at bedtime and 6 units with meals. Also she is on Lasix 20 mg daily. She remains on aspirin 325 mg, Plavix and heparin for DVT prophylaxis She is followed by several consultants including pulmonary and cardiology Objective - Vital Signs Vital signs: Vital Signs Temp 98.4 F 01/25/20 12:00 Pulse 80 01/25/20 15:48 Resp 19 01/25/20 14:00 BP 110/63 01/25/20 14:00 Pulse Ox 95 01/25/20 12:00 Intake & Output 01/24/20 01/25/20 01/25/20 18:59 06:59 18:59 Intake Total 420 Output Total 800 1200 500 Balance -380 -1200 -500 Weight 87.3 kg 86.6 kg Intake: IV 20 Sodium Chloride 0.9% 1, 20 000 ml @ 20 mls/hr IV . Q24H [facility] Rx#:[id number] Oral 400 Output: Urine 800 1200 500 Other: Voiding Method Indwelling Catheter # Voids 0 0 0 ABP, PAP, CO, CI - Last Documented Arterial Blood Pressure 113/52 Pulmonary Artery Pressure 13/4 Cardiac Output 5 Cardiac Index 2.6 - Exam GENERAL: The patient is alert and oriented x3, not in any acute distress. Well developed, well nourished. HEENT: Pupils are round and equally reacting to light. EOMI. No scleral icterus. No conjunctival pallor. Normocephalic, atraumatic. No pharyngeal erythema. No th yromegaly. CARDIOVASCULAR: S1 and S2 present. No murmurs, rubs, or gallops. PULMONARY: Chest is clear to auscultation, no wheezing or crackles. ABDOMEN: Soft, nontender, nondistended, normoactive bowel sounds. No palpable organomegaly. MUSCULOSKELETAL: No joint swelling or deformity. EXTREMITIES: No cyanosis, clubbing, or pedal edema. NEUROLOGICAL: Gross neurological examination did not reveal any focal deficits. SKIN: No rashes. no petechiae. - Labs CBC & Chem 7: 01/25/20 04:32 01/25/20 04:32 Labs: Abnormal Lab Results - Last 24 Hours (Table) 01/24/20 01/24/20 01/25/20 Range/Units 16:57 20:27 03:01 WBC (3.8-10.6) k/uL RBC (3.80-5.40) m/uL Hgb (11.4-16.0) gm/dL Hct (34.0-46.0) % RDW (11.5-15.5) % Sodium (137-145) mmol/L Glucose (74-99) mg/dL POC Glucose (mg/dL) 169 H 194 H 146 H (75-99) mg/dL 01/25/20 01/25/20 01/25/20 Range/Units 04:32 04:32 07:10 WBC 12.2 H (3.8-10.6) k/uL RBC 2.28 L (3.80-5.40) m/uL Hgb 6.4 L* (11.4-16.0) gm/dL Hct 19.2 L* (34.0-46.0) % RDW 15.8 H (11.5-15.5) % Sodium 132 L (137-145) mmol/L Glucose 126 H (74-99) mg/dL POC Glucose (mg/dL) 138 H (75-99) mg/dL 01/25/20 Range/Units 12:04 WBC (3.8-10.6) k/uL RBC (3.80-5.40) m/uL Hgb (11.4-16.0) gm/dL Hct (34.0-46.0) % RDW (11.5-15.5) % Sodium (137-145) mmol/L Glucose (74-99) mg/dL POC Glucose (mg/dL) 138 H (75-99) mg/dL Assessment and Plan Assessment: -Triple-vessel Coronary artery disease, status post bypass surgery, patient is doing well and she is followed by our consultants including pulmonary and cardio logy. She is on aspirin and Plavix -Right coronary artery stenosis 70%, no signs of stroke. 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
[2020-01-26] MEDS: KETOROLAC 30 MG/ML 1 ML VIAL IVP SCH ×5 (00:27→23:55)
[2020-01-26] MEDS: HEPARIN SODIUM,PORCINE 5,000 UNIT/ML 1 ML VIAL SQ SCH ×4 (00:27→23:54)
[2020-01-26 02:55] LABS: Glucose,Whole Blood 199 mg/dL (75-99)
[2020-01-26 05:08] LABS: Anisocytosis Slight; Hypochromasia Slight; MCH 27.9 pg (25.0-35.0); MCHC 32.5 g/dL (31.0-37.0); MCV 85.9 fL (80.0-100.0); Mean Platelet Volume 8.5; Platelet Count 280 k/uL (150-450); RBC 2.15 m/uL (3.80-5.40); RDW 16.1 % (11.5-15.5); WBC 9.8 k/uL (3.8-10.6)
[2020-01-26 05:22] LABS: African American GFR (CKD) >90 (>60 ml/min/1.73 sqM); Anion Gap 8 mmol/L; Blood Urea Nitrogen 19 mg/dL (7-17); Calcium 8.8 mg/dL (8.4-10.2); Carbon Dioxide 25 mmol/L (22-30); Chloride 102 mmol/L (98-107); Glucose 157 mg/dL (74-99); Non-African American GFR(CKD) >90 (>60 ml/min/1.73 sqM); Sodium 135 mmol/L (137-145)
[2020-01-26 05:25] LABS: HCT 18.5 % (34.0-46.0)
[2020-01-26 06:43] LABS: Anisocytosis Slight; Basophils % (A) 0 %; Eosinophils # (A) 0.2 k/uL (0-0.7); Eosinophils % (A) 2 %; Hypochromasia Slight; Lymphocytes % (A) 28 %; MCH 27.7 pg (25.0-35.0); MCHC 32.6 g/dL (31.0-37.0); Mean Platelet Volume 8.7; Monocytes # (A) 0.7 k/uL (0-1.0); Monocytes % (A) 7 %; Neutrophils # (A) 6.4 k/uL (1.3-7.7); Neutrophils % (A) 61 %; Platelet Count 305 k/uL (150-450); RBC 2.23 m/uL (3.80-5.40); RDW 16.1 % (11.5-15.5); WBC 10.5 k/uL (3.8-10.6)
[2020-01-26 06:45] LABS: HGB 6.2 gm/dL (11.4-16.0)
[2020-01-26] MEDS: FERROUS SULFATE 325 MG TAB PO SCH ×2 (06:47→17:34)
[2020-01-26] MEDS: PANTOPRAZOLE 40 MG TABLET PO SCH (06:47)
[2020-01-26] MEDS: ASCORBIC ACID 500 MG TAB PO SCH ×2 (06:47→17:34)
[2020-01-26] MEDS: IPRATROPIUM-ALBUTEROL 3 ML NEB INHALATION SCH ×4 (07:02→19:42)
[2020-01-26 07:06] LABS: Glucose,Whole Blood 169 mg/dL (75-99)
[2020-01-26] MEDS: INSULIN ASPART (NovoLOG) 100 UNIT/ML VIAL SQ SCH ×7 (07:22→20:43)
[2020-01-26] MEDS: ASPIRIN 325 MG TAB PO SCH (08:37)
[2020-01-26] MEDS: METOPROLOL TARTRATE 25 MG TAB PO SCH ×2 (08:37→20:43)
[2020-01-26] MEDS: FUROSEMIDE 20 MG TAB PO SCH (08:37)
[2020-01-26] MEDS: ATORVASTATIN 40 MG TAB PO SCH (08:37)
[2020-01-26] MEDS: CLOPIDOGREL 75 MG TAB PO SCH (08:37)
[2020-01-26] MEDS: MAGNESIUM HYDROXIDE 2,400 MG/10 ML CUP PO PRN (08:37)
--- NOTE | 2020-01-26 09:05 | XR ---
EXAMINATION TYPE: XR chest 1V portable DATE OF EXAM: 01/26/2020 COMPARISON: 01/25/2020 HISTORY: Post cardiac surgery TECHNIQUE: Single frontal view of the chest is obtained. FINDINGS: Postoperative change with bilateral consolidation and small effusion. No pneumothorax. Baum ited inspiration. IMPRESSION: There is increasing basilar consolidation and small effusion relative to the prior exam. Mild central venous congestion in the differential diagnosis.
--- NOTE | 2020-01-26 10:46 | P.PN ---
Subjective Progress Note Date: 01/26/20 Principal diagnosis: Severe diffuse triple-vessel coronary artery disease, preserved left ventricular function, insulin-dependent diabetes mellitus with preoperative hemoglobin A1c 7.3%, hypertension, hyperlipidemia, history of Vouob-Pqwxxjozu-Qaoti status post ablation, right internal carotid stenosis greater than 70% per carotid Dopplers, approximately 60% per CTA, previous brief tobacco use with preoperative FEV1 87% of predicted, family history of premature coronary artery disease. Preoperative nasal swab positive for MRSA. POD #5 triple vessel coronary artery bypass grafting using the left internal mammary artery to the left anterior descending artery, left radial artery from the aorta to the right coronary artery, reverse saphenous vein graft from the aorta to the distal circumflex artery. Exclusion of the left atrial appendage using a 35 mm after clip. Endoscopic harvesting of the left radial artery. Endoscopic harvesting of the right greater saphenous vein from the groin to above the ankle level. Intraoperative transesophageal echocardiogram and epi- aortic scanning. Intraoperative graft flow measurements using the Triststim system. Postoperative acute blood loss anemia, expected outcome of surgery given hemodilution and cardiopulmonary bypass pump The patient's currently sitting up in a recliner in the intensive care unit in no acute distress. States pain is controlled on current medication regimen, denies shortness of breath. Currently normal sinus rhythm, hemodynamically stable. Ambulated in hallway yesterday without difficulty. Hemoglobin 6.2, was 6.4 yesterday but patient is hemodynamically stable, no blood products given. No further episodes of any TIA like symptoms. Patient states she feels ready to go home. Objective - Vital Signs Vital signs: Vital Signs Temp 98.7 F 01/26/20 07:30 Pulse 85 01/26/20 07:30 Resp 15 01/26/20 07:30 BP 123/68 01/26/20 07:30 Pulse Ox 98 01/26/20 07:30 Intake & Output 01/25/20 01/26/20 01/26/20 18:59 06:59 18:59 Intake Total 1000 480 Output Total 500 400 650 Balance 500 80 -650 Weight 87 kg Intake: Oral 1000 480 Output: Urine 500 400 650 Other: Voiding Method Bedside Commode # Voids 1 1 0 ABP, PAP, CO, CI - Last Documented Arterial Blood Pressure 113/52 Pulmonary Artery Pressure 13/4 Cardiac Output 5 Cardiac Index 2.6 - Constitutional General appearance: Present: cooperative, no acute distress, obese - Respiratory Details: Lungs sounds diminished in the bases bilaterally. Respirations even, nonlabored. Currently on room air with oxygen saturation 95%. Able to achieve 1500 mL on her incentive spirometry. Strong cough. - Cardiovascular Details: S1, S2 present. Regular rate and rhythm, sinus rhythm on telemetry with heart rate in the 80s. Sternum stable. Palpable peripheral pulses bilaterally. Trace bilateral lower extremity edema present, left arm edema present, expected. No calf pain or tenderness noted. Heart hugger in place with patient demonstrating appropriate use. Antiembolism stockings, SCDs present. - Gastrointestinal Gastrointestinal Comment(s): Abdomen soft, nontender, nondistended. Active bowel sounds present 4 quadrants. Tolerating diet. Positive flatus, negative bowel movement. - Genitourinary Genitourinary Comment(s): Continues to void clear, yellow urine - Integumentary Integumentary Comment(s): Skin is warm and dry with evidence of good perfusion. Anterior chest incision well approximated and covered with dry intact dressing. Right lower extremity EVH site well approximated. Left radial artery harvest site well approximated, patient is able to move all her fingers, denies numbness tingling, skin is warm and pink. - Neurologic Neurologic: Present: CNII-XII intact - Musculoskeletal Musculoskeletal: Present: gait normal, strength equal bilaterally - Psychiatric Psychiatric: Present: A&O x's 3, appropriate affect, intact judgment & insight - Allied health notes Allied health notes reviewed: nursing - Labs CBC & Chem 7: 01/26/20 06:22 01/26/20 04:15 Labs: Abnormal Lab Results - Last 24 Hours (Table) 01/25/20 01/25/20 01/25/20 Range/Units 12:04 17:01 20:39 RBC (3.80-5.40) m/uL Hgb (11.4-16.0) gm/dL Hct (34.0-46.0) % RDW (11.5-15.5) % Sodium (137-145) mmol/L BUN (7-17) mg/dL Glucose (74-99) mg/dL POC Glucose (mg/dL) 138 H 180 H 188 H (75-99) mg/dL 01/26/20 01/26/20 01/26/20 Range/Units 02:52 04:15 04:15 RBC 2.15 L (3.80-5.40) m/uL Hgb 6.0 L* (11.4-16.0) gm/dL Hct 18.5 L* (34.0-46.0) % RDW 16.1 H (11.5-15.5) % Sodium 135 L (137-145) mmol/L BUN 19 H (7-17) mg/dL Glucose 157 H (74-99) mg/dL POC Glucose (mg/dL) 199 H (75-99) mg/dL 01/26/20 01/26/20 Range/Units 06:22 07:05 RBC 2.23 L (3.80-5.40) m/uL Hgb 6.2 L* (11.4-16.0) gm/dL Hct 19.0 L* (34.0-46.0) % RDW 16.1 H (11.5-15.5) % Sodium (137-145) mmol/L BUN (7-17) mg/dL Glucose (74-99) mg/dL POC Glucose (mg/dL) 169 H (75-99) mg/dL - Imaging and Cardiology Chest x-ray: report reviewed, image reviewed Assessment and Plan Assessment: 1. Severe diffuse triple-vessel coronary artery disease, status post three- vessel CABG 2. Preserved left ventricular function 3. Insulin-dependent diabetes with preoperative hemoglobin A1c 7.3% 4. History of hypertension 5. Hyperlipidemia 6. History of Pyqyz-Aujbtcale-Qpojo status post ablation 7. Right internal carotid stenosis greater than 70% per carotid Dopplers, approximately 60% per CTA 8. Previous brief tobacco use with preoperative FEV1 87% of protected 9. Family history of premature coronary artery disease 10. Preoperative nasal swab positive for MRSA, treated 11. Postoperative acute blood loss anemia, expected Plan: 1. Continue aspirin, statin, Plavix, beta any therapy. 2. Continue Norvasc for radial artery spasm. Please do not discontinue CCB without discussing with cardiac surgery 3. Encourage incentive spirometry is 10 times every hour while awake 4. Bronchodilators per pulmonology 5. Increase activity, ambulate as tolerated. PT/OT/cardiac rehab following 6. No transfusion. 7. Pain control with current medication regimen. 8. Diabetic management per primary care service. Patient's home regimen consisted of glargine insulin as well as Victoza, Glucophage, and Actos. 9. Discharge planning in progress. Anticipate discharge to [facility] with home care today. 10. More recommendations to follow Time with Patient: Greater than 30
--- NOTE | 2020-01-26 11:59 | PN ---
PROGRESS NOTE This is a 44-year-old lady who underwent multivessel coronary artery disease and underwent bypass surgery for the same. Her discharge was held yesterday because of the neurological symptoms she developed. This morning she is doing well and has not had any further episodes of neuro deficits. EXAM: Comfortable at rest. Vital signs are stable. Chest exam reveals good air entry bilaterally. Heart exam reveals first and second heart sounds. No gallop. Exam of extremities did not reveal any edema. LABS: Show a hemoglobin of 6.2, platelet count is 305. Patient is currently on Lasix, Lopressor, Norvasc, aspirin, Lipitor, and Plavix. ASSESSMENT: 1. Coronary artery disease status post coronary artery bypass grafting. 2. Blood loss anemia. PLAN: The patient is doing well other than her anemia. Please arrange follow up with Cardiology on discharge. MMODL / IJN: [id number] /
[2020-01-26 12:32] LABS: Glucose,Whole Blood 206 mg/dL (75-99)
--- NOTE | 2020-01-26 12:42 | P.DS ---
Providers Date of admission: 01/21/20 05:52 Expected date of discharge: 01/26/20 Attending physician: Odell Kelly Consults: 01/21/20 17:17 Consult Physician Routine Consulting Provider: Mason Mckeon Consult Reason/Comments: Fiber Analyst Consult: post cardiac surgery Do you want consulting provider notified?: Yes Consult Physician Routine Consulting Provider: Vega More Consult Reason/Comments: [employer]ault Consult: post cardiac surgery Do you want consulting provider notified?: Yes Consult Physician Routine Consulting Provider: Kelley Healy Consult Reason/Comments: [facility] patient Do you want consulting provider notified?: Yes Primary care physician: [facility] Hospital Course: FINAL DIAGNOSIS: 1. Severe diffuse triple-vessel coronary artery disease 2. Preserved left ventricular function 3. Insulin dependent diabetes mellitus with preoperative hemoglobin A1c 7.3% 4. Hypertension 5. Hyperlipidemia 6. History of Kyrho-Yqrvxjwjs-Goubk status post ablation 7. Right internal carotid stenosis greater than 70% per carotid Dopplers, approximate 60% per CTA 8. Previous brief tobacco use with preoperative FEV1 87% of predicted 9. Family history of premature coronary artery disease 10. Preoperative nasal swab positive for MRSA 11. Postoperative acute blood loss anemia, expected PRINCIPAL PROCEDURE: 1. Triple-vessel coronary artery bypass grafting using the left internal mammary artery to the left anterior descending artery, left radial artery from the aorta to the right coronary artery, reverse saphenous vein graft from the aorta to the distal circumflex artery 2. Exclusion of the left atrial appendage using a 35 mm AtriClip 3. Endoscopic harvesting of the left radial artery 4. Endoscopic harvesting of the right greater saphenous vein from the groin to above the ankle level 5. Intraoperative graft flow measurements using the Medistim system 6. Intraoperative transesophageal echocardiogram and epi-aortic scanning HISTORY OF PRESENT ILLNESS: This is a 44-year-old female who follows on an outpatient basis with Dr. Figueroa for primary care and Dr. Beltran for cardiology. She had been complaining of recurrent chest pain mainly triggered by effort as well as some atypical chest pain. She underwent stress testing which was positive for ischemia in the anterior wall. She was recommended to undergo heart catheterization which demonstrated diffuse calcific coronary artery disease. The patient was referred to Dr. Kelly from cardiothoracic surgery. She was recommended to undergo coronary artery bypass grafting. The usual perioperative course was discussed in detail with the patient and her family, all risks and benefits were explained, all questions were answered, and consent was obtained to proceed with surgery. Preoperative testing was completed including CTA of the head and neck due to findings of right internal carotid artery stenosis greater than 70% on carotid Dopplers, the CTA demonstrated proximal ICA stenosis 60%. The patient was scheduled for surgery at the earliest possible date. HOSPITAL COURSE: The patient was brought to the hospital on 01/21/2020, taken to the preoperative area, prepared in the usual fashion, and subsequently taken to the operating room where Dr. Kelly performed three-vessel CABG. Upon completion of surgery the patient was transferred to the cardiovascular intensive care unit where she was recovered, monitored hemodynamically, and where she progressed to cardiac rehabilitation phase 1. She was extubated, all lines, tubes, and drips were discontinued when appropriate, and transfer orders were placed for 3 S. cardiac stepdown unit, however there was no bed availability and the patient remained on ICU as a stepdown patient until discharge. She did develop postoperative acute blood loss anemia which is expected condition post open- heart surgery, she did not receive any blood products, and continued to receive iron sulfate with vitamin C. She was to be discharged on postoperative day #4, however she did complain of some vague TIA like symptoms which was not witnessed nor reported, and she was kept an extra day for monitoring. Her oxygen was titrated down, she continued to work with physical and occupational therapy, she was tolerating oral diet, her pain was controlled, and she was ready to be discharged to home with [facility] care on postoperative day #5. She received written and verbal instruction regarding her medications, activity restrictions, signs and symptoms requiring physician notification, and follow-up appointments. COMPLICATIONS: The patient experienced no postoperative complications. Patient Condition at Discharge: Stable Plan - Discharge Summary Discharge Rx Participant: No New Discharge Prescriptions: New Aspirin 325 mg PO DAILY #30 tab Ferrous Sulfate [Iron (65 MG Elemental)] 325 mg PO BID-W/MEALS #30 tab Furosemide [Lasix] 20 mg PO DAILY #5 tab Atorvastatin [Lipitor] 80 mg PO DAILY #30 tab amLODIPine [Norvasc] 2.5 mg PO DAILY@1200 #30 tab Clopidogrel [Plavix] 75 mg PO DAILY #30 tab Pantoprazole [Protonix] 40 mg PO AC-BRKFST #30 tablet.dr Rios-Docusate Sodium [Senokot-S] 2 each PO HS #14 tab Acetaminophen Tab [Tylenol] 1,000 mg PO Q6HR PRN tab PRN Reason: Fever And/ Or Pain Ascorbic Acid [Vitamin C] 500 mg PO BID-W/MEALS #14 tab Continue Ergocalciferol [Vitamin D2 (DRISDOL)] 50,000 unit PO DIAZ Insulin Glargine,Hum.rec.anlog [Basaglar Kwikpen U-100] 18 unit SQ HS Pioglitazone [Actos] 30 mg PO DAILY metFORMIN HCL [Glucophage] 1,000 mg PO BID Liraglutide [Victoza 2-Phil] 0.6 mg SQ DAILY Metoprolol Tartrate [Lopressor] 25 mg PO BID #60 tab Discontinued Aspirin [Adult Low Dose Aspirin EC] 81 mg PO DAILY Atorvastatin [Lipitor] 80 mg PO HS Losartan [Cozaar] 25 mg PO DAILY Mupirocin 2% Oint [Bactroban 2% Oint] 1 applic NASAL BID Discharge Medication List Ergocalciferol [Vitamin D2 (DRISDOL)] 50,000 unit PO DIAZ 12/03/19 [History] Insulin Glargine,Hum.rec.anlog [Basaglar Kwikpen U-100] 18 unit SQ HS 12/03/19 [History] Pioglitazone [Actos] 30 mg PO DAILY 12/03/19 [History] Liraglutide [Victoza 2-Phil] 0.6 mg SQ DAILY 01/12/20 [History] metFORMIN HCL [Glucophage] 1,000 mg PO BID 01/12/20 [History] Acetaminophen Tab [Tylenol] 1,000 mg PO Q6HR PRN tab 01/26/20 [Rx] Ascorbic Acid [Vitamin C] 500 mg PO BID-W/MEALS #14 tab 01/26/20 [Rx] Aspirin 325 mg PO DAILY #30 tab 01/26/20 [Rx] Atorvastatin [Lipitor] 80 mg PO DAILY #30 tab 01/26/20 [Rx] Clopidogrel [Plavix] 75 mg PO DAILY #30 tab 01/26/20 [Rx] Ferrous Sulfate [Iron (65 MG Elemental)] 325 mg PO BID-W/MEALS #30 tab 01/26/20 [Rx] Furosemide [Lasix] 20 mg PO DAILY #5 tab 01/26/20 [Rx] Metoprolol Tartrate [Lopressor] 25 mg PO BID #60 tab 01/26/20 [Rx] Pantoprazole [Protonix] 40 mg PO AC-BRKFST #30 tablet. 01/26/20 [Rx] Sennosides-Docusate Sodium [Senokot-S] 2 each PO HS #14 tab 01/26/20 [Rx] amLODIPine [Norvasc] 2.5 mg PO DAILY@1200 #30 tab 01/26/20 [Rx] Follow up Appointment(s)/Referral(s): Nehal Mcmillan NPC [Nurse Practitioner] - 02/02/20 11:30 am Rehab Angelica AGOSTO,Cardiac [NON-STAFF] - 4 Weeks (You will receive a phone call 4- 6 weeks after surgery for evaluation for cardiac rehab) Zachariah Beltran MD [STAFF PHYSICIAN] - 02/09/20 1:15 pm Odell Kelly MD [STAFF PHYSICIAN] - 02/19/20 10:15 am (office will call the day before to confirm appointment) Zelda Gary NPC [Nurse Practitioner] - 02/10/20 2:45 pm Cassie Figueroa MD [Primary Care Provider] - 02/12/20 10:00 am (Telehealth appointment) [facility] Visiting Nurse, [NON-STAFF] - Ambulatory/Diagnostic Orders: Complete Blood Count w/diff [LAB.AMB] Time Frame: 3 Days, Location: None Selected Comprehensive Metabolic Panel [LAB.AMB] Time Frame: 3 Days, Location: None Selected Patient Instructions/Handouts: Cardiac Rehabilitation (DC) Activity/Diet/Wound Care/Special Instructions: DISCHARGE INSTRUCTIONS: 1. No driving for 4 weeks, or until physician gives their ok. 2. The patient should sleep in their own bed, no medical bed needed. 3. Stairs are not an issue. If the bedroom is upstairs, it is advised that the patient go up at night and down in the morning for the first week. Go slowly, using handrail and take 1 step at a time. 4. JOSEFINA hose are to be worn for 30 days or until physician discontinues. 5. Heart hugger is to be worn 100% of the time until physician discontinues.(except when showering) 6. No lifting, pushing, or pulling more than 10 pounds for 12 weeks. The ysician will advise of any restriction changes. 7. The patient is expected to continue the prescribed walking program. 8. Continue pain control per as needed orders. 9. Continue with incentive spirometry and splinting/heart hugger until otherwise directed by the physician. 10. Must shower daily using liquid antibacterial soap and a separate white washcloth for each individual incision. 11. Routine sternal incision care. No powders, lotions, ointments on incisions. No dressings are necessary on incisions unless they are draining. Dermabond tape is to remain on sternal incision until surgeon follow-up. 12. Please call surgeon/ACCOUNT SUPPORT ANALYST for temp greater than 101 F or purulent drainage from incisions. 13. All prescriptions given by surgeon for 30 days. Refills need to be filled through lock installer/primary care physician. 14. A Red armband has been placed on the patient. It should be worn for 30 days post surgery and will be removed by the cardiac surgeons. If an ER visit is necessary, please make sure the number on the Red armband is called. 15. You have been referred to and are expected to begin Cardiac Rehab in approximately 4-6 weeks. HOME HEALTH SERVICES TO PROVIDE: RN SKILLED HOME CARE SERVICES FOR POST-OP SURGICAL PATIENTS WITH THE FOLLOWING: Coronary Artery Bypass Surgery (CABG), Mitral Valve Replacement/Repair ( MVR), Aortic Valve Replacement/Repair (AVR) RN TO CONTINUE EDUCATION FROM ``ROAD TO A HEALTH HEART PATIENT EDUCATION MANUAL (GIVEN TO PATIENT IN THE HOSPITAL) MEDICATION RECONCILIATION WITH EDUCATION NEEDED ON FIRST HOME VISIT EMPHASIZE IMPORTANCE OF WEARING BREAST SUPPORT/HEART HUGGER ENCOURAGE USE OF INCENTIVE SPIROMETER 10 X EVERY HOUR WHILE AWAKE ENCOURAGE UTILIZATION OF LOWER EXTREMITY COMPRESSION STOCKINGS/JOSEFINA HOSE and ELEVATE LEGS ABOVE LEVEL OF HEART WHILE AT REST. ENCOURAGE AMBULATION 3-5x/day INCREASING TOLERATES, WHILE AVOIDING EXTREMES IN TEMPERATURE FREQUENCY: RN TO OPEN THE PATIENT WITHIN 24 HOURS OF DISCHARGE FROM THE HOSPITAL WITH TELEHEALTH INSTALLED AT [facility] [place] TO VISIT 2-3 X A WEEK FOR 4 WEEKS ESTABLISHED BY PATIENT NEEDS. LABORATORY: CBC, CMP TO BE DRAWN ON THE THIRD DAY HOME, (RAN STAT) FAX RESULTS TO [phone]. TELEHEALTH PARAMETERS: WEIGHT: NOTIFY MD OF WEIGHT GAIN OF 2 LBS IN 24 HOURS OR 5 LBS IN ONE WEEK HR: NOTIFY MD OF HR <55 BPM OR HR>100 BPM BP: NOTIFY MD IF BP <90/55 OR BP>140/100 O2 SAT: NOTIFY MD IF PO2<93% ON ROOM AIR SEND TELEHEALTH REPORT TO BOSS MINER AND CARDIOVASCULAR SURGEON THE FIRST WEEK OF CARE AND THEN BI-WEEKLY. PLEASE ADDITIONALLY COMMUNICATE ANY ABNORMALS AND NEW FINDINGS TO THE SURGEONS OFFICE. For any questions or concerns please call intelligence manager Nehal @ or Ulysses @ Discharge Disposition: HOME WITH HOME HEALTH SERVICES
--- NOTE | 2020-01-26 12:48 | P.PN ---
Subjective Progress Note Date: 01/26/20 On 01/25/2020, the patient is doing well no specific complaints. The patient's hemoglobin has dropped down to 6.2. Nevertheless, CT surgery has not opted and transfusing this patient. No respiratory distress. No cough or sputum production. No fever or chills. She is currently on room air oxygen and the pulse ox is 90%. No significant tachycardia. The chest x-ray from today shows some basilar consolidation and small bilateral pleural effusions. There is also some mild central pulmonary vascular congestion. Sternum stable clean and intact. The patient is communicating. No focal neurological deficits. No new onset neurological deficits for now. She is using incentive spirometer. She is ambulating. Objective - Vital Signs Vital signs: Vital Signs Temp 98.7 F 01/26/20 07:30 Pulse 84 01/26/20 11:19 Resp 15 01/26/20 07:30 BP 123/68 01/26/20 07:30 Pulse Ox 98 01/26/20 07:30 Intake & Output 01/25/20 01/26/20 01/26/20 18:59 06:59 18:59 Intake Total 1000 480 Output Total 500 400 650 Balance 500 80 -650 Weight 87 kg Intake: Oral 1000 480 Output: Urine 500 400 650 Other: Voiding Method Bedside Commode # Voids 1 1 0 ABP, PAP, CO, CI - Last Documented Arterial Blood Pressure 113/52 Pulmonary Artery Pressure 13/4 Cardiac Output 5 Cardiac Index 2.6 - Exam - Constitutional General appearance: Present: cooperative, no acute distress, obese - Respiratory Details: Lungs sounds diminished in the bases bilaterally. Respirations even, nonlabored. Currently on room air with oxygen saturation 95%. Able to achieve 1500 mL on her incentive spirometry. Strong cough. - Cardiovascular Details: S1, S2 present. Regular rate and rhythm, sinus rhythm on telemetry with heart rate in the 80s. Sternum stable. Palpable peripheral pulses bilaterally. Trace bilateral lower extremity edema present, left arm edema present, expected. No calf pain or tenderness noted. Heart hugger in place with patient demonstrating appropriate use. Antiembolism stockings, SCDs present. - Gastrointestinal Gastrointestinal Comment(s): Abdomen soft, nontender, nondistended. Active bowel sounds present 4 quadrants. Tolerating diet. Positive flatus, negative bowel movement. - Genitourinary Genitourinary Comment(s): Continues to void clear, yellow urine - Integumentary Integumentary Comment(s): Skin is warm and dry with evidence of good perfusion. Anterior chest incision well approximated and covered with dry intact dressing. Right lower extremity EVH site well approximated. Left radial artery harvest site well approximated, patient is able to move all her fingers, denies numbness tingling, skin is warm and pink. - Neurologic Neurologic: Present: CNII-XII intact - Musculoskeletal Musculoskeletal: Present: gait normal, strength equal bilaterally - Psychiatric Psychiatric: Present: A&O x's 3, appropriate affect, intact judgment & insight - Labs CBC & Chem 7: 01/26/20 06:22 01/26/20 04:15 Labs: Abnormal Lab Results - Last 24 Hours (Table) 01/25/20 01/25/20 01/26/20 Range/Units 17:01 20:39 02:52 RBC (3.80-5.40) m/uL Hgb (11.4-16.0) gm/dL Hct (34.0-46.0) % RDW (11.5-15.5) % Sodium (137-145) mmol/L BUN (7-17) mg/dL Glucose (74-99) mg/dL POC Glucose (mg/dL) 180 H 188 H 199 H (75-99) mg/dL 01/26/20 01/26/20 01/26/20 Range/Units 04:15 04:15 06:22 RBC 2.15 L 2.23 L (3.80-5.40) m/uL Hgb 6.0 L* 6.2 L* (11.4-16.0) gm/dL Hct 18.5 L* 19.0 L* (34.0-46.0) % RDW 16.1 H 16.1 H (11.5-15.5) % Sodium 135 L (137-145) mmol/L BUN 19 H (7-17) mg/dL Glucose 157 H (74-99) mg/dL POC Glucose (mg/dL) (75-99) mg/dL 01/26/20 01/26/20 Range/Units 07:05 12:30 RBC (3.80-5.40) m/uL Hgb (11.4-16.0) gm/dL Hct (34.0-46.0) % RDW (11.5-15.5) % Sodium (137-145) mmol/L BUN (7-17) mg/dL Glucose (74-99) mg/dL POC Glucose (mg/dL) 169 H 206 H (75-99) mg/dL Assessment and Plan Plan: 1 multivessel coronary artery disease and the patient underwent three-vessel bypass surgery. The patient is recovering reasonably well from surgery. Chest x-ray from today shows postoperative changes some atelectasis in the lower lobes otherwise, no acute abnormalities of been noted. There are some atelectatic change lung bases along with some mild pulmonary vascular congestion. The patient is currently on room air oxygen. The patient is not requiring any oxygen therapy. She is using incentive spirometer. She is ambulating. Quite comfortable for now. 2 Anemia with a drop in hemoglobin down to 6.2 and expected outcome of surgery and is being monitored. 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
[2020-01-26] MEDS: amLODIPine 2.5 MG TAB PO SCH (12:55)
[2020-01-26 17:05] LABS: Glucose,Whole Blood 159 mg/dL (75-99)
--- NOTE | 2020-01-26 17:19 | CT ---
EXAMINATION TYPE: CT brain wo con DATE OF EXAM: 01/26/2020 COMPARISON: 01/06/2020 HISTORY: ams, weakness CT DLP: 1048.4 mGycm Automated exposure control for dose reduction was used. Images were obtained without contrast. The ventricles of normal size. There is no mass effect nor midline shift. There is no sign of intracr anial hemorrhage. The calvarium is intact. There is no evidence of cerebral edema. IMPRESSION: Negative unenhanced head CT scan. No change.
[2020-01-26 20:12] LABS: C Reactive Protein 28.6 mg/L (<10.0)
--- NOTE | 2020-01-26 20:16 | P.CNNES ---
History of Present Illness Consult date: 01/26/20 Reason for Consult: Altered mental status History of Present Illness: This is a 44-year-old female with severe atherosclerotic disease status post triple vessel coronary artery bypass graft for severe diffuse triple-vessel coronary artery disease. Patient also has additional stroke risk factors of insulin-dependent diabetes and hypertension. This patient was scheduled to undergo discharge today until the staff noted that there was acute altered mental status. The patient's blood pressures have been relatively stable through the day with diastolics between 50 and 60 systolic blood pressures ranging between 90-100. At the time of this evaluation the patient is sitting in a chair with her sister. She is having difficulty with attention. She is unable to answer appropriate questions such as what state she is currently in, what hospital she is in and what state she was born in. The patient tells me she is in [facility] hospital but cannot tell me what state tablets in. She is able to follow commands easily but at times looks perplexed and stairs. I discussed her behavior with the staff today and they report that there are times when she appears to stare off in some of become quite withdrawn. Some of this activity is suspicious for complex partial/subclinical seizure activity. I have reviewed her labs and note that she is quite anemic and at this time is receiving a transfusion at the time of this examination. A computed tomography scan of the head was obtained tonight that does not show any evidence of a acute ischemic or hemorrhagic infarct. An in depth discussion with her sister, notes that this is definitely not her personality. She is introverted but not this introverted. She also appears to avoid answering questions by simply stating and repeating I believe so. Her affect is rather flat which is noted by her sister. 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 Chest pain w/ exertion. Per sister at bedside stated that patient also has a hx of alcohol & drug syndrome History of Any Multi-Drug Resistant Organisms: None Reported Past Surgical History: Ablation, Heart Catheterization Additional Past Surgical History / Comment(s): Heart cath, cardiac ablation age 15. Dental extractions, wisdom teeth removed. Past Anesthesia/Blood Transfusion Reactions: Unable to Obtain Additional Past Anesthesia/Blood Transfusion Reaction / Comment(s): Nauseous with heart cath. Adopted, family hx unknown. Past Psychological History: No Psychological Hx Reported Smoking Status: Former smoker Past Alcohol Use History: None Reported Additional Past Alcohol Use History / Comment(s): Smoked briefly in 2006. Past Drug Use History: None Reported - Past Family History Mother Family Medical History: Unable to Obtain Medications and Allergies Home Medications Medication Instructions Recorded Confirmed Type Ergocalciferol [Vitamin D2 50,000 unit PO DIAZ 12/03/19 01/12/20 History (TJ)] Insulin Glargine,Hum.rec.anlog 18 unit SQ HS 12/03/19 01/12/20 History [Basaglar Kwikpen U-100] Pioglitazone [Actos] 30 mg PO DAILY 12/03/19 01/12/20 History Liraglutide [Victoza 2-Phil] 0.6 mg SQ DAILY 01/12/20 01/12/20 History metFORMIN HCL [Glucophage] 1,000 mg PO BID 01/12/20 01/12/20 History Acetaminophen Tab [Tylenol] 1,000 mg PO Q6HR PRN tab 01/26/20 Rx Ascorbic Acid [Vitamin C] 500 mg PO BID-W/MEALS #14 tab 01/26/20 Rx Aspirin 325 mg PO DAILY #30 tab 01/26/20 Rx Atorvastatin [Lipitor] 80 mg PO DAILY #30 tab 01/26/20 Rx Clopidogrel [Plavix] 75 mg PO DAILY #30 tab 01/26/20 Rx Ferrous Sulfate [Iron (65 MG 325 mg PO BID-W/MEALS #30 tab 01/26/20 Rx Elemental)] Furosemide [Lasix] 20 mg PO DAILY #5 tab 01/26/20 Rx Metoprolol Tartrate [Lopressor] 25 mg PO BID #60 tab 01/26/20 Rx Pantoprazole [Protonix] 40 mg PO AC-BRKFST #30 tablet. 01/26/20 Rx Sennosides-Docusate Sodium 2 each PO HS #14 tab 01/26/20 Rx [Senokot-S] amLODIPine [Norvasc] 2.5 mg PO DAILY@1200 #30 tab 01/26/20 Rx Allergies Allergy/AdvReac Type Severity Reaction Status Date / Time adhesive Allergy Rash/Hives Verified 01/21/20 06:09 pseudoephedrine Allergy "heart Verified [facility]/21/20 06[facility]09 [facility]" lisinopril AdvReac Cough Verified 01/21/20 06:09 Physical Examination - Vital Signs Vital Signs: Vital Signs Temp Pulse Resp BP Pulse Ox 01/26/20 19:52 88 01/26/20 19:42 88 01/26/20 18:30 88 17 135/69 98 01/26/20 18:10 88 4 L 124/67 100 01/26/20 18:00 124/67 95 01/26/20 17:50 92 129/65 97 01/26/20 17:40 97.3 F L 110 H 121/64 94 L 01/26/20 17:30 98.3 F 123/73 01/26/20 17:00 80 01/26/20 16:30 86 01/26/20 16:07 82 01/26/20 16:00 98.5 F 80 23 126/69 01/26/20 15:59 82 01/26/20 15:30 90 20 126/69 01/26/20 15:00 82 23 126/69 01/26/20 14:30 80 26 H 126/69 01/26/20 14:00 82 31 H 100/62 01/26/20 13:00 22 100/62 01/26/20 12:00 98.4 F 76 7 L 105/58 95 01/26/20 11:19 84 01/26/20 11:08 81 01/26/20 07:30 98.7 F 85 15 123/68 98 01/26/20 07:10 83 01/26/20 07:02 80 01/26/20 06:00 81 14 109/66 01/26/20 04:00 98.0 F 80 12 109/66 95 01/26/20 02:00 80 21 106/65 01/26/20 00:00 98.0 F 79 12 86/55 96 01/25/20 22:00 84 9 L 119/68 01/25/20 20:57 94 17 114/82 01/25/20 20:49 98.1 F 91 19 114/82 96 01/25/20 20:07 89 Intake and Output 01/26/20 01/26/20 01/26/20 06:59 14:59 22:59 Intake Total 1325 Output Total 400 650 Balance -400 -650 1325 Intake: Oral 1250 Blood Product 75 Rc As-1 Unit 0 [id number] Output: Urine 400 650 Other: Voiding Method Bedside Commode # Voids 1 1 1 Weight 87 kg Neurological exam Mental status: Patient is awake. She is able to tell me her name but cannot tell me what hospital she. She is. She is not aware daytime or nighttime. Her speech is fluent but decreased verbal output. Pupils: 2 mm equally reactive to light and accommodation. Cranial nerve examination: Tracks well. No nystagmus noted on vertical horizontal gaze. Face appears symmetric. Palate elevates symmetrically. Shoulder shrug symmetric. Tongue is midline without fasciculations deviation. Motor examination mild increase in tone noted in the upper and lower extremities equally. 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 Foot flexion and extension is -5 over 5. There is no weakness in the hip flexors bilaterally. Deep tendon reflexes: Deferred (patient is on dual antiplatelet therapy) Coordination testing:: Deferred patient is reporting being very tired and unable to coordinate with her hands at this time. Gait examination: Deferred Results - Laboratory Findings CBC and BMP: 01/26/20 06:22 01/26/20 04:15 Abnormal Lab Findings: Abnormal Labs 01/19/20 01/21/20 01/21/20 09:10 06:30 08:39 WBC RBC Hgb Hct RDW Neutrophils # Lymphocytes # PT INR ABG pH ABG pCO2 ABG pO2 ABG HCO3 26 H ABG Total CO2 27 H ABG O2 Saturation 98.1 H ABG Hematocrit 33 L ABG Potassium ABG Ionized Calcium ABG Glucose 133 H ABG Lactic Acid Hemoglobin 10.6 L Sodium Chloride BUN Creatinine Glucose POC Glucose (mg/dL) 142 H Magnesium AST Alkaline Phosphatase Total Protein Albumin Arterial Blood Potassium Arterial Blood Glucose 133 H Crossmatch See Detail 01/21/20 01/21/20 01/21/20 11:53 12:35 13:33 WBC RBC Hgb Hct RDW Neutrophils # Lymphocytes # PT INR ABG pH ABG pCO2 ABG pO2 162 H 174 H 356 H ABG HCO3 ABG Total CO2 26 H 26 H 25 H ABG O2 Saturation 99.5 H 99.8 H 100.0 H ABG Hematocrit 26 L 24 L 22 L ABG Potassium 3.2 L ABG Ionized Calcium 4.3 L ABG Glucose 143 H 137 H 125 H ABG Lactic Acid Hemoglobin 8.6 L 7.8 L 7.1 L Sodium Chloride BUN Creatinine Glucose POC Glucose (mg/dL) Magnesium AST Alkaline Phosphatase Total Protein Albumin Arterial Blood Potassium 3.2 L Arterial Blood Glucose 143 H 137 H 125 H Crossmatch 01/21/20 01/21/20 01/21/20 14:05 14:35 15:13 WBC RBC Hgb Hct RDW Neutrophils # Lymphocytes # PT INR ABG pH ABG pCO2 46 H ABG pO2 317 H 210 H 302 H ABG HCO3 30 H 26 H ABG Total CO2 25 H 31 H 27 H ABG O2 Saturation 99.9 H 99.7 H 100.0 H ABG Hematocrit 23 L 22 L 22 L ABG Potassium ABG Ionized Calcium 4.4 L 4.2 L 4.3 L ABG Glucose 193 H 206 H 233 H ABG Lactic Acid 1.7 H Hemoglobin 7.5 L 7.0 L* 7.0 L* Sodium Chloride BUN Creatinine Glucose POC Glucose (mg/dL) Magnesium AST Alkaline Phosphatase Total Protein Albumin Arterial Blood Potassium Arterial Blood Glucose 193 H 206 H 233 H Crossmatch 01/21/20 01/21/20 01/21/20 15:50 16:42 18:02 WBC 11.2 H RBC 2.86 L Hgb 8.1 L D Hct 24.1 L RDW Neutrophils # 8.1 H Lymphocytes # PT INR ABG pH ABG pCO2 ABG pO2 242 H ABG HCO3 ABG Total CO2 26 H 26 H ABG O2 Saturation 99.7 H 97.9 H ABG Hematocrit 22 L 26 L ABG Potassium 3.3 L ABG Ionized Calcium 4.4 L ABG Glucose 178 H 132 H ABG Lactic Acid 2.7 H* 2.0 H Hemoglobin 7.1 L 8.3 L Sodium Chloride BUN Creatinine Glucose POC Glucose (mg/dL) Magnesium AST Alkaline Phosphatase Total Protein Albumin Arterial Blood Potassium 3.3 L Arterial Blood Glucose 178 H 132 H Crossmatch 01/21/20 01/21/20 01/21/20 18:02 18:02 18:29 WBC RBC Hgb Hct RDW Neutrophils # Lymphocytes # PT 12.5 H INR 1.2 H ABG pH 7.33 L ABG pCO2 51 H ABG pO2 314 H ABG HCO3 27 H ABG Total CO2 28 H ABG O2 Saturation 99.8 H ABG Hematocrit ABG Potassium ABG Ionized Calcium ABG Glucose ABG Lactic Acid Hemoglobin Sodium Chloride 108 H BUN Creatinine 0.39 L Glucose POC Glucose (mg/dL) Magnesium 2.4 H AST 42 H Alkaline Phosphatase 24 L Total Protein 5.6 L Albumin Arterial Blood Potassium Arterial Blood Glucose Crossmatch 01/21/20 01/21/20 01/21/20 19:12 20:16 20:58 WBC RBC Hgb Hct RDW Neutrophils # Lymphocytes # PT INR ABG pH ABG pCO2 33 L ABG pO2 197 H ABG HCO3 ABG Total CO2 ABG O2 Saturation 99.5 H ABG Hematocrit ABG Potassium ABG Ionized Calcium ABG Glucose ABG Lactic Acid Hemoglobin Sodium Chloride BUN Creatinine Glucose POC Glucose (mg/dL) 169 H 210 H Magnesium AST Alkaline Phosphatase Total Protein Albumin Arterial Blood Potassium Arterial Blood Glucose Crossmatch 01/21/20 01/21/20 01/21/20 21:26 22:09 22:59 WBC RBC Hgb Hct RDW Neutrophils # Lymphocytes # PT INR ABG pH ABG pCO2 ABG pO2 ABG HCO3 ABG Total CO2 ABG O2 Saturation ABG Hematocrit ABG Potassium ABG Ionized Calcium ABG Glucose ABG Lactic Acid Hemoglobin Sodium Chloride BUN Creatinine Glucose POC Glucose (mg/dL) 203 H 194 H 169 H Magnesium AST Alkaline Phosphatase Total Protein Albumin Arterial Blood Potassium Arterial Blood Glucose Crossmatch 01/22/20 01/22/20 01/22/20 00:01 00:01 00:04 WBC 12.8 H RBC 2.97 L Hgb 7.9 L Hct 24.8 L RDW Neutrophils # 11.0 H Lymphocytes # 0.8 L PT INR ABG pH ABG pCO2 ABG pO2 ABG HCO3 ABG Total CO2 ABG O2 Saturation ABG Hematocrit ABG Potassium ABG Ionized Calcium ABG Glucose ABG Lactic Acid Hemoglobin Sodium Chloride 108 H BUN Creatinine 0.41 L Glucose 142 H POC Glucose (mg/dL) 151 H Magnesium AST Alkaline Phosphatase Total Protein Albumin Arterial Blood Potassium Arterial Blood Glucose Crossmatch 01/22/20 01/22/20 01/22/20 01:06 02:12 02:56 WBC RBC Hgb Hct RDW Neutrophils # Lymphocytes # PT INR ABG pH ABG pCO2 ABG pO2 ABG HCO3 ABG Total CO2 ABG O2 Saturation ABG Hematocrit ABG Potassium ABG Ionized Calcium ABG Glucose ABG Lactic Acid Hemoglobin Sodium Chloride BUN Creatinine Glucose POC Glucose (mg/dL) 127 H 120 H 122 H Magnesium AST Alkaline Phosphatase Total Protein Albumin Arterial Blood Potassium Arterial Blood Glucose Crossmatch 01/22/20 01/22/20 01/22/20 03:56 05:08 06:00 WBC RBC Hgb Hct RDW Neutrophils # Lymphocytes # PT INR ABG pH ABG pCO2 ABG pO2 ABG HCO3 ABG Total CO2 ABG O2 Saturation ABG Hematocrit ABG Potassium ABG Ionized Calcium ABG Glucose ABG Lactic Acid Hemoglobin Sodium Chloride BUN Creatinine Glucose POC Glucose (mg/dL) 112 H 145 H 159 H Magnesium AST Alkaline Phosphatase Total Protein Albumin Arterial Blood Potassium Arterial Blood Glucose Crossmatch 01/22/20 01/22/20 01/22/20 06:05 06:05 06:54 WBC 14.9 H RBC 3.10 L Hgb 8.2 L Hct 26.1 L RDW Neutrophils # 13.3 H Lymphocytes # 0.7 L PT INR ABG pH ABG pCO2 ABG pO2 ABG HCO3 ABG Total CO2 ABG O2 Saturation ABG Hematocrit ABG Potassium ABG Ionized Calcium ABG Glucose ABG Lactic Acid Hemoglobin Sodium Chloride 109 H BUN Creatinine 0.43 L Glucose 151 H POC Glucose (mg/dL) 151 H Magnesium AST 72 H Alkaline Phosphatase 31 L Total Protein 5.9 L Albumin Arterial Blood Potassium Arterial Blood Glucose Crossmatch 01/22/20 01/22/20 01/22/20 07:58 09:14 10:14 WBC RBC Hgb Hct RDW Neutrophils # Lymphocytes # PT INR ABG pH ABG pCO2 ABG pO2 ABG HCO3 ABG Total CO2 ABG O2 Saturation ABG Hematocrit ABG Potassium ABG Ionized Calcium ABG Glucose ABG Lactic Acid Hemoglobin Sodium Chloride BUN Creatinine Glucose POC Glucose (mg/dL) 136 H 115 H 118 H Magnesium AST Alkaline Phosphatase Total Protein Albumin Arterial Blood Potassium Arterial Blood Glucose Crossmatch 01/22/20 01/22/20 01/22/20 13:06 14:03 15:10 WBC RBC Hgb Hct RDW Neutrophils # Lymphocytes # PT INR ABG pH ABG pCO2 ABG pO2 ABG HCO3 ABG Total CO2 ABG O2 Saturation ABG Hematocrit ABG Potassium ABG Ionized Calcium ABG Glucose ABG Lactic Acid Hemoglobin Sodium Chloride BUN Creatinine Glucose POC Glucose (mg/dL) 149 H 154 H 143 H Magnesium AST Alkaline Phosphatase Total Protein Albumin Arterial Blood Potassium Arterial Blood Glucose Crossmatch 01/22/20 01/22/20 01/22/20 16:07 17:04 18:12 WBC RBC Hgb Hct RDW Neutrophils # Lymphocytes # PT INR ABG pH ABG pCO2 ABG pO2 ABG HCO3 ABG Total CO2 ABG O2 Saturation ABG Hematocrit ABG Potassium ABG Ionized Calcium ABG Glucose ABG Lactic Acid Hemoglobin Sodium Chloride BUN Creatinine Glucose POC Glucose (mg/dL) 118 H 113 H 111 H Magnesium AST Alkaline Phosphatase Total Protein Albumin Arterial Blood Potassium Arterial Blood Glucose Crossmatch 01/22/20 01/22/20 01/22/20 18:59 20:01 21:17 WBC RBC Hgb Hct RDW Neutrophils # Lymphocytes # PT INR ABG pH ABG pCO2 ABG pO2 ABG HCO3 ABG Total CO2 ABG O2 Saturation ABG Hematocrit ABG Potassium ABG Ionized Calcium ABG Glucose ABG Lactic Acid Hemoglobin Sodium Chloride BUN Creatinine Glucose POC Glucose (mg/dL) 150 H 134 H 124 H Magnesium AST Alkaline Phosphatase Total Protein Albumin Arterial Blood Potassium Arterial Blood Glucose Crossmatch 01/22/20 01/22/20 01/22/20 22:03 23:16 23:54 WBC RBC Hgb Hct RDW Neutrophils # Lymphocytes # PT INR ABG pH ABG pCO2 ABG pO2 ABG HCO3 ABG Total CO2 ABG O2 Saturation ABG Hematocrit ABG Potassium ABG Ionized Calcium ABG Glucose ABG Lactic Acid Hemoglobin Sodium Chloride BUN Creatinine Glucose POC Glucose (mg/dL) 134 H 133 H 148 H Magnesium AST Alkaline Phosphatase Total Protein Albumin Arterial Blood Potassium Arterial Blood Glucose Crossmatch 01/23/20 01/23/20 01/23/20 01:09 02:15 03:06 WBC RBC Hgb Hct RDW Neutrophils # Lymphocytes # PT INR ABG pH ABG pCO2 ABG pO2 ABG HCO3 ABG Total CO2 ABG O2 Saturation ABG Hematocrit ABG Potassium ABG Ionized Calcium ABG Glucose ABG Lactic Acid Hemoglobin Sodium Chloride BUN Creatinine Glucose POC Glucose (mg/dL) 156 H 120 H 124 H Magnesium AST Alkaline Phosphatase Total Protein Albumin Arterial Blood Potassium Arterial Blood Glucose Crossmatch 01/23/20 01/23/20 01/23/20 04:03 04:12 05:04 WBC RBC Hgb Hct RDW Neutrophils # Lymphocytes # PT INR ABG pH ABG pCO2 ABG pO2 ABG HCO3 ABG Total CO2 ABG O2 Saturation ABG Hematocrit ABG Potassium ABG Ionized Calcium ABG Glucose ABG Lactic Acid Hemoglobin Sodium Chloride BUN Creatinine Glucose POC Glucose (mg/dL) 117 H 108 H 110 H Magnesium AST Alkaline Phosphatase Total Protein Albumin Arterial Blood Potassium Arterial Blood Glucose Crossmatch 01/23/20 01/23/20 01/23/20 05:12 05:12 06:02 WBC 13.3 H RBC 2.45 L Hgb 7.0 L Hct 20.8 L RDW Neutrophils # 9.7 H Lymphocytes # PT INR ABG pH ABG pCO2 ABG pO2 ABG HCO3 ABG Total CO2 ABG O2 Saturation ABG Hematocrit ABG Potassium ABG Ionized Calcium ABG Glucose ABG Lactic Acid Hemoglobin Sodium 131 L Chloride BUN Creatinine Glucose 118 H POC Glucose (mg/dL) 124 H Magnesium AST 84 H Alkaline Phosphatase Total Protein 5.4 L Albumin 3.2 L Arterial Blood Potassium Arterial Blood Glucose Crossmatch 01/23/20 01/23/20 01/23/20 07:06 07:59 08:57 WBC RBC Hgb Hct RDW Neutrophils # Lymphocytes # PT INR ABG pH ABG pCO2 ABG pO2 ABG HCO3 ABG Total CO2 ABG O2 Saturation ABG Hematocrit ABG Potassium ABG Ionized Calcium ABG Glucose ABG Lactic Acid Hemoglobin Sodium Chloride BUN Creatinine Glucose POC Glucose (mg/dL) 160 H 160 H 142 H Magnesium AST Alkaline Phosphatase Total Protein Albumin Arterial Blood Potassium Arterial Blood Glucose Crossmatch 01/23/20 01/23/20 01/23/20 10:04 11:02 11:56 WBC RBC Hgb Hct RDW Neutrophils # Lymphocytes # PT INR ABG pH ABG pCO2 ABG pO2 ABG HCO3 ABG Total CO2 ABG O2 Saturation ABG Hematocrit ABG Potassium ABG Ionized Calcium ABG Glucose ABG Lactic Acid Hemoglobin Sodium Chloride BUN Creatinine Glucose POC Glucose (mg/dL) 119 H 121 H 132 H Magnesium AST Alkaline Phosphatase Total Protein Albumin Arterial Blood Potassium Arterial Blood Glucose Crossmatch 01/23/20 01/23/20 01/24/20 16:39 20:25 05:09 WBC 12.5 H RBC 2.29 L Hgb 6.7 L* Hct 19.1 L* RDW Neutrophils # 9.5 H Lymphocytes # PT INR ABG pH ABG pCO2 ABG pO2 ABG HCO3 ABG Total CO2 ABG O2 Saturation ABG Hematocrit ABG Potassium ABG Ionized Calcium ABG Glucose ABG Lactic Acid Hemoglobin Sodium Chloride BUN Creatinine Glucose POC Glucose (mg/dL) 187 H 189 H Magnesium AST Alkaline Phosphatase Total Protein Albumin Arterial Blood Potassium Arterial Blood Glucose Crossmatch 01/24/20 01/24/20 01/24/20 05:09 07:33 07:43 WBC 16.4 H RBC 2.48 L Hgb 6.8 L* Hct 20.7 L RDW Neutrophils # Lymphocytes # PT INR ABG pH ABG pCO2 ABG pO2 ABG HCO3 ABG Total CO2 ABG O2 Saturation ABG Hematocrit ABG Potassium ABG Ionized Calcium ABG Glucose ABG Lactic Acid Hemoglobin Sodium 130 L Chloride BUN Creatinine Glucose 127 H POC Glucose (mg/dL) 151 H Magnesium AST 59 H Alkaline Phosphatase Total Protein 5.6 L Albumin 3.2 L Arterial Blood Potassium Arterial Blood Glucose Crossmatch 01/24/20 01/24/20 01/24/20 12:16 16:57 20:27 WBC RBC Hgb Hct RDW Neutrophils # Lymphocytes # PT INR ABG pH ABG pCO2 ABG pO2 ABG HCO3 ABG Total CO2 ABG O2 Saturation ABG Hematocrit ABG Potassium ABG Ionized Calcium ABG Glucose ABG Lactic Acid Hemoglobin Sodium Chloride BUN Creatinine Glucose POC Glucose (mg/dL) 173 H 169 H 194 H Magnesium AST Alkaline Phosphatase Total Protein Albumin Arterial Blood Potassium Arterial Blood Glucose Crossmatch 01/25/20 01/25/20 01/25/20 03:01 04:32 04:32 WBC 12.2 H RBC 2.28 L Hgb 6.4 L* Hct 19.2 L* RDW 15.8 H Neutrophils # Lymphocytes # PT INR ABG pH ABG pCO2 ABG pO2 ABG HCO3 ABG Total CO2 ABG O2 Saturation ABG Hematocrit ABG Potassium ABG Ionized Calcium ABG Glucose ABG Lactic Acid Hemoglobin Sodium 132 L Chloride BUN Creatinine Glucose 126 H POC Glucose (mg/dL) 146 H Magnesium AST Alkaline Phosphatase Total Protein Albumin Arterial Blood Potassium Arterial Blood Glucose Crossmatch 01/25/20 01/25/20 01/25/20 07:10 12:04 17:01 WBC RBC Hgb Hct RDW Neutrophils # Lymphocytes # PT INR ABG pH ABG pCO2 ABG pO2 ABG HCO3 ABG Total CO2 ABG O2 Saturation ABG Hematocrit ABG Potassium ABG Ionized Calcium ABG Glucose ABG Lactic Acid Hemoglobin Sodium Chloride BUN Creatinine Glucose POC Glucose (mg/dL) 138 H 138 H 180 H Magnesium AST Alkaline Phosphatase Total Protein Albumin Arterial Blood Potassium Arterial Blood Glucose Crossmatch 01/25/20 01/26/20 01/26/20 20:39 02:52 04:15 WBC RBC 2.15 L Hgb 6.0 L* Hct 18.5 L* RDW 16.1 H Neutrophils # Lymphocytes # PT INR ABG pH ABG pCO2 ABG pO2 ABG HCO3 ABG Total CO2 ABG O2 Saturation ABG Hematocrit ABG Potassium ABG Ionized Calcium ABG Glucose ABG Lactic Acid Hemoglobin Sodium Chloride BUN Creatinine Glucose POC Glucose (mg/dL) 188 H 199 H Magnesium AST Alkaline Phosphatase Total Protein Albumin Arterial Blood Potassium Arterial Blood Glucose Crossmatch 01/26/20 01/26/20 01/26/20 04:15 06:22 07:05 WBC RBC 2.23 L Hgb 6.2 L* Hct 19.0 L* RDW 16.1 H Neutrophils # Lymphocytes # PT INR ABG pH ABG pCO2 ABG pO2 ABG HCO3 ABG Total CO2 ABG O2 Saturation ABG Hematocrit ABG Potassium ABG Ionized Calcium ABG Glucose ABG Lactic Acid Hemoglobin Sodium 135 L Chloride BUN 19 H Creatinine Glucose 157 H POC Glucose (mg/dL) 169 H Magnesium AST Alkaline Phosphatase Total Protein Albumin Arterial Blood Potassium Arterial Blood Glucose Crossmatch 01/26/20 01/26/20 01/26/20 12:30 15:39 17:04 WBC RBC Hgb Hct RDW Neutrophils # Lymphocytes # PT INR ABG pH ABG pCO2 ABG pO2 ABG HCO3 ABG Total CO2 ABG O2 Saturation ABG Hematocrit ABG Potassium ABG Ionized Calcium ABG Glucose ABG Lactic Acid Hemoglobin Sodium Chloride BUN Creatinine Glucose POC Glucose (mg/dL) 206 H 159 H Magnesium AST Alkaline Phosphatase Total Protein Albumin Arterial Blood Potassium Arterial Blood Glucose Crossmatch See Detail Assessment and Plan Assessment: This is a 44-year-old female with extensive atherosclerotic disease now status post triple-vessel coronary artery bypass graft. Neurology consulted due to an acute change in her mental status. The trigger forthis is most likey multi- factorial, however she does have factors that could potentially lower seizure th reshold such as poor sleep continuity, sleep deprivation, chronic stress, anemia secondary to blood loss. Metabolic factors should also be down for possible altered mental status such as urinary tract infection: hyper and hypoglycemia. Recommendations: 1. Would recommend additional labs over the next 48 hours to include a modified hypercoagulability workup, thyroid studies, B12 and folate levels. 2. EEG in the morning to rule out subclinical seizure activity. 3. If there is any acute further decline in her mental status such as forced eye deviation, staring, lip smacking picking at her clothes, these are all symptoms of potential complex partial seizures. Would recommend giving the patient a trial of Ativan 0.5 mg IV stat X ONE dose and contact information assurance specialist neurology. Thank you for this consult. This patient's prognosis remains guarded. Further recommendations will be made as this case evolves. Marta Brar M.D. Board Certified in Neurology and Sleep Medicine
[2020-01-26 20:26] LABS: T4, Free (Free Thyroxine) 1.37 ng/dL (0.78-2.19)
[2020-01-26 20:33] LABS: Glucose,Whole Blood 166 mg/dL (75-99)
[2020-01-26] MEDS: INSULIN DETEMIR (LEVEMIR) 100 UNIT/ML SYR SQ SCH (20:43)
[2020-01-26] MEDS: SENNOSIDES-DOCUSATE SODIUM 1 EACH TAB PO SCH (20:43)
--- NOTE | 2020-01-26 22:14 | P.PN ---
Subjective This is a pleasant 44 years old female with multiple medical problems she was admitted under vascular surgery service for triple coronary artery disease, status post bypass surgery, Currently patient remains in the ICU for another 24 hours, she is doing well with no chest pain or dyspnea. There was some concerns regarding his speech this morning but there was no clear-cut for acute CVA when I saw the patient she was talking freely with no difficulty. No swallowing problem. No headache. No nausea vomiting. She is hemodynamically stable and labs showing a drop in hemoglobin down to 6.4 which is expected from surgery. His sugars controlled while she's taken Levemir 18 units at bedtime and 6 units with meals. Also she is on Lasix 20 mg daily. She remains on aspirin 325 mg, Plavix and heparin for DVT prophylaxis She is followed by several consultants including pulmonary and cardiology 01/26/2020 Patient seen and examined in the ICU, she was doing well fully awake and oriented and answering questions appropriately however after I rounded on the patient and therefore she's been discharged today status post noted altered mental status, neurologist evaluated the patient and recommended EEG and keep monitoring for now and workup with hypercoagulability workup, thyroid studies, B12 and folate levels. Incision is suspected as well and EEG is ordered. When I saw the patient she denied chest pain or dyspnea, no dizziness. She was hemodynamically stable. Hemoglobin 6.2, no need for transfusion per vascular surgery as the primary team. Patient is on iron pills, her sugar is well-controlled Patient remains on aspirin and Plavix on subcutaneous heparin Objective - Vital Signs Vital signs: Vital Signs Temp 97.3 F L 01/26/20 17:40 Pulse 88 01/26/20 18:10 Resp 4 L 01/26/20 18:10 BP 124/67 01/26/20 18:10 Pulse Ox 100 01/26/20 18:10 Intake & Output 01/25/20 01/26/20 01/26/20 18:59 06:59 18:59 Intake Total 1000 480 0 Output Total 500 400 650 Balance 500 80 -650 Weight 87 kg Intake: Oral 1000 480 Blood Product 0 Rc As-1 Unit 0 [id number] Output: Urine 500 400 650 Other: Voiding Method Bedside Commode # Voids 1 1 1 ABP, PAP, CO, CI - Last Documented Arterial Blood Pressure 113/52 Pulmonary Artery Pressure 13/4 Cardiac Output 5 Cardiac Index 2.6 - Exam GENERAL: The patient is alert and oriented x3, not in any acute distress. Well developed, well nourished. HEENT: Pupils are round and equally reacting to light. EOMI. No scleral icterus. No conjunctival pallor. Normocephalic, atraumatic. No pharyngeal erythema. No thyromegaly. CARDIOVASCULAR: S1 and S2 present. No murmurs, rubs, or gallops. PULMONARY: Chest is clear to auscultation, no wheezing or crackles. ABDOMEN: Soft, nontender, nondistended, normoactive bowel sounds. No palpable organomegaly. MUSCULOSKELETAL: No joint swelling or deformity. EXTREMITIES: No cyanosis, clubbing, or pedal edema. NEUROLOGICAL: Gross neurological examination did not reveal any focal deficits. SKIN: No rashes. no petechiae. - Labs CBC & Chem 7: 01/26/20 06:01/26/20 04:15 Labs: Abnormal Lab Results - Last 24 Hours (Table) 01/25/20 01/26/20 01/26/20 Range/Units 20:39 02:52 04:15 RBC 2.15 L (3.80-5.40) m/uL Hgb 6.0 L* (11.4-16.0) gm/dL Hct 18.5 L* (34.0-46.0) % RDW 16.1 H (11.5-15.5) % Sodium (137-145) mmol/L BUN (7-17) mg/dL Glucose (74-99) mg/dL POC Glucose (mg/dL) 188 H 199 H (75-99) mg/dL Crossmatch 01/26/20 01/26/20 01/26/20 Range/Units 04:15 06:22 07:05 RBC 2.23 L (3.80-5.40) m/uL Hgb 6.2 L* (11.4-16.0) gm/dL Hct 19.0 L* (34.0-46.0) % RDW 16.1 H (11.5-15.5) % Sodium 135 L (137-145) mmol/L BUN 19 H (7-17) mg/dL Glucose 157 H (74-99) mg/dL POC Glucose (mg/dL) 169 H (75-99) mg/dL Crossmatch 01/26/20 01/26/20 01/26/20 Range/Units 12:30 15:39 17:04 RBC (3.80-5.40) m/uL Hgb (11.4-16.0) gm/dL Hct (34.0-46.0) % RDW (11.5-15.5) % Sodium (137-145) mmol/L BUN (7-17) mg/dL Glucose (74-99) mg/dL POC Glucose (mg/dL) 206 H 159 H (75-99) mg/dL Crossmatch See Detail Assessment and Plan Assessment: -Triple-vessel Coronary artery disease, status post bypass surgery, patient is doing well and she is followed by our consultants including pulmonary and cardiology. She is on aspirin and Plavix -Altered mental status, neurology of the case. Rule out seizure. Follow-up workup -Right coronary artery stenosis 70%, no signs of stroke. 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
[2020-01-27 02:00] LABS: Glucose,Whole Blood 147 mg/dL (75-99)
[2020-01-27 04:50] LABS: Basophils % (A) 0 %; Eosinophils # (A) 0.2 k/uL (0-0.7); Eosinophils % (A) 2 %; HGB 7.6 gm/dL (11.4-16.0); Lymphocytes # (A) 2.6 k/uL (1.0-4.8); Lymphocytes % (A) 29 %; MCH 27.5 pg (25.0-35.0); MCHC 31.7 g/dL (31.0-37.0); MCV 86.5 fL (80.0-100.0); Mean Platelet Volume 8.4; Monocytes # (A) 0.5 k/uL (0-1.0); Monocytes % (A) 6 %; Neutrophils # (A) 5.5 k/uL (1.3-7.7); Neutrophils % (A) 61 %; Platelet Count 348 k/uL (150-450); RBC 2.78 m/uL (3.80-5.40)
[2020-01-27 05:09] LABS: African American GFR (CKD) >90 (>60 ml/min/1.73 sqM); Anion Gap 7 mmol/L; Blood Urea Nitrogen 16 mg/dL (7-17); Calcium 9.4 mg/dL (8.4-10.2); Carbon Dioxide 27 mmol/L (22-30); Chloride 101 mmol/L (98-107); Glucose 140 mg/dL (74-99); Non-African American GFR(CKD) >90 (>60 ml/min/1.73 sqM); Potassium 4.8 mmol/L (3.5-5.1); Sodium 135 mmol/L (137-145)
[2020-01-27] MEDS: KETOROLAC 30 MG/ML 1 ML VIAL IVP SCH (05:51)
[2020-01-27 06:11] LABS: Erythrocyte Sedimentation Rate 60 mm/hr (0-20)
[2020-01-27] MEDS: INSULIN ASPART (NovoLOG) 100 UNIT/ML VIAL SQ SCH ×7 (06:45→21:08)
[2020-01-27] MEDS: FERROUS SULFATE 325 MG TAB PO SCH ×2 (06:48→17:09)
[2020-01-27] MEDS: ASCORBIC ACID 500 MG TAB PO SCH ×2 (06:48→17:09)
[2020-01-27] MEDS: PANTOPRAZOLE 40 MG TABLET PO SCH (06:48)
[2020-01-27] MEDS: IPRATROPIUM-ALBUTEROL 3 ML NEB INHALATION SCH ×4 (09:16→19:54)
[2020-01-27] MEDS: METOPROLOL TARTRATE 25 MG TAB PO SCH ×2 (09:49→21:08)
[2020-01-27] MEDS: CLOPIDOGREL 75 MG TAB PO SCH (09:49)
[2020-01-27] MEDS: ATORVASTATIN 40 MG TAB PO SCH (09:49)
[2020-01-27] MEDS: FUROSEMIDE 20 MG TAB PO SCH (09:49)
[2020-01-27] MEDS: ASPIRIN 325 MG TAB PO SCH (09:49)
[2020-01-27] MEDS: HEPARIN SODIUM,PORCINE 5,000 UNIT/ML 1 ML VIAL SQ SCH ×2 (09:49→17:09)
--- NOTE | 2020-01-27 10:07 | P.PN ---
Subjective This is a pleasant 44 years old female with multiple medical problems she was admitted under vascular surgery service for triple coronary artery disease, status post bypass surgery, Currently patient remains in the ICU for another 24 hours, she is doing well with no chest pain or dyspnea. There was some concerns regarding his speech this morning but there was no clear-cut for acute CVA when I saw the patient she was talking freely with no difficulty. No swallowing problem. No headache. No nausea vomiting. She is hemodynamically stable and labs showing a drop in hemoglobin down to 6.4 which is expected from surgery. His sugars controlled while she's taken Levemir 18 units at bedtime and 6 units with meals. Also she is on Lasix 20 mg daily. She remains on aspirin 325 mg, Plavix and heparin for DVT prophylaxis She is followed by several consultants including pulmonary and cardiology 01/26/2020 Patient seen and examined in the ICU, she was doing well fully awake and oriented and answering questions appropriately however after I rounded on the patient and therefore she's been discharged today status post noted altered mental status, neurologist evaluated the patient and recommended EEG and keep monitoring for now and workup with hypercoagulability workup, thyroid studies, B12 and folate levels. Incision is suspected as well and EEG is ordered. When I saw the patient she denied chest pain or dyspnea, no dizziness. She was hemodynamically stable. Hemoglobin 6.2, no need for transfusion per vascular surgery as the primary team. Patient is on iron pills, her sugar is well-controlled Patient remains on aspirin and Plavix on subcutaneous heparin 01/27/2020 Patient remains in the ICU, she looks confused although she is awake and alert and follow commands and answers most questions appropriately however she knows she is in hospital but she thought she is at [facility], she thought it is 2005 and she did not know the president or why she was in the hospital. However patient has no physical complaints like no chest pain or dyspnea. No coughing. No abdominal pain. Vitals stable. CBC and BMP are unremarkable. CT of the brain: No acute process. TSH is normal Patient already evaluated by neurologist and EEG is pending. Hypercoagulable workup, lupus anticoagulant CONSTITUTIONAL: No fever, no malaise, no fatigue. HEENT: No recent visual problems or hearing problems. Denied any sore throat. CARDIOVASCULAR: No orthopnea, PND, no palpitations, no syncope. PULMONARY: No shortness of breath, no cough, no hemoptysis. GASTROINTESTINAL: No diarrhea, no nausea, no vomiting, no abdominal pain. Normoactive bowel sounds. NEUROLOGICAL: No headaches, no weakness, no numbness. Active Medications Generic Name Dose Route Start Last Admin Trade Name Freq PRN Reason Stop Dose Admin Acetaminophen 1,000 mg 01/24/20 06:39 Tylenol Tab PO Q6HR PRN Fever and/ or Pain Albuterol/Ipratropium 3 ml 01/21/20 17:17 Duoneb 0.5 Mg-3 Mg/3 Ml Soln INHALATION RT-Q2H PRN Shortness Of Breath Or Wheezing Albuterol/Ipratropium 3 ml 01/21/20 22:16 01/27/20 09:16 Duoneb 0.5 Mg-3 Mg/3 Ml Soln INHALATION 3 ml RT-QID JA Administration Amlodipine Besylate 2.5 mg 01/22/20 12:00 01/26/20 12:55 Norvasc PO 2.5 mg DAILY@1200 JA Administration Ascorbic Acid 500 mg 01/22/20 08:15 01/27/20 06:48 Vitamin C PO 500 mg BID-W/MEALS JA Administration Aspirin 325 mg 01/21/20 21:00 01/27/20 09:49 Aspirin PO 325 mg DAILY JA Administration Atorvastatin Calcium 40 mg 01/22/20 09:00 01/27/20 09:49 Lipitor PO 40 mg DAILY JA Administration Benzocaine/Menthol 1 each 01/21/20 17:17 Cepacol Lozenge MUCOUS MEM Q2H PRN Sore Throat Bisacodyl 10 mg 01/22/20 09:00 01/26/20 17:06 Dulcolax RECTAL 10 mg DAILY PRN Administration Constipation Clopidogrel Bisulfate 75 mg 01/21/20 21:00 01/27/20 09:49 Plavix PO 75 mg DAILY JA Administration Ferrous Sulfate 325 mg 01/22/20 08:15 01/27/20 06:48 Feosol PO 325 mg BID-W/MEALS JA Administration Furosemide 20 mg 01/25/20 09:00 01/27/20 09:49 Lasix PO 20 mg DAILY JA Administration Heparin Sodium (Porcine) 5,000 unit 01/22/20 00:16 01/27/20 09:49 Heparin SQ 5,000 unit Q8HR JA Administration Amiodarone HCl 150 mg/ 103 mls @ 618 mls/hr 01/21/20 17:17 Dextrose/Water IV .Q10M PRN A.FIB/FLUTTER Protocol Amiodarone HCl 360 mg/ 200 mls @ 33.333 mls/hr 01/21/20 17:17 Dextrose/Water IV .Q6H PRN A.FIB/FLUTTER Protocol 1 MG/MIN Amiodarone HCl 300 mg/ 250 mls @ 25 mls/hr 01/21/20 17:17 Dextrose/Water IV .Q10H PRN A.FIB/FLUTTER Protocol 0.5 MG/MIN Insulin Aspart 6 unit 01/23/20 07:30 01/27/20 06:48 Novolog SQ 6 unit AC-TID JA Administration Insulin Aspart 0 unit 01/23/20 12:30 01/27/20 06:45 Novolog SQ Not Given ACHS [facility] Protocol Insulin Detemir 18 unit 01/22/20 21:45 01/26/20 20:43 Levemir SQ 18 unit HS JA Administration Magnesium Hydroxide 2,400 mg 01/22/20 09:00 01/26/20 08:37 Milk Of Magnesia PO 2,400 mg BID PRN Administration Constipation Metoclopramide HCl 10 mg 01/21/20 17:17 01/22/20 02:23 Reglan IVP 10 mg Q4H PRN Administration Nausea And Vomiting Metoprolol Tartrate 25 mg 01/23/20 09:00 01/27/20 09:49 Lopressor PO 25 mg BID JA Administration Miscellaneous Information 1 each 01/21/20 17:17 Potassium Per Protocol MISCELLANE DAILY PRN Per Protocol Protocol Miscellaneous Information 1 each 01/21/20 17:17 Magnesium Per Protocol MISCELLANE DAILY PRN Per Protocol Protocol Miscellaneous Information 1 each 01/21/20 17:17 Phosphorus Per Protocol MISCELLANE DAILY PRN Per Protocol Protocol Miscellaneous Information 1 each 01/22/20 01:21 Potassium Per Protocol MISCELLANE DAILY PRN Per Protocol Protocol Ondansetron HCl 4 mg 01/21/20 17:17 01/24/20 08:02 Zofran IVP 4 mg Q6HR PRN Administration Nausea And Vomiting Pantoprazole Sodium 40 mg 01/23/20 07:30 01/27/20 06:48 Protonix PO 40 mg AC-BRKFST JA Administration Senna/Docusate Sodium 2 each 01/22/20 21:00 01/26/20 20:43 Senokot-S PO 2 each HS JA Administration Sodium Chloride 10 ml 01/21/20 21:00 01/27/20 09:49 Saline Flush IV 10 ml BID JA Administration Objective - Vital Signs Vital signs: Vital Signs Temp 98.4 F 01/27/20 08:00 Pulse 85 01/27/20 10:00 Resp 16 01/27/20 10:00 BP 119/66 01/27/20 10:00 Pulse Ox 98 01/27/20 10:00 Intake & Output 01/26/20 01/27/20 01/27/20 18:59 06:59 18:59 Intake Total 1325 700 Output Total 650 Balance 675 700 Weight 87.1 kg Intake: Oral 1250 240 Blood Product 75 460 Rc As-1 Unit 0 310 [id number] Output: Urine 650 Other: Voiding Method Bedside Commode Bedside Commode # Voids 1 0 0 # Bowel Movements 1 ABP, PAP, CO, CI - Last Documented Arterial Blood Pressure 113/52 Pulmonary Artery Pressure 13/4 Cardiac Output 5 Cardiac Index 2.6 - Exam GENERAL: The patient is alert and oriented x3, not in any acute distress. Well developed, well nourished. HEENT: Pupils are round and equally reacting to light. EOMI. No scleral icterus. No conjunctival pallor. Normocephalic, atraumatic. No pharyngeal erythema. No thyromegaly. CARDIOVASCULAR: S1 and S2 present. No murmurs, rubs, or gallops. PULMONARY: Chest is clear to auscultation, no wheezing or crackles. ABDOMEN: Soft, nontender, nondistended, normoactive bowel sounds. No palpable organomegaly. MUSCULOSKELETAL: No joint swelling or deformity. EXTREMITIES: No cyanosis, clubbing, or pedal edema. NEUROLOGICAL: Gross neurological examination did not reveal any focal deficits. SKIN: No rashes. no petechiae. - Labs CBC & Chem 7: 01/27/20 04:25 01/27/20 04:25 Labs: Abnormal Lab Results - Last 24 Hours (Table) 01/26/20 01/26/20 01/26/20 Range/Units 04:30 12:30 15:39 RBC (3.80-5.40) m/uL Hgb (11.4-16.0) gm/dL Hct (34.0-46.0) % RDW (11.5-15.5) % ESR (0-20) mm/hr Sodium (137-145) mmol/L Glucose (74-99) mg/dL POC Glucose (mg/dL) 206 H (75-99) mg/dL C-Reactive Protein 28.6 H (<10.0) mg/L Crossmatch See Detail 01/26/20 01/26/20 01/27/20 Range/Units 17:04 20:31 01:57 RBC (3.80-5.40) m/uL Hgb (11.4-16.0) gm/dL Hct (34.0-46.0) % RDW (11.5-15.5) % ESR (0-20) mm/hr Sodium (137-145) mmol/L Glucose (74-99) mg/dL POC Glucose (mg/dL) 159 H 166 H 147 H (75-99) mg/dL C-Reactive Protein (<10.0) mg/L Crossmatch 01/27/20 01/27/20 Range/Units 04:25 04:25 RBC 2.78 L (3.80-5.40) m/uL Hgb 7.6 L (11.4-16.0) gm/dL Hct 24.0 L (34.0-46.0) % RDW 16.0 H (11.5-15.5) % ESR 60 H (0-20) mm/hr Sodium 135 L (137-145) mmol/L Glucose 140 H (74-99) mg/dL POC Glucose (mg/dL) (75-99) mg/dL C-Reactive Protein (<10.0) mg/L Crossmatch Assessment and Plan Assessment: -Triple-vessel Coronary artery disease, status post bypass surgery, patient is doing well and she is followed by our consultants including pulmonary and cardiology. She is on aspirin and Plavix -Altered mental status, neurology of the case. Rule out seizure. Follow-up workup -Right coronary artery stenosis 70%, no signs of stroke. 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
--- NOTE | 2020-01-27 10:10 | P.PN ---
Subjective Progress Note Date: 01/27/20 Principal diagnosis: Severe diffuse triple-vessel coronary artery disease, preserved left ventricular function, insulin-dependent diabetes mellitus with preoperative hemoglobin A1c 7.3%, hypertension, hyperlipidemia, history of Ymviy-Zizgwotgq-Tixtf status post ablation, right internal carotid stenosis greater than 70% per carotid Dopplers, approximately 60% per CTA, previous brief tobacco use with preoperative FEV1 87% of predicted, family history of premature coronary artery disease, preoperative nasal swab positive for MRSA and history of alcohol and drug syndrome. POD #6 triple vessel coronary artery bypass grafting using the left internal mammary artery to the left anterior descending coronary artery, left radial artery from the aorta to the right coronary artery, a reverse greater saphenous vein graft from the aorta to the distal circumflex coronary artery. Exclusion of the left atrial appendage using a 35 mm after clip. Endoscopic harvesting of the left radial artery. Endoscopic harvesting of the right greater saphenous vein from the groin to above the ankle level. Intraoperative transesophageal echocardiogram and epi-aortic scanning. Intraoperative graft flow measurements using the [employer] system. Postoperative acute blood loss anemia, expected outcome of surgery given cardiopulmonary bypass pump and hemodilution. Postoperative altered mental status, an unexpected outcome of surgery. The patient was seen in follow-up today 01/27/2020 at her bedside in the intensive care unit. The patient is currently sitting up to the bedside chair, opens her eyes easily to verbal stimuli, although continues to have difficulty with attention and answering questions appropriately. When the patient was asked to her name she was able to state her name appropriately, when asked what hospital she is at she states the year 2019. When she is given options to the questions she is answering the questions appropriately by choosing the right ans wer. Her bedside nurse reports that she was ambulating with minimal assistance in the intensive care unit hallway this morning and does not appear to have any weakness to her bilateral upper or lower extremities. She remains hemodynamically stable and is currently on no inotropic or pressor support. Oxygen saturations are 96% on room air and she is achieving 1500 mL on her incentive spirometry with encouragement. Bedside telemetry showing normal sinus rhythm heart rate 78. Her hemoglobin was 6.2 yesterday in which she received one unit of PRBCs. Her hemoglobin this morning was 7.6. She has been afebrile the last 24 hours. Due to her altered mental status she was seen by neurology yesterday and underwent a computed tomography scan of her brain without contrast. The report of the computed tomography scan of her brain demonstrated negative unenhanced head, no sign of intracranial hemorrhage, no mass effect or midline shift and no evidence of cerebral edema. She is scheduled to undergo an EEG today. Objective - Vital Signs Vital signs: Vital Signs Temp 98.4 F 01/27/20 08:00 Pulse 87 01/27/20 09:34 Resp 16 01/27/20 08:00 BP 123/71 01/27/20 08:00 Pulse Ox 92 L 01/27/20 08:00 Intake & Output 01/26/20 01/27/20 01/27/20 18:59 06:59 18:59 Intake Total 1325 700 Output Total 650 Balance 675 700 Weight 87.1 kg Intake: Oral 1250 240 Blood Product 75 460 Rc As-1 Unit 0 310 [id number] Output: Urine 650 Other: Voiding Method Bedside Commode Bedside Commode # Voids 1 0 0 # Bowel Movements 1 ABP, PAP, CO, CI - Last Documented Arterial Blood Pressure 113/52 Pulmonary Artery Pressure 13/4 Cardiac Output 5 Cardiac Index 2.6 - Exam This a pleasant 44-year-old female patient who is sitting up to the bedside chair in the intensive care unit. She is in no acute distress, opens her eyes easily with verbal stimuli although continues to have difficulty with maintaining attention and also with answering questions appropriately. Oxygen saturation are 96% on room air. - Constitutional General appearance: Present: cooperative, no acute distress, obese - EENT Eyes: Present: PERRLA, normal appearance. Absent: scleral icterus ENT: Present: hearing grossly normal - Neck Details: Neck is supple. Neck: Absent: lymphadenopathy, stridor - Respiratory Details: Lung sounds are essentially clear to her bilateral upper lobes, diminished bi lateral bases. No wheezes, rhonchi or crackles. Respirations are symmetrical and nonlabored. Oxygen saturation are 96% on room air and she is achieving 1500 mL on her incentive spirometry with encouragement. - Cardiovascular Details: Regular rhythm and rate. S1 and S2 present, negative for S3, gallop or murmur. Sternum is stable. Bedside telemetry showing normal sinus rhythm heart rate 78. Trace pedal edema. Knee-high JOSEFINA hose and sequential compression devices in place were bilateral lower extremities. Heart hugger and surgical support bra is in place. She is demonstrating appropriate use with a heart hugger with encouragement. - Gastrointestinal Gastrointestinal Comment(s): Abdomen is soft, nontender and nondistended. Active bowel sounds present in all 4 abdominal quadrants. No guarding or rigidity. Tolerating oral intake. - Genitourinary Genitourinary Comment(s): Voiding clear barber urine. - Integumentary Integumentary Comment(s): Skin is warm and dry. No clubbing or cyanosis is present. Midline sternal incision is clean, dry and approximated. exofin dressing is clean, dry and intact. Right lower extremity EVH site is clean, dry and approximated. No drainage or redness is present. Ecchymotic area to her right thigh, soft and nontender. Left radial artery harvest sites are clean, dry and approximated. No drainage or redness is present. Positive ulnar pulse to her left arm. - Neurologic Neurologic: Present: CNII-XII intact - Musculoskeletal Musculoskeletal: Present: gait normal, generalized weakness, strength equal bilaterally - Psychiatric Psychiatric Comment(s): Flat affect, oriented 1 to person. - Allied health notes Allied health notes reviewed: nursing - Labs CBC & Chem 7: 01/27/20 04:25 01/27/20 04:25 Labs: Abnormal Lab Results - Last 24 Hours (Table) 01/26/20 01/26/20 01/26/20 Range/Units 04:30 12:30 15:39 RBC (3.80-5.40) m/uL Hgb (11.4-16.0) gm/dL Hct (34.0-46.0) % RDW (11.5-15.5) % ESR (0-20) mm/hr Sodium (137-145) mmol/L Glucose (74-99) mg/dL POC Glucose (mg/dL) 206 H (75-99) mg/dL C-Reactive Protein 28.6 H (<10.0) mg/L Crossmatch See Detail 01/26/20 01/26/20 01/27/20 Range/Units 17:04 20:31 01:57 RBC (3.80-5.40) m/uL Hgb (11.4-16.0) gm/dL Hct (34.0-46.0) % RDW (11.5-15.5) % ESR (0-20) mm/hr Sodium (137-145) mmol/L Glucose (74-99) mg/dL POC Glucose (mg/dL) 159 H 166 H 147 H (75-99) mg/dL C-Reactive Protein (<10.0) mg/L Crossmatch 01/27/20 01/27/20 Range/Units 04:25 04:25 RBC 2.78 L (3.80-5.40) m/uL Hgb 7.6 L (11.4-16.0) gm/dL Hct 24.0 L (34.0-46.0) % RDW 16.0 H (11.5-15.5) % ESR 60 H (0-20) mm/hr Sodium 135 L (137-145) mmol/L Glucose 140 H (74-99) mg/dL POC Glucose (mg/dL) (75-99) mg/dL C-Reactive Protein (<10.0) mg/L Crossmatch - Imaging and Cardiology Chest x-ray: report reviewed, image reviewed Assessment and Plan Assessment: 1. Severe diffuse triple-vessel coronary artery disease, status post three- vessel CABG 2. Preserved left ventricular function 3. Insulin-dependent diabetes with preoperative hemoglobin A1c 7.3% 4. History of hypertension 5. Hyperlipidemia 6. History of Sadpl-Nzbwjlnjq-Laupd status post ablation 7. Right internal carotid stenosis greater than 70% per carotid Dopplers, approximately 60% per CTA 8. Previous brief tobacco use with preoperative FEV1 87% of protected 9. Family history of premature coronary artery disease 10. Preoperative nasal swab positive for MRSA, treated 11. Postoperative acute blood loss anemia, expected 12. Postoperative altered mental status, unexpected Plan: 1. Continue aspirin, statin, Plavix, beta any. We will increase beta any as tolerated. 2. Continue Norvasc for radial artery spasm prophylaxis. Please do not discontinue Norvasc without discussing with cardiac surgery. 3. Encourage incentive spirometry is 10 times every hour while awake. 4. Bronchodilators per pulmonology management. 5. Increase activity, ambulate as tolerated. Out of bed for all meals. PT/OT/cardiac rehab following. 6. We will continue to monitor daily labs. Send urine for urinalysis with reflex urine culture. Hemoglobin 7.6 today, no transfusion today. 7. Pain control with current as needed medication regimen. Avoid narcotics due to altered mental status. 8. Diabetic management per primary care service. 9. EEG scheduled for today. 10. Continue ferrous sulfate and vitamin C for postoperative anemia. 11. Continue GI and DVT prophylaxis. 12. More recommendations to follow based on patient's clinical course. Time with Patient: Greater than 30
[2020-01-27 11:29] LABS: Glucose,Whole Blood 177 mg/dL (75-99)
[2020-01-27] MEDS: amLODIPine 2.5 MG TAB PO SCH (12:27)
--- NOTE | 2020-01-27 13:11 | PN ---
PROGRESS NOTE 44-year-old lady that is in the ICU following coronary artery disease status post coronary artery bypass grafting. She was supposed to go home yesterday, has developed intermittent inability to speak and confusion. She has been evaluated by Neurology who felt that she may be having complex partial seizures. Cardiac-boyce. She is doing well. Stable hemodynamically. No symptoms. On exam, vital signs are stable. There is no jugular venous distention. Chest exam reveals good air entry bilaterally. Heart exam reveals first and second heart sounds. No gallop. Exam of extremities did not reveal edema. Peripheral pulses are felt. Labs show a hemoglobin of 7.6, potassium is 4.8, creatinine is 0.6. ASSESSMENT: 1. Coronary artery disease status post coronary artery bypass grafting. 2. Possible complex partial seizures. PLAN: The patient will continue the Norvasc, Lipitor, aspirin, Plavix, and seizure management as per Neurology. MMODL / IJN: [id number] /
--- NOTE | 2020-01-27 15:50 | P.PN ---
Subjective Progress Note Date: 01/27/20 Principal diagnosis: Multivessel coronary artery disease, status post three-vessel bypass grafting On 01/25/2020, the patient is doing well no specific complaints. The patient's hemoglobin has dropped down to 6.2. Nevertheless, CT surgery has not opted and transfusing this patient. No respiratory distress. No cough or sputum production. No fever or chills. She is currently on room air oxygen and the pulse ox is 90%. No significant tachycardia. The chest x-ray from today shows some basilar consolidation and small bilateral pleural effusions. There is also some mild central pulmonary vascular congestion. Sternum stable clean and intact. The patient is communicating. No focal neurological deficits. No new onset neurological deficits for now. She is using incentive spirometer. She is ambulating. On 01/27/2020 patient is seen in follow-up in the intensive care unit, yesterday patient's discharge was held related to altered mental status, and aphasia. Ne urology consultation was requested. CT of the brain without contrast was negative. EEG is pending to rule out subclinical seizure activity, this morning she seen sitting up in the chair, she is awake and alert, she is answering some questions with the limited few word answers, and she is not answering other questions, and does not follow some commands, seems to be inattentive. No sign of any unilateral deficit. Vital signs have been stable, room air pulse ox is 94%, blood pressure has been stable, she is in sinus mechanism, no arrhythmias. No fever or chills. His labs have been reviewed, showing limited cell, 9.0, hemoglobin of 7.6, sodium is 135, potassium is 4.8, chloride is 101, CO2 is 27, BUN 16, creatinine 0.65. Her chest tubes have been discontinued, patient denies any difficulty with breathing, no acute complaints. Objective - Vital Signs Vital signs: Vital Signs Temp 98.5 F 01/27/20 12:00 Pulse 87 01/27/20 14:00 Resp 19 01/27/20 14:00 BP 117/66 01/27/20 14:00 Pulse Ox 94 L 01/27/20 14:00 Intake & Output 01/26/20 01/27/20 01/27/20 18:59 06:59 18:59 Intake Total 1325 700 240 Output Total 650 Balance 675 700 240 Weight 87.1 kg Intake: Oral 1250 240 240 Blood Product 75 460 Rc As-1 Unit 0 310 [id number] Output: Urine 650 Other: Voiding Method Bedside Commode Bedside Commode # Voids 1 0 0 # Bowel Movements 1 ABP, PAP, CO, CI - Last Documented Arterial Blood Pressure 113/52 Pulmonary Artery Pressure 13/4 Cardiac Output 5 Cardiac Index 2.6 - Exam GENERAL EXAM: Alert, flat affect it, 44-year-old white female, seems slow to response, does respond and follow commands at times, but intermittently not following commands and not answering questioning, comfortable in no apparent distress. HEAD: Normocephalic/atraumatic. EYES: Normal reaction of pupils, equal size. Conjunctiva pink, sclera white. NOSE: Clear with pink turbinates. THROAT: No erythema or exudates. NECK: No masses, no JVD, no thyroid enlargement, no adenopathy. CHEST: No chest wall deformity. Symmetrical expansion. Midsternal incision is clean dry and intact, chest tube sites at clean dry and intact, LUNGS: Equal air entry with no crackles, wheeze, rhonchi or dullness. CVS: Regular rate and rhythm, normal S1 and S2, no gallops, no murmurs, no rubs ABDOMEN: Soft, nontender. No hepatosplenomegaly, normal bowel sounds, no guarding or rigidity. EXTREMITIES: No clubbing, no edema, no cyanosis, 2+ pulses and upper and lower extremities. MUSCULOSKELETAL: Muscle strength and tone normal. SPINE: No scoliosis or deformity SKIN: No rashes CENTRAL NERVOUS SYSTEM: Alert and oriented -1. Seems slow to respond at times, intermittently follows command, but at times patient stares. No focal deficits, tone is normal in all 4 extremities. - Labs CBC & Chem 7: 01/27/20 04:25 01/27/20 04:25 Labs: Abnormal Lab Results - Last 24 Hours (Table) 01/26/20 01/26/20 01/26/20 Range/Units 04:30 15:39 17:04 RBC (3.80-5.40) m/uL Hgb (11.4-16.0) gm/dL Hct (34.0-46.0) % RDW (11.5-15.5) % ESR (0-20) mm/hr Sodium (137-145) mmol/L Glucose (74-99) mg/dL POC Glucose (mg/dL) 159 H (75-99) mg/dL C-Reactive Protein 28.6 H (<10.0) mg/L Crossmatch See Detail 01/26/20 01/27/20 01/27/20 Range/Units 20:31 01:57 04:25 RBC 2.78 L (3.80-5.40) m/uL Hgb 7.6 L (11.4-16.0) gm/dL Hct 24.0 L (34.0-46.0) % RDW 16.0 H (11.5-15.5) % ESR 60 H (0-20) mm/hr Sodium (137-145) mmol/L Glucose (74-99) mg/dL POC Glucose (mg/dL) 166 H 147 H (75-99) mg/dL C-Reactive Protein (<10.0) mg/L Crossmatch 01/27/20 01/27/20 Range/Units 04:25 11:28 RBC (3.80-5.40) m/uL Hgb (11.4-16.0) gm/dL Hct (34.0-46.0) % RDW (11.5-15.5) % ESR (0-20) mm/hr Sodium 135 L (137-145) mmol/L Glucose 140 H (74-99) mg/dL POC Glucose (mg/dL) 177 H (75-99) mg/dL C-Reactive Protein (<10.0) mg/L Crossmatch Assessment and Plan Plan: Assessment: #1. Acute mental status change, rule out subclinical seizures. Brain CT showed no evidence of acute ischemic or hemorrhagic stroke, ALLERGIES on the case #2. Multivessel coronary artery disease, status post three-vessel bypass graft ing, postop day 6 #3. Postoperative anemia, an expected outcome of surgery #4. Diabetes mellitus type 1 #5. Hyperlipidemia #6. History of Oaczz-Oalhrqrol-Heujs, post ablation #7. Right internal carotid artery disease less than 70% based on Dopplers and 60% based on the CT angiogram #8. History of premature coronary artery disease in the family Plan: From pulmonary perspective patient remains stable, hemodynamically stable, she is being evaluated for possibility of subclinical seizures, EEG is pending, no ALLERGIES following, vital signs are stable, in sinus mechanism, patient is on room air, tolerating ambulation, brain CT showed no evidence of hemorrhagic or ischemic stroke, continue close neurological monitoring. Will continue to monitor in the ICU. I performed a history & physical examination of the patient and discussed their management with my nurse practitioner, Crystal Butler. I reviewed the nurse practitioner's note and agree with the documented findings and plan of care. Lung sounds are positive for diminished breath sounds. The findings and the impression was discussed with the patient. I attest to the documentation by the nurse practitioner. Time with Patient: Less than 30
[2020-01-27 16:12] LABS: Appearance,Urine Clear (Clear); Bilirubin,Urine Negative (Negative); Blood,Urine Negative (Negative); Color,Urine Yellow; Glucose,Urine (UA) Negative (Negative); Ketones,Urine Negative (Negative); Leukocyte Esterase,Urine Negative (Negative); Nitrite,Urine Negative (Negative); PH, Urine 5.5 (5.0-8.0); Protein,Urine Negative (Negative); Specific Gravity,Urine 1.015 (1.001-1.035); Urobilinogen,Urine <2.0 mg/dL (<2.0)
[2020-01-27 16:32] LABS: Glucose,Whole Blood 154 mg/dL (75-99)
--- NOTE | 2020-01-27 16:37 | EEG ---
ELECTROENCEPHALOGRAM REPORT DATE OF SERVICE: 01/27/2020. HISTORY: This is a 44-year-old female, status post 3-vessel coronary artery bypass graft for severe atherosclerotic disease. This patient developed altered mental status postoperatively that involves questionable staring and decreased verbal output. The patient does, however, have a known baseline of being somewhat delayed, but this appears according to her family out of her baseline. The patient has not had any prior EEG for comparison. TECHNICAL REPORT: This is an inpatient EEG performed on the [employer] EEG monitor with electrodes placed according to the international 10-20 system and a single EKG channel. Simultaneous video EEG monitoring was performed. This EEG was reviewed in both longitudinal bipolar common average referential and transverse montages. Photic stimulation was performed. Hyperventilation was not performed. The recording begins with the patient awake with a well-modulated 8 to maximum 11 hertz posterior-dominant rhythm that attenuates with eye opening. Low-amplitude beta activity is prominent in the anterior and central head regions. Intermittent muscle and movement artifacts contaminate the tracing. Photic stimulation was performed at various flash frequencies and failed to elicit consistent driving response. Several episodes during the EEG, particularly at 11:56:54, when slowing in the left temporal occipital head region was noted, and this was again noted in the left frontal parietal area. This was greatly appreciated and reviewed in the ipsilateral montage. No sleep or drowsiness was achieved during the study. IMPRESSION: This is an abnormal EEG due to the episodes of focal slowing that were noted in the left temporal occipital and left frontal parietal head region. No epileptiform discharges or electrographic seizures were noted. No abnormal clinical events were recorded. No abnormalities were noted during photic stimulation or during the EKG. CLINICAL CORRELATION: This EEG does not rule out underlying seizure tendency; thus further clinical correlation is needed. The presence of focal slowing could indicate an underlying structural mass lesion, and further clinical correlation is needed. If possible, neuro imaging studies would be helpful along with serial EEGs and/or if clinically indicated a more prolonged overnight study. A verbal report of this EEG was provided to Dr. Kelly at 4:00 p.m. and a verbal report of this was given to the ICU nurse at 4:05 p.m. MMBLAISE / VADIMN: [id number] /
[2020-01-27 20:11] LABS: Glucose,Whole Blood 194 mg/dL (75-99)
--- NOTE | 2020-01-27 20:44 | P.PN ---
Subjective Progress Note Date: 01/27/20 Principal diagnosis: Status post three-vessel CABG followed with postoperative altered mental status akinetic mutism The patient continues to have neurological decline. At this time examination she no longer is following any commands to simply stares blankly. Last evening when she was examined she could at least answer questions even though it was decreased verbal output. The patient had some suspicious activity for complex partial seizure as she was noted to be trembling her left hand and picking at her sheets. Patient was not able to consistently follow any commands. Overall the patient is mute Objective - Vital Signs Vital signs: Vital Signs Temp 96.8 F L 01/27/20 17:04 Pulse 76 01/27/20 20:02 Resp 19 01/27/20 15:31 BP 136/68 01/27/20 17:04 Pulse Ox 94 L 01/27/20 19:54 Intake & Output 01/27/20 01/27/20 01/28/20 06:59 18:59 06:59 Intake Total 700 358 Balance 700 358 Weight 87.1 kg Intake: Oral 240 358 Blood Product 460 Rc As-1 Unit 310 [id number] Other: Voiding Method Bedside Commode Bedside Commode # Voids 0 1 # Bowel Movements 1 ABP, PAP, CO, CI - Last Documented Arterial Blood Pressure 113/52 Pulmonary Artery Pressure 13/4 Cardiac Output 5 Cardiac Index 2.6 - Exam Chart reviewed. EEG completed today which showed evidence of focal slowing. Results were discussed with cardiothoracic surgeon. Examination: Patient is unable to follow commands. She is nonverbal. She stares blankly. Several times the patient had mild trembling noted in the right hand. Periodically would pick at her sheets without purpose. Pupils appear symmetric 2 mm and equal. Cranial nerves: There is no nystagmus noted on vertical horizontal gaze. Patient's face appears symmetric. Patient apparently passed swallow evaluation today. - Labs CBC & Chem 7: 01/27/20 04:25 01/27/20 04:25 Labs: Abnormal Lab Results - Last 24 Hours (Table) 01/27/20 01/27/20 01/27/20 Range/Units 01:57 04:25 04:25 RBC 2.78 L (3.80-5.40) m/uL Hgb 7.6 L (11.4-16.0) gm/dL Hct 24.0 L (34.0-46.0) % RDW 16.0 H (11.5-15.5) % ESR 60 H (0-20) mm/hr Sodium 135 L (137-145) mmol/L Glucose 140 H (74-99) mg/dL POC Glucose (mg/dL) 147 H (75-99) mg/dL 01/27/20 01/27/20 01/27/20 Range/Units 11:28 16:31 20:10 RBC (3.80-5.40) m/uL Hgb (11.4-16.0) gm/dL Hct (34.0-46.0) % RDW (11.5-15.5) % ESR (0-20) mm/hr Sodium (137-145) mmol/L Glucose (74-99) mg/dL POC Glucose (mg/dL) 177 H 154 H 194 H (75-99) mg/dL Assessment and Plan Assessment: This is a 44-year-old female with extensive atherosclerotic disease now status post triple-vessel coronary artery bypass graft. Neurology consulted due to an acute change in her mental status. The trigger forthis is most likey multi- factorial, however she does have factors that could potentially lower seizure threshold such as poor sleep continuity, sleep deprivation, chronic stress, ane kimberley secondary to blood loss. Metabolic factors should also be down for possible altered mental status such as urinary tract infection: hyper and hypoglycemia. On the second neurological examination, the patient has had further decline. She is now exhibiting symptoms consistent with akinetic mutism. There activity suspicious for possible complex partial seizures. She was had slight trembling of her right hand and was picking at her sheets without purpose. Last night the patient was able to answer some questions appropriately though she was not completely oriented to place. Now the patient is mute. The patient's EEG does show evidence of focal slowing which could indicate an underlying structural mass lesion and/or stroke.. Recommendations: 1. Discussed EEG results with cardio thoracic surgeon, we'll proceed with an MRI of the brain without contrast tomorrow. We'll place this under the fast protocol since she is postop. We'll discuss any risks involved with MRI as well tomorrow. 2. Begin Keppra oral solution 500 mg by mouth every 12 3. Continue close neuro checks every 2 hours while awake. 4. Maintain aspiration precautions and seizure precautions in place. 5. There is any acute clinical change please contact care transitions nurse neurology Thank you for this consult. This patient's prognosis remains guarded. Further recommendations will be made as this case evolves. Marta Brar M.D. Board Certified in Neurology and Sleep Medicine
[2020-01-27] MEDS: INSULIN DETEMIR (LEVEMIR) 100 UNIT/ML SYR SQ SCH (21:08)
[2020-01-27] MEDS: SENNOSIDES-DOCUSATE SODIUM 1 EACH TAB PO SCH (21:09)
[2020-01-27] MEDS: levETIRAcetam ORAL SOLN 500 MG/5 ML CUP PO SCH (21:47)
[2020-01-28] MEDS: HEPARIN SODIUM,PORCINE 5,000 UNIT/ML 1 ML VIAL SQ SCH ×4 (00:03→23:53)
[2020-01-28 02:04] LABS: Glucose,Whole Blood 197 mg/dL (75-99)
[2020-01-28 06:08] LABS: Glucose,Whole Blood 194 mg/dL (75-99)
[2020-01-28] MEDS: INSULIN ASPART (NovoLOG) 100 UNIT/ML VIAL SQ SCH ×7 (06:27→21:08)
[2020-01-28] MEDS: FERROUS SULFATE 325 MG TAB PO SCH ×2 (06:28→17:50)
[2020-01-28] MEDS: PANTOPRAZOLE 40 MG TABLET PO SCH (06:28)
[2020-01-28] MEDS: ASCORBIC ACID 500 MG TAB PO SCH ×2 (06:28→17:50)
[2020-01-28] MEDS: IPRATROPIUM-ALBUTEROL 3 ML NEB INHALATION SCH ×4 (07:24→20:59)
[2020-01-28 07:48] LABS: African American GFR (CKD) >90 (>60 ml/min/1.73 sqM); Anion Gap 7 mmol/L; Blood Urea Nitrogen 11 mg/dL (7-17); Calcium 9.1 mg/dL (8.4-10.2); Carbon Dioxide 28 mmol/L (22-30); Chloride 101 mmol/L (98-107); Glucose 168 mg/dL (74-99); Non-African American GFR(CKD) >90 (>60 ml/min/1.73 sqM); Sodium 136 mmol/L (137-145)
[2020-01-28 07:52] LABS: Anisocytosis Slight; Basophils % (A) 0 %; Eosinophils # (A) 0.2 k/uL (0-0.7); Eosinophils % (A) 1 %; HCT 22.7 % (34.0-46.0); HGB 7.3 gm/dL (11.4-16.0); Hypochromasia Slight; Lymphocytes % (A) 19 %; MCH 27.6 pg (25.0-35.0); MCHC 31.9 g/dL (31.0-37.0); MCV 86.4 fL (80.0-100.0); Mean Platelet Volume 8.2; Monocytes # (A) 0.6 k/uL (0-1.0); Monocytes % (A) 6 %; Neutrophils # (A) 7.7 k/uL (1.3-7.7); Neutrophils % (A) 73 %; Platelet Count 409 k/uL (150-450); RBC 2.63 m/uL (3.80-5.40); RDW 16.9 % (11.5-15.5); WBC 10.6 k/uL (3.8-10.6)
[2020-01-28] MEDS: ASPIRIN 325 MG TAB PO SCH (08:31)
[2020-01-28] MEDS: levETIRAcetam ORAL SOLN 500 MG/5 ML CUP PO SCH ×2 (08:31→21:45)
[2020-01-28] MEDS: METOPROLOL TARTRATE 25 MG TAB PO SCH ×2 (08:31→21:09)
[2020-01-28] MEDS: FUROSEMIDE 20 MG TAB PO SCH (08:31)
[2020-01-28] MEDS: ATORVASTATIN 40 MG TAB PO SCH (08:31)
[2020-01-28] MEDS: CLOPIDOGREL 75 MG TAB PO SCH (08:32)
--- NOTE | 2020-01-28 09:28 | P.PN ---
Subjective This is a pleasant 44 years old female with multiple medical problems she was admitted under vascular surgery service for triple coronary artery disease, status post bypass surgery, Currently patient remains in the ICU for another 24 hours, she is doing well with no chest pain or dyspnea. There was some concerns regarding his speech this morning but there was no clear-cut for acute CVA when I saw the patient she was talking freely with no difficulty. No swallowing problem. No headache. No nausea vomiting. She is hemodynamically stable and labs showing a drop in hemoglobin down to 6.4 which is expected from surgery. His sugars controlled while she's taken Levemir 18 units at bedtime and 6 units with meals. Also she is on Lasix 20 mg daily. She remains on aspirin 325 mg, Plavix and heparin for DVT prophylaxis She is followed by several consultants including pulmonary and cardiology 01/26/2020 Patient seen and examined in the ICU, she was doing well fully awake and oriented and answering questions appropriately however after I rounded on the patient and therefore she's been discharged today status post noted altered mental status, neurologist evaluated the patient and recommended EEG and keep monitoring for now and workup with hypercoagulability workup, thyroid studies, B12 and folate levels. Incision is suspected as well and EEG is ordered. When I saw the patient she denied chest pain or dyspnea, no dizziness. She was hemodynamically stable. Hemoglobin 6.2, no need for transfusion per vascular surgery as the primary team. Patient is on iron pills, her sugar is well-controlled Patient remains on aspirin and Plavix on subcutaneous heparin 01/27/2020 Patient remains in the ICU, she looks confused although she is awake and alert and follow commands and answers most questions appropriately however she knows she is in hospital but she thought she is at [facility], she thought it is 2005 and she did not know the president or why she was in the hospital. However patient has no physical complaints like no chest pain or dyspnea. No coughing. No abdominal pain. Vitals stable. CBC and BMP are unremarkable. CT of the brain: No acute process. TSH is normal Patient already evaluated by neurologist and EEG is pending. Hypercoagulable workup, lupus anticoagulant 01/28/2020 Patient is in general medical floor, she still confused, she does not follow commands although she opens her eyes spontaneously. She's not answer questions most of the time. Vital signs stable, labs are stable including CBC and BMP. Hemoglobin is improved to 7.3. EEG was showing slowing on the frontal parietal region of the brain. Structural abnormality is suspected. No epileptic activity MRI of the brain is recommended by neurologist. Patient remains on aspirin and Plavix and insulin. Swallow evaluation is on at bedside Objective - Vital Signs Vital signs: Vital Signs Temp 96.4 F L 01/28/20 08:00 Pulse 103 H 01/28/20 08:00 Resp 16 01/28/20 08:00 BP 119/61 01/28/20 08:00 Pulse Ox 97 01/28/20 08:00 Intake & Output 01/27/20 01/28/20 01/28/20 18:59 06:59 18:59 Intake Total 358 Output Total 0 0 Balance 358 0 0 Weight 88.5 kg Intake: Oral 358 Output: Urine 0 0 Other 0 Other: Voiding Method Bedside Commode Diaper # Voids 1 1 ABP, PAP, CO, CI - Last Documented Arterial Blood Pressure 113/52 Pulmonary Artery Pressure 13/4 Cardiac Output 5 Cardiac Index 2.6 - Exam GENERAL: The patient is alert and oriented x3, not in any acute distress. Well developed, well nourished. HEENT: Pupils are round and equally reacting to light. EOMI. No scleral icterus. No conjunctival pallor. Normocephalic, atraumatic. No pharyngeal erythema. No thyromegaly. CARDIOVASCULAR: S1 and S2 present. No murmurs, rubs, or gallops. PULMONARY: Chest is clear to auscultation, no wheezing or crackles. ABDOMEN: Soft, nontender, nondistended, normoactive bowel sounds. No palpable organomegaly. MUSCULOSKELETAL: No joint swelling or deformity. EXTREMITIES: No cyanosis, clubbing, or pedal edema. NEUROLOGICAL: Gross neurological examination did not reveal any focal deficits. SKIN: No rashes. no petechiae. - Labs CBC & Chem 7: 01/28/20 06:50 01/28/20 06:50 Labs: Abnormal Lab Results - Last 24 Hours (Table) 01/27/20 01/27/20 01/27/20 Range/Units 11:28 16:31 20:10 RBC (3.80-5.40) m/uL Hgb (11.4-16.0) gm/dL Hct (34.0-46.0) % RDW (11.5-15.5) % Sodium (137-145) mmol/L Glucose (74-99) mg/dL POC Glucose (mg/dL) 177 H 154 H 194 H (75-99) mg/dL 01/28/20 01/28/20 01/28/20 Range/Units 02:01 06:08 06:50 RBC 2.63 L (3.80-5.40) m/uL Hgb 7.3 L (11.4-16.0) gm/dL Hct 22.7 L (34.0-46.0) % RDW 16.9 H (11.5-15.5) % Sodium (137-145) mmol/L Glucose (74-99) mg/dL POC Glucose (mg/dL) 197 H 194 H (75-99) mg/dL 01/28/20 Range/Units 06:50 RBC (3.80-5.40) m/uL Hgb (11.4-16.0) gm/dL Hct (34.0-46.0) % RDW (11.5-15.5) % Sodium 136 L (137-145) mmol/L Glucose 168 H (74-99) mg/dL POC Glucose (mg/dL) (75-99) mg/dL Assessment and Plan Assessment: -Triple-vessel Coronary artery disease, status post bypass surgery, patient is doing well and she is followed by our consultants including pulmonary and cardiology. She is on aspirin and Plavix -Altered mental status, neurology of the case. Rule out structural abnormality. MRI is pending. Follow-up workup -Right coronary artery stenosis 70%, no signs of stroke. 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
[2020-01-28 11:00] LABS: Glucose,Whole Blood 217 mg/dL (75-99)
[2020-01-28 11:27] LABS: Anti-Thrombin III Antigen 109 % (80 - 120)
--- NOTE | 2020-01-28 11:40 | MR ---
EXAMINATION TYPE: MR brain wo con DATE OF EXAM: 01/28/2020 COMPARISON: CT brain 01/26/2020 HISTORY: Acute mental status changes CONTRAST: Performed utilizing 0 mL intravenous Gadavist gadolinium contrast. TECHNIQUE: Multiplanar, multiecho imaging on a 3.0 Maura magnet is performed through the brain. Stud y is not performed within 24 hours of arrival to the hospital. The craniovertebral junction is normal. The pituitary is normal. Diffusion-weighted imaging is performed. Abnormal hyperintensities along the superior corpus callosu m. A focal areas within the posterior internal limb left basal ganglion. Findings are compatible with acute ischemic changes. Some mild deep white matter changes are present having a chronic appearance. Ventricles and sulci are appropriate for the patient age. IMPRESSIONS: 1. Increased signal on diffusion and inversion recovery weighted sequences through the right corpus c allosum and left internal limb basal ganglion compatible with acute ischemic changes. 2. Mild chronic appearing white matter changes are also present. A [place] critical message alert has been initiated for Odell Kelly MD via the [employer] Critical Results System on 01/28/2020 11:38 AM. This message alert has been sent to Odell Kelly MD via the preferences provided by the clinician for the receipt of Radiology Critical Findings. Message ID [id number].
[2020-01-28 11:58] LABS: Glucose,Whole Blood 218 mg/dL (75-99)
--- NOTE | 2020-01-28 12:21 | P.PN ---
Subjective Progress Note Date: 01/28/20 Principal diagnosis: Multivessel coronary artery disease, status post three-vessel bypass grafting The patient is seen today 01/28/2020 in follow-up on the selective care unit. S he is currently sitting up in a chair at the bedside. She is not verbalizing or answering questions appropriately. She is not sensing any pain on the right side. Minimal rate response to the left. She is raising her left arm. Not following simple commands however. She is currently maintaining good O2 saturations in the mid 90s on room air. She's afebrile. Hemodynamically stable. White count 10.6. Hemoglobin 7.6. Sodium 136. Potassium 5.0. Creatinine 0.53. Objective - Vital Signs Vital signs: Vital Signs Temp 96.4 F L 01/28/20 08:00 Pulse 103 H 01/28/20 08:00 Resp 18 01/28/20 08:00 BP 119/61 01/28/20 08:00 Pulse Ox 97 01/28/20 08:00 Intake & Output 01/27/20 01/28/20 01/28/20 18:59 06:59 18:59 Intake Total 358 100 Output Total 0 0 Balance 358 0 100 Weight 88.5 kg Intake: Oral 358 100 Output: Urine 0 0 Other 0 Other: Voiding Method Bedside Commode Diaper # Voids 1 1 ABP, PAP, CO, CI - Last Documented Arterial Blood Pressure 113/52 Pulmonary Artery Pressure 13/4 Cardiac Output 5 Cardiac Index 2.6 - Exam GENERAL EXAM: Alert, flat affect it, 44-year-old white female, seems slow to response, does respond and follow commands at times, but intermittently not following commands and not answering questioning, comfortable in no apparent distress. HEAD: Normocephalic/atraumatic. EYES: Normal reaction of pupils, equal size. Conjunctiva pink, sclera white. NOSE: Clear with pink turbinates. THROAT: No erythema or exudates. NECK: No masses, no JVD, no thyroid enlargement, no adenopathy. CHEST: No chest wall deformity. Symmetrical expansion. Midsternal incision is clean dry and intact, chest tube sites at clean dry and intact, LUNGS: Equal air entry with no crackles, wheeze, rhonchi or dullness. CVS: Regular rate and rhythm, normal S1 and S2, no gallops, no murmurs, no rubs ABDOMEN: Soft, nontender. No hepatosplenomegaly, normal bowel sounds, no guarding or rigidity. EXTREMITIES: No clubbing, no edema, no cyanosis, 2+ pulses and upper and lower extremities. MUSCULOSKELETAL: Muscle strength and tone normal. SPINE: No scoliosis or deformity SKIN: No rashes CENTRAL NERVOUS SYSTEM: Alert minimal response at times. Seems slow to respond at times, intermittently follows command, but at times patient stares. No focal deficits, tone is normal in all 4 extremities. - Labs CBC & Chem 7: 01/28/20 06:50 01/28/20 06:50 Labs: Abnormal Lab Results - Last 24 Hours (Table) 01/27/20 01/27/20 01/28/20 Range/Units 16:31 20:10 02:01 RBC (3.80-5.40) m/uL Hgb (11.4-16.0) gm/dL Hct (34.0-46.0) % RDW (11.5-15.5) % Sodium (137-145) mmol/L Glucose (74-99) mg/dL POC Glucose (mg/dL) 154 H 194 H 197 H (75-99) mg/dL 01/28/20 01/28/20 01/28/20 Range/Units 06:08 06:50 06:50 RBC 2.63 L (3.80-5.40) m/uL Hgb 7.3 L (11.4-16.0) gm/dL Hct 22.7 L (34.0-46.0) % RDW 16.9 H (11.5-15.5) % Sodium 136 L (137-145) mmol/L Glucose 168 H (74-99) mg/dL POC Glucose (mg/dL) 194 H (75-99) mg/dL 01/28/20 01/28/20 Range/Units 10:59 11:55 RBC (3.80-5.40) m/uL Hgb (11.4-16.0) gm/dL Hct (34.0-46.0) % RDW (11.5-15.5) % Sodium (137-145) mmol/L Glucose (74-99) mg/dL POC Glucose (mg/dL) 217 H 218 H (75-99) mg/dL Assessment and Plan Assessment: #1. Acute mental status change, rule out subclinical seizures. Brain CT showed no evidence of acute ischemic or hemorrhagic stroke, neurology on the case, MRI of brain today reveals increased signal on diffusion and inversion recovery weighted sequences throughout the right corpus callosum and left internal limb basal ganglion compatible with acute ischemic changes. Mild chronic-appearing white matter changes also present. #2. Multivessel coronary artery disease, status post three-vessel bypass grafting, postop day 7 #3. Postoperative anemia, an expected outcome of surgery, received 1 unit packed red blood cells this admission. Current hemoglobin 7.3. #4. Diabetes mellitus type 1 #5. Hyperlipidemia #6. History of Patmy-Pqdxwqezb-Nspbj, post ablation #7. Right internal carotid artery disease less than 70% based on Dopplers and 60% based on the CT angiogram #8. History of premature coronary artery disease in the family Plan: The patient was seen and evaluated by Dr. Roland Brown from the pulmonary standpoint Continues with altered mental status changes and poor response MRI of the brain noted Neurology is on the case We will continue to follow. I, the cosigning physician, performed a history & physical examination of the patient. Lungs sounds are clear, diminished. Maintaining good O2 saturations in the 90s on 2 L nasal cannula. I discussed the assessment and plan of care with my nurse practitioner, Zelda Gary. I attest to the above note as dictated by her.
[2020-01-28] MEDS: SODIUM CHLORIDE 0.9% 1,000 ML IV SCH (12:32)
--- NOTE | 2020-01-28 13:03 | P.PN ---
Subjective Progress Note Date: 01/28/20 Principal diagnosis: Severe diffuse triple-vessel coronary artery disease, preserved left ventricular function, insulin-dependent diabetes mellitus with preoperative hemoglobin A1c 7.3%, hypertension, hyperlipidemia, history of Gaitb-Ublrrxsir-Eaybd status post ablation, right internal carotid stenosis greater than 70% per carotid Dopplers, approximately 60% per CTA, previous brief tobacco use with preoperative FEV1 87% of predicted, family history of premature coronary artery disease. Preoperative nasal swab positive for MRSA. POD #7 triple vessel coronary artery bypass grafting using the left internal mammary artery to the left anterior descending artery, left radial artery from the aorta to the right coronary artery, reverse saphenous vein graft from the aorta to the distal circumflex artery. Exclusion of the left atrial appendage using a 35 mm after clip. Endoscopic harvesting of the left radial artery. Endoscopic harvesting of the right greater saphenous vein from the groin to above the ankle level. Intraoperative transesophageal echocardiogram and epi- aortic scanning. Intraoperative graft flow measurements using the [employer] system. Postoperative acute blood loss anemia, expected outcome of surgery given hemodilution and cardiopulmonary bypass pump Postoperative acute mental status changes, no acute process on computed tomography scan January 25, abnormal EEG with focal slowing in the left temporal, occipital, and left frontoparietal head region, increased signal throughout the right corpus collosum and left internal limb basal ganglion and MRI of the brain compatible with acute ischemic changes, unexpected but possible secondary to presurgical findings of right internal carotid stenosis The patient was seen and examined at the bedside this morning while eating breakfast. She continues to have a flat affect, does not speak, does not shake her head yes or no, but she does move her arms and legs to command, and she was feeding herself this morning without difficulty. Per nursing report she has a shuffling gait on the right and has been very sleepy all day. She will underwent MRI of the brain this morning with findings of increased signal throughout the right corpus collosum and left internal limb basal ganglion compatible with acute ischemic changes. From a cardiac standpoint she appears to be stable Objective - Vital Signs Vital signs: Vital Signs Temp 96.4 F L 01/28/20 08:00 Pulse 103 H 01/28/20 08:00 Resp 18 01/28/20 08:00 BP 119/61 01/28/20 08:00 Pulse Ox 97 01/28/20 08:00 Intake & Output 01/27/20 01/28/20 01/28/20 18:59 06:59 18:59 Intake Total 358 100 Output Total 0 0 Balance 358 0 100 Weight 88.5 kg Intake: Oral 358 100 Output: Urine 0 0 Other 0 Other: Voiding Method Bedside Commode Diaper # Voids 1 1 ABP, PAP, CO, CI - Last Documented Arterial Blood Pressure 113/52 Pulmonary Artery Pressure 13/4 Cardiac Output 5 Cardiac Index 2.6 - Constitutional General appearance: Present: cooperative, obese - Respiratory Details: Lung sounds clear bilaterally. Respirations even, nonlabored. Currently on 2 L nasal cannula with oxygen saturation 97%. - Cardiovascular Details: S1, S2 present. Regular rate and rhythm, sinus rhythm on telemetry. Sternum stable. Palpable peripheral pulses bilaterally. Trace bilateral lower extremity edema present. No calf pain or tenderness noted. Heart hugger, antiembolism stockings, SCDs present. - Gastrointestinal Gastrointestinal Comment(s): Abdomen soft, nontender, nondistended. Active bowel sounds present 4 quadrants . Tolerating diet. Positive bowel movement. - Genitourinary Genitourinary Comment(s): Continues to void, however she is incontinent of urine - Integumentary Integumentary Comment(s): Skin is warm and dry with evidence of good perfusion. Anterior chest incision well approximated and covered with dry intact dressing. Right lower extremity EVH site well approximated. Left radial artery harvest site well approximated - Musculoskeletal Musculoskeletal: Present: right sided weakness - Psychiatric Psychiatric Comment(s): Flat affect, follows command - Allied health notes Allied health notes reviewed: nursing - Labs CBC & Chem 7: 01/28/20 06:50 01/28/20 06:50 Labs: Abnormal Lab Results - Last 24 Hours (Table) 01/27/20 01/27/20 01/28/20 Range/Units 16:31 20:10 02:01 RBC (3.80-5.40) m/uL Hgb (11.4-16.0) gm/dL Hct (34.0-46.0) % RDW (11.5-15.5) % Sodium (137-145) mmol/L Glucose (74-99) mg/dL POC Glucose (mg/dL) 154 H 194 H 197 H (75-99) mg/dL 01/28/20 01/28/20 01/28/20 Range/Units 06:08 06:50 06:50 RBC 2.63 L (3.80-5.40) m/uL Hgb 7.3 L (11.4-16.0) gm/dL Hct 22.7 L (34.0-46.0) % RDW 16.9 H (11.5-15.5) % Sodium 136 L (137-145) mmol/L Glucose 168 H (74-99) mg/dL POC Glucose (mg/dL) 194 H (75-99) mg/dL 01/28/20 01/28/20 Range/Units 10:59 11:55 RBC (3.80-5.40) m/uL Hgb (11.4-16.0) gm/dL Hct (34.0-46.0) % RDW (11.5-15.5) % Sodium (137-145) mmol/L Glucose (74-99) mg/dL POC Glucose (mg/dL) 217 H 218 H (75-99) mg/dL - Imaging and Cardiology MRI - head: report reviewed, image reviewed Assessment and Plan Assessment: 1. Severe diffuse triple-vessel coronary artery disease, status post three- vessel CABG 2. Preserved left ventricular function 3. Insulin-dependent diabetes with preoperative hemoglobin A1c 7.3% 4. History of hypertension 5. Hyperlipidemia 6. History of Bchsl-Iaogvibio-Iedko status post ablation 7. Right internal carotid stenosis greater than 70% per carotid Dopplers, approximately 60% per CTA 8. Previous brief tobacco use with preoperative FEV1 87% of protected 9. Family history of premature coronary artery disease 10. Preoperative nasal swab positive for MRSA, treated 11. Postoperative acute blood loss anemia, expected 12. Postoperative ultrasound status, unexpected Plan: 1. Continue aspirin, statin, Plavix, beta any therapy. 2. Continue Norvasc for radial artery spasm. Please do not discontinue CCB without discussing with cardiac surgery 3. Encourage incentive spirometry is 10 times every hour while awake 4. Bronchodilators per pulmonology 5. Increase activity, ambulate as tolerated. PT/OT/cardiac rehab following 6. Will monitor daily labs. Electrolyte replacement per protocol. No transfusion. 7. Pain control with current medication regimen. 8. Diabetic management per primary care service. Patient's home regimen consisted of glargine insulin as well as Victoza, Glucophage, and Actos. 9. Will review brain MRI with Dr. Kelly 10. Patient will have a CTA of the head and neck per Dr. Brar. 11. Patient will need rehab at discharge. Dr. Fairbanks consulted for recommen dations for IPR 12. More recommendations to follow Time with Patient: Greater than 30
--- NOTE | 2020-01-28 13:09 | P.CONS ---
History of Present Illness - Chief Complaint Medical debility - History of Present Illness I had the opportunity to see patient for inpatient rehab consultation with regard to medical debility. Patient admitted to [facility] January 20 with cardiac disease and underwent cardiac surgery. Postop complications stroke and in fact may be embolic stroke. 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 Brain MRI demonstrates new infarct right corpus callosum to left internal capsule. PT and OT have been unable to evaluate patient. Speech therapies assess swallow and currently recommending nectar thickened liquids. Previous functional history as elicited from mother: 44-year-old right-handed white female who is single lives in one floor home with aunt. Patient works full-time and wasn't indeed independent. Had just returned to [place] from [place]. Review of Systems Review of systems: As gleaned from chart and exam of patient ENT: Denies sneezes or discharge. Eyes: Denies discharge or photophobia. Cardiac: Denies chest pain or palpitation. Pulmonary: Denies cough or shortness of breath. Breast: Denies discharge or lumps. Gastrointestinal: Denies nausea, emesis, constipation, diarrhea. Genitourinary: Denies discharge or frequency. Musculoskeletal: Denies muscle or bone aches. 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 Endocrine: Denies shakes or sweats. Oncology: Denies cancers. Dermatologic: Denies rash, itching, pruritus. ALLERGY/immunology: Denies sneezes, rashes. 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 Chest pain w/ exertion. Per sister at bedside stated that patient also has a hx of alcohol & drug syndrome History of Any Multi-Drug Resistant Organisms: None Reported Past Surgical History: Ablation, Heart Catheterization Additional Past Surgical History / Comment(s): Heart cath, cardiac ablation age 15. Dental extractions, wisdom teeth removed. Past Anesthesia/Blood Transfusion Reactions: Unable to Obtain Additional Past Anesthesia/Blood Transfusion Reaction / Comm: Nauseous with heart cath. Adopted, family hx unknown. Past Psychological History: No Psychological Hx Reported Smoking Status: Former smoker Past Alcohol Use History: None Reported Additional Past Alcohol Use History / Comment(s): Smoked briefly in 2006. Past Drug Use History: None Reported - Past Family History Mother Family Medical History: Unable to Obtain Medications and Allergies Home Medications Medication Instructions Recorded Confirmed Type Ergocalciferol [Vitamin D2 50,000 unit PO DIAZ 12/03/19 01/12/20 History (TJ)] Insulin Glargine,Hum.rec.anlog 18 unit SQ HS 12/03/19 01/12/20 History [Basaglar Kwikpen U-100] Pioglitazone [Actos] 30 mg PO DAILY 12/03/19 01/12/20 History Liraglutide [Victoza 2-Phil] 0.6 mg SQ DAILY 01/12/20 01/12/20 History metFORMIN HCL [Glucophage] 1,000 mg PO BID 01/12/20 01/12/20 History Acetaminophen Tab [Tylenol] 1,000 mg PO Q6HR PRN tab 01/26/20 Rx Ascorbic Acid [Vitamin C] 500 mg PO BID-W/MEALS #14 tab 01/26/20 Rx Aspirin 325 mg PO DAILY #30 tab 01/26/20 Rx Atorvastatin [Lipitor] 80 mg PO DAILY #30 tab 01/26/20 Rx Clopidogrel [Plavix] 75 mg PO DAILY #30 tab 01/26/20 Rx Ferrous Sulfate [Iron (65 MG 325 mg PO BID-W/MEALS #30 tab 01/26/20 Rx Elemental)] Furosemide [Lasix] 20 mg PO DAILY #5 tab 01/26/20 Rx Metoprolol Tartrate [Lopressor] 25 mg PO BID #60 tab 01/26/20 Rx Pantoprazole [Protonix] 40 mg PO AC-BRKFST #30 tablet. 01/26/20 Rx Sennosides-Docusate Sodium 2 each PO HS #14 tab 01/26/20 Rx [Senokot-S] amLODIPine [Norvasc] 2.5 mg PO DAILY@1200 #30 tab 01/26/20 Rx Allergies Allergy/AdvReac Type Severity Reaction Status Date / Time adhesive Allergy Rash/Hives Verified 01/21/20 06:09 pseudoephedrine Allergy "heart Verified 01/21/20 06:09 [From Sudafed] pounding" lisinopril AdvReac Cough Verified 01/21/20 06:09 Physical Exam Vitals: Vital Signs Temp Pulse Pulse Resp BP BP Pulse Ox 01/28/20 08:00 96.4 F L 103 H 18 119/61 97 01/28/20 07:36 74 01/28/20 07:24 72 01/28/20 04:00 98.2 F 91 18 123/66 93 L 01/28/20 00:00 98.8 F 68 18 114/67 97 01/27/20 20:02 76 01/27/20 20:00 97.5 F L 103 H 18 114/66 89 L 01/27/20 19:54 76 94 L 01/27/20 17:04 96.8 F L 90 136/68 95 01/27/20 16:30 88 01/27/20 16:16 87 01/27/20 15:31 96.5 F L 86 19 130/75 98 01/27/20 14:00 87 19 117/66 94 L Intake and Output 01/27/20 01/28/20 01/28/20 22:59 06:59 14:59 Intake Total 118 100 Output Total 0 0 Balance 118 0 100 Intake: Oral 118 100 Output: Urine 0 0 Other 0 Other: Voiding Method Bedside Commode Diaper # Voids 0 1 Weight 88.5 kg Skin: Good color, texture, turgor. General: Medium build and comfortable appearance. Head: Normocephalic, atraumatic. Eyes: Symmetric. Pupils equal round. Ears: Symmetric. Hearing within normal limits. Mouth: Clear. Neck: Supple. Carotid without bruit. Cardiac: Regular rate and rhythm. Lungs: Clear anteriorly and posteriorly. Abdomen: Soft active nontender. Extremities: Normal tone. Neurological: Mental status: Unable to respond. Cranial nerves: Symmetric facial tone and trapezius. Motor: Response to noxious stimulus all 4 limbs. Sensation: Intact throughout. DTRs: Symmetric and equal throughout. Mobility: Requires physical assistance for bed mobility and personal care. Results CBC & Chem 7: 01/28/20 06:50 01/28/20 06:50 Labs: Abnormal Lab Results - Last 24 Hours (Table) 01/27/20 01/27/20 01/28/20 Range/Units 16:31 20:10 02:01 RBC (3.80-5.40) m/uL Hgb (11.4-16.0) gm/dL Hct (34.0-46.0) % RDW (11.5-15.5) % Sodium (137-145) mmol/L Glucose (74-99) mg/dL POC Glucose (mg/dL) 154 H 194 H 197 H (75-99) mg/dL 01/28/20 01/28/20 01/28/20 Range/Units 06:08 06:50 06:50 RBC 2.63 L (3.80-5.40) m/uL Hgb 7.3 L (11.4-16.0) gm/dL Hct 22.7 L (34.0-46.0) % RDW 16.9 H (11.5-15.5) % Sodium 136 L (137-145) mmol/L Glucose 168 H (74-99) mg/dL POC Glucose (mg/dL) 194 H (75-99) mg/dL 01/28/20 01/28/20 Range/Units 10:59 11:55 RBC (3.80-5.40) m/uL Hgb (11.4-16.0) gm/dL Hct (34.0-46.0) % RDW (11.5-15.5) % Sodium (137-145) mmol/L Glucose (74-99) mg/dL POC Glucose (mg/dL) 217 H 218 H (75-99) mg/dL Assessment and Plan Plan: Impression: 1. Cardiac debility with recent cardiac surgery and history of angina. 2. 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 3. Hypertension. 4. Dyslipidemia. 5. Diabetes. Comments and plan: At this time PT and OT prescribed but they have been having difficulty assessing patient due to neurologic problem. Speech therapies assess swallow. Neurology is following and is recommending transfer to institution with neurology available. I would agree with this plan and have discussed this with mother.
--- NOTE | 2020-01-28 13:20 | P.PN ---
Subjective Progress Note Date: 01/28/20 Principal diagnosis: Status post three-vessel CABG followed with postoperative altered mental status akinetic mutism Subjective: This patient has continued to remain mute over the last 24 hours. Late last evening I contacted the nurse close to midnight for follow-up and update. There was concern for possible now bladder incontinence. Verbal order last evening was given for the nurse to start Keppra 500 mg oral solution every 12 hours. There has been no report by nursing staff of any acute clinical change. No evidence of any overt clinical seizures such as generalized tonic-clonic movements. Objective - Vital Signs Vital signs: Vital Signs Temp 96.4 F L 01/28/20 08:00 Pulse 103 H 01/28/20 08:00 Resp 18 01/28/20 08:00 BP 119/61 01/28/20 08:00 Pulse Ox 97 01/28/20 08:00 Intake & Output 01/27/20 01/28/20 01/28/20 18:59 06:59 18:59 Intake Total 358 100 Output Total 0 0 Balance 358 0 100 Weight 88.5 kg Intake: Oral 358 100 Output: Urine 0 0 Other 0 Other: Voiding Method Bedside Commode Diaper # Voids 1 1 ABP, PAP, CO, CI - Last Documented Arterial Blood Pressure 113/52 Pulmonary Artery Pressure 13/4 Cardiac Output 5 Cardiac Index 2.6 - Exam Patient examined chart reviewed. MRI of the brain was obtained this morning which confirms there has been 2 strokes involving the right corpus callosum and the left internal capsule into the basal ganglia. I reviewed the study with the radiologist this morning and we reviewed again the CT angiogram of her head and neck prior to her surgery. The CTA of the neck did show evidence of some approximate 60% stenosis of the right internal carotid artery. Based on these 2 new ischemic infarcts, there is high suspicion for possible embolic etiology. Examination: Patient in bed supine position. Mental status: Mute Patient does not follow any commands though she does track and there is no nystagmus noted on vertical horizontal gaze. Next Pupils: Right pupil is 4 mm to sluggishly reactive to light left pupil 3 mm reactive to light. Cranial nerves: Patient tracks without evidence of nystagmus on horizontal or vertical gaze. Her face appears asymmetric. Cough reflex is present. Tongue appears midline without fasciculations or deviation. Motor examination: Patient appears to move the left upper lower extremity without difficulty right lower extremity moves without difficulty there does appear to be decreased movement in the right upper extremity spontaneously. Deep tendon reflexes, sensory formal exam and gait examination deferred. Coordination exam deferred due to patient's mental capacity. - Labs CBC & Chem 7: 01/28/20 06:50 01/28/20 06:50 Labs: Abnormal Lab Results - Last 24 Hours (Table) 01/27/20 01/27/20 01/28/20 Range/Units 16:31 20:10 02:01 RBC (3.80-5.40) m/uL Hgb (11.4-16.0) gm/dL Hct (34.0-46.0) % RDW (11.5-15.5) % Sodium (137-145) mmol/L Glucose (74-99) mg/dL POC Glucose (mg/dL) 154 H 194 H 197 H (75-99) mg/dL 01/28/20 01/28/20 01/28/20 Range/Units 06:08 06:50 06:50 RBC 2.63 L (3.80-5.40) m/uL Hgb 7.3 L (11.4-16.0) gm/dL Hct 22.7 L (34.0-46.0) % RDW 16.9 H (11.5-15.5) % Sodium 136 L (137-145) mmol/L Glucose 168 H (74-99) mg/dL POC Glucose (mg/dL) 194 H (75-99) mg/dL 01/28/20 01/28/20 Range/Units 10:59 11:55 RBC (3.80-5.40) m/uL Hgb (11.4-16.0) gm/dL Hct (34.0-46.0) % RDW (11.5-15.5) % Sodium (137-145) mmol/L Glucose (74-99) mg/dL POC Glucose (mg/dL) 217 H 218 H (75-99) mg/dL Assessment and Plan Assessment: This is a 44-year-old female with extensive atherosclerotic disease now status post triple-vessel coronary artery bypass graft. Neurology consulted due to an acute change in her mental status. Over the last 48 hours the patient has become increasingly mute. She now presents with a classic picture of akinetic mutism. The MRI of the brain this morning did confirm 2 ischemic strokes. One area is involving the right corpus callosum and the second stroke involves extensive area of the left internal capsule nnext to the basal ganglia. The results of this study were reviewed with radiologist today. I believe there is high probability that this was embolic in nature. A stat CTA of the head and neck will be obtained again and compare with the preop CTA. Pre=op there is 60% stenosis of the RT ICA. I discussed the results of the MRI with the parent/ mother at the bedside. I'm recommending that the patient be transferred to higher level care. There will not be neurology coverage this weekend which would make the situation very problematic. Her symptoms of akinetic mutism are most likely related to the infarct involving the left basal ganglia area. When there is diminution of the basal ganglia dopaminergic function this can play a role in the generation of akinetic mutism particularly in patients with anterior cerebral artery infarcts. Infartions involving the corpus callosum can lead to " disconnection" syndrome. The area of the infarct also plays a role in the PX with the body of the corpus callosum being serious and progressing, which is the situation in her case. There has been a case report ( [email or web address]) suggesting the use of IV magnesium sulfate as an acute treatment for the akinetic mutism when associated with delayed post hypoxic leukoencephalopathy. This is thought to may improve the extraparamedial and neuropsychiatric symptoms associated with this syndrome. Summary: 1. Two acute ischemic infarcts: Right corpus callosum. Left internal capsule/basal ganglia region 2. 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 Status post three-vessel coronary artery bypass graft 4. Abnormal EEG showing left temporal slowing 5. Suspicious clinical activity on neuro exam for complex partial seizures. 6. Severe vasculopathy Recommendations: 1. Stat CTA a of the head and neck 2. Begin gentle hydration with normal saline 90 mL/h 3. Aspiration precautions in place. Dysphasia diet with thickened liquids 4. Continue with Keppra 500 mg oral solution thickened every 12 5. Discuss with team transfer to higher level of care since there will be no neuro coverage this weekend 6. Recommend repeating EEG within the next 24 hours 7. Continue with current dual antiplatelet therapy, statin. Close monitoring of blood pressure. Both areas of the stroke are rather large and have increased risk for hemorrhagic conversion. Maintain systolic blood pressures less than 160 diastolic blood pressures between 80-90. This patient's prognosis remains very guarded. Further recommendations will made as this case evolves. Marta Brar M.D. Board Certified in Neurology and Sleep Medicine
[2020-01-28 13:33] LABS: APTT 61 Sec(s) (<43); APTT 1:1 Mix 42 Sec(s) (<43); Dilute Russell Viper Venom 41 Sec(s) (<44)
--- NOTE | 2020-01-28 13:49 | CT ---
EXAMINATION TYPE: CT angio head neck DATE OF EXAM: 01/28/2020 HISTORY: S/P triple bypass with new onset acute stroke confirmed on MRI. COMPARISON: CTA head and neck January 06, 2020. CT DLP: 503.4 mGycm. Automated Exposure Control for Dose Reduction was Utilized. TECHNIQUE: CTA scan of the neck is performed without and with IV Contrast, patient injected with 65 mL of Isovue 370, axial images are obtained, coronal and sagittal reformatted images are reviewed. Th ree-D reconstructed images are created on an independent workstation and reviewed. FINDINGS: Carotid/Vascular Structures: Similar to prior CT there is moderate peripheral noncalcified plaque beg inning just past carotid bulb in the right internal carotid artery over a length roughly 1.0 cm coron al image 19 . Lumen diameter narrows to 2.0 mm and reconstitutes to 4.8 mm superior to this. No signi ficant change in appearance from prior. Remainder of the bilateral common and internal carotid artery shows no new plaque or stenosis. Mild peripheral mixed plaque at left carotid bulb posteriorly redem onstrated. Patent bilateral external carotid arteries without significant plaque or stenosis. 4 both lower joints from arch which is normal variant is redemonstrated. Redemonstration of hypoplastic or stenotic distal right vertebral artery with dominant left vertebral artery filling the basilar artery. Persistent small caliber of the distal basilar artery extending i nto the posterior cerebral arteries. No new significant plaque or occlusion. Persistent severe calcified plaque clinoid segment distal internal carotid arteries makes evaluation of this level suboptimal. Redemonstration of patent middle cerebral arteries bilaterally through the bifurcation with hypoplastic right anterior cerebral and anterior communicating artery. No new signif icant stenosis or occlusion. Moderate noncalcified plaque left carotid bulb coronal image 20 cause stenosis approaching but both j ust under 50%, no significant change from prior. There is calcified plaque at origin of left vertebra l artery without significant stenosis. There is though more prominent stenosis at origin of left subc lavian artery with peripheral noncalcified plaque for reference coronal image 23, lumen diameter narr owed to 2.9 mm and reconstitutes to 6.6 mm superior to this. Other: There are at least small bilateral pleural effusions now present. Poststernotomy changes parti ally imaged. IMPRESSION: Stable stenosis proximal right internal carotid artery of 60%. Appears to be some increas ed stenosis at origin of left subclavian artery measuring near 60% incidentally noted. No new large v essel occlusion identified.
--- NOTE | 2020-01-28 14:12 | P.PN ---
Subjective Progress Note Date: 01/28/20 This is a 44-year-old female patient with history of diabetes, hypertension, hyperlipidemia, WPW, who is status post coronary artery bypass grafting surgery, 3. She was seen and examined on the cardiac unit this morning, sitting up in chair. She continues to have a very flat affect, does not speak, does not shake her head yes or no, was able to feed herself this morning. Very sleepy overall. She underwent an MRI of the brain this morning with findings of increased signal throughout the right corpus callosum and left internal limb basal ganglion compatible with acute ischemic changes. Blood pressure 120/60 with a heart rate 70-80, 97% on room air. White blood cell count 10.6, hemoglobin 7.3, platelet count 409. Sodium 136, potassium 5.0, BUN 11, creatinine 0.5. Objective - Vital Signs Vital signs: Vital Signs Temp 96.4 F L 01/28/20 08:00 Pulse 103 H 01/28/20 08:00 Resp 18 01/28/20 08:00 BP 119/61 01/28/20 08:00 Pulse Ox 97 01/28/20 08:00 Intake & Output 01/27/20 01/28/20 01/28/20 18:59 06:59 18:59 Intake Total 358 100 Output Total 0 0 Balance 358 0 100 Weight 88.5 kg Intake: Oral 358 100 Output: Urine 0 0 Other 0 Other: Voiding Method Bedside Commode Diaper # Voids 1 1 ABP, PAP, CO, CI - Last Documented Arterial Blood Pressure 113/52 Pulmonary Artery Pressure 13/4 Cardiac Output 5 Cardiac Index 2.6 - Exam GENERAL EXAM: Alert, flat affect it, 44-year-old white female, seems slow to response, does respond and follow commands at times, but intermittently not following commands and not answering questioning, comfortable in no apparent distress. HEAD: Normocephalic/atraumatic. EYES: Normal reaction of pupils, equal size. Conjunctiva pink, sclera white. NOSE: Clear with pink turbinates. THROAT: No erythema or exudates. NECK: No masses, no JVD, no thyroid enlargement, no adenopathy. CHEST: No chest wall deformity. Symmetrical expansion. Midsternal incision is clean dry and intact, chest tube sites at clean dry and intact, LUNGS: Equal air entry with no crackles, wheeze, rhonchi or dullness. CVS: Regular rate and rhythm, normal S1 and S2, no gallops, no murmurs, no rubs ABDOMEN: Soft, nontender. No hepatosplenomegaly, normal bowel sounds, no guarding or rigidity. EXTREMITIES: No clubbing, no edema, no cyanosis, 2+ pulses and upper and lower extremities. MUSCULOSKELETAL: Muscle strength and tone normal. SPINE: No scoliosis or deformity SKIN: No rashes CENTRAL NERVOUS SYSTEM: Alert minimal response at times. Seems slow to respond at times, intermittently follows command, but at times patient stares. No focal deficits, tone is normal in all 4 extremities. - Labs CBC & Chem 7: 01/28/20 06:50 01/28/20 06:50 Labs: Abnormal Lab Results - Last 24 Hours (Table) 01/27/20 01/27/20 01/27/20 Range/Units 04:25 16:31 20:10 RBC (3.80-5.40) m/uL Hgb (11.4-16.0) gm/dL Hct (34.0-46.0) % RDW (11.5-15.5) % Lupus Anticoag aPTT 61 H (<43) Sec(s) Sodium (137-145) mmol/L Glucose (74-99) mg/dL POC Glucose (mg/dL) 154 H 194 H (75-99) mg/dL 01/28/20 01/28/20 01/28/20 Range/Units 02:01 06:08 06:50 RBC 2.63 L (3.80-5.40) m/uL Hgb 7.3 L (11.4-16.0) gm/dL Hct 22.7 L (34.0-46.0) % RDW 16.9 H (11.5-15.5) % Lupus Anticoag aPTT (<43) Sec(s) Sodium (137-145) mmol/L Glucose (74-99) mg/dL POC Glucose (mg/dL) 197 H 194 H (75-99) mg/dL 01/28/20 01/28/20 01/28/20 Range/Units 06:50 10:59 11:55 RBC (3.80-5.40) m/uL Hgb (11.4-16.0) gm/dL Hct (34.0-46.0) % RDW (11.5-15.5) % Lupus Anticoag aPTT (<43) Sec(s) Sodium 136 L (137-145) mmol/L Glucose 168 H (74-99) mg/dL POC Glucose (mg/dL) 217 H 218 H (75-99) mg/dL Assessment and Plan Plan: Assessment and plan: #1. Acute mental status change, rule out subclinical seizures. Brain CT showed no evidence of acute ischemic or hemorrhagic stroke, neurology on the case, MRI of brain today reveals increased signal on diffusion and inversion recovery weighted sequences throughout the right corpus callosum and left internal limb basal ganglion compatible with acute ischemic changes. Mild chronic-appearing white matter changes also present. #2. Multivessel coronary artery disease, status post three-vessel bypass grafting, postop day 7 #3. Postoperative anemia, an expected outcome of surgery, received 1 unit packed red blood cells this admission. Current hemoglobin 7.3. #4. Diabetes mellitus type 1 #5. Hyperlipidemia #6. History of [id number], post ablation #7. Right internal carotid artery disease less than 70% based on Dopplers and 60% based on the CT angiogram #8. History of premature coronary artery disease in the family Plan A stat CTA of the head and neck have been ordered, patient is receiving hydration at 90 mL per hour. The recommendation from neurology today would be to transfer the patient to a higher level of care since there will be no neuro coverage this weekend. Patient has evidence of 2 acute ischemic infarcts, right corpus callosum and left internal capsule/basal ganglia region. From a cardiac standpoint we will continue with current medications. DNP note has been reviewed, I agree with a documented findings and plan of care. Patient was seen and examined.
[2020-01-28 14:34] LABS: Glucose,Whole Blood 193 mg/dL (75-99)
[2020-01-28] MEDS: amLODIPine 2.5 MG TAB PO SCH (15:52)
[2020-01-28 16:56] LABS: Glucose,Whole Blood 182 mg/dL (75-99)
[2020-01-28 20:14] LABS: Glucose,Whole Blood 151 mg/dL (75-99)
[2020-01-28] MEDS: INSULIN DETEMIR (LEVEMIR) 100 UNIT/ML SYR SQ SCH (21:07)
[2020-01-28] MEDS: SENNOSIDES-DOCUSATE SODIUM 1 EACH TAB PO SCH (21:08)
[2020-01-29 02:11] LABS: Glucose,Whole Blood 237 mg/dL (75-99)
[2020-01-29] MEDS: SODIUM CHLORIDE 0.9% 1,000 ML IV SCH ×2 (04:11→08:26)
[2020-01-29] MEDS: IPRATROPIUM-ALBUTEROL 3 ML NEB INHALATION SCH ×2 (07:18→10:55)
[2020-01-29 07:26] LABS: Anisocytosis Slight; HCT 20.9 % (34.0-46.0); Hypochromasia Slight; MCH 27.2 pg (25.0-35.0); MCHC 31.2 g/dL (31.0-37.0); MCV 87.1 fL (80.0-100.0); Mean Platelet Volume 8.1; Platelet Count 379 k/uL (150-450); WBC 10.7 k/uL (3.8-10.6)
[2020-01-29 07:31] LABS: HGB 6.5 gm/dL (11.4-16.0)
[2020-01-29 07:36] LABS: African American GFR (CKD) >90 (>60 ml/min/1.73 sqM); Anion Gap 5 mmol/L; Blood Urea Nitrogen 9 mg/dL (7-17); Calcium 8.6 mg/dL (8.4-10.2); Carbon Dioxide 27 mmol/L (22-30); Chloride 104 mmol/L (98-107); Glucose 184 mg/dL (74-99); Non-African American GFR(CKD) >90 (>60 ml/min/1.73 sqM); Potassium 4.8 mmol/L (3.5-5.1); Sodium 136 mmol/L (137-145)
[2020-01-29 07:38] LABS: Glucose,Whole Blood 207 mg/dL (75-99)
[2020-01-29] MEDS: PANTOPRAZOLE 40 MG TABLET PO SCH (07:40)
[2020-01-29] MEDS: ASCORBIC ACID 500 MG TAB PO SCH ×2 (07:40→17:33)
[2020-01-29] MEDS: FERROUS SULFATE 325 MG TAB PO SCH ×2 (07:40→17:33)
[2020-01-29] MEDS: ASPIRIN 325 MG TAB PO SCH (08:20)
[2020-01-29] MEDS: ATORVASTATIN 40 MG TAB PO SCH (08:20)
[2020-01-29] MEDS: HEPARIN SODIUM,PORCINE 5,000 UNIT/ML 1 ML VIAL SQ SCH ×2 (08:20→17:32)
[2020-01-29] MEDS: METOPROLOL TARTRATE 25 MG TAB PO SCH (08:21)
[2020-01-29] MEDS: levETIRAcetam ORAL SOLN 500 MG/5 ML CUP PO SCH (08:21)
[2020-01-29] MEDS: CLOPIDOGREL 75 MG TAB PO SCH (08:21)
[2020-01-29] MEDS: INSULIN ASPART (NovoLOG) 100 UNIT/ML VIAL SQ SCH ×6 (08:43→17:33)
--- NOTE | 2020-01-29 10:42 | XR ---
EXAMINATION TYPE: XR chest 1V portable DATE OF EXAM: 01/29/2020 COMPARISON: 01/26/2020 HISTORY: Post CABG TECHNIQUE: Single frontal view of the chest is obtained. FINDINGS: There is postoperative change with bilateral consolidation and small effusion. No pneumoth orax. Interstitium stable. Heart size stable. IMPRESSION: Stable x-ray demonstrating bibasilar infiltrate and small effusion. Underlying venous co ngestion not excluded.
[2020-01-29 11:45] LABS: Glucose,Whole Blood 169 mg/dL (75-99)
[2020-01-29] MEDS: amLODIPine 2.5 MG TAB PO SCH (12:22)
--- NOTE | 2020-01-29 12:41 | P.PN ---
Subjective Progress Note Date: 01/29/20 This is a 44-year-old female patient with history of diabetes, hypertension, hyperlipidemia, WPW, who is status post coronary artery bypass grafting surgery, 3. She was seen and examined on the cardiac unit this morning, sitting up in chair. She continues to have a very flat affect, does not speak, does not shake her head yes or no, was able to feed herself this morning. Very sleepy overall. She underwent an MRI of the brain this morning with findings of increased signal throughout the right corpus callosum and left internal limb basal ganglion compatible with acute ischemic changes. Blood pressure 120/60 with a heart rate 70-80, 97% on room air. White blood cell count 10.6, hemoglobin 7.3, platelet count 409. Sodium 136, potassium 5.0, BUN 11, creatinine 01/29/2020 Patient seen and examined this morning, blood pressure 100/50 with a heart rate of 90, 98% on room air. White blood cell count 10.7, hemoglobin 6.5, platelet count 379. Sodium 136, potassium 4.8, BUN 9, creatinine 0.4. Objective - Vital Signs Vital signs: Vital Signs Temp 98.7 F 01/29/20 11:34 Pulse 97 01/29/20 11:51 Resp 18 01/29/20 11:51 BP 101/55 01/29/20 11:34 Pulse Ox 98 01/29/20 11:34 Intake & Output 01/28/20 01/29/20 01/29/20 18:59 06:59 18:59 Intake Total 650 Output Total 0 0 0 Balance 650 0 0 Weight 88.8 kg Intake: Intake, IV Titration 540 Amount Sodium Chloride 0.9% 1, 540 000 ml @ 90 mls/hr IV . [id number] [facility] Rx#:[id number] Oral 110 Output: Urine 0 0 0 Other 0 Other: Voiding Method Diaper Diaper Diaper # Voids 1 1 ABP, PAP, CO, CI - Last Documented Arterial Blood Pressure 113/52 Pulmonary Artery Pressure 13/4 Cardiac Output 5 Cardiac Index 2.6 - Exam GENERAL EXAM: Alert, flat affect it, 44-year-old white female, seems slow to response, does respond and follow commands at times, but intermittently not following commands and not answering questioning, comfortable in no apparent distress. HEAD: Normocephalic/atraumatic. EYES: Normal reaction of pupils, equal size. Conjunctiva pink, sclera white. NOSE: Clear with pink turbinates. THROAT: No erythema or exudates. NECK: No masses, no JVD, no thyroid enlargement, no adenopathy. CHEST: No chest wall deformity. Symmetrical expansion. Midsternal incision is clean dry and intact, chest tube sites at clean dry and intact, LUNGS: Equal air entry with no crackles, wheeze, rhonchi or dullness. CVS: Regular rate and rhythm, normal S1 and S2, no gallops, no murmurs, no rubs ABDOMEN: Soft, nontender. No hepatosplenomegaly, normal bowel sounds, no guarding or rigidity. EXTREMITIES: No clubbing, no edema, no cyanosis, 2+ pulses and upper and lower extremities. MUSCULOSKELETAL: Muscle strength and tone normal. SPINE: No scoliosis or deformity SKIN: No rashes CENTRAL NERVOUS SYSTEM: Alert minimal response at times. Seems slow to respond at times, intermittently follows command, but at times patient stares. No focal deficits, tone is normal in all 4 extremities. - Labs CBC & Chem 7: 01/29/20 06:51 01/29/20 06:51 Labs: Abnormal Lab Results - Last 24 Hours (Table) 01/27/20 01/27/20 01/28/20 Range/Units 04:25 04:25 14:32 WBC (3.8-10.6) k/uL RBC (3.80-5.40) m/uL Hgb (11.4-16.0) gm/dL Hct (34.0-46.0) % RDW (11.5-15.5) % Lupus Anticoag aPTT 61 H (<43) Sec(s) Antithrombin III Activ 118 H (79-109) % Sodium (137-145) mmol/L Creatinine (0.52-1.04) mg/dL Glucose (74-99) mg/dL POC Glucose (mg/dL) 193 H (75-99) mg/dL 01/28/20 01/28/20 01/29/20 Range/Units 16:54 20:13 02:10 WBC (3.8-10.6) k/uL RBC (3.80-5.40) m/uL Hgb (11.4-16.0) gm/dL Hct (34.0-46.0) % RDW (11.5-15.5) % Lupus Anticoag aPTT (<43) Sec(s) Antithrombin III Activ (79-109) % Sodium (137-145) mmol/L Creatinine (0.52-1.04) mg/dL Glucose (74-99) mg/dL POC Glucose (mg/dL) 182 H 151 H 237 H (75-99) mg/dL 01/29/20 01/29/20 01/29/20 Range/Units 06:51 06:51 07:37 WBC 10.7 H (3.8-10.6) k/uL RBC 2.40 L (3.80-5.40) m/uL Hgb 6.5 L* (11.4-16.0) gm/dL Hct 20.9 L (34.0-46.0) % RDW 17.0 H (11.5-15.5) % Lupus Anticoag aPTT (<43) Sec(s) Antithrombin III Activ (79-109) % Sodium 136 L (137-145) mmol/L Creatinine 0.48 L (0.52-1.04) mg/dL Glucose 184 H (74-99) mg/dL POC Glucose (mg/dL) 207 H (75-99) mg/dL 01/29/20 Range/Units 11:43 WBC (3.8-10.6) k/uL RBC (3.80-5.40) m/uL Hgb (11.4-16.0) gm/dL Hct (34.0-46.0) % RDW (11.5-15.5) % Lupus Anticoag aPTT (<43) Sec(s) Antithrombin III Activ (79-109) % Sodium (137-145) mmol/L Creatinine (0.52-1.04) mg/dL Glucose (74-99) mg/dL POC Glucose (mg/dL) 169 H (75-99) mg/dL Assessment and Plan Plan: Assessment and plan: #1. Acute mental status change, rule out subclinical seizures. Brain CT showed no evidence of acute ischemic or hemorrhagic stroke, neurology on the case, MRI of brain today reveals increased signal on diffusion and inversion recovery weighted sequences throughout the right corpus callosum and left internal limb basal ganglion compatible with acute ischemic changes. Mild chronic-appearing white matter changes also present. #2. Multivessel coronary artery disease, status post three-vessel bypass grafting, postop day 7 #3. Postoperative anemia, an expected outcome of surgery, received 1 unit packed red blood cells this admission. Current hemoglobin 7.3. #4. Diabetes mellitus type 1 #5. Hyperlipidemia #6. History of [id number], post ablation #7. Right internal carotid artery disease less than 70% based on Dopplers and 60% based on the CT angiogram #8. History of premature coronary artery disease in the family Plan From cardiology's perspective, we'll recommend to continue patient on current medications. From our understanding of the distal part of the patient's plan to be potentially transferred to another facility. DNP note has been reviewed, I agree with a documented findings and plan of care. Patient was seen and examined.
--- NOTE | 2020-01-29 12:57 | P.PN ---
Subjective Progress Note Date: 01/29/20 Principal diagnosis: Severe diffuse triple-vessel coronary artery disease, preserved left ventricular function, insulin-dependent diabetes mellitus with preoperative hemoglobin A1c 7.3%, hypertension, hyperlipidemia, history of Osjki-Nkthgstxy-Ojllg status post ablation, right internal carotid stenosis greater than 70% per carotid Dopplers, approximately 60% per CTA, previous brief tobacco use with preoperative FEV1 87% of predicted, family history of premature coronary artery disease. Preoperative nasal swab positive for MRSA. POD #8 triple vessel coronary artery bypass grafting using the left internal mammary artery to the left anterior descending artery, left radial artery from the aorta to the right coronary artery, reverse saphenous vein graft from the aorta to the distal circumflex artery. Exclusion of the left atrial appendage using a 35 mm after clip. Endoscopic harvesting of the left radial artery. Endoscopic harvesting of the right greater saphenous vein from the groin to above the ankle level. Intraoperative transesophageal echocardiogram and epi- aortic scanning. Intraoperative graft flow measurements using the [place] [employer] ([employer])stim system. Postoperative acute blood loss anemia, expected outcome of surgery given hemodilution and cardiopulmonary bypass pump Postoperative acute mental status changes, no acute process on computed tomography scan January 25, abnormal EEG with focal slowing in the left temporal, occipital, and left frontoparietal head region, increased signal throughout the right corpus collosum and left internal limb basal ganglion and MRI of the brain compatible with acute ischemic changes, unexpected but possible secondary to presurgical findings of right internal carotid stenosis The patient was seen and examined at the bedside this morning with Dr. Kelly. She continues to have a flat affect, does not speak, does not shake her head yes or no, but she does move her arms and legs to command. She was fed by nursing staff and tolerated well. From a cardiac standpoint she appears to be stable. Dr. Kelly did discuss care of the patient in detail with the patient's mother yesterday, including plans for neuro rehab at discharge. Objective - Vital Signs Vital signs: Vital Signs Temp 98.7 F 01/29/20 11:34 Pulse 97 01/29/20 11:51 Resp 18 01/29/20 11:51 BP 101/55 01/29/20 11:34 Pulse Ox 98 01/29/20 11:34 Intake & Output 01/28/20 01/29/20 01/29/20 18:59 06:59 18:59 Intake Total 650 Output Total 0 0 0 Balance 650 0 0 Weight 88.8 kg Intake: Intake, IV Titration 540 Amount Sodium Chloride 0.9% 1, 540 000 ml @ 90 mls/hr IV . Q11H7M [facility] Rx#:[id number] Oral 110 Output: Urine 0 0 0 Other 0 Other: Voiding Method Diaper Diaper Diaper # Voids 1 1 ABP, PAP, CO, CI - Last Documented Arterial Blood Pressure 113/52 Pulmonary Artery Pressure 13/4 Cardiac Output 5 Cardiac Index 2.6 - Constitutional General appearance: Present: cooperative, no acute distress, obese - Respiratory Details: Lung sounds clear bilaterally. Respirations even, nonlabored. Currently on 2 L nasal cannula with oxygen saturation 98%. - Cardiovascular Details: S1, S2 present. Regular rate and rhythm, sinus rhythm on telemetry. Sternum stable. Palpable peripheral pulses bilaterally. Trace bilateral lower ex tremity edema present. No calf pain or tenderness noted. Heart hugger, antiembolism stockings, SCDs present. - Gastrointestinal Gastrointestinal Comment(s): Abdomen soft, nontender, nondistended. Active bowel sounds present 4 quadrants. Tolerating diet. Positive bowel movement. - Genitourinary Genitourinary Comment(s): Continues to void, however she is incontinent of urine - Integumentary Integumentary Comment(s): Skin is warm and dry with evidence of good perfusion. Anterior chest incision well approximated and covered with dry intact dressing. Right lower extremity EVH site well approximated. Left radial artery harvest site well approximated - Neurologic Neurologic: Present: CNII-XII intact - Musculoskeletal Musculoskeletal: Present: right sided weakness - Psychiatric Psychiatric Comment(s): Flat affect, follows some commands intermittently - Allied health notes Allied health notes reviewed: nursing - Labs CBC & Chem 7: 01/29/20 06:51 01/29/20 06:51 Labs: Abnormal Lab Results - Last 24 Hours (Table) 01/27/20 01/27/20 01/28/20 Range/Units 04:25 04:25 14:32 WBC (3.8-10.6) k/uL RBC (3.80-5.40) m/uL Hgb (11.4-16.0) gm/dL Hct (34.0-46.0) % RDW (11.5-15.5) % Lupus Anticoag aPTT 61 H (<43) Sec(s) Antithrombin III Activ 118 H (79-109) % Sodium (137-145) mmol/L Creatinine (0.52-1.04) mg/dL Glucose (74-99) mg/dL POC Glucose (mg/dL) 193 H (75-99) mg/dL 01/28/20 01/28/20 01/29/20 Range/Units 16:54 20:13 02:10 WBC (3.8-10.6) k/uL RBC (3.80-5.40) m/uL Hgb (11.4-16.0) gm/dL Hct (34.0-46.0) % RDW (11.5-15.5) % Lupus Anticoag aPTT (<43) Sec(s) Antithrombin III Activ (79-109) % Sodium (137-145) mmol/L Creatinine (0.52-1.04) mg/dL Glucose (74-99) mg/dL POC Glucose (mg/dL) 182 H 151 H 237 H (75-99) mg/dL 01/29/20 01/29/20 01/29/20 Range/Units 06:51 06:51 07:37 WBC 10.7 H (3.8-10.6) k/uL RBC 2.40 L (3.80-5.40) m/uL Hgb 6.5 L* (11.4-16.0) gm/dL Hct 20.9 L (34.0-46.0) % RDW 17.0 H (11.5-15.5) % Lupus Anticoag aPTT (<43) Sec(s) Antithrombin III Activ (79-109) % Sodium 136 L (137-145) mmol/L Creatinine 0.48 L (0.52-1.04) mg/dL Glucose 184 H (74-99) mg/dL POC Glucose (mg/dL) 207 H (75-99) mg/dL 01/29/20 Range/Units 11:43 WBC (3.8-10.6) k/uL RBC (3.80-5.40) m/uL Hgb (11.4-16.0) gm/dL Hct (34.0-46.0) % RDW (11.5-15.5) % Lupus Anticoag aPTT (<43) Sec(s) Antithrombin III Activ (79-109) % Sodium (137-145) mmol/L Creatinine (0.52-1.04) mg/dL Glucose (74-99) mg/dL POC Glucose (mg/dL) 169 H (75-99) mg/dL - Imaging and Cardiology Chest x-ray: report reviewed, image reviewed Assessment and Plan Assessment: 1. Severe diffuse triple-vessel coronary artery disease, status post three- vessel CABG 2. Preserved left ventricular function 3. Insulin-dependent diabetes with preoperative hemoglobin A1c 7.3% 4. History of hypertension 5. Hyperlipidemia 6. History of Rzyhb-Dplqpdfst-Xkyoj status post ablation 7. Right internal carotid stenosis greater than 70% per carotid Dopplers, approximately 60% per CTA 8. Previous brief tobacco use with preoperative FEV1 87% of protected 9. Family history of premature coronary artery disease 10. Preoperative nasal swab positive for MRSA, treated 11. Postoperative acute blood loss anemia, expected 12. Postoperative ultrasound status, unexpected Plan: 1. Continue aspirin, statin, Plavix, beta any therapy. 2. Continue Norvasc for radial artery spasm. Please do not discontinue CCB without discussing with cardiac surgery 3. Encourage incentive spirometry is 10 times every hour while awake 4. Bronchodilators per pulmonology 5. Increase activity, ambulate as tolerated. PT/OT/cardiac rehab following 6. Will monitor daily labs. Electrolyte replacement per protocol. No transfusion. 7. Pain control with current medication regimen. 8. Diabetic management per primary care service. Patient's home regimen consisted of glargine insulin as well as Victoza, Glucophage, and Actos. 9. Patient will need neural rehab at discharge. 10. More recommendations to follow Time with Patient: Greater than 30
[2020-01-29 13:35] VITALS: BMI 33.5
--- NOTE | 2020-01-29 14:09 | P.PN ---
Subjective Progress Note Date: 01/29/20 Principal diagnosis: Multivessel coronary artery disease, status post three-vessel bypass grafting The patient is seen today 01/28/2020 in follow-up on the selective care unit. S he is currently sitting up in a chair at the bedside. She is not verbalizing or answering questions appropriately. She is not sensing any pain on the right side. Minimal rate response to the left. She is raising her left arm. Not following simple commands however. She is currently maintaining good O2 saturations in the mid 90s on room air. She's afebrile. Hemodynamically stable. White count 10.6. Hemoglobin 7.6. Sodium 136. Potassium 5.0. Creatinine 0.53. The patient is seen today 01/29/2020 in follow-up on the selective care unit. She is awake. Nonverbal. Moving all extremities though. Was able to swallow soft foods with breakfast. Maintaining O2 saturations in the 90s on 2 L/m per nasal cannula. White count 10.7. Hemoglobin 6.5. Sodium 136. Potassium 4.8. Creatinine 0.48. Chest x-ray reveals stable basilar infiltrates with small effusion. CT angiogram of the head and neck performed yesterday revealed stable stenosis proximal right internal carotid artery of 60%. 60% left subclavian artery stenosis. No new large vessel occlusion identified. Objective - Vital Signs Vital signs: Vital Signs Temp 98.7 F 01/29/20 11:34 Pulse 97 01/29/20 11:51 Resp 18 01/29/20 11:51 BP 101/55 01/29/20 11:34 Pulse Ox 98 01/29/20 11:34 Intake & Output 01/28/20 01/29/20 01/29/20 18:59 06:59 18:59 Intake Total 650 Output Total 0 0 0 Balance 650 0 0 Weight 88.8 kg 88.8 kg Intake: Intake, IV Titration 540 Amount Sodium Chloride 0.9% 1, 540 000 ml @ 90 mls/hr IV . Q11H7M [facility] Rx#:[id number] Oral 110 Output: Urine 0 0 0 Other 0 Other: Voiding Method Diaper Diaper Diaper # Voids 1 1 ABP, PAP, CO, CI - Last Documented Arterial Blood Pressure 113/52 Pulmonary Artery Pressure 13/4 Cardiac Output 5 Cardiac Index 2.6 - Exam GENERAL EXAM: Alert, flat affect, pale 44-year-old female, on 2 L nasal cannula, seems slow to response mainly nonverbal, does respond and follow commands at times, but intermittently not following commands and not answering questioning, comfortable in no apparent distress. HEAD: Normocephalic/atraumatic. EYES: Normal reaction of pupils, equal size. Conjunctiva pink, sclera white. NOSE: Clear with pink turbinates. THROAT: No erythema or exudates. NECK: No masses, no JVD, no thyroid enlargement, no adenopathy. CHEST: No chest wall deformity. Symmetrical expansion. Midsternal incision is clean dry and intact, chest tube sites at clean dry and intact, LUNGS: Equal air entry with bibasilar crackles. CVS: Regular rate and rhythm, normal S1 and S2, no gallops, no murmurs, no rubs ABDOMEN: Soft, nontender. No hepatosplenomegaly, normal bowel sounds, no guarding or rigidity. EXTREMITIES: No clubbing, no edema, no cyanosis, 2+ pulses and upper and lower extremities. MUSCULOSKELETAL: Muscle strength and tone normal. SPINE: No scoliosis or deformity SKIN: No rashes CENTRAL NERVOUS SYSTEM: Alert, minimal response at times. Seems slow to respond at times, intermittently follows command, but at times patient stares. No focal deficits, tone is normal in all 4 extremities. - Labs CBC & Chem 7: 01/29/20 06:51 01/29/20 06:51 Labs: Abnormal Lab Results - Last 24 Hours (Table) 01/27/20 01/28/20 01/28/20 Range/Units 04:25 14:32 16:54 WBC (3.8-10.6) k/uL RBC (3.80-5.40) m/uL Hgb (11.4-16.0) gm/dL Hct (34.0-46.0) % RDW (11.5-15.5) % Antithrombin III Activ 118 H (79-109) % Sodium (137-145) mmol/L Creatinine (0.52-1.04) mg/dL Glucose (74-99) mg/dL POC Glucose (mg/dL) 193 H 182 H (75-99) mg/dL 01/28/20 01/29/20 01/29/20 Range/Units 20:13 02:10 06:51 WBC 10.7 H (3.8-10.6) k/uL RBC 2.40 L (3.80-5.40) m/uL Hgb 6.5 L* (11.4-16.0) gm/dL Hct 20.9 L (34.0-46.0) % RDW 17.0 H (11.5-15.5) % Antithrombin III Activ (79-109) % Sodium (137-145) mmol/L Creatinine (0.52-1.04) mg/dL Glucose (74-99) mg/dL POC Glucose (mg/dL) 151 H 237 H (75-99) mg/dL 01/29/20 01/29/20 01/29/20 Range/Units 06:51 07:37 11:43 WBC (3.8-10.6) k/uL RBC (3.80-5.40) m/uL Hgb (11.4-16.0) gm/dL Hct (34.0-46.0) % RDW (11.5-15.5) % Antithrombin III Activ (79-109) % Sodium 136 L (137-145) mmol/L Creatinine 0.48 L (0.52-1.04) mg/dL Glucose 184 H (74-99) mg/dL POC Glucose (mg/dL) 207 H 169 H (75-99) mg/dL Assessment and Plan Assessment: #1. Acute mental status change, rule out subclinical seizures. Brain CT showed no evidence of acute ischemic or hemorrhagic stroke, neurology on the case, MRI of brain today reveals increased signal on diffusion and inversion recovery weighted sequences throughout the right corpus callosum and left internal limb basal ganglion compatible with acute ischemic changes. Mild chronic-appearing white matter changes also present. CT angiogram revealed stable stenosis of the proximal right internal right internal carotid artery 60%. Some increased stenosis of the origin left subclavian artery measuring near 60%. No new large vessel occlusion identified. #2. Multivessel coronary artery disease, status post three-vessel bypass grafting, postop day 8 #3. Postoperative anemia, an expected outcome of surgery, received 1 unit packed red blood cells this admission. Current hemoglobin 6.5. #4. Diabetes mellitus type 1 #5. Hyperlipidemia #6. History of Humjy-Kbtwbojxa-Bsoja, post ablation #7. Right internal carotid artery disease less than 70% based on Dopplers and 60% based on the CT angiogram #8. History of premature coronary artery disease in the family Plan: The patient was seen and evaluated by Dr. Roland Brown from the pulmonary standpoint Continues with altered mental status changes and poor response MRI of the brain noted CTA noted Neurology is on the case Will need neuro rehab post discharge We will continue to follow. I, the cosigning physician, performed a history & physical examination of the patient. Lungs sounds with basilar crackles. Maintaining good O2 saturations in the 90s on 2 L nasal cannula. I discussed the assessment and plan of care with my nurse practitioner, Zelda Gary. I attest to the above note as dictated by her.
--- NOTE | 2020-01-29 15:58 | P.DS ---
Providers Date of admission: 01/21/20 05:52 Expected date of discharge: 01/29/20 Attending physician: Odell Kelly Consults: 01/21/20 17:17 Consult Physician Routine Consulting Provider: Mason Mckeon Consult Reason/Comments: Freelance Interpreter/Translator Consult: post cardiac surgery Do you want consulting provider notified?: Yes Consult Physician Routine Consulting Provider: Vega More Consult Reason/Comments: Fusion Operator Consult: post cardiac surgery Do you want consulting provider notified?: Yes Consult Physician Routine Consulting Provider: Kelley Healy Consult Reason/Comments: med mgmt; [place] patient Do you want consulting provider notified?: Yes 01/26/20 15:30 Consult Physician Routine Consulting Provider: Marta Brar Consult Reason/Comments: TIA symptoms Do you want consulting provider notified?: Yes 01/27/20 20:03 Consult Physician Routine Consulting Provider: Babatunde Fairbanks Consult Reason/Comments: eval inpatient rehab Do you want consulting provider notified?: Yes Primary care physician: [facility] Course: FINAL DIAGNOSIS: 1. Severe diffuse triple-vessel coronary artery disease 2. Preserved left ventricular function 3. Insulin dependent diabetes mellitus with preoperative hemoglobin A1c 7.3% 4. Hypertension 5. Hyperlipidemia 6. History of Sezwf-Ldixxmlfx-Hshbx status post ablation 7. Right internal carotid stenosis greater than 70% per carotid Dopplers, approximate 60% per CTA 8. Previous brief tobacco use with preoperative FEV1 87% of predicted 9. Family history of premature coronary artery disease 10. Preoperative nasal swab positive for MRSA 11. Postoperative acute blood loss anemia, expected 12. Postoperative acute mental status change, acute ischemic stroke in the left internal limb basal ganglion and right corpus callosum area per MRI PRINCIPAL PROCEDURE: 1. Triple-vessel coronary artery bypass grafting using the left internal mammary artery to the left anterior descending artery, left radial artery from the aorta to the right coronary artery, reverse saphenous vein graft from the aorta to the distal circumflex artery 2. Exclusion of the left atrial appendage using a 35 mm AtriClip 3. Endoscopic harvesting of the left radial artery 4. Endoscopic harvesting of the right greater saphenous vein from the groin to above the ankle level 5. Intraoperative graft flow measurements using the [employer] system 6. Intraoperative transesophageal echocardiogram and epi-aortic scanning HISTORY OF PRESENT ILLNESS: This is a 44-year-old female who follows on an outpatient basis with Dr. Figueroa for primary care and Dr. Beltran for cardiology. She had been complaining of recurrent chest pain mainly triggered by effort as well as some atypical chest pain. She underwent stress testing which was positive for ischemia in the anterior wall. She was recommended to undergo heart catheterization which demonstrated diffuse calcific coronary artery disease. The patient was referred to Dr. Kelly from cardiothoracic surgery. She was recommended to undergo coronary artery bypass grafting. The usual perioperative course was discussed in detail with the patient and her family, all risks and benefits were explained, all questions were answered, and consent was obtained to proceed with surgery. Preoperative testing was completed including CTA of the head and neck due to findings of right internal carotid artery stenosis greater than 70% on carotid Dopplers, the CTA demonstrated proximal ICA stenosis 60%. The patient was scheduled for surgery at the earliest possible date. HOSPITAL COURSE: The patient was brought to the hospital on 01/21/2020, taken to the preoperative area, prepared in the usual fashion, and subsequently taken to the operating room where Dr. Kelly performed three-vessel CABG. Upon completion of surgery the patient was transferred to the cardiovascular intensive care unit where she was recovered, monitored hemodynamically, and where she progressed to cardiac rehabilitation phase 1. She was extubated, all lines, tubes, and drips were discontinued when appropriate. She did develop postoperative acute blood loss anemia which is expected condition post open-heart surgery, she did receive 1 unit packed red blood cells, and continued to receive iron sulfate with vitamin C. She was to be discharged on postoperative day #4, however she did complain of some vague TIA like symptoms which was not witnessed nor reported, and she was kept an extra day for monitoring. She was transferred to the cardiac stepdown unit, her oxygen was titrated down, she continued to work with physical and occupational therapy, she was tolerating oral diet, her pain was controlled, and she about to be discharged to home with [facility] on postop erative day #5 when she was noticed to have no verbal response and she appeared to be confused. Neurology was consulted, she had an MRI demonstrating acute ischemic stroke in the left internal limb basal ganglion and right corpus callosum area. EEG was abnormal with focal slowing in the left temporal, occipital, and left frontal parietal head region without epileptiform discharges or seizures. Repeat CTA of the head and neck was completed demonstrating stable proximal right internal carotid artery stenosis of 60% without large vessel occlusion. The patient continued to have a flat affect, she was non-verbal, she followed some commands intermittently. She did have a swallow study and was able to eat. She has been noted to have right-sided weakness. As there is no neurology coverage at [facility] this weekend the neurologist felt it was best to transfer this patient to a facility with neurology to monitor in case she should develop further neurological complications. She is to be transferred to [facility] under the service of cardiothoracic surgery with neurology to consult. COMPLICATIONS: The patient experienced postoperative acute blood loss anemia and acute mental status change, acute ischemic stroke in the left internal limb basal ganglion and right corpus callosum area per MRI Patient Condition at Discharge: Serious Plan - Discharge Summary Discharge Rx Participant: No New Discharge Prescriptions: New Aspirin 325 mg PO DAILY #30 tab Ferrous Sulfate [Iron (65 MG Elemental)] 325 mg PO BID-W/MEALS #30 tab Furosemide [Lasix] 20 mg PO DAILY #5 tab Atorvastatin [Lipitor] 80 mg PO DAILY #30 tab amLODIPine [Norvasc] 2.5 mg PO DAILY@1200 #30 tab Clopidogrel [Plavix] 75 mg PO DAILY #30 tab Pantoprazole [Protonix] 40 mg PO AC-BRKFST #30 tablet.dr Rios-Docusate Sodium [Senokot-S] 2 each PO HS #14 tab Acetaminophen Tab [Tylenol] 1,000 mg PO Q6HR PRN tab PRN Reason: Fever And/ Or Pain Ascorbic Acid [Vitamin C] 500 mg PO BID-W/MEALS #14 tab levETIRAcetam [Keppra Oral Solution] 500 mg PO Q12HR 30 Days #5 ml Continue Ergocalciferol [Vitamin D2 (DRISDOL)] 50,000 unit PO DIAZ Insulin Glargine,Hum.rec.anlog [Basaglar Kwikpen U-100] 18 unit SQ HS Pioglitazone [Actos] 30 mg PO DAILY metFORMIN HCL [Glucophage] 1,000 mg PO BID Liraglutide [Victoza 2-Phil] 0.6 mg SQ DAILY Metoprolol Tartrate [Lopressor] 25 mg PO BID #60 tab Discontinued Aspirin [Adult Low Dose Aspirin EC] 81 mg PO DAILY Atorvastatin [Lipitor] 80 mg PO HS Losartan [Cozaar] 25 mg PO DAILY Mupirocin 2% Oint [Bactroban 2% Oint] 1 applic NASAL BID Discharge Medication List Ergocalciferol [Vitamin D2 (DRISDOL)] 50,000 unit PO DIAZ 12/03/19 [History] Insulin Glargine,Hum.rec.anlog [Basaglar Kwikpen U-100] 18 unit SQ HS 12/03/19 [History] Pioglitazone [Actos] 30 mg PO DAILY 12/03/19 [History] Liraglutide [Victoza 2-Phil] 0.6 mg SQ DAILY 01/12/20 [History] metFORMIN HCL [Glucophage] 1,000 mg PO BID 01/12/20 [History] Acetaminophen Tab [Tylenol] 1,000 mg PO Q6HR PRN tab 01/26/20 [Rx] Ascorbic Acid [Vitamin C] 500 mg PO BID-W/MEALS #14 tab 01/26/20 [Rx] Aspirin 325 mg PO DAILY #30 tab 01/26/20 [Rx] Atorvastatin [Lipitor] 80 mg PO DAILY #30 tab 01/26/20 [Rx] Clopidogrel [Plavix] 75 mg PO DAILY #30 tab 01/26/20 [Rx] Ferrous Sulfate [Iron (65 MG Elemental)] 325 mg PO BID-W/MEALS #30 tab 01/26/20 [Rx] Furosemide [Lasix] 20 mg PO DAILY #5 tab 01/26/20 [Rx] Metoprolol Tartrate [Lopressor] 25 mg PO BID #60 tab 01/26/20 [Rx] Pantoprazole [Protonix] 40 mg PO AC-BRKFST #30 tablet. 01/26/20 [Rx] Sennosides-Docusate Sodium [Senokot-S] 2 each PO HS #14 tab 01/26/20 [Rx] amLODIPine [Norvasc] 2.5 mg PO DAILY@1200 #30 tab 01/26/20 [Rx] levETIRAcetam [Keppra Oral Solution] 500 mg PO Q12HR 30 Days #5 ml 01/29/20 [Rx] Follow up Appointment(s)/Referral(s): Nehal Mcmillan, NPC [Nurse Practitioner] - 02/02/20 11:30 am Rehab Angelica PH,Cardiac [NON-STAFF] - 4 Weeks (You will receive a phone call 4- 6 weeks after surgery for evaluation for cardiac rehab) Zachariah Beltran MD [STAFF PHYSICIAN] - 02/09/20 1:15 pm Odell Kelly MD [STAFF PHYSICIAN] - 02/19/20 10:15 am (office will call the day before to confirm appointment) Zelda Gary NPC [Nurse Practitioner] - 02/10/20 2:45 pm Cassie Figueroa MD [Primary Care Provider] - 02/12/20 10:00 am (Telehealth appointment) [facility] Nurse, [NON-STAFF] - Ambulatory/Diagnostic Orders: Complete Blood Count w/diff [LAB.AMB] Time Frame: 3 Days, Location: None Selected Comprehensive Metabolic Panel [LAB.AMB] Time Frame: 3 Days, Location: None Selected Patient Instructions/Handouts: Cardiac Rehabilitation (DC) Activity/Diet/Wound Care/Special Instructions: Consults at transferring hospital: Neurology DISCHARGE INSTRUCTIONS: 1. No driving for 4 weeks, or until physician gives their ok. 2. The patient should sleep in their own bed, no medical bed needed. 3. Stairs are not an issue. If the bedroom is upstairs, it is advised that the patient go up at night and down in the morning for the first week. Go slowly, using handrail and take 1 step at a time. 4. JOSEFINA hose are to be worn for 30 days or until physician discontinues. 5. Heart hugger is to be worn 100% of the time until physician discontinues.(except when showering) 6. No lifting, pushing, or pulling more than 10 pounds for 12 weeks. The physician will advise of any restriction changes. 7. The patient is expected to continue the prescribed walking program. 8. Continue pain control per as needed orders. 9. Continue with incentive spirometry and splinting/heart hugger until otherwise directed by the physician. 10. Must shower daily using liquid antibacterial soap and a separate white washcloth for each individual incision. 11. Routine sternal incision care. No powders, lotions, ointments on incisions. No dressings are necessary on incisions unless they are draining. Dermabond tape is to remain on sternal incision until surgeon follow-up. 12. Please call surgeon/SPRAY MAKER for temp greater than 101 F or purulent drainage from incisions. 13. All prescriptions given by surgeon for 30 days. Refills need to be filled through assurance engineer/primary care physician. 14. A Red armband has been placed on the patient. It should be worn for 30 days post surgery and will be removed by the cardiac surgeons. If an ER visit is necessary, please make sure the number on the Red armband is called. 15. You have been referred to and are expected to begin Cardiac Rehab in approximately 4-6 weeks. HOME HEALTH SERVICES TO PROVIDE: RN SKILLED HOME CARE SERVICES FOR POST-OP SURGICAL PATIENTS WITH THE FOLLOWING: Coronary Artery Bypass Surgery (CABG), Mitral Valve Replacement/Repair ( MVR), Aortic Valve Replacement/Repair (AVR) RN TO CONTINUE EDUCATION FROM ``ROAD TO A HEALTH HEART PATIENT EDUCATION MANUAL (GIVEN TO PATIENT IN THE HOSPITAL) MEDICATION RECONCILIATION WITH EDUCATION NEEDED ON FIRST HOME VISIT EMPHASIZE IMPORTANCE OF WEARING BREAST SUPPORT/HEART HUGGER ENCOURAGE USE OF INCENTIVE SPIROMETER 10 X EVERY HOUR WHILE AWAKE ENCOURAGE UTILIZATION OF LOWER EXTREMITY COMPRESSION STOCKINGS/JOSEFINA HOSE and ELEVATE LEGS ABOVE LEVEL OF HEART WHILE AT REST. ENCOURAGE AMBULATION 3-5x/day INCREASING TOLERATES, WHILE AVOIDING EXTREMES IN TEMPERATURE FREQUENCY: RN TO OPEN THE PATIENT WITHIN 24 HOURS OF DISCHARGE FROM THE HOSPITAL WITH [place]HE[place] [facility] [place] TO VISIT 2-3 X A WEEK FOR 4 WEEKS ESTABLISHED BY PATIENT NEEDS. LABORATORY: CBC, CMP TO BE DRAWN ON THE THIRD DAY HOME, (RAN STAT) FAX RESULTS TO [phone]. TELEHEALTH PARAMETERS: WEIGHT: NOTIFY MD OF WEIGHT GAIN OF 2 LBS IN 24 HOURS OR 5 LBS IN ONE WEEK HR: NOTIFY MD OF HR <55 BPM OR HR>100 BPM BP: NOTIFY MD IF BP <90/55 OR BP>140/100 O2 SAT: NOTIFY MD IF PO2<93% ON ROOM AIR SEND TELEHEALTH REPORT TO [employer] PRODUCTION SUPERVISOR AND CARDIOVASCULAR SURGEON THE FIRST WEEK OF CARE AND THEN BI-WEEKLY. PLEASE ADDITIONALLY COMMUNICATE ANY ABNORMALS AND NEW FINDINGS TO THE SURGEONS OFFICE. For any questions or concerns please call biogeographer Nehal @ or Ulysses @ Discharge Disposition: OTHER INSTITUTION NOT DEFINED
[2020-01-29 16:30] VITALS: BP 121/66; PULSE 98; RESP 20; TEMP 98
[2020-01-29 16:51] LABS: Glucose,Whole Blood 194 mg/dL (75-99)
--- NOTE | 2020-01-29 20:37 | P.PN ---
Subjective This is a pleasant 44 years old female with multiple medical problems she was admitted under vascular surgery service for triple coronary artery disease, status post bypass surgery, Currently patient remains in the ICU for another 24 hours, she is doing well with no chest pain or dyspnea. There was some concerns regarding his speech this morning but there was no clear-cut for acute CVA when I saw the patient she was talking freely with no difficulty. No swallowing problem. No headache. No nausea vomiting. She is hemodynamically stable and labs showing a drop in hemoglobin down to 6.4 which is expected from surgery. His sugars controlled while she's taken Levemir 18 units at bedtime and 6 units with meals. Also she is on Lasix 20 mg daily. She remains on aspirin 325 mg, Plavix and heparin for DVT prophylaxis She is followed by several consultants including pulmonary and cardiology 01/26/2020 Patient seen and examined in the ICU, she was doing well fully awake and oriented and answering questions appropriately however after I rounded on the patient and therefore she's been discharged today status post noted altered mental status, neurologist evaluated the patient and recommended EEG and keep monitoring for now and workup with hypercoagulability workup, thyroid studies, B12 and folate levels. Incision is suspected as well and EEG is ordered. When I saw the patient she denied chest pain or dyspnea, no dizziness. She was hemodynamically stable. Hemoglobin 6.2, no need for transfusion per vascular surgery as the primary team. Patient is on iron pills, her sugar is well-controlled Patient remains on aspirin and Plavix on subcutaneous heparin 01/27/2020 Patient remains in the ICU, she looks confused although she is awake and alert and follow commands and answers most questions appropriately however she knows she is in hospital but she thought she is at [facility], she thought it is 2005 and she did not know the president or why she was in the hospital. However patient has no physical complaints like no chest pain or dyspnea. No coughing. No abdominal pain. Vitals stable. CBC and BMP are unremarkable. CT of the brain: No acute process. TSH is normal Patient already evaluated by neurologist and EEG is pending. Hypercoagulable workup, lupus anticoagulant 01/28/2020 Patient is in general medical floor, she still confused, she does not follow commands although she opens her eyes spontaneously. She's not answer questions most of the time. Vital signs stable, labs are stable including CBC and BMP. Hemoglobin is improved to 7.3. EEG was showing slowing on the frontal parietal region of the brain. Structural abnormality is suspected. No epileptic activity MRI of the brain is recommended by neurologist. Patient remains on aspirin and Plavix and insulin. Swallow evaluation is on at bedside 01/29/2020 Patient lying in bed, not in distress, she is calm, she has quit attention span however she does not answer questions and she does not follow commands. MRI yesterday showed 2 strokes, neurology on the case recommended to repeat EEG 24 hours while Keppra was started and patient may be need to be transferred to tertiary care center as there is no neural coverage over the weekend. management of her AMS is by primary team and neurology teams Carotid duplex showing right and left internal carotid stenosis about 60% each. Hemoglobin 6.5, blood transfusion is deferred to the per primary team. Patient is already on ferrous sulfate. Sugar control. Objective - Vital Signs Vital signs: Vital Signs Temp 98.5 F 01/29/20 04:00 Pulse 96 01/29/20 07:31 Resp 18 01/29/20 04:00 BP 120/56 01/29/20 04:00 Pulse Ox 89 L 01/29/20 04:00 Intake & Output 01/28/20 01/29/20 01/29/20 18:59 06:59 18:59 Intake Total 650 Output Total 0 0 0 Balance 650 0 0 Weight 88.8 kg Intake: Intake, IV Titration 540 Amount Sodium Chloride 0.9% 1, 540 000 ml @ 90 mls/hr IV . Q11H7M JA Rx#:[id number] Oral 110 Output: Urine 0 0 0 Other 0 Other: Voiding Method Diaper Diaper # Voids 1 1 ABP, PAP, CO, CI - Last Documented Arterial Blood Pressure 113/52 Pulmonary Artery Pressure 13/4 Cardiac Output 5 Cardiac Index 2.6 - Exam GENERAL: The patient is alert and oriented x3, not in any acute distress. Well developed, well nourished. HEENT: Pupils are round and equally reacting to light. EOMI. No scleral icterus. No conjunctival pallor. Normocephalic, atraumatic. No pharyngeal erythema. No thyromegaly. CARDIOVASCULAR: S1 and S2 present. No murmurs, rubs, or gallops. PULMONARY: Chest is clear to auscultation, no wheezing or crackles. ABDOMEN: Soft, nontender, nondistended, normoactive bowel sounds. No palpable organomegaly. MUSCULOSKELETAL: No joint swelling or deformity. EXTREMITIES: No cyanosis, clubbing, or pedal edema. NEUROLOGICAL: Gross neurological examination did not reveal any focal deficits. SKIN: No rashes. no petechiae. - Labs CBC & Chem 7: 01/29/20 06:51 01/29/20 06:51 Labs: Abnormal Lab Results - Last 24 Hours (Table) 01/27/20 01/28/20 01/28/20 Range/Units 04:25 10:59 11:55 WBC (3.8-10.6) k/uL RBC (3.80-5.40) m/uL Hgb (11.4-16.0) gm/dL Hct (34.0-46.0) % RDW (11.5-15.5) % Lupus Anticoag aPTT 61 H (<43) Sec(s) Sodium (137-145) mmol/L Creatinine (0.52-1.04) mg/dL Glucose (74-99) mg/dL POC Glucose (mg/dL) 217 H 218 H (75-99) mg/dL 01/28/20 01/28/20 01/28/20 Range/Units 14:32 16:54 20:13 WBC (3.8-10.6) k/uL RBC (3.80-5.40) m/uL Hgb (11.4-16.0) gm/dL Hct (34.0-46.0) % RDW (11.5-15.5) % Lupus Anticoag aPTT (<43) Sec(s) Sodium (137-145) mmol/L Creatinine (0.52-1.04) mg/dL Glucose (74-99) mg/dL POC Glucose (mg/dL) 193 H 182 H 151 H (75-99) mg/dL 01/29/20 01/29/20 01/29/20 Range/Units 02:10 06:51 06:51 WBC 10.7 H (3.8-10.6) k/uL RBC 2.40 L (3.80-5.40) m/uL Hgb 6.5 L* (11.4-16.0) gm/dL Hct 20.9 L (34.0-46.0) % RDW 17.0 H (11.5-15.5) % Lupus Anticoag aPTT (<43) Sec(s) Sodium 136 L (137-145) mmol/L Creatinine 0.48 L (0.52-1.04) mg/dL Glucose 184 H (74-99) mg/dL POC Glucose (mg/dL) 237 H (75-99) mg/dL 01/29/20 Range/Units 07:37 WBC (3.8-10.6) k/uL RBC (3.80-5.40) m/uL Hgb (11.4-16.0) gm/dL Hct (34.0-46.0) % RDW (11.5-15.5) % Lupus Anticoag aPTT (<43) Sec(s) Sodium (137-145) mmol/L Creatinine (0.52-1.04) mg/dL Glucose (74-99) mg/dL POC Glucose (mg/dL) 207 H (75-99) mg/dL Assessment and Plan Assessment: -Triple-vessel Coronary artery disease, status post bypass surgery, patient is doing well and she is followed by our consultants including pulmonary and cardiology. She is on aspirin and Plavix -Altered mental status, neurology on the case. MRI is showing 2 strokes. Follow-up recommendation by neurology and primary teams , pt is been considered for transfer to tertiary care center per neurology service and primary team -Right coronary artery stenosis 70%, no signs of stroke. 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
--- NOTE | 2020-01-30 11:50 | EEG ---
ELECTROENCEPHALOGRAM REPORT DATE OF STUDY: January 29, 2020. DATE OF INTERPRETATION: January 30, 2020 This is a followup EEG performed on a 44-year-old female, status post 3 vessel coronary artery bypass graft, who developed postop complications involving 2 strokes, 1 in the right corpus callosum. The 2nd stroke is involving the left internal capsule and basal ganglia region. 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 The patient was noted clinically 2 days ago to be having suspicious activity with picking at her clothes stereotypical pattern. The initial EEG showed some temporal slowing on the left. The patient has been started on Keppra 500 mg oral twice daily. This is a followup EEG to see if there is any interval improvement. TECHNICAL REPORT: This is an inpatient EEG performed on the [employer] EEG monitor with electrodes placed according to the International 10-20 system and a single EKG channel. Simultaneous video EEG monitoring was performed. This EEG was reviewed in both longitudinal bipolar, average referential and transverse montages. The patient begins the study with repetitively shaking her left leg. This is associated with excessive motion and movement artifact. The patient clinically appears awake and electrographically she is sustaining a well modulated 8-9 hertz posterior dominant rhythm consistent with wakefulness. The EKG shows tachycardia throughout the study. Rare episodes of left frontal slowing are observed. Photic stimulation was performed at various flash frequencies and failed to elicit consistent driving response. One rare surface positive sharp waves noted over the right central parietal head region without any clinical correlate. Following photic stimulation, the patient transitions into stage 1 sleep (drowsiness). This is associated with further attenuation of the background rhythm, the appearance of slow rolling eye movements and increase in beta activity anteriorly and centrally. The patient transitions into stage 2 sleep (non rapid eye movement sleep). This is associated with further attenuation of the background with appearance of mixed theta frequencies and rare synchronous sleep spindles. Rare vertex waves are noted. Deeper stages of sleep were not achieved. IMPRESSION: This EEG is considered abnormal due to the rare epileptiform discharges noted over the right central parietal head region and a brief episode of left frontal slowing. This was not associated with any clinical correlation, electrographic seizures. No abnormalities were noted during photic stimulation. The EKG was abnormal due to tachycardia. CLINICAL CORRELATION: This EEG does show the patient can sustain a normal wake and sleep background. There were only 2 rare episodes of abnormalities. One brief period of left frontal slowing and 1 rare episode surface positive sharp waves over the right central parietal head region which can be seen off associated with ischemic injury. This EEG could suggest the patient has an increased seizure tendency thus further clinical correlation is needed. Serial EEGs are recommended as well as a more prolonged overnight study could provide additional information. The attending physician, Dr. eKlly was texted with these results. MMODL / IJN: [id number] /
--- NOTE | 2020-02-01 14:34 | CDI ---
Documentation Clarification Form Date: 02/01/2020 02:24:39 PM From: Carmella Vazquez Phone: If you have a question about this query, please contact Josephine Jarvis, Technical Maintenance Specialist at [phone] between 8am and 5pm. Admit Date: 01/21/2020 05:52:00 AM Patient Name: Josephine Villa Visit Number: [id number] Discharge Date: 01/29/2020 07:45:00 PM ATTENTION: The Clinical Documentation Specialists (CDI) and [facility] Coding Staff appreciate your assistance in clarifying documentation. Please respond to the clarification below the line at the bottom and electronically sign. The CDI & [facility] Coding staff will review the response and follow-up if needed. Please note: Queries are made part of the Legal Health Record. If you have any questions, please contact the author of this message via ITS. Dr. Odell Kelly Conflicting documentation has been found in the medical record: PN 01/23 documents DM Type II. PN's 01/26, 01/27, 01/28 document DM Type I. Other documentation of Insulin dependent DM. Please clarify History/Risk Factors: Patient is insulin dependent Clinical Indicators: A1C is 7.3 Treatment: Insuling In your opinion, what is the most clinically appropriate diagnosis for this patient? Diabetes Type I Diabetes Type II Other explanation of clinical findings Unable to determine (no explanation for clinical findings type I MTDD
== END 2020-01-29 19:45 | disposition short-term general hospital (02) | DRG 235 ==
LOC: 2ORMAIN 05:52 → 2SICU 17:50 → 3SCARD 01-27 15:11
PROVIDERS: ADMIT Surgery; ATTEND Surgery
PROC: 02100Z9 Bypass Coronary Artery, One Artery from Left Internal Mammary, Open Approach (ICD-10-PCS; principal; 2020-01-24)
PROC: 02110AW Bypass Coronary Artery, Two Arteries from Aorta with Autologous Arterial Tissue, Open Approach (ICD-10-PCS; principal; 2020-01-24)
PROC: B246ZZ4 Ultrasonography of Right and Left Heart, Transesophageal (ICD-10-PCS; principal; 2020-01-24)
PROC: 03BC4ZZ Excision of Left Radial Artery, Percutaneous Endoscopic Approach (ICD-10-PCS; principal; 2020-01-24)
PROC: 06BP4ZZ Excision of Right Saphenous Vein, Percutaneous Endoscopic Approach (ICD-10-PCS; principal; 2020-01-24)
PROC: 02L70CK Occlusion of Left Atrial Appendage with Extraluminal Device, Open Approach (ICD-10-PCS; principal; 2020-01-24)
DX: I25.10 Atherosclerotic heart disease of native coronary artery without angina pectoris (principal); G83.5 Locked-in state; I63.40 Cerebral infarction due to embolism of unspecified cerebral artery; D62 Acute posthemorrhagic anemia; D68.62 Lupus anticoagulant syndrome; G40.209 Localization-related (focal) (partial) symptomatic epilepsy and epileptic syndromes with complex partial seizures, not intractable, without status epilepticus; I47.2 Ventricular tachycardia; R47.01 Aphasia; E10.65 Type 1 diabetes mellitus with hyperglycemia; E66.9 Obesity, unspecified; E78.00 Pure hypercholesterolemia, unspecified; E78.5 Hyperlipidemia, unspecified; E88.81 Metabolic syndrome and other insulin resistance; I10 Essential (primary) hypertension; I45.6 Pre-excitation syndrome; I65.21 Occlusion and stenosis of right carotid artery; I70.8 Atherosclerosis of other arteries; Z68.32 Body mass index [BMI] 32.0-32.9, adult; Z79.02 Long term (current) use of antithrombotics/antiplatelets; Z79.4 Long term (current) use of insulin; Z79.82 Long term (current) use of aspirin; Z79.899 Other long term (current) drug therapy; Z82.49 Family history of ischemic heart disease and other diseases of the circulatory system; Z83.3 Family history of diabetes mellitus; Z87.891 Personal history of nicotine dependence; Q86.0 Fetal alcohol syndrome (dysmorphic); Z86.14 Personal history of Methicillin resistant Staphylococcus aureus infection
CPT/HCPCS: 70450; 70496; 70498; 70551; 71045; 71046; 80048; 80053; 81003; 81241; 82330; 82533; 82805; 83090; 83735; 84146; 84439; 84443; 84480; 85025; 85027; 85300; 85301; 85520; 85610; 85613; 85652; 85730; 85732; 86140; 86850; 86891; 86900; 86901; 86920; 93923; 93930; 94002; 94640; 95816

== ENCOUNTER → 2020-07-18 | Outpatient (CLI) | payer OTHER ==
--- NOTE | 2020-07-18 09:01 | MM ---
Reason for exam: clinical finding. Physical Findings: Nurse Summary: 2cm nodule in the right breast at 2 o'clock and a 1cm nodule in the left breast at 2 o'clock (nurse mj). MG 3D Diag Mammo W/Cad ADOLFO Bilateral CC and MLO view(s) were taken. The breast tissue is heterogeneously dense. This may lower the sensitivity of mammography. No suspicious calcifications are seen. There is no discrete abnormality including area of concern. These results were verbally communicated with the patient and result sheet given to the patient on 07/18/20. ASSESSMENT: Incomplete: need additional imaging evaluation, BI-RAD 0 RECOMMENDATION: Ultrasound of both breasts.
--- NOTE | 2020-07-18 09:03 | USB ---
Reason for exam: additional evaluation requested from abnormal screening. US Breast Limited BILAT Right limited breast ultrasound including focal area of concern, retroareolar and axilla demonstrates no cystic or solid lesion seen. Left limited breast ultrasound including focal area of concern, retroareolar and axilla demonstrates no cystic or solid lesion seen. Dense shadowing tissue note at bilateral BB's. Multiple other areas seen of dense shadowing tissue. These results were verbally communicated with the patient and result sheet given to the patient on 07/18/20. ASSESSMENT: Probably benign, BI-RAD 3 RECOMMENDATION: Follow-up diagnostic mammogram and ultrasound of both breasts in 6 months. Manage patient on a clinical basis.
== END | disposition home or self-care (01) ==
LOC: RADMAMWWP 07:01
PROVIDERS: ATTEND Family Medicine
DX: N63.10 Unspecified lump in the right breast, unspecified quadrant (principal); N63.20 Unspecified lump in the left breast, unspecified quadrant; R92.2 Inconclusive mammogram
CPT/HCPCS: 77066; 76642; G0279; 77062

== ENCOUNTER → 2021-03-17 | Outpatient (CLI) | payer OTHER ==
--- NOTE | 2021-03-17 14:46 | MM ---
Reason for exam: follow-up at short interval from prior study. Last mammogram was performed 8 months ago. Physical Findings: Nurse did not find any significant physical abnormalities on exam. MG Diagnostic Mammo w CAD ADOLFO Bilateral CC and MLO view(s) were taken. Prior study comparison: July 18, 2020, bilateral MG 3d diag mammo w/cad ADOLFO. The breast tissue is extremely dense which could obscure a lesion on mammography. Focal asymmetry left medial CC, this disperses on compression. This finding is changed when compared with previous exams. These results were verbally communicated with the patient and result sheet given to the patient on 03/17/21. ASSESSMENT: Probably benign, BI-RAD 3 RECOMMENDATION: Follow-up diagnostic mammogram of the left breast in 6 months.
--- NOTE | 2021-03-17 14:47 | USB ---
Reason for exam: follow-up at short interval from prior study. US Breast Limited BILAT Technologist: Deneen Lu Right limited breast ultrasound including focal area of concern, retroareolar and axilla demonstrates no cystic or solid lesion seen. Left limited breast ultrasound including focal area of concern, retroareolar and axilla demonstrates no cystic or solid lesion seen. Extremely dense diffuse tissue that causes shadowing. These results were verbally communicated with the patient and result sheet given to the patient on 03/17/21. ASSESSMENT: Negative, BI-RAD 1 RECOMMENDATION: Follow-up diagnostic mammogram of the left breast in 6 months.
== END | disposition home or self-care (01) ==
LOC: RADMAMWWP 12:50
PROVIDERS: ATTEND Family Medicine
DX: R92.2 Inconclusive mammogram (principal)
CPT/HCPCS: 77066

== ENCOUNTER → 2021-10-27 | Outpatient (CLI) | payer OTHER ==
--- NOTE | 2021-10-27 14:20 | MM ---
Reason for exam: follow-up at short interval from prior study. Last mammogram was performed 7 months ago. Physical Findings: A clinical breast exam by your physician is recommended on an annual basis and results should be correlated with mammographic findings. MG Diagnostic Mammo LT w CAD CC, MLO, and XCCL view(s) were taken of the left breast. Prior study comparison: March 17, 2021, bilateral MG diagnostic mammo w CAD ADOLFO. July 18, 2020, bilateral MG 3d diag mammo w/cad ADOLFO. The breast tissue is heterogeneously dense. This may lower the sensitivity of mammography. There are benign appearing round, vascular calcifications in the left breast. There is no discrete abnormality. ASSESSMENT: Benign, BI-RAD 2 RECOMMENDATION: Routine screening mammogram of both breasts in 6 months. Back on schedule.
== END | disposition home or self-care (01) ==
LOC: RADMAMWWP 10:49
PROVIDERS: ATTEND Family Medicine
DX: R92.8 Other abnormal and inconclusive findings on diagnostic imaging of breast (principal)
CPT/HCPCS: 77065

== ENCOUNTER → 2023-02-27 | Outpatient (CLI) | payer MEDICARE, OTHER ==
--- NOTE | 2023-02-28 20:24 | MM ---
Reason for Exam: Screening (asymptomatic). Last mammogram was performed 1 year(s) and 11 month(s) ago. Patient History: Menarche at age 12. Patient has no children. Postmenopausal. Risk Values: Malini 5 year model risk: 1.0%. NCI Lifetime model risk: 10.3%. Prior Study Comparison: 07/18/2020 Bilateral Diagnostic Mammogram, [facility]. 03/17/2021 Bilateral Diagnostic Mammogram, [facility]. 10/27/2021 Left Diagnostic Mammogram, [facility]. Tissue Density: The breast tissue is heterogeneously dense. This may lower the sensitivity of mammography. Findings: Analyzed By CAD. Areas of asymmetric density remain unchanged. Benign vascular calcifications also present on both sides. There is no suspicious group of microcalcifications or new suspicious mass in either breast. Overall Assessment: Benign, BI-RAD 2 Management: Screening Mammogram of both breasts in 1 year. . Patient should continue monthly self-breast exams. A clinical breast exam by your physician is recommended on an annual basis. This exam should not preclude additional follow-up of suspicious palpable abnormalities. Note on Malini scores and lifetime risk: 1. A Malini score greater than 3% is considered moderate risk. If this is the case, consider specialist referral to assess eligibility for a risk reducing agent. 2. If overall lifetime risk for the development of breast cancer is 20% or higher, the patient may qualify for future screening with alternating mammogram and breast MRI. Electronically signed and approved by: Isabelle Vee M.D. Radiologist
== END | disposition home or self-care (01) ==
LOC: RADMAMWWP 07:53 → EEVIPCON 08:00
PROVIDERS: ATTEND Family Medicine
DX: Z12.31 Encounter for screening mammogram for malignant neoplasm of breast (principal); Z78.0 Asymptomatic menopausal state
CPT/HCPCS: 77063; 77067

== ENCOUNTER → 2025-02-03 | Outpatient (CLI) | payer MEDICARE ==
[2025-02-03 13:12] LABS: African American GFR (CKD) >90 (>60 ml/min/1.73 sqM); Blood Urea Nitrogen 12 mg/dL (7-17); Non-African American GFR(CKD) >90 (>60 ml/min/1.73 sqM)
--- NOTE | 2025-02-03 14:34 | CT ---
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 3D re constructed images are created on an independent workstation and reviewed. CT DLP: [address] CTDI: mGy Automated exposure control for dose reduction was used. NASCET criteria was used in interpretation of this exam? FINDINGS: The brachiocephalic origins are widely patent and no significant stenosis. Secondary to a irregular and eccentric calcified plaque, there is a progressive and severe greater th an 70% stenosis of the origin of the right internal carotid artery. Calcified plaque results in a sta ble mild stenosis of the left carotid bifurcation. Left vertebral artery is dominant and the right ve rtebral artery is diminutive. There is calcified plaque at the origin of left vertebral artery and a significant stenosis cannot be excluded. IMPRESSION:. 1. Progressive and severe 70% stenosis of the origin of the right internal carotid artery. 2. questionable significant stenosis of the origin left vertebral artery. Left vertebral artery is do minant. 3. Stable mild stenosis of the left carotid bifurcation. NASCET criteria was used in interpretation of this exam? [facility], , 02/03/2025 2:32 PM
== END | disposition home or self-care (01) ==
LOC: RADCTMAIN 12:26
PROVIDERS: ATTEND Internal Medicine Interventional Cardiology
DX: I65.23 Occlusion and stenosis of bilateral carotid arteries (principal); I65.8 Occlusion and stenosis of other precerebral arteries; Z86.73 Personal history of transient ischemic attack (TIA), and cerebral infarction without residual deficits
CPT/HCPCS: 82565; 84520; 70498; 36415; Q9967